=== PATIENT | female | born 1965 | race Caucasian/White ===

== ENCOUNTER 2016-07-27 12:49 | Outpatient (RCR) | payer BC ==
[~2016-07-27 12:49] MED LIST: ALPR0.5T7 PO; ASCO500T5 PO; ASPI-983 PO; ATOR40TA PO; ATOR40TA70 PO; CLOP75TA28 PO; FAMO-119 PO; FLUO20CA25 PO; FLUT9.9S NSEACH; FURO20TA4 PO; LISI-556 PO; METO-270 PO; MULT-35 PO; NITR0.4T SL; POTA10CA43 PO; RANI150T15 PO; TICA90TA PO
[2016-07-27 13:07] LABS: BASOPHILS % (AUTO) 0 % (0-10); EOSINOPHILS # (AUTO) 0.4 10^3/uL (0.0-0.3); EOSINOPHILS % (AUTO) 5 % (0-10); LYMPHOCYTES % (AUTO) 26 % (12-44); MEAN CORPUSCULAR HEMOGLOBIN 33 PG (25-34); MEAN CORPUSCULAR HGB CONC 34 G/DL (32-36); MEAN CORPUSCULAR VOLUME 98 FL (80-99); MEAN PLATELET VOLUME 8.3 FL (7.4-10.4); MONOCYTES # (AUTO) 0.8 X 10^3 (0.0-1.0); MONOCYTES % (AUTO) 11 % (0-12); NEUTROPHILS # (AUTO) 4.4 X 10^3 (1.8-7.8); NEUTROPHILS % (AUTO) 58 % (42-75); PLATELET COUNT 270 10^3/uL (130-400); RED BLOOD COUNT 3.34 10^6/uL (4.35-5.85); RED CELL DISTRIBUTION WIDTH 13.5 % (10.0-14.5); RETICULOCYTE % 3.37 % (0.50-2.40); WHITE BLOOD COUNT 7.7 10^3/uL (4.3-11.0)
[2016-07-27 13:39] LABS: ALANINE AMINOTRANSFERASE 22 U/L (0-55); ALBUMIN 4.5 G/DL (3.2-4.5); ANION GAP 10 MMOL/L (5-14); ASPARTATE AMINO TRANSFERASE 33 U/L (5-34); BILIRUBIN,TOTAL 0.2 MG/DL (0.1-1.0); BLOOD UREA NITROGEN 5 MG/DL (7-18); BUN/CREATININE RATIO 7; CALCIUM 9.9 MG/DL (8.5-10.1); CARBON DIOXIDE 27 MMOL/L (21-32); CHLORIDE 98 MMOL/L (98-107); CREATININE SERUM 0.69 MG/DL (0.60-1.30); GFR ESTIMATED > 60; GLUCOSE 82 MG/DL (70-105); POTASSIUM 4.5 MMOL/L (3.6-5.0); SODIUM 135 MMOL/L (135-145); TOTAL PROTEIN 7.4 G/DL (6.4-8.2)
== END 2016-10-25 | disposition home or self-care (01) ==
LOC: ONC 12:49
PROVIDERS: ATTEND Internal Medicine Hematology & Oncology
DX: D50.0 Iron deficiency anemia secondary to blood loss (chronic) (principal); K27.9 Peptic ulcer, site unspecified, unspecified as acute or chronic, without hemorrhage or perforation; I25.10 Atherosclerotic heart disease of native coronary artery without angina pectoris; Z95.5 Presence of coronary angioplasty implant and graft; Z79.02 Long term (current) use of antithrombotics/antiplatelets; Z79.82 Long term (current) use of aspirin
CPT/HCPCS: 36415; 80053; 82728; 85025; 85045; 99213

== ENCOUNTER 2016-11-25 12:23 | Outpatient (RCR) | payer BC ==
--- OUTSIDE RECORDS SUMMARY | 2016-11-25 12:25 | XMS REPORT | Continuity of Care Document ---
Author Author [facility] Organization [facility] Address Unknown Phone Unavailable Allergies Active Description Code Type Severity Reaction Onset Reported/Identified Relationship to Patient Clinical Status Yes codeine [id number] Drug Allergy Mild N/A 09/02/2015 Medications Problems Date Dx Coded Attending Type Code Diagnosis Diagnosed By 09/04/2015 TOBY POWER, TERRI R Ot F10.239 09/04/2015 TOBY POWER, TERRI R Ot F17.210 09/04/2015 TOBY POWER, TERRI R Ot I25.110 09/04/2015 TOBY POWER, TERRI R Ot J44.9 09/04/2015 TOBY POWER, TERRI R Ot Z82.49 09/09/2015 TOBY POWER, TERRI R Ot D64.9 09/09/2015 TOBY POWER, TERRI R Ot F10.99 09/09/2015 TOBY POWER, TERRI R Ot F17.200 09/09/2015 TOBY POWER, TERRI R Ot I25.110 09/09/2015 TOBY POWER, TERRI R Ot Z79.899 09/09/2015 TOBY POWER, TERRI R Ot Z98.61 11/19/2015 TOBY POWER, TERRI R Ot D50.9 11/19/2015 TOBY POWER, TERRI R Ot F17.210 11/19/2015 TOBY POWER, TERRI R Ot F32.9 11/19/2015 TOBY POWER, TERRI R Ot I25.10 11/19/2015 TOBY POWER, TERRI R Ot K92.2 11/19/2015 TOBY POWER, TERRI R Ot Z82.49 11/19/2015 TOBY POWER, TERRI R Ot Z95.5 01/21/2016 DARREL MORAN Ot D50.0 01/21/2016 DARREL MORAN Ot I25.10 01/21/2016 DARREL MORAN Ot K27.9 01/21/2016 LUISADARREL TIWARI N Ot Z79.02 01/21/2016 LUISADARREL TIWARI N Ot Z79.82 01/21/2016 LUISADARREL TIWARI N Ot Z95.5 04/05/2016 DARREL MORAN N Ot D50.0 IRON DEFICIENCY ANEMIA SECONDARY TO BLOO 04/05/2016 LUISA BOBAN N Ot I25.10 ATHSCL HEART DISEASE OF [place] CORONARY 04/05/2016 LUISADARREL TIWARI N Ot K27.9 [facility], [facility], [facility] [[email or web address]] AC OR [facility] 04/05/2016 LUISADARREL TIWARI N Ot Z79.02 [place] (CURRENT) USE OF ANTITHROMBOTI 04/05/2016 LUISA DARREL N Ot Z79.82 [place] (CURRENT) USE OF ASPIRIN 04/05/2016 LUISAPERFECTOZOE N Ot Z95.5 PRESENCE OF CORONARY ANGIOPLASTY IMPLANT 07/08/2016 LUISA, PERFECTOZOE N Ot D50.0 IRON DEFICIENCY ANEMIA SECONDARY TO BLOO 07/08/2016 LUISADARREL N Ot I25.10 ATHSCL HEART DISEASE OF [place] CORONARY 07/08/2016 LUISADARREL TIWARI N Ot K27.9 [facility], [facility] [[email or web address]] AC OR [facility] 07/08/2016 LUISADARREL TIWARI N Ot Z79.02 [place] (CURRENT) USE OF ANTITHROMBOTI 07/08/2016 LUISADARREL TIWARI N Ot Z79.82 USP (CURRENT) USE OF ASPIRIN 07/08/2016 LUISA DARREL N Ot Z95.5 PRESENCE OF CORONARY ANGIOPLASTY IMPLANT 07/28/2016 LUISADARREL TIWARI N Ot D50.0 IRON DEFICIENCY ANEMIA SECONDARY TO BLOO 07/28/2016 LUISAPERFECTOAN N Ot I25.10 ATHSCL HEART DISEASE OF [place] CORONARY 07/28/2016 LUISADARREL N Ot K27.9 [facility], [facility] [[email or web address]] AC OR [facility] 07/28/2016 LUISA PERFECTOAN N Ot Z79.02 [place] (CURRENT) USE OF ANTITHROMBOTI 07/28/2016 LUISA BOBAN N Ot Z79.82 [place] (CURRENT) USE OF ASPIRIN 07/28/2016 LUISAPERFECTOAN N Ot Z95.5 PRESENCE OF CORONARY ANGIOPLASTY IMPLANT 08/19/2016 DARREL MORAN Ot D50.0 IRON DEFICIENCY ANEMIA SECONDARY TO BLOO 08/19/2016 DARREL MORAN Ot I25.10 ATHSCL HEART DISEASE OF [place] CORONARY 08/19/2016 DARREL MORAN Ot K27.9 [facility], [facility], UNS AC OR [facility] 08/19/2016 DARREL MORAN Ot Z79.02 [place] (CURRENT) USE OF ANTITHROMBOTI 08/19/2016 DARREL MORAN N Ot Z79.82 USP (CURRENT) USE OF ASPIRIN 08/19/2016 DARREL MORAN N Ot Z95.5 PRESENCE OF CORONARY ANGIOPLASTY IMPLANT 10/25/2016 DARREL MORAN Ot D50.0 IRON DEFICIENCY ANEMIA SECONDARY TO BLOO 10/25/2016 DARREL MORAN Ot I25.10 ATHSCL HEART DISEASE OF [place] CORONARY 10/25/2016 DARREL MORAN Ot K27.9 [facility], [facility] UNS, [facility] OR [facility] 10/25/2016 DARREL MORAN Ot Z79.02 USP (CURRENT) USE OF ANTITHROMBOTI 10/25/2016 DARREL MORAN N Ot Z79.82 [place] (CURRENT) USE OF ASPIRIN 10/25/2016 DARREL MORAN N Ot Z95.5 PRESENCE OF CORONARY ANGIOPLASTY IMPLANT Procedures Results Encounters ACCT No. Visit Date/Time Discharge Status Pt. Type Provider Facility Loc./Unit Complaint [id number] 07/27/2016 12:49:00 2016 00:01:00 DIS Outpatient DARREL MORAN Jos [facility] ONC [id number] 02/12/2016 14:21:00 2015 00:01:00 DIS Outpatient LUISA DARREL Arguello [facility] ONC [id number] 11/17/2015 12:22:00 2015 13:00:00 DIS Inpatient TERRI LUIS MD [facility] 4TH [id number] 09/07/2015 22:20:00 2014 10:19:00 DIS Outpatient TERRI LUIS MD [facility] [id number] 09/02/2015 07:52:00 2014 10:50:00 DIS Inpatient TOBY POWER, TERRI Bobby [facility] [id number] 10/26/2016 00:11:00 PEN Preadmit DARREL MORAN [facility] ONC
[2016-11-25 13:11] LABS: BASOPHILS % (AUTO) 0 % (0-10); EOSINOPHILS # (AUTO) 0.3 10^3/uL (0.0-0.3); EOSINOPHILS % (AUTO) 3 % (0-10); LYMPHOCYTES # (AUTO) 2.1 X 10^3 (1.0-4.0); LYMPHOCYTES % (AUTO) 22 % (12-44); MEAN CORPUSCULAR HEMOGLOBIN 33 PG (25-34); MEAN CORPUSCULAR HGB CONC 35 G/DL (32-36); MEAN CORPUSCULAR VOLUME 95 FL (80-99); MEAN PLATELET VOLUME 8.8 FL (7.4-10.4); MONOCYTES # (AUTO) 0.8 X 10^3 (0.0-1.0); MONOCYTES % (AUTO) 8 % (0-12); NEUTROPHILS # (AUTO) 6.3 X 10^3 (1.8-7.8); NEUTROPHILS % (AUTO) 66 % (42-75); PLATELET COUNT 254 10^3/uL (130-400); RED BLOOD COUNT 3.81 10^6/uL (4.35-5.85); RED CELL DISTRIBUTION WIDTH 13.1 % (10.0-14.5); RETICULOCYTE % 1.83 % (0.50-2.40); WHITE BLOOD COUNT 9.5 10^3/uL (4.3-11.0)
[2016-11-25 13:47] LABS: ALANINE AMINOTRANSFERASE 24 U/L (0-55); ALBUMIN 4.6 G/DL (3.2-4.5); ANION GAP 11 MMOL/L (5-14); ASPARTATE AMINO TRANSFERASE 42 U/L (5-34); BILIRUBIN,TOTAL 0.4 MG/DL (0.1-1.0); BLOOD UREA NITROGEN 5 MG/DL (7-18); BUN/CREATININE RATIO 7; CALCIUM 9.3 MG/DL (8.5-10.1); CARBON DIOXIDE 24 MMOL/L (21-32); CHLORIDE 95 MMOL/L (98-107); CREATININE SERUM 0.72 MG/DL (0.60-1.30); GFR ESTIMATED > 60; GLUCOSE 129 MG/DL (70-105); POTASSIUM 3.6 MMOL/L (3.6-5.0); SODIUM 130 MMOL/L (135-145); TOTAL PROTEIN 7.6 G/DL (6.4-8.2)
== END 2017-02-23 | disposition home or self-care (01) ==
LOC: ONC 12:23
PROVIDERS: ATTEND Internal Medicine Hematology & Oncology
DX: D50.0 Iron deficiency anemia secondary to blood loss (chronic) (principal); K27.9 Peptic ulcer, site unspecified, unspecified as acute or chronic, without hemorrhage or perforation; I25.10 Atherosclerotic heart disease of native coronary artery without angina pectoris; Z95.5 Presence of coronary angioplasty implant and graft; Z79.02 Long term (current) use of antithrombotics/antiplatelets; Z79.82 Long term (current) use of aspirin
CPT/HCPCS: 36415; 80053; 82728; 85025; 85045; 99213

== ENCOUNTER 2017-07-06 10:20 | Outpatient (RCR) | payer BC ==
[2017-07-06 10:28] LABS: BASOPHILS # (AUTO) 0.1 10^3/uL (0.0-0.1); BASOPHILS % (AUTO) 1 % (0-10); EOSINOPHILS # (AUTO) 0.5 10^3/uL (0.0-0.3); EOSINOPHILS % (AUTO) 5 % (0-10); LYMPHOCYTES # (AUTO) 1.4 X 10^3 (1.0-4.0); LYMPHOCYTES % (AUTO) 14 % (12-44); MEAN CORPUSCULAR HEMOGLOBIN 35 PG (25-34); MEAN CORPUSCULAR HGB CONC 35 G/DL (32-36); MEAN CORPUSCULAR VOLUME 99 FL (80-99); MONOCYTES # (AUTO) 1.1 X 10^3 (0.0-1.0); MONOCYTES % (AUTO) 12 % (0-12); NEUTROPHILS # (AUTO) 6.7 X 10^3 (1.8-7.8); NEUTROPHILS % (AUTO) 69 % (42-75); PLATELET COUNT 186 10^3/uL (130-400); RED BLOOD COUNT 3.93 10^6/uL (4.35-5.85); RED CELL DISTRIBUTION WIDTH 12.4 % (10.0-14.5); WHITE BLOOD COUNT 9.7 10^3/uL (4.3-11.0)
[2017-07-06 10:47] LABS: ALANINE AMINOTRANSFERASE 88 U/L (0-55); ALBUMIN 4.6 GM/DL (3.2-4.5); ANION GAP 13 MMOL/L (5-14); ASPARTATE AMINO TRANSFERASE 160 U/L (5-34); BILIRUBIN,TOTAL 0.5 MG/DL (0.1-1.0); BLOOD UREA NITROGEN 5 MG/DL (7-18); BUN/CREATININE RATIO 8; CALCIUM 9.4 MG/DL (8.5-10.1); CARBON DIOXIDE 24 MMOL/L (21-32); CHLORIDE 97 MMOL/L (98-107); CREATININE SERUM 0.66 MG/DL (0.60-1.30); GFR ESTIMATED > 60; GLUCOSE 82 MG/DL (70-105); POTASSIUM 3.8 MMOL/L (3.6-5.0); SODIUM 134 MMOL/L (135-145); TOTAL PROTEIN 8.3 GM/DL (6.4-8.2)
== END 2017-07-09 | disposition home or self-care (01) ==
LOC: ONC 10:20
PROVIDERS: ATTEND Internal Medicine Hematology & Oncology
DX: D50.0 Iron deficiency anemia secondary to blood loss (chronic) (principal); K27.9 Peptic ulcer, site unspecified, unspecified as acute or chronic, without hemorrhage or perforation; I25.10 Atherosclerotic heart disease of native coronary artery without angina pectoris; Z95.5 Presence of coronary angioplasty implant and graft; Z79.02 Long term (current) use of antithrombotics/antiplatelets; Z79.82 Long term (current) use of aspirin
CPT/HCPCS: 36415; 80053; 82728; 85025; 99213

== ENCOUNTER 2018-01-20 08:59 | Outpatient (RCR) | payer BC ==
[~2018-01-20 08:59] MED LIST changes: -METO-270 PO; +METO-387 PO; -RANI150T15 PO; +RANI150T46 PO
[2018-01-20 09:12] LABS: BASOPHILS % (AUTO) 0 % (0-10); EOSINOPHILS # (AUTO) 0.4 10^3/uL (0.0-0.3); EOSINOPHILS % (AUTO) 4 % (0-10); HEMATOCRIT 38 % (35-52); HEMOGLOBIN 13.6 G/DL (11.5-16.0); LYMPHOCYTES % (AUTO) 11 % (12-44); MEAN CORPUSCULAR HEMOGLOBIN 34 PG (25-34); MEAN CORPUSCULAR HGB CONC 36 G/DL (32-36); MEAN CORPUSCULAR VOLUME 96 FL (80-99); MEAN PLATELET VOLUME 9.2 FL (7.4-10.4); MONOCYTES % (AUTO) 11 % (0-12); NEUTROPHILS # (AUTO) 6.7 X 10^3 (1.8-7.8); NEUTROPHILS % (AUTO) 73 % (42-75); PLATELET COUNT 155 10^3/uL (130-400); RED BLOOD COUNT 3.96 10^6/uL (4.35-5.85); RED CELL DISTRIBUTION WIDTH 12.5 % (10.0-14.5); WHITE BLOOD COUNT 9.1 10^3/uL (4.3-11.0)
[2018-01-20 09:37] LABS: ALANINE AMINOTRANSFERASE 87 U/L (0-55); ALBUMIN 4.8 GM/DL (3.2-4.5); ALKALINE PHOSPHATASE 89 U/L (40-136); BILIRUBIN,TOTAL 0.7 MG/DL (0.1-1.0); BUN/CREATININE RATIO 6; CALCIUM 9.6 MG/DL (8.5-10.1); CARBON DIOXIDE 23 MMOL/L (21-32); CHLORIDE 96 MMOL/L (98-107); CREATININE SERUM 0.65 MG/DL (0.60-1.30); GFR ESTIMATED > 60; GLUCOSE 85 MG/DL (70-105); POTASSIUM 3.9 MMOL/L (3.6-5.0); SODIUM 133 MMOL/L (135-145); TOTAL PROTEIN 8.4 GM/DL (6.4-8.2)
== END 2018-04-20 | disposition home or self-care (01) ==
LOC: ONC 08:59
PROVIDERS: ATTEND Internal Medicine Hematology & Oncology
DX: D50.0 Iron deficiency anemia secondary to blood loss (chronic) (principal); K27.9 Peptic ulcer, site unspecified, unspecified as acute or chronic, without hemorrhage or perforation; R74.8 Abnormal levels of other serum enzymes; I25.10 Atherosclerotic heart disease of native coronary artery without angina pectoris; E78.00 Pure hypercholesterolemia, unspecified; Z95.5 Presence of coronary angioplasty implant and graft; Z79.02 Long term (current) use of antithrombotics/antiplatelets; Z79.82 Long term (current) use of aspirin
CPT/HCPCS: 36415; 80053; 82728; 85025; 99213

== ENCOUNTER → 2019-11-09 | Outpatient (CLI) | payer BC ==
[~2019-11-09] MED LIST changes: +ASCO-413 PO; -ASCO500T5 PO; -FLUO20CA25 PO; +FLUO20CA45 PO; -METO-387 PO; +MTP25TSR PO; +RANI-613 PO; -RANI150T46 PO
== END ==
LOC: EDSTATUS 04-21 14:42 → ONC 09:14
PROVIDERS: ATTEND Internal Medicine Hematology & Oncology
DX: D50.0 Iron deficiency anemia secondary to blood loss (chronic) (principal); I25.10 Atherosclerotic heart disease of native coronary artery without angina pectoris; R07.9 Chest pain, unspecified; R74.8 Abnormal levels of other serum enzymes; E78.00 Pure hypercholesterolemia, unspecified; K90.9 Intestinal malabsorption, unspecified; M79.89 Other specified soft tissue disorders; Z72.0 Tobacco use
CPT/HCPCS: 99213

== ENCOUNTER 2021-03-18 23:15 | Inpatient (IN) | payer BC ==
[~2021-03-18] VITALS: Ht 165.1 cm; Wt 60.0 kg
[~2021-03-18 23:15] MED LIST changes: -ASCO-413 PO; +ASCO500T71 PO; +ASPI-1238 PO; -ASPI-983 PO; -FLUO20CA45 PO; +FLUO20CA46 PO; -LISI-556 PO; +LISI-729 PO
[2021-03-19 00:39] LABS: BASOPHILS % (AUTO) 0 % (0-10); EOSINOPHILS % (AUTO) 0 % (0-10); HEMATOCRIT 28 % (35-52); HEMOGLOBIN 10.6 g/dL (11.5-16.0); LYMPHOCYTES # (AUTO) 0.8 10^3/uL (1.0-4.0); LYMPHOCYTES % (AUTO) 5 % (12-44); MEAN CORPUSCULAR HEMOGLOBIN 35 pg (25-34); MEAN CORPUSCULAR HGB CONC 37 g/dL (32-36); MEAN CORPUSCULAR VOLUME 94 fL (80-99); MEAN PLATELET VOLUME 9.6 fL (9.0-12.2); MONOCYTES # (AUTO) 1.8 10^3/uL (0.0-1.0); MONOCYTES % (AUTO) 12 % (0-12); NEUTROPHILS # (AUTO) 12.9 10^3/uL (1.8-7.8); NEUTROPHILS % (AUTO) 82 % (42-75); PLATELET COUNT 148 10^3/uL (130-400); WHITE BLOOD COUNT 15.7 10^3/uL (4.3-11.0)
[2021-03-19 00:50] LABS: ALBUMIN 4.3 GM/DL (3.2-4.5)
[2021-03-19 00:51] LABS: CHLORIDE 78 MMOL/L (98-107); POTASSIUM 3.1 MMOL/L (3.6-5.0)
[2021-03-19 00:52] LABS: CALCIUM 9.4 MG/DL (8.5-10.1)
[2021-03-19 00:53] LABS: GLUCOSE 122 MG/DL (70-105); TOTAL PROTEIN 8.2 GM/DL (6.4-8.2)
[2021-03-19 00:54] LABS: CARBON DIOXIDE 23 MMOL/L (21-32)
[2021-03-19 00:55] LABS: BILIRUBIN,TOTAL 0.9 MG/DL (0.1-1.0)
[2021-03-19 00:56] LABS: ALKALINE PHOSPHATASE 78 U/L (40-136)
[2021-03-19 00:57] LABS: CREATININE SERUM 0.63 MG/DL (0.60-1.30); GFR ESTIMATED > 60
[2021-03-19 00:58] LABS: BAND NEUTROPHILS 2 %; BASOPHILS % (MANUAL) 0 %; BUN/CREATININE RATIO 13; EOSINOPHILS % (MANUAL) 0 %; LYMPHOCYTES % (MANUAL) 5 %; MONOCYTES % (MANUAL) 10 %; NEUTROPHILS % (MANUAL) 82 %; RBC MORPH NORMAL; REACTIVE LYMPHOCYTES 1 %
[2021-03-19 01:00] LABS: ALANINE AMINOTRANSFERASE 26 U/L (0-55)
[2021-03-19 01:05] LABS: PROTHROMBIN TIME PATIENT 13.2 SEC (12.2-14.7)
[2021-03-19 01:14] LABS: SODIUM 117 MMOL/L (135-145)
[2021-03-19] MEDS ORDERED: PIPERACILLIN SODIUM/TAZOBACTAM 4.5 GM in NS (IVPB) 100 ML IV ONE (01:30)
[2021-03-19] MEDS ORDERED: NS IV 1000 ML 1,000 ML IV ONE (02:00)
[2021-03-19] MEDS ORDERED: ONDANSETRON 4 MG/2 ML (SDV) Z0FRAN IVP ONE (02:15)
[2021-03-19] MEDS ORDERED: NS IV 1000 ML 1,000 ML IV SCH ×2 (02:30→05:30)
[2021-03-19] MEDS ORDERED: HOLD METFORMIN - RECEIVED CONTRAST 20 ML VIAL IV SCH (02:45)
[2021-03-19] MEDS ORDERED: IOHEXOL 350 MG/ML 100 ML (OMNIPAQUE 350) VIAL IV ONE (02:45)
[2021-03-19] MEDS ORDERED: CATHETER FLUSH 10 ML SYR IV PRN (02:45)
[2021-03-19] MEDS ORDERED: NS 100 ML (IVPB) BAG IV ONE (02:45)
[2021-03-19] MEDS ORDERED: LORazepam INJ 2 MG/ML (ATIVAN) VIAL IVP ONE (03:30)
--- NOTE | 2021-03-19 03:54 | ED General ---
General Chief Complaint: Respiratory Problems Stated Complaint: SOB Source of Information: Patient, Old Records Exam Limitations: No Limitations History of Present Illness Date Seen by Provider: Mar 18, 2021 Time Seen by Provider: 23:36 Initial Comments This 55-year-old woman presents to the emergency room with complaints of shortness of breath and chest pain, particularly with exertion, for the past few months. She does have history of coronary artery disease with stenting. She also reports well but did some brownish stomach contents daily for quite some time. She is accustomed to drinking several beers daily. She denies fever and is afebrile at present. She does seem to be a bit confused during her initial interview and is tachypneic. Allergies and Home Medications Allergies Coded Allergies: codeine (Verified Allergy, Mild, 09/02/15) Home Medications Ascorbic Acid 500 Mg Tab.chew, 500 MG PO EVERY EVENING, (Reported) Aspirin 81 Mg Tablet.dr, 81 MG PO DAILY, (Reported) Atorvastatin Calcium 40 Mg Tablet, 40 MG PO DAILY, (Reported) Famotidine 20 Mg Tablet, 20 MG PO BID, (Reported) Fluoxetine HCl 20 Mg Capsule, 20 MG PO DAILY, (Reported) Fluticasone Propionate 9.9 Ml [place].susp, 1 SPRAY NSEACH BID, (Reported) Furosemide 20 Mg Tablet, 20 MG PO DAILY, (Reported) Lisinopril 5 Mg Tablet, 5 MG PO DAILY, (Reported) Multivitamin 1 Each Tablet, 1 TAB PO EVERY EVENING, (Reported) Nitroglycerin 0.4 Mg Tab.subl, 0.4 MG SL UD PRN for CHEST PAIN, (Reported) Patient Home Medication List Home Medication List Reviewed: Yes Review of Systems Review of Systems Constitutional: no symptoms reported EENTM: no symptoms reported Respiratory: see HPI Cardiovascular: see HPI Gastrointestinal: see HPI Genitourinary: no symptoms reported : No Musculoskeletal: no symptoms reported Skin: no symptoms reported Psychiatric/Neurological: See HPI Hematologic/Lymphatic: No Symptoms Reported Immunological/Allergic: no symptoms reported Past Ugixpqf-Prscbn-Uodkbo Hx Past Med/Social Hx: Reviewed Nursing Past Med/Soc Hx Patient Social History Alcohol Use: Regular Use Alcohol Beverage of Choice: Beer Immunizations Up To Date Tetanus Booster (TDap): Unknown PED Vaccines UTD: No Past Medical History Surgeries: Yes Section, Coronary Stent, 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 Respiratory: Yes Asthma Currently Using CPAP: No Currently Using BIPAP: No Cardiac: Yes Coronary Artery Disease Neurological: No : No Reproductive Disorders: Yes Female Reproductive Disorders: Denies Sexually Transmitted Disease: No HIV/AIDS: No Genitourinary: No Gastrointestinal: No Musculoskeletal: Yes Arthritis Endocrine: No HEENT: No Hearing Impairment: Denies Cancer: No Did You Recieve Any Treatments: No Psychosocial: Yes Depression Adverse Reaction/Blood Tranf: No Family Medical History Myocardial infarction 19 MOTHER CAD Under 55 Years Old Physical Exam-Suspected Sepsis Physical Exam Vital Signs Capillary Refill : Height, Weight, BMI Height: 5'3.00" Weight: 109lbs. 5.0oz. 49.972023st; 19.31 BMI Method:Stated General Appearance: No Apparent Distress, Mild Distress HEENT: PERRL/EOMI, Normal ENT Inspection, Other (Mucous membranes somewhat dry) Neck: Normal Inspection Respiratory: Lungs Clear, Normal Breath Sounds, No Accessory Muscle Use, No Respiratory Distress, Other (Tachypnea) Cardiovascular: No Edema, No Murmur, Normal Peripheral Pulses Gastrointestinal: Normal Bowel Sounds, Non Tender, Soft Back: Normal Inspection Extremity: Normal Capillary Refill, Normal Inspection, Normal Range of Motion, Non Tender Neurologic/Psychiatric: Alert, No Motor/Sensory Deficits, Normal Mood/Affect, 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 Norm as Tested, Other (Mild disorientation) Skin: normal color, warm/dry Focused Exam Lactate Level 03/19/21 00:16: Lactic Acid Level 6.35*H 03/19/21 04:20: Lactic Acid Level 0.95 Lactic Acid Level Laboratory Tests Test 03/19/21 04:20 Lactic Acid Level 0.95 MMOL/L (0.50-2.00) Progress/Results/Core Measures Suspected Sepsis SIRS Temperature: Pulse: Respiratory Rate: Laboratory Tests 03/19/21 00:20: White Blood Count 15.7H Blood Pressure / Mean: 03/19/21 00:16: Lactic Acid Level 6.35*H 03/19/21 04:20: Lactic Acid Level 0.95 Laboratory Tests 03/19/21 00:20: Creatinine 0.63, Platelet Count 148, Total Bilirubin 0.9 03/19/21 00:41: INR Comment 1.0 Results/Orders Lab Results Laboratory Tests Test 03/19/21 00:15 03/19/21 00:16 03/19/21 00:03/19/21 00:41 Range/Units Influenza Type A (RT-PCR) Not Detected Not Detecte Influenza Type B (RT-PCR) Not Detected Not Detecte SARS-CoV-2 RNA (RT-PCR) Not Detected Not Detecte Lactic Acid Level 6.35 *H 0.50-2.00 MMOL/L White Blood Count 15.7 H 4.3-11.0 10^3/uL Red Blood Count 3.01 L 3.80-5.11 10^6/uL Hemoglobin 10.6 L 11.5-16.0 g/dL Hematocrit 28 L 35-52 % Mean Corpuscular Volume 94 80-99 fL Mean Corpuscular Hemoglobin 35 H 25-34 pg Mean Corpuscular Hemoglobin Concent 37 H 32-36 g/dL Red Cell Distribution Width 12.0 10.0-14.5 % Platelet Count 148 130-400 10^3/uL Mean Platelet Volume 9.6 9.0-12.2 fL Immature Granulocyte % (Auto) 1 % Neutrophils (%) (Auto) 82 H 42-75 % Lymphocytes (%) (Auto) 5 L 12-44 % Monocytes (%) (Auto) 12 0-12 % Eosinophils (%) (Auto) 0 0-10 % Basophils (%) (Auto) 0 0-10 % Neutrophils # (Auto) 12.9 H 1.8-7.8 10^3/uL Lymphocytes # (Auto) 0.8 L 1.0-4.0 10^3/uL Monocytes # (Auto) 1.8 H 0.0-1.0 10^3/uL Eosinophils # (Auto) 0.0 0.0-0.3 10^3/uL Basophils # (Auto) 0.0 0.0-0.1 10^3/uL Immature Granulocyte # (Auto) 0.1 0.0-0.1 10^3/uL Neutrophils % (Manual) 82 % Lymphocytes % (Manual) 5 % Monocytes % (Manual) 10 % Eosinophils % (Manual) 0 % Basophils % (Manual) 0 % Band Neutrophils 2 % Reactive Lymphocytes 1 % Blood Morphology Comment NORMAL D-Dimer 0.56 H 0.00-0.49 UG/ML Sodium Level 117 *L 135-145 MMOL/L Potassium Level 3.1 L 3.6-5.0 MMOL/L Chloride Level 78 L 98-107 MMOL/L Carbon Dioxide Level 23 21-32 MMOL/L Anion Gap 16 H 5-14 MMOL/L Blood Urea Nitrogen 8 7-18 MG/DL Creatinine 0.63 0.60-1.30 MG/DL Estimat Glomerular Filtration Rate > 60 BUN/Creatinine Ratio 13 Glucose Level 122 H 70-105 MG/DL Calcium Level 9.4 8.5-10.1 MG/DL Corrected Calcium 9.2 8.5-10.1 MG/DL Magnesium Level 2.0 1.6-2.4 MG/DL Total Bilirubin 0.9 0.1-1.0 MG/DL Aspartate Amino Transf (AST/SGOT) 50 H 5-34 U/L Alanine Aminotransferase (ALT/SGPT) 26 0-55 U/L Alkaline Phosphatase 78 40-136 U/L Ammonia 31 11-32 UMOL/L Myoglobin 56.7 10.0-92.0 NG/ML Troponin I < 0.028 <0.028 NG/ML C-Reactive Protein High Sensitivity 2.89 H 0.00-0.50 MG/DL B-Type Natriuretic Peptide 23.8 <100.0 PG/ML Total Protein 8.2 6.4-8.2 GM/DL Albumin 4.3 3.2-4.5 GM/DL Lipase 26 8-78 U/L Serum Alcohol < 10 <10 MG/DL Prothrombin Time 13.2 12.2-14.7 SEC INR Comment 1.0 0.8-1.4 Activated Partial Thromboplast Time 30 24-35 SEC Test 03/19/21 04:20 Range/Units Lactic Acid Level 0.95 0.50-2.00 MMOL/L My Orders Orders - MIRZA LOWE MD Covid 19 Inhouse Test (03/18/21 23:36) Influenza A And B By Pcr (03/18/21 23:36) Cbc With Automated Diff (03/19/21 00:35) Magnesium (03/19/21 00:35) Chest 1 View, Ap/Pa Only (03/19/21 00:35) Ekg Tracing (03/19/21 00:35) Comprehensive Metabolic Panel (03/19/21 00:35) Myoglobin Serum (03/19/21 00:35) Protime With Inr (03/19/21 00:35) Partial Thromboplastin Time (03/19/21 00:35) O2 (03/19/21 00:35) Monitor-Rhythm Ecg Trace Only (03/19/21 00:35) Lipid Panel (03/20/21 06:00) Ed Iv/Invasive Line Start (03/19/21 00:35) Troponin I (03/19/21 00:35) BNP (03/19/21 00:37) Manual Differential (03/19/21 00:20) Ammonia (03/19/21 00:50) Hs C Reactive Protein (03/19/21 00:50) Fibrin Degradation Products (03/19/21 00:50) Lipase (03/19/21 00:50) Blood Culture (03/19/21 00:51) Sputum Culture (03/19/21 00:51) Urinalysis (03/19/21 00:51) Urine Culture (03/19/21 00:51) Vital Signs Adult Sepsis Patie Q15M (03/19/21 00:51) Remove Rings In Anticipation O (03/19/21 00:51) Lactic Acid Analyzer (03/19/21 00:51) Alcohol (03/19/21 01:16) Ct Ronda Chest/Noang Abd-Pelv W (03/19/21 01:17) Piperacillin Sodium/Tazobactam (Zosyn Vi (03/19/21 01:30) Ns Iv 1000 Ml (Sodium Chloride 0.9%) (03/19/21 02:00) Ondansetron Injection (Zofran Injectio (03/19/21 02:15) Ns Iv 1000 Ml (Sodium Chloride 0.9%) (03/19/21 02:30) Iohexol Injection (Omnipaque 350 Mg/Ml 1 (03/19/21 02:45) Received Contrast (Hold Metformin- Contr (03/19/21 02:45) Sodium Chloride Flush (Catheter Flush Sy (03/19/21 02:45) Ns (Ivpb) (Sodium Chloride 0.9% Ivpb Bag (03/19/21 02:45) Lorazepam Injection (Ativan Injection) (03/19/21 03:30) Ekg Tracing (03/19/21 03:31) Medications Given in ED Current Medications Medications Dose Ordered Sig/Mak Route Start Time Stop Time Status Last Admin Dose Admin Ondansetron HCl 8 mg ONCE ONCE IVP 03/19/21 02:15 03/19/21 02:16 DC 03/19/21 02:28 8 MG Piperacillin Sod/ Tazobactam Sod 4.5 gm/Sodium Chloride 100 ml @ 200 mls/hr ONCE ONCE IV 03/19/21 01:30 03/19/21 01:59 DC 03/19/21 02:56 200 MLS/HR Sodium Chloride 1,000 ml @ 0 mls/hr Q0M ONCE IV 03/19/21 02:00 03/19/21 02:01 DC 03/19/21 02:55 1,000 MLS/HR Vital Signs/I&O Capillary Refill : Progress Note : Progress Note Work-up was pursued with both septic order set and chest pain order set. Troponin and EKG were unremarkable for ACS. Patient was found to be septic, likely from multilobar pneumonia. Influenza and Covid screens were negative. Patient did not provide a urine specimen while in the ER. Lactic acid was markedly elevated which placed the patient in septic shock criteria. 2 L of IV normal saline were infused to satisfy the 30 mL/kg large volume fluid bolus. Ralph rodriguez appeared to have confusion which was likely related to both hyponatremia and alcohol withdrawal. She did have some tremors and anxiousness accompanied by hypertension. Ativan 1 mg IV was administered which helped with the symptoms. She did have a repeat bout of chest pain. Repeat EKG was unremarkable for ST changes. Patient did state the chest pain was worse with inspiration and seemed pleuritic in nature. D-dimer was mildly elevated prompting CT angiogram of the chest which showed no PE. CT of the abdomen pelvis was added because of her complaints of daily vomiting and possible hematemesis. CT abdomen and pelvis was unremarkable. I discussed CODE STATUS with the patient and she would like to remain full code at this time. Antibiotic therapy was initiated with Zosyn in the ER. ECG EKG #1: EKG Time: 00:22 Rate: 99 Rhythm: S.Tach Comment Sinus tachycardia with no ST elevation or depression. No abnormal intervals or axis deviation. EKG #2: EKG Time: 03:33 Rate: 108 Rhythm: S.Tach Comment Sinus tachycardia with no ST elevation or depression. No abnormal intervals or axis deviation. Diagnostic Imaging Diagonstic Imaging: Xray Plain Films/CT/US/NM/MRI: chest Comments Chest x-ray viewed by me. Report not yet available. Perhaps subtle infiltrate in the left lower lung. Diagonstic Imaging: CT Plain Films/CT/US/NM/MRI: chest, abdomen, pelvis Comments CT angiogram chest with CT abdomen and pelvis viewed by me and stat rad report reviewed. Patchy groundglass infiltrates noted. No PE. Departure Communication (Admissions) Time/Spoke to Admitting Phy: 01:30 Dr. Figueredo Time/Spoke to Consulting Phy: 03:52 Dr. Hernandez Impression Primary Impression: Septic shock Additional Impressions: Chest pain Qualified Codes: R07.9 - Chest pain, unspecified Pneumonia Qualified Codes: J18.9 - Pneumonia, unspecified organism Hyponatremia Alcohol withdrawal Qualified Codes: F10.239 - Alcohol dependence with withdrawal, unspecified Nausea and vomiting Qualified Codes: R11.2 - Nausea with vomiting, unspecified Disposition: 09 ADMITTED INPATIENT Condition: Improved Admissions Decision to Admit Reason: Admit from ER (General) Decision to Admit/Date: Mar 19, 2021 Time/Decision to Admit Time: 01:15 Departure-Patient Inst. Referrals: LENO ELLIS DO (PCP/Family) Primary Care Physician MIRZA LOWE MD Mar 19, 2021 03:54
[2021-03-19 04:55] VITALS: BP 134/74
[2021-03-19] MEDS ORDERED: PANTOPRAZOLE 20 MG TABLET (PROTONIX) PO SCH (05:10)
[2021-03-19] MEDS ORDERED: ONDANSETRON 4 MG (ZOFRAN) ORAL DISSOLVE TAB SL PRN (05:15)
[2021-03-19] MEDS ORDERED: D5 1/2 NS 1000 ML IV SOLUTION 1,000 ML IV PRN (05:15)
[2021-03-19] MEDS ORDERED: LORazepam INJ 2 MG/ML (ATIVAN) VIAL IM/IV PRN (05:15)
[2021-03-19] MEDS ORDERED: SENNA W/DOCUSATE (SENOKOT S) TABLET PO PRN (05:15)
[2021-03-19] MEDS ORDERED: ACETAMINOPHEN 650 MG SUPP (TYLENOL) PR PRN (05:15)
[2021-03-19] MEDS ORDERED: ANTACID SUSP 30 ML UDC (MYLANTA) PO PRN (05:15)
[2021-03-19] MEDS ORDERED: ONDANSETRON 4 MG/2 ML (SDV) Z0FRAN IV PRN ×2 (05:15)
[2021-03-19] MEDS ORDERED: ACETAMINOPHEN 325 MG TABLET PO PRN (05:15)
[2021-03-19] MEDS ORDERED: fentaNYL INJ 100 MCG/2 ML AMP IV PRN (05:15)
[2021-03-19] MEDS ORDERED: LORazepam 1 MG (ATIVAN) TAB PO PRN (05:15)
[2021-03-19] MEDS ORDERED: NOREPINEPHRINE 8 MG/250 ML 250 ML IV SCH (06:00)
[2021-03-19] MEDS ORDERED: EPINEPHrine 1 MG INJECTION 4 MG in NS (IVPB) 248 ML IV SCH (06:00)
[2021-03-19] MEDS ORDERED: NS IV 1000 ML 1,000 ML ONE (06:12)
[2021-03-19] MEDS: MULTIVIT W/MINERALS TAB (THERAGRAN M) PO SCH (06:15)
[2021-03-19] MEDS: THIAMINE 100 MG (VITAMIN B-1) TAB PO SCH (06:15)
--- NOTE | 2021-03-19 06:27 | Diagnostic Imaging Report ---
INDICATION: Chest pain and fever COMPARISON: 09/07/15 FINDINGS: Single view of the chest demonstrates subtle infiltrate in the left base. The right lung is clear. The heart is normal. There is no pneumothorax. The osseous structures stable. IMPRESSION: Subtle infiltrate left lung base. Follow-up recommended. Dictated by: Dictated on workstation # [id number]
[2021-03-19 06:33] LABS: ABG BASE EXCESS 1.7 MMOL/L (-2.5-2.5); ABG OXYGEN SATURATION 98 % (94-100); ABG PCO2 30 MMHG (35-45); ABG PH 7.52 (7.37-7.43); ABG PO2 92 MMHG (79-93); ABG TCO2 25.5 MMOL/L (21.0-31.0)
[2021-03-19 06:38] LABS: ALLENS TEST YES-POS; INSPIRED O2 1L; VENTILATOR NO
[2021-03-19 06:39] LABS: PATIENT TEMP 36.4
[2021-03-19 06:59] LABS: BILIRUBIN,URINE NEGATIVE (NEGATIVE); CLARITY,URINE CLEAR; COLOR,URINE YELLOW; GLUCOSE, URINE (UA) NEGATIVE (NEGATIVE); KETONES,URINE TRACE (NEGATIVE); LEUKOCYTE ESTERASE ,URINE NEGATIVE (NEGATIVE); NITRITE,URINE NEGATIVE (NEGATIVE); PROTEIN,URINE NEGATIVE (NEGATIVE)
[2021-03-19] MEDS ORDERED: VANCOMYCIN 1 GM/NS 250 ML IVPB IV SCH ×2 (07:00)
[2021-03-19 07:09] LABS: RBC,URINE RARE /HPF
[2021-03-19 07:10] LABS: BACTERIA,URINE TRACE /HPF; SQUAMOUS EPITHELIAL CELL,UR 0-2 /HPF
[2021-03-19] MEDS: VASOPRESSIN INJECTION 20 UNIT in NS (IVPB) 100 ML IV SCH ×3 (07:14→22:37)
[2021-03-19] MEDS: MAGNESIUM 1 GM/100 ML IVPB 100 ML IV SCH (07:17)
[2021-03-19] MEDS: KCL 20 MEQ TAB (K-DUR) PO SCH (07:18)
[2021-03-19] MEDS: POTASSIUM CL 10MEQ/50ML IVPB 50 ML IV SCH ×6 (07:19→19:29)
[2021-03-19] MEDS: FAMOTIDINE 20MG/2ML IV (PEPCID) IVP SCH ×2 (08:23→23:04)
[2021-03-19] MEDS: FOLIC ACID 1 MG TAB PO SCH (08:23)
--- NOTE | 2021-03-19 08:32 | Diagnostic Imaging Report ---
INDICATION: SOA, CP, Vomiting CTA chest, abdomen and pelvis Thin axial sections through the chest, abdomen and pelvis are obtained following intravenous contrast bolus. Multiplanar MIP images were reconstructed and reviewed. All CT scans use one or more of the following dose optimizing techniques: automated exposure control, MA and/or KvP adjustment based on patient size and exam type or iterative reconstruction. There are no prior CT examinations available for comparison. The plain film of the chest performed prior to this study astutely noted a subtle infiltrate in the left lung base. Images through the thorax do show that there are vague alveolar/interstitial infiltrates involving the left lower lobe. This does suggest pneumonia/atelectasis. There are also small patchy areas of increased density in the left perihilar region, the periphery of the left upper lobe, and throughout the right lung.. These findings are all most likely due to mild pneumonia/atelectasis. There is no pleural effusion identified. The heart size is within normal limits. There are coronary artery calcifications evident. The aorta is not abnormally dilated and there is no sign of dissection. There is no defect within the pulmonary arteries to indicate a pulmonary embolus. There is no mediastinal or hilar adenopathy. Thyroid gland is generally unremarkable. There is no definite breast mass. The images through the abdomen and pelvis show that the liver is of lower density than usually seen and this appearance does suggest fatty metamorphosis. The liver does not appear to be enlarged. There is no focal mass involving the liver either. The spleen, pancreas, adrenals, gallbladder, kidneys, aorta and inferior vena cava and portal vein show no sign of an acute abnormality. There is a small gallstone within the gallbladder, however. The stomach is filled with fluid and difficult to assess. There does seem to be a small hiatal hernia. There is no pelvic mass or free fluid collection noted. There is generalized thickening of the wall of the sigmoid colon but this finding is more likely due to incomplete distention than to colitis as there does not appear to be any significant distortion of the pericolonic fat in this area. Even so, clinical follow-up is recommended. The appendix was not well-visualized but there are no indirect signs of acute appendicitis. The urinary bladder is grossly unremarkable. The uterus appears to be surgically absent. The bone windows are unremarkable for a fracture or for destructive lesion. IMPRESSION: 1. There are patchy alveolar/interstitial infiltrates involving both lungs, particularly the left lung base. There is no acute cardiopulmonary abnormality noted otherwise. 2. There is cholelithiasis but there is no sign of acute cholecystitis. 3. There is no acute abnormality of the abdomen or pelvis identified. 4. 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 5. I agree with [facility] interpretation of this exam although the report did not mention the cholelithiasis. Dictated by: Dictated on workstation # [id number]
--- NOTE | 2021-03-19 08:36 | Consultation-Cardiology ---
HPI-Cardiology Cardiology Consultation: Date of Consultation 03/19/21 Time Seen by a Provider: 08:50 Date of Admission 03-18-21 Attending Physician Lynn Mcdonald MD Admitting Physician Marco Escobedo DO Consulting Physician Elizabeth Larsen MD HPI: Chief Complaint: Chest pain Ms. Capps is a 55 yr old female admitted to ICU 12 from the ED with sepsis. She reports for the last several days she has had increasing weakness. She reports night sweats. She reports nausea with emesis of brown liquid. She denies any diarrhea. No c/o constipation. She reports lower chest discomfort which comes on with coughing and vomiting. She reports it does not radiate. She reports SOB and frequent productive cough of thick sputum. No c/o syncope or near syncope. No c/o LE swelling. She states she has not been eating much at home d/t her having new onset Alzheimer's which has caused increased stress. She denies any LE swelling. She reports she smokes 1 PPD of cigs. She reports she drinks 4-10 beers per night. Review of Systems-Cardiology Review of Systems Constitutional: chills; No fever; malaise, tiredness Eyes: No vision change Ears/Nose/Throat: No epistaxis, No recent hearing loss Respiratory: As described under HPI Cardiovascular: As described under HPI Gastrointestinal: As described under HPI Genitourinary: No dysuria, No hematuria : No Skin: No rash on exposed areas, No ulcerations on exposed areas Psychiatric/Neurological: depression; No focal weakness, No syncope Hematologic: No bleeding abnormalities VYI-Kvsjch-Pxthxr Hx Patient Social History Smoking Status: Current Everyday Smoker Have you traveled recently?: No Alcohol Use?: Yes Tobacco type used: Cigarettes Immunizations Up To Date Tetanus Booster (TDap): Unknown Past Medical History PMH As described under Assessment. Family Medical History Family Medical History: She reports her mother had CAD. Family History: Myocardial infarction 19 MOTHER Allergies and Home Medications Allergies Coded Allergies: codeine (Verified Allergy, Mild, 09/02/15) Home Medications Aspirin 81 Mg Tab.chew, 81 MG PO DAILY, (Reported) Last Action: Held Fluoxetine HCl 10 Mg Capsule, 10 MG PO DAILY, (Reported) Last Action: Continued Lisinopril 10 Mg Tablet, 10 MG PO DAILY, (Reported) Last Action: Continued Physical Exam-Cardiology Physical Exam Vital Signs/I&O 03/22/21 03/22/21 03/22/21 03/22/21 21:00 22:00 23:00 23:37 Temp 35.7 Pulse 79 70 70 Resp 19 11 B/P (MAP) 161/87 (140) 161/76 (106) 154/72 (99) Pulse Ox 95 98 O2 Delivery Room Air Room Air Room Air Room Air 03/22/21 03/23/21 03/23/21 03/23/21 23:59 00:00 01:00 01:00 Pulse 75 85 85 Resp 17 10 B/P (MAP) 170/77 (108) 153/86 (108) Pulse Ox 97 O2 Delivery Room Air Room Air Room Air 03/23/21 03/23/21 03/23/21 03/23/21 02:00 03:00 04:00 04:00 Temp 36.0 Pulse 85 70 Resp 31 21 B/P (MAP) 154/68 (96) 154/72 (108) O2 Delivery Room Air Room Air Room Air 03/23/21 03/23/21 03/23/21 03/23/21 04:00 05:00 06:00 07:42 Temp 36.3 Pulse 82 77 92 Resp 18 26 36 B/P (MAP) 135/85 (94) 177/82 (111) 160/76 (104) O2 Delivery Room Air Room Air Room Air 03/23/21 00:00 Intake Total 200 ml Output Total 2000 ml Balance -1800 ml Capillary Refill : Less Than 3 Seconds Constitutional: AAO x 3, well-developed, well-nourished HEENT: PERRL, hearing is well preserved, oral hygience is good Neck: No carotid bruit; carotid pulses are 2 + bilaterally Respiratory: No accessory muscle use, No respiratory distress; rhonchi (scattered), other (frequent lose cough) Cardiovascular: regular rate-rhythm; No JVD; S1 and S2 Gastrointestinal: No tender; soft, audible bowel sounds Extremities: no lower extremity edema bilateral Neurologic/Psychiatric: grossly intact (moves all extremities) Skin: No rash on exposed areas, No ulcerations on exposed areas Data Review Labs Laboratory Tests 03/23/21 03:37: White Blood Count 7.1, Red Blood Count 2.82L, Hemoglobin 9.7L, Hematocrit 28L, Mean Corpuscular Volume 99, Mean Corpuscular Hemoglobin 34, Mean Corpuscular Hemoglobin Concent 35, Red Cell Distribution Width 12.0, Platelet Count 247, Mean Platelet Volume 8.7L, Immature Granulocyte % (Auto) 2, Neutrophils (%) (Auto) 60, Lymphocytes (%) (Auto) 9L, Monocytes (%) (Auto) 26H, Eosinophils (%) (Auto) 3, Basophils (%) (Auto) 0, Neutrophils # (Auto) 4.2, Lymphocytes # (Auto) 0.6L, Monocytes # (Auto) 1.9H, Eosinophils # (Auto) 0.2, Basophils # (Auto) 0.0, Immature Granulocyte # (Auto) 0.1, Sodium Level 132L, Potassium Level 2.8L, Chloride Level 94L, Carbon Dioxide Level 23, Anion Gap 15H, Blood Urea Nitrogen < 2L, Creatinine 0.48L, Estimat Glomerular Filtration Rate > 60, BUN/Creatinine Ratio 4, Glucose Level 85, Calcium Level 8.6, Phosphorus Level 2.7, Magnesium Level 1.7 Microbiology 03/19/21 Urine Culture - Final, Complete NO GROWTH 03/19/21 MRSA Screen - Final, Complete MRSA not isolated 03/19/21 Blood Culture - Preliminary, Resulted No growth Radiology NAME: HAYLEY CAPPS [facility] REC#: [id number] PT STATUS: ADM IN : 1965 PHYSICIAN: MIRZA LOWE MD ADMIT DATE: 03/19/21/ICU Draft Date of Exam:03/19/21 CHEST 1 VIEW, AP/PA ONLY INDICATION: Chest pain and fever COMPARISON: 09/07/15 FINDINGS: Single view of the chest demonstrates subtle infiltrate in the left base. The right lung is clear. The heart is normal. There is no pneumothorax. The osseous structures stable. IMPRESSION: Subtle infiltrate left lung base. Follow-up recommended. Dictated on workstation # [id number] Dict: 03/19/21615 Trans: 03/19/21 0626 JANY [id number] Interpreted by: ERIK HUNT Electronically signed by: A/P-Cardiology Assessment/Admission Diagnosis Chest pain with no evidence of ACS thus far Sepsis - mamagement per medical services/ICU services Hyponatremia likely secondary to vomiting/poor oral intake/heavy ETOH abuse CAD. - H/o Promus Keegan 3x20 stenting of RCA on 09/03/15. - Subsequently, on 09/03/15 she underwent balloon angioplasty of the same stent for nonocclusive stent thrombosis and FFR of 50% mid LAD stenosis (0.84). All these procedures were carried out by Dr Young at [facility]. LVEF was reported to be normal and and LVEDP was 7 mmHg Tobaccoism Reports alcohol use averaging 4-10 beers per day Family history of early CAD S/p abdominal hysterectomy in the , per patient report PUD with anemia requiring transfusions - being managed by her PCP and Dr. Almonte Carotid u/s from January 2016 showed a minor amt of atherosclerotic disease at both carotid bifurcation. TAHIR [facility] Mar 19, 2021 08:36
[2021-03-19] MEDS: PIPERACILLIN/TAZOBACTAM (BULK) 4.5 GM in NS (IVPB) 100 ML IV SCH ×2 (08:59→16:42)
[2021-03-19] MEDS ORDERED: PANTOPRAZOLE 40 MG (PROTONIX) VIAL IV NR (09:30)
[2021-03-19] MEDS ORDERED: meTOproloL SUCCINATE 50 MG (TOPROL XL) TAB PO NR (09:30)
[2021-03-19] MEDS ORDERED: ASPIRIN E.C. 81 MG (ECOTRIN) TAB PO NR (09:30)
--- NOTE | 2021-03-19 09:53 | Pulmonary Consultation ---
History of Present Illness History of Present Illness Date Seen by Provider: Mar 19, 2021 Time Seen by Provider: 09:52 Date of Admission Allergies and Home Medications Allergies Coded Allergies: codeine (Verified Allergy, Mild, 09/02/15) Home Medications Ascorbic Acid 500 Mg Tab.chew, 500 MG PO EVERY EVENING, (Reported) Aspirin 81 Mg Tablet.dr, 81 MG PO DAILY, (Reported) Atorvastatin Calcium 40 Mg Tablet, 40 MG PO DAILY, (Reported) Famotidine 20 Mg Tablet, 20 MG PO BID, (Reported) Fluoxetine HCl 20 Mg Capsule, 20 MG PO DAILY, (Reported) Fluticasone Propionate 9.9 Ml Sylva.susp, 1 SPRAY NSEACH BID, (Reported) Furosemide 20 Mg Tablet, 20 MG PO DAILY, (Reported) Lisinopril 5 Mg Tablet, 5 MG PO DAILY, (Reported) Multivitamin 1 Each Tablet, 1 TAB PO EVERY EVENING, (Reported) Nitroglycerin 0.4 Mg Tab.subl, 0.4 MG SL UD PRN for CHEST PAIN, (Reported) Past Medical/Social/Family Hx Patient Social History Tobacco Use?: Yes Tobacco type used: Cigarettes Smoking Status: Current Everyday Smoker Substance use?: No Alcohol Use?: Yes Alcohol type: Beer Immunizations Up To Date Influenza Vaccine Up-to-Date: No; Not Current Hepatitis A: No Hepatitis B: No TB Skin Test: None Current Status Advance Directives: No Communicates: Verbally Primary Language: Thai Preferred Spoken Language: Thai Review of Systems Constitutional: see HPI Sepsis Event Evaluation Height, Weight, BMI Height: 5'3.00" Weight: 109lbs. 5.0oz. [id number]; 20.28 BMI Method:Stated Exam Exam Vital Signs Date Time Temp Pulse Resp B/P (MAP) Pulse Ox O2 Delivery O2 Flow Rate FiO2 03/19/21 08:33 Nasal Cannula 1.00 03/19/21 08:15 90 146/79 (101) 94 Room Air 03/19/21 08:00 37.4 03/19/21 07:00 104 03/19/21 06:55 97 Nasal Cannula 1.00 03/19/21 06:00 96 16 146/61 (89) 99 Room Air 03/19/21 05:30 92 17 134/75 (94) 98 Room Air 03/19/21 05:20 Nasal Cannula 2.00 03/19/21 05:15 Nasal Cannula 2.00 03/19/21 05:07 103 03/19/21 05:00 37.0 113 17 152/93 (112) 99 Room Air 03/19/21 04:55 96 13 134/74 (113) 100 Room Air 03/19/21 01:48 03/19/21 00:20 36.9 104 20 167/87 (113) 100 Room Air 03/19/21 00:20 36.9 104 20 167/87 100 Room Air 03/19/21 00:05 36.9 104 20 167/87 (113) 100 I & O 03/19/21 07:00 Intake Total 2500 ml Output Total 540 ml Balance 1960 ml Height & Weight Height: 5'3.00" Weight: 109lbs. 5.0oz. 49.370468vb; 20.28 BMI Method:Stated General Appearance: No Apparent Distress, Mild Distress HEENT: PERRL/EOMI, Normal ENT Inspection, Other (Mucous membranes somewhat dry) Neck: Normal Inspection Respiratory: Lungs Clear, Normal Breath Sounds, No Accessory Muscle Use, No Respiratory Distress, Other (Tachypnea) Cardiovascular: No Edema, No Murmur, Normal Peripheral Pulses Capillary Refill: Less Than 3 Seconds Extremity: Normal Capillary Refill, Normal Inspection, Normal Range of Motion, Non Tender Neurologic/Psychiatric: Alert, No Motor/Sensory Deficits, Normal Mood/Affect, director immunology II-XII Norm as Tested, Other (Mild disorientation) Results Lab Laboratory Tests 03/19/21 00:20 03/19/21 05:20 Assessment/Plan Assessment/Plan Available chart/ vitals / labs / Images reviewed Patient's information available about PMH, Shx, Fhx allergy reviewed in EMR. ROS as per chart and RN Patient admitted 03/19 with PNA , hyponatremia , CP Now in ICU, hemodynamically stable Video assessment done using teleICU camera, rest of exam as per RN Discussed with RN. Consultants: cardiology A/P Sepsis Initial [place] was 6.3 which improived to 0.95 with 2 liters of fluid. - resolved Suspected PNA (= faint infiltrates on CT ) - flu /covid neg - 03/19 - CXR and CT bilateral infiltrates L>R . no PE. -smoker - no h/o COPD Hyponatremia, ( presumed potomania, use averaging 3-6 beers per day - presented with 117 an midnight - up to 121 in 5 h with 2 l NS - cont to monitor , goal rising 125 by tomorrow am - fluis restriction 1.5 l - will cut IVF , follow at 15.00 CAD, s/p PTCI RCA 2014 - as pre cards on ASA h/o PUD with anemia requiring transfusions in past ( ETON related ? - Hb stable at 10 -PPI IV ETON abuse - folate , thiamins , observe Lines : Proctor: none OG: Nutrition: po VTE Prophylaxis: SCD Stress Ulcer Prophylaxis:PPI Hb 2 Glycemic Control: ok Plans in collaboration with bedside consultants and IM MDs. Discussed with RN to reach out if any questions or concerns A total of 30 minutes of critical care time was devoted to this patient today, required to treat and/or prevent further deterioration of critical care condition ( as above ) . ZEINAB EMMANUEL MD Mar 19, 2021 09:53
[2021-03-19] MEDS: NS IV 1000 ML 1,000 ML IV SCH ×2 (10:32→16:46)
[2021-03-19] MEDS ORDERED: POTASSIUM CL 10MEQ/50ML IVPB 0 ML IV SCH (11:00)
[2021-03-19] MEDS ORDERED: POTASSIUM CL 10MEQ/50ML IVPB 200 ML IV ONE (11:30)
[2021-03-19] MEDS ORDERED: FLUO10CA31 PO (11:49)
[2021-03-19] MEDS ORDERED: LISI10TA25 PO (11:49)
[2021-03-19] MEDS ORDERED: ASPI-999 PO (11:49)
--- NOTE | 2021-03-19 12:07 | History & Physical-Hospitalist ---
History of Present Illness HPI/Chief Complaint Rebecca Capps is a 55-year-old female with past medical history of hypertension, depression, CAD, tobacco abuse, alcohol dependence, who presented with shortness of breath and chest pain. She reports that her symptoms have been going on for about 2 weeks but have been worse over the past few days. She reports trouble b reathing. She reports chest pain worse with inspiration. She reports having nausea and vomiting. She denies fevers but has had chills. She has had a cough. She denies any abdominal pain or diarrhea. She denies any dysuria. She is an every day 1 pack/day smoker. She also drinks 4-10 beers daily. She denies ever having any alcohol withdrawal. She has never gone a day without drinking. Source: patient Exam Limitations: no limitations Date Seen 03/19/21 Time Seen by a Provider: 08:30 Attending Physician Lynn Roland MD PCP Marco Escobedo DO Referring Physician Date of Admission Mar 19, 2021 at 02:21 Home Medications & Allergies Home Medications Reviewed patient Home Medication Reconciliation performed by pharmacy medication reconciliations design engineering technician and/or nursing. Patients Allergies have been reviewed. Allergies Allergies Coded Allergies codeine (Verified Allergy, Mild, 09/02/15) Past Svprokz-Tdfcfk-Xpslop Hx Patient Social History Tobacco Use?: Yes Tobacco type used: Cigarettes Smoking Status: Current Everyday Smoker Substance use?: No Alcohol Use?: Yes Alcohol type: Beer Immunizations Up To Date Hepatitis A: No Hepatitis B: No PED Vaccines UTD: No Current Status Advance Directives: No Communicates: Verbally Primary Language: Beninese Preferred Spoken Language: Beninese Past Medical History Surgeries: Section, Coronary Stent, 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 Asthma Currently Using CPAP: No Currently Using BIPAP: No Coronary Artery Disease 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 Sexually Transmitted Disease: No HIV/AIDS: No Arthritis Hearing Impairment: Denies Did You Recieve Any Treatments: No Depression Blood Disorders: No Adverse Reaction/Blood Tranf: No Family Medical History Myocardial infarction 19 MOTHER CAD Under 55 Years Old Review of Systems Constitutional: chills, malaise EENTM: no symptoms reported Respiratory: cough, short of breath Cardiovascular: chest pain Gastrointestinal: nausea, vomiting Genitourinary: no symptoms reported Musculoskeletal: no symptoms reported Skin: no symptoms reported Psychiatric/Neurological: No Symptoms Reported Physical Exam Physical Exam Vital Signs Vital Signs - First Documented 03/19/21 03/19/21 00:05 05:15 Temp 36.9 Pulse 104 Resp 20 B/P (MAP) 167/87 (113) Pulse Ox 100 O2 Flow Rate 2.00 Capillary Refill : Less Than 3 Seconds Height, Weight, BMI Height: 5'3.00" Weight: 109lbs. 5.0oz. 49.160948qd; 20.28 BMI Method:Stated General Appearance: No Apparent Distress, WD/WN HEENT: PERRL/EOMI, Pharynx Normal Neck: Normal Inspection, Supple Respiratory: No Accessory Muscle Use, No Respiratory Distress, Crackles Cardiovascular: Regular Rate, Rhythm, No Edema, No Murmur Gastrointestinal: Normal Bowel Sounds, Non Tender, Soft Extremity: Normal Inspection, Non Tender, No Pedal Edema Neurologic/Psychiatric: Alert, Oriented x3, No Motor/Sensory Deficits, Normal Mood/Affect Skin: Normal Color, Warm/Dry Results Results/Procedures Labs Laboratory Tests 03/19/21 00:20 03/19/21 05:20 Patient resulted labs reviewed. Imaging: Reviewed Imaging Report Assessment/Plan Admission Diagnosis Septic shock due to pneumonia Admission Status: Inpatient Order (span 2 midnights) Reason for Inpatient Admission: Pneumonia requiring IV antibiotics Sepsis requiring IV fluids Alcohol withdrawal monitoring Assessment and Plan Septic shock Pneumonia Lactic acidosis SIRS+ with leukocytosis and tachycardia Chest xray showed left lower lobe pneumonia Lactic acid >6 on arrival, normalized Flu and COVID negative IV fluids Vanc and Zosyn Pleuritic chest pain CAD with history of coronary stenting Likely due to pneumonia CT showed no PE Troponin mildly increased Cardiology consulted, appreciate assistance Continue aspirin Alcohol dependence Hyponatremia Likely beer potomania Improving with IV fluids Continue to monitor closely [place] protocol Vitamin replacements HTN Depression Continue home meds Tobacco abuse Nicotine patch as needed DVT prophylaxis: Lovenox Diagnosis/Problems Diagnosis/Problems (1) Septic shock Status: Acute (2) Pneumonia Status: Acute Qualifiers: Pneumonia type: due to unspecified organism Laterality: bilateral Lung location: unspecified part of lung Qualified Codes: J18.9 - Pneumonia, unspecified organism (3) Lactic acidosis Status: Acute (4) Elevated troponin Status: Acute (5) Alcohol withdrawal Status: Acute Qualifiers: Complication of substance-induced condition: with unspecified complication Qualified Codes: F10.239 - Alcohol dependence with withdrawal, unspecified (6) Hyponatremia Status: Acute (7) Coronary artery disease Status: Chronic (8) Tobacco abuse Status: Chronic LYNN ROLAND MD Mar 19, 2021 12:07
[2021-03-19] MEDS ORDERED: NICOTINE 14 MG (NICODERM) PATCH TD PRN (12:30)
[2021-03-19] MEDS: ENOXAPARIN 40 MG/0.4 ML (LOVENOX) SYR SC SCH (13:12)
[2021-03-19] MEDS: VANCOMYCIN 1 GM/NS 250 ML IVPB IV SCH ×2 (14:37)
[2021-03-19 15:22] LABS: BUN/CREATININE RATIO 7; CALCIUM 7.7 MG/DL (8.5-10.1); CARBON DIOXIDE 23 MMOL/L (21-32); CHLORIDE 90 MMOL/L (98-107); CREATININE SERUM 0.56 MG/DL (0.60-1.30); GFR ESTIMATED > 60; GLUCOSE 84 MG/DL (70-105)
[2021-03-19 15:25] LABS: POTASSIUM 2.5 MMOL/L (3.6-5.0); SODIUM 122 MMOL/L (135-145)
[2021-03-19] MEDS ORDERED: SODIUM CHLORIDE 1 GM TABLET PO NR (15:45)
[2021-03-19] MEDS: KCL 10 MEQ TAB (MICRO K) PO SCH ×2 (16:41→18:13)
--- NOTE | 2021-03-19 16:58 | Consultation-Cardiology ---
HPI-Cardiology Cardiology Consultation: Date of Consultation 03/19/21 Time Seen by a Provider: 09:10 Date of Admission Attending Physician Lynn Mcdonald MD Admitting Physician Marco Escobedo DO Consulting Physician GAL KNOX MD, MA, FACP, FACC, FSCAI, CCDS HPI: Chief Complaint: Chest pain Ms. Capps is a 55 yr old female admitted to ICU 12 from the ED with sepsis. She reports for the last several days she has had increasing weakness. She reports night sweats. She reports nausea with emesis of brown liquid. She denies any diarrhea. No c/o constipation. She reports lower chest discomfort which comes on with coughing and vomiting. She reports it does not radiate. She reports SOB and frequent productive cough of thick sputum. No c/o syncope or near syncope. No c/o LE swelling. She states she has not been eating much at home d/t her having new onset Alzheimer's which has caused increased stress. She denies any LE swelling. She reports she smokes 1 PPD of cigs. She reports she drinks 4-10 beers per night. Review of Systems-Cardiology Review of Systems Constitutional: chills, malaise, tiredness Eyes: No vision change Ears/Nose/Throat: No epistaxis, No recent hearing loss Respiratory: As described under HPI Cardiovascular: As described under HPI Gastrointestinal: As described under HPI Genitourinary: No dysuria, No hematuria : No Skin: No rash on exposed areas, No ulcerations on exposed areas Psychiatric/Neurological: depression Hematologic: No bleeding abnormalities GFX-Mqzvgq-Osbbhq Hx Patient Social History Smoking Status: Current Everyday Smoker Have you traveled recently?: No Alcohol Use?: Yes Tobacco type used: Cigarettes Immunizations Up To Date Tetanus Booster (TDap): Unknown Past Medical History PMH As described under Assessment. Family Medical History Family Medical History: She reports her mother had CAD. Family History: Myocardial infarction 19 MOTHER Allergies and Home Medications Allergies Coded Allergies: codeine (Verified Allergy, Mild, 09/02/15) Home Medications Aspirin 81 Mg Tab.chew, 81 MG PO DAILY, (Reported) Last Action: Held Fluoxetine HCl 10 Mg Capsule, 10 MG PO DAILY, (Reported) Last Action: Continued Lisinopril 10 Mg Tablet, 10 MG PO DAILY, (Reported) Last Action: Continued Patient Home Medication List Home Medication List Reviewed: Yes Physical Exam-Cardiology Physical Exam Vital Signs/I&O 03/19/21 03/19/21 03/19/21 03/19/21 05:00 05:07 05:15 05:20 Temp 37.0 Pulse 113 103 Resp 17 B/P (MAP) 152/93 (112) Pulse Ox 99 O2 Delivery Room Air Nasal Cannula Nasal Cannula O2 Flow Rate 2.00 2.00 03/19/21 03/19/21 03/19/21 03/19/21 05:30 06:00 06:55 07:00 Pulse 92 96 104 Resp 17 16 B/P (MAP) 134/75 (94) 146/61 (89) Pulse Ox 98 99 97 O2 Delivery Room Air Room Air Nasal Cannula O2 Flow Rate 1.00 03/19/21 03/19/21 03/19/21 03/19/21 08:00 08:15 08:33 10:23 Temp 37.4 Pulse 90 B/P (MAP) 146/79 (101) Pulse Ox 94 O2 Delivery Room Air Nasal Cannula Nasal Cannula O2 Flow Rate 1.00 1.00 03/19/21 03/19/21 03/19/21 03/19/21 11:28 11:33 12:00 13:00 Temp 37.0 Pulse 101 86 B/P (MAP) 137/61 (86) Pulse Ox 92 O2 Delivery Nasal Cannula Nasal Cannula O2 Flow Rate 1.00 1.00 03/19/21 03/19/21 15:05 15:50 Temp 37.4 O2 Delivery Nasal Cannula O2 Flow Rate 1.00 Capillary Refill : Less Than 3 Seconds Constitutional: AAO x 3, well-developed, well-nourished HEENT: PERRL, hearing is well preserved, oral hygience is good Neck: carotid pulses are 2 + bilaterally Respiratory: rhonchi, other Cardiovascular: regular rate-rhythm, S1 and S2 Gastrointestinal: soft, audible bowel sounds Extremities: no lower extremity edema bilateral Neurologic/Psychiatric: grossly intact Data Review Labs Laboratory Tests 03/19/21 00:15: Influenza Type A (RT-PCR) Not Detected, Influenza Type B (RT-PCR) Not Detected, SARS-CoV-2 RNA (RT-PCR) Not Detected 03/19/21 00:16: Lactic Acid Level 6.35*H 03/19/21 00:20: White Blood Count 15.7H, Red Blood Count 3.01L, Hemoglobin 10.6L, Hematocrit 28L , Mean Corpuscular Volume 94, Mean Corpuscular Hemoglobin 35H, Mean Corpuscular Hemoglobin Concent 37H, Red Cell Distribution Width 12.0, Platelet Count 148, Mean Platelet Volume 9.6, Immature Granulocyte % (Auto) 1, Neutrophils (%) (A uto) 82H, Lymphocytes (%) (Auto) 5L, Monocytes (%) (Auto) 12, Eosinophils (%) (Auto) 0, Basophils (%) (Auto) 0, Neutrophils # (Auto) 12.9H, Lymphocytes # (Auto) 0.8L, Monocytes # (Auto) 1.8H, Eosinophils # (Auto) 0.0, Basophils # (Auto) 0.0, Immature Granulocyte # (Auto) 0.1, Neutrophils % (Manual) 82, Lymphocytes % (Manual) 5, Monocytes % (Manual) 10, Eosinophils % (Manual) 0, Basophils % (Manual) 0, Band Neutrophils 2, Reactive Lymphocytes 1, Blood Morphology Comment NORMAL, D-Dimer 0.56H, Sodium Level 117*L, Potassium Level 3.1L, Chloride Level 78L, Carbon Dioxide Level 23, Anion Gap 16H, Blood Urea Nitrogen 8, Creatinine 0.63, Estimat Glomerular Filtration Rate > 60, BUN/Creatinine Ratio 13, Glucose Level 122H, Calcium Level 9.4, Corrected Calcium 9.2, Magnesium Level 2.0, Total Bilirubin 0.9, Aspartate Amino Transf (AST/SGOT) 50H, Alanine Aminotransferase (ALT/SGPT) 26, Alkaline Phosphatase 78, Ammonia 31, Myoglobin 56.7, Troponin I < 0.028, C-Reactive Protein High Sensitivity 2.89H, B-Type Natriuretic Peptide 23.8, Total Protein 8.2, Albumin 4.3, Lipase 26, Serum Alcohol < 10 03/19/21 00:41: Prothrombin Time 13.2, INR Comment 1.0, Activated Partial Thromboplast Time 30 03/19/21 04:20: Lactic Acid Level 0.95 03/19/21 05:20: Sodium Level 121*L, Troponin I 0.048H 03/19/21 06:30: Blood Gas Puncture Site R RAD, Blood Gas Patient Temperature 36.4, Arterial Blood pH 7.52H, Arterial Blood Partial Pressure CO2 30L, Arterial Blood Partial Pressure O2 92, Arterial Blood HCO3 25, Arterial Blood Total CO2 25.5, Arterial Blood Oxygen Saturation 98, Arterial Blood Base Excess 1.7, Blake Test YES-POS, Blood Gas Ventilator Setting NO, Blood Gas Inspired Oxygen 1L 03/19/21 06:53: Urine Color YELLOW, Urine Clarity CLEAR, Urine pH 6.0, Urine Specific [place] <=1.005, Urine Protein NEGATIVE, Urine Glucose (UA) NEGATIVE, Urine Ketones TRACEH, Urine Nitrite NEGATIVE, Urine Bilirubin NEGATIVE, Urine Urobilinogen 0.2, Urine Leukocyte Esterase NEGATIVE, Urine RBC (Auto) 1+H, Urine RBC RARE, Urine WBC NONE, Urine Squamous Epithelial Cells 0-2, Urine Crystals NONE, Urine Bacteria TRACE, Urine Casts NONE, Urine Mucus NEGATIVE, Urine Culture Indicated CULTURE PENDING 03/19/21 15:00: Sodium Level 122*L, Potassium Level 2.5*L, Chloride Level 90L, Carbon Dioxide Level 23, Anion Gap 9, Blood Urea Nitrogen 4L, Creatinine 0.56L, Estimat Glomerular Filtration Rate > 60, BUN/Creatinine Ratio 7, Glucose Level 84, Calcium Level 7.7L A/P-Cardiology Assessment/Admission Diagnosis Chest pain with no evidence of ACS thus far Sepsis - mamagement per medical services/ICU services Hyponatremia likely secondary to vomiting/poor oral intake/heavy ETOH abuse CAD. - H/o Promus Keegan 3x20 stenting of RCA on 09/03/15. - Subsequently, on 09/03/15 she underwent balloon angioplasty of the same stent for nonocclusive stent thrombosis and FFR of 50% mid LAD stenosis (0.84). All these procedures were carried out by Dr Young at [facility]. LVEF was reported to be normal and and LVEDP was 7 mmHg Tobaccoism Reports alcohol use averaging 4-10 beers per day Family history of early CAD S/p abdominal hysterectomy in the , per patient report PUD with anemia requiring transfusions - being managed by her PCP and Dr. Almonte Carotid u/s from January 2016 showed a minor amt of atherosclerotic disease at both carotid bifurcation. Discussion and Recomendations * Replenish electrolytes * Treat with bb and ASA, given CAD history * Advised to refrain from tobacco and alcohol use * Echo * Monitor labs GAL KNOX MD FACP [facility] CCDS Mar 19, 2021 16:58
[2021-03-19] MEDS: LORazepam INJ 2 MG/ML (ATIVAN) VIAL IV PRN (23:03)
[2021-03-20] MEDS: PIPERACILLIN/TAZOBACTAM (BULK) 4.5 GM in NS (IVPB) 100 ML IV SCH ×3 (01:42→16:40)
[2021-03-20] MEDS: VANCOMYCIN 1 GM/NS 250 ML IVPB IV SCH ×2 (01:42)
[2021-03-20 03:28] LABS: BASOPHILS % (AUTO) 0 % (0-10); EOSINOPHILS # (AUTO) 0.1 10^3/uL (0.0-0.3); EOSINOPHILS % (AUTO) 1 % (0-10); HEMATOCRIT 24 % (35-52); HEMOGLOBIN 8.6 g/dL (11.5-16.0); LYMPHOCYTES # (AUTO) 0.8 10^3/uL (1.0-4.0); LYMPHOCYTES % (AUTO) 6 % (12-44); MEAN CORPUSCULAR HEMOGLOBIN 36 pg (25-34); MEAN CORPUSCULAR HGB CONC 37 g/dL (32-36); MEAN CORPUSCULAR VOLUME 97 fL (80-99); MEAN PLATELET VOLUME 9.5 fL (9.0-12.2); MONOCYTES # (AUTO) 1.3 10^3/uL (0.0-1.0); MONOCYTES % (AUTO) 11 % (0-12); NEUTROPHILS # (AUTO) 9.8 10^3/uL (1.8-7.8); NEUTROPHILS % (AUTO) 82 % (42-75); PLATELET COUNT 117 10^3/uL (130-400)
[2021-03-20 03:34] LABS: CHLORIDE 92 MMOL/L (98-107); POTASSIUM 3.3 MMOL/L (3.6-5.0)
[2021-03-20 03:36] LABS: GLUCOSE 79 MG/DL (70-105); TRIGLYCERIDES 55 MG/DL (<150); VLDL CHOLESTEROL 11 MG/DL (5-40)
[2021-03-20 03:38] LABS: CARBON DIOXIDE 19 MMOL/L (21-32)
[2021-03-20 03:40] LABS: GFR ESTIMATED > 60; PHOSPHORUS 1.7 MG/DL (2.3-4.7); SODIUM 124 MMOL/L (135-145)
[2021-03-20 03:41] LABS: BUN/CREATININE RATIO 6; CHOLESTEROL 135 MG/DL (< 200)
[2021-03-20 03:42] LABS: HDL CHOLESTEROL 71 MG/DL (40-60)
[2021-03-20 03:43] LABS: MAGNESIUM 1.7 MG/DL (1.6-2.4)
[2021-03-20] MEDS: POTASSIUM CL 10MEQ/50ML IVPB 50 ML IV SCH ×3 (04:15→06:09)
[2021-03-20] MEDS: KCL 20 MEQ TAB (K-DUR) PO SCH (05:09)
[2021-03-20] MEDS: MAGNESIUM 1 GM/100 ML IVPB 100 ML IV SCH ×3 (05:09→08:42)
[2021-03-20] MEDS: VASOPRESSIN INJECTION 20 UNIT in NS (IVPB) 100 ML IV SCH ×3 (06:09→23:13)
[2021-03-20] MEDS: THIAMINE 100 MG (VITAMIN B-1) TAB PO SCH (06:20)
[2021-03-20] MEDS: MULTIVIT W/MINERALS TAB (THERAGRAN M) PO SCH (06:20)
[2021-03-20] MEDS: LORazepam INJ 2 MG/ML (ATIVAN) VIAL IV PRN ×4 (07:46→23:35)
[2021-03-20] MEDS: meTOproloL SUCCINATE 50 MG (TOPROL XL) TAB PO SCH (08:12)
[2021-03-20] MEDS: ASPIRIN E.C. 81 MG (ECOTRIN) TAB PO SCH (08:12)
[2021-03-20] MEDS: FOLIC ACID 1 MG TAB PO SCH (08:12)
[2021-03-20] MEDS: lisINopril 10 MG (PRINIVIL) TABLET PO SCH (08:13)
[2021-03-20] MEDS: PANTOPRAZOLE 40 MG (PROTONIX) VIAL IV SCH (08:13)
[2021-03-20] MEDS: FAMOTIDINE 20MG/2ML IV (PEPCID) IVP SCH ×2 (08:13→21:05)
[2021-03-20] MEDS: FLUoxetine HCL 10 MG (PROzac) CAPSULE/TABLET PO SCH (08:13)
[2021-03-20] MEDS: NS IV 1000 ML 1,000 ML IV SCH (08:21)
[2021-03-20] MEDS ORDERED: FUROSEMIDE 40 MG/4 ML INJ (LASIX) IVP NR (08:30)
--- NOTE | 2021-03-20 08:44 | Progress Note - Cardiology ---
Cardiology SOAP Progress Note Subjective: Sitting up in bed Pulling at lines - sitter at the bedside Oriented to place and person Continues to report chest discomfort, better than yesterday No c/o SOB No c/o nausea Objective: I&O/Vital Signs 03/22/21 03/22/21 03/22/21 03/22/21 21:00 22:00 23:00 23:37 Temp 35.7 Pulse 79 70 70 Resp 19 11 B/P (MAP) 161/87 (140) 161/76 (106) 154/72 (99) Pulse Ox 95 98 O2 Delivery Room Air Room Air Room Air Room Air 03/22/21 03/23/21 03/23/21 03/23/21 23:59 00:00 01:00 01:00 Pulse 75 85 85 Resp 17 10 B/P (MAP) 170/77 (108) 153/86 (108) Pulse Ox 97 O2 Delivery Room Air Room Air Room Air 03/23/21 03/23/21 03/23/21 03/23/21 02:00 03:00 04:00 04:00 Temp 36.0 Pulse 85 70 Resp 31 21 B/P (MAP) 154/68 (96) 154/72 (108) O2 Delivery Room Air Room Air Room Air 03/23/21 03/23/21 03/23/21 03/23/21 04:00 05:00 06:00 07:42 Temp 36.3 Pulse 82 77 92 Resp 18 26 36 B/P (MAP) 135/85 (94) 177/82 (111) 160/76 (104) O2 Delivery Room Air Room Air Room Air 03/23/21 00:00 Intake Total 200 ml Output Total 2000 ml Balance -1800 ml Weight (Pounds): 109 Weight (Ounces): 5.0 Weight (Calculated Kilograms): 49.729975 Constitutional: AAO x 3, well-developed, well-nourished Respiratory: rhonchi, other Cardiovascular: regular rate-rhythm, S1 and S2 Gastrointestional: soft, audible bowel sounds Extremities: no lower extremity edema bilateral Neurologic/Psychiatric: grossly intact Results/Procedures: Labs Laboratory Tests 03/23/21 03:37: White Blood Count 7.1, Red Blood Count 2.82L, Hemoglobin 9.7L, Hematocrit 28L, Mean Corpuscular Volume 99, Mean Corpuscular Hemoglobin 34, Mean Corpuscular Hemoglobin Concent 35, Red Cell Distribution Width 12.0, Platelet Count 247, Mean Platelet Volume 8.7L, Immature Granulocyte % (Auto) 2, Neutrophils (%) (Auto) 60, Lymphocytes (%) (Auto) 9L, Monocytes (%) (Auto) 26H, Eosinophils (%) (Auto) 3, Basophils (%) (Auto) 0, Neutrophils # (Auto) 4.2, Lymphocytes # (Auto) 0.6L, Monocytes # (Auto) 1.9H, Eosinophils # (Auto) 0.2, Basophils # (Auto) 0.0, Immature Granulocyte # (Auto) 0.1, Sodium Level 132L, Potassium Level 2.8L, Chloride Level 94L, Carbon Dioxide Level 23, Anion Gap 15H, Blood Urea Nitrogen < 2L, Creatinine 0.48L, Estimat Glomerular Filtration Rate > 60, BUN/Creatinine Ratio 4, Glucose Level 85, Calcium Level 8.6, Phosphorus Level 2.7, Magnesium Level 1.7 Microbiology 03/19/21 Urine Culture - Final, Complete NO GROWTH 03/19/21 MRSA Screen - Final, Complete MRSA not isolated 03/19/21 Blood Culture - Preliminary, Resulted No growth A/P: Assessment: Chest pain with no evidence of ACS thus far Sepsis - mamagement per medical services/ICU services Hyponatremia likely secondary to vomiting/poor oral intake/heavy ETOH abuse CAD. - H/o Promus Keegan 3x20 stenting of RCA on 09/03/15. - Subsequently, on 09/03/15 she underwent balloon angioplasty of the same stent for nonocclusive stent thrombosis and FFR of 50% mid LAD stenosis (0.84). All these procedures were carried out by Dr Young at [facility]. LVEF was reported to be normal and and LVEDP was 7 mmHg Tobaccoism Reports alcohol use averaging 4-10 beers per day Family history of early CAD S/p abdominal hysterectomy in the , per patient report PUD with anemia requiring transfusions - being managed by her PCP and Dr. Gage Sales u/s from January 2016 showed a minor amt of atherosclerotic disease at both carotid bifurcation. Plan: * Replenish electrolytes * Treat with bb and ASA, given CAD history * Advised to refrain from tobacco and alcohol use * Echo * Worsening anemia - suspect GI bleed - advise consult with GI services for consideration of endoscopy - management of anemia per medical services * Per nursing report she became very confused and wanted to leave AMA, reports pt spouse who has Alzheimer's, drove himself to the hospital last night, became very belligerent and aggressive with staff and patient. He then left. accounting advisory services manager has been consulted already. TAHIR PARHAM Mar 20, 2021 08:44
[2021-03-20] MEDS ORDERED: LORazepam INJ 2 MG/ML (ATIVAN) VIAL IVP ONE (09:15)
--- NOTE | 2021-03-20 09:28 | Pulmonary Progress Note ---
Subjective Date Seen by a Provider: Mar 20, 2021 Time Seen by a Provider: 09:27 Sepsis Event Evaluation Height, Weight, BMI Height: 5'3.00" Weight: 109lbs. 5.0oz. 49.759763pd; 20.28 BMI Method:Stated Focused Exam Lactate Level 03/19/21 00:16: Lactic Acid Level 6.35*H 03/19/21 04:20: Lactic Acid Level 0.95 Exam Exam Vital Signs Date Time Temp Pulse Resp B/P (MAP) Pulse Ox O2 Delivery O2 Flow Rate FiO2 03/20/21 09:00 86 136/70 (92) 93 Nasal Cannula 2.00 03/20/21 08:17 36.0 03/20/21 08:00 81 137/77 (97) 93 Nasal Cannula 2.00 03/20/21 07:00 90 16 133/70 (91) 91 Nasal Cannula 2.00 03/20/21 07:00 90 03/20/21 06:52 Nasal Cannula 2.00 03/20/21 06:00 98 16 134/66 (88) 89 Room Air 03/20/21 05:18 Room Air 03/20/21 05:00 86 30 134/41 (66) 88 Nasal Cannula 2.00 03/20/21 04:00 Room Air 03/20/21 04:00 101 38 150/41 (96) 88 Nasal Cannula 2.00 03/20/21 03:00 78 16 135/76 (105) 94 Nasal Cannula 2.00 03/20/21 02:51 Nasal Cannula 2.00 03/20/21 02:00 80 35 134/75 (108) 91 Room Air 03/20/21 01:00 80 149/69 (98) 90 Room Air 03/20/21 01:00 80 03/20/21 00:12 Room Air 03/20/21 00:10 Nasal Cannula 1.00 03/20/21 00:00 80 15 151/64 (93) 97 Nasal Cannula 1.00 03/19/21 23:00 87 18 138/64 (88) 96 Nasal Cannula 1.00 03/19/21 22:00 79 18 130/75 (93) 98 Nasal Cannula 1.00 03/19/21 21:00 83 20 153/73 (99) 94 Nasal Cannula 1.00 03/19/21 20:00 80 16 150/82 (104) 97 Nasal Cannula 1.00 03/19/21 20:00 Nasal Cannula 1.00 03/19/21 19:31 36.6 03/19/21 19:00 87 03/19/21 19:00 92 16 94 Nasal Cannula 1.00 03/19/21 18:02 77 130/65 (86) 97 Nasal Cannula 1.00 03/19/21 17:00 88 47 153/91 (111) 96 Nasal Cannula 1.00 03/19/21 15:50 37.4 03/19/21 15:05 Nasal Cannula 1.00 03/19/21 15:00 80 31 131/69 (89) 99 Nasal Cannula 1.00 03/19/21 14:00 86 19 136/80 (98) 97 Nasal Cannula 1.00 03/19/21 13:00 86 03/19/21 13:00 90 136/63 (87) 96 Nasal Cannula 1.00 03/19/21 12:00 101 137/61 (86) 92 Nasal Cannula 1.00 03/19/21 11:33 Nasal Cannula 1.00 03/19/21 11:28 37.0 03/19/21 11:00 85 24 121/71 (88) 96 Nasal Cannula 1.00 03/19/21 10:23 Nasal Cannula 1.00 03/19/21 10:00 94 32 140/74 (96) 95 Nasal Cannula 1.00 I & O 03/20/21 07:00 Intake Total 3580 ml Output Total 4100 ml Balance -520 ml Height & Weight Height: 5'3.00" Weight: 109lbs. 5.0oz. 49.929237vz; 20.28 BMI Method:Stated General Appearance: No Apparent Distress, WD/WN HEENT: PERRL/EOMI, Pharynx Normal Neck: Normal Inspection, Supple Respiratory: No Accessory Muscle Use, No Respiratory Distress, Crackles Cardiovascular: Regular Rate, Rhythm, No Edema, No Murmur Capillary Refill: Less Than 3 Seconds Extremity: Normal Inspection, Non Tender, No Pedal Edema Neurologic/Psychiatric: Alert, Oriented x3, No Motor/Sensory Deficits, Normal Mood/Affect Skin: Normal Color, Warm/Dry Results Lab Laboratory Tests 03/19/21 00:20 03/19/21 05:20 03/19/21 15:00 03/20/21 03:15 Assessment/Plan Assessment/Plan Available chart/ vitals / labs / Images reviewed Video assessment done using teleICU camera, rest of exam as per RN Discussed with RN Events overnight : getting more confused and restless Afebrile hemodynamically stable, no pressors, I/O = pos 2200 Drips: ns 100 Consultants: cardiology Hospital course: 03/19 with PNA , hyponatremia , CP A/P Sepsis Initial Lacatte was 6.3 which improived to 0.95 with 2 liters of fluid. - resolved Suspected PNA (= faint infiltrates on CT ) - flu /covid neg - 03/19 - CXR and CT bilateral infiltrates L>R . no PE.- consider to stop abx after 3 days -smoker - no h/o COPD Hyponatremia, ( presumed potomania, use averaging 3-6 beers per day - presented with 117 , goal rising 125 today - will stop IVF , give lasix x1 today - fluis restriction 1.5 l CAD, s/p PTCI RCA 2014 - as pre cards on ASA h/o PUD with anemia requiring transfusions in past ( ETON related ? - Hb stable -PPI IV ETON abuse. developing wiothdrowal - folate , thiamins , observe -CIWA , give phenobarn IV x1 , POx1 tonight - follow Lines : peripheral Proctor: 03/19- OG: Nutrition: po VTE Prophylaxis: SCD Stress Ulcer Prophylaxis:PP + Hb 2 Glycemic Control: ok Plans in collaboration with bedside consultants and IM MDs. Discussed with RN to reach out if any questions or concerns A total of 30 minutes of critical care time was devoted to this patient today, required to treat and/or prevent further deterioration of critical care condition ( as above ) . ZEINAB EMMANUEL MD Mar 20, 2021 09:28
[2021-03-20] MEDS ORDERED: LORazepam INJ 2 MG/ML (ATIVAN) VIAL IVP NR (09:30)
--- NOTE | 2021-03-20 10:26 | Progress Note - Cardiology ---
Cardiology SOAP Progress Note Subjective: Confused and agitated. Unable to answer questions meaningfully Objective: I&O/Vital Signs 03/19/21 03/20/21 03/20/21 03/20/21 23:00 00:00 00:10 00:12 Pulse 87 80 Resp 18 15 B/P (MAP) 138/64 (88) 151/64 (93) Pulse Ox 96 97 O2 Delivery Nasal Cannula Nasal Cannula Nasal Cannula Room Air O2 Flow Rate 1.00 1.00 1.00 03/20/21 03/20/21 03/20/21 03/20/21 01:00 01:00 02:00 02:51 Pulse 80 80 80 Resp 35 B/P (MAP) 149/69 (98) 134/75 (108) Pulse Ox 90 91 O2 Delivery Room Air Room Air Nasal Cannula O2 Flow Rate 2.00 03/20/21 03/20/21 03/20/21 03/20/21 03:00 04:00 04:00 05:00 Pulse 78 101 86 Resp 16 38 30 B/P (MAP) 135/76 (105) 150/41 (96) 134/41 (66) Pulse Ox 94 88 88 O2 Delivery Nasal Cannula Nasal Cannula Room Air Nasal Cannula O2 Flow Rate 2.00 2.00 2.00 03/20/21 03/20/21 03/20/21 03/20/21 05:18 06:00 06:52 07:00 Pulse 98 90 Resp 16 B/P (MAP) 134/66 (88) Pulse Ox 89 O2 Delivery Room Air Room Air Nasal Cannula O2 Flow Rate 2.00 03/20/21 03/20/21 03/20/21 03/20/21 07:00 08:00 08:00 08:17 Temp 36.0 Pulse 90 81 Resp 16 B/P (MAP) 133/70 (91) 137/77 (97) Pulse Ox 91 93 O2 Delivery Nasal Cannula Nasal Cannula Room Air O2 Flow Rate 2.00 2.00 03/20/21 03/20/21 09:00 10:00 Pulse 86 92 Resp 21 B/P (MAP) 136/70 (92) 139/76 (97) Pulse Ox 93 93 O2 Delivery Nasal Cannula Nasal Cannula O2 Flow Rate 2.00 2.00 03/20/21 00:00 Intake Total 2400 ml Output Total 2500 ml Balance -100 ml Weight (Pounds): 109 Weight (Ounces): 5.0 Weight (Calculated Kilograms): 49.916765 Constitutional: well-developed, well-nourished Respiratory: rhonchi, other Cardiovascular: regular rate-rhythm, S1 and S2 Gastrointestional: soft, audible bowel sounds Extremities: no lower extremity edema bilateral Neurologic/Psychiatric: other (moves all limbs equally) Results/Procedures: Labs Laboratory Tests 03/19/21 15:00: Sodium Level 122*L, Potassium Level 2.5*L, Chloride Level 90L, Carbon Dioxide Level 23, Anion Gap 9, Blood Urea Nitrogen 4L, Creatinine 0.56L, Estimat Glomerular Filtration Rate > 60, BUN/Creatinine Ratio 7, Glucose Level 84, Calcium Level 7.7L 03/20/21 03:15: Sodium Level 124*L, Potassium Level 3.3L, Chloride Level 92L, Carbon Dioxide Level 19L, Anion Gap 13, Blood Urea Nitrogen 3L, Creatinine 0.50L, Estimat Glomerular Filtration Rate > 60, BUN/Creatinine Ratio 6, Glucose Level 79, Calcium Level 8.0L, White Blood Count 12.0H, Red Blood Count 2.42L, Hemoglobin 8.6L, Hematocrit 24L, Mean Corpuscular Volume 97, Mean Corpuscular Hemoglobin 36H, Mean Corpuscular Hemoglobin Concent 37H, Red Cell Distribution Width 12.1, Platelet Count 117L, Mean Platelet Volume 9.5, Immature Granulocyte % (Auto) 1, Neutrophils (%) (Auto) 82H, Lymphocytes (%) (Auto) 6L, Monocytes (%) (Auto) 11, Eosinophils (%) (Auto) 1, Basophils (%) (Auto) 0, Neutrophils # (Auto) 9.8H, Lymphocytes # (Auto) 0.8L, Monocytes # (Auto) 1.3H, Eosinophils # (Auto) 0.1, Basophils # (Auto) 0.0, Immature Granulocyte # (Auto) 0.1, Phosphorus Level 1.7L , Magnesium Level 1.7, Triglycerides Level 55, Cholesterol Level 135, LDL Ch olesterol Direct 43, VLDL Cholesterol 11, HDL Cholesterol 71H Laboratory Tests 03/19/21 00:20 03/19/21 05:20 03/19/21 15:00 03/20/21 03:15 A/P: Assessment: Chest pain with no evidence of ACS thus far. Minimal troponin elevation at presentation likely type 2 DE due to sepsis Sepsis - management per medical services/ICU services Heavy alcohol use (reports alcohol use averaging 4-10 beers per day): - At presentation on 03/18/21: Electrolyte abnormalities, including hyponatremia, likely secondary to vomiting/poor oral intake/heavy ETOH abuse - On 03/20/21: Alcohol-withdrawal syndrome CAD. - H/o Promus Keegan 3x20 stenting of RCA on 09/03/15. - Subsequently, on 09/03/15 she underwent balloon angioplasty of the same stent for nonocclusive stent thrombosis and FFR of 50% mid LAD stenosis (0.84). All these procedures were carried out by Dr Young at [facility]. LVEF was reported to be normal and and LVEDP was 7 mmHg Tobaccoism S/p abdominal hysterectomy in the , per patient report H/o PUD with anemia requiring transfusions - being managed by her PCP Carotid u/s from January 2016 showed a minor amt of atherosclerotic disease at both carotid bifurcation. Plan: * Replenish electrolytes * Treat with bb and ASA, given CAD history * Advised to refrain from tobacco and alcohol use * Echo * Worsening anemia - suspect GI bleed - advise consult with GI services for consideration of endoscopy - management of anemia per medical services * Per nursing report she became very confused and wanted to leave AMA, reports pt spouse who has Alzheimer's, drove himself to the hospital last night, became very belligerent and aggressive with staff and patient. He then left. manager technical services has been consulted already GAL KNOX MD FACP FAC CCDS Mar 20, 2021 10:26
--- NOTE | 2021-03-20 12:10 | Progress Note - Hospitalist ---
Subjective HPI/CC On Admission Date Seen by Provider: Mar 20, 2021 Time Seen by Provider: 08:55 Rebecca Capps is a 55-year-old female with past medical history of hypertension, depression, CAD, tobacco abuse, alcohol dependence, who presented with shortness of breath and chest pain. She reports that her symptoms have been going on for about 2 weeks but have been worse over the past few days. She reports trouble breathing. She reports chest pain worse with inspiration. She reports having nausea and vomiting. She denies fevers but has had chills. She has had a cough. She denies any abdominal pain or diarrhea. She denies any dysuria. She is an every day 1 pack/day smoker. She also drinks 4-10 beers daily. She denies ever having any alcohol withdrawal. She has never gone a day without drinking. Subjective/Events-last exam She is confused this morning. She is trying to climb out of bed. She is oriented to person and year. She is having some visual and tactile hallucinations. Focused Exam Lactate Level 03/19/21 00:16: Lactic Acid Level 6.35*H 03/19/21 04:20: Lactic Acid Level 0.95 Objective Exam Vital Signs Vital Signs Date Time Temp Pulse Resp B/P (MAP) Pulse Ox O2 Delivery O2 Flow Rate FiO2 03/20/21 12:02 Nasal Cannula 2.00 03/20/21 11:00 80 21 140/66 (90) 93 03/20/21 08:17 36.0 Capillary Refill : Less Than 3 Seconds General Appearance: Anxious, Mild Distress HEENT: PERRL/EOMI, Pharynx Normal Neck: Normal Inspection, Supple Respiratory: Lungs Clear, Normal Breath Sounds, No Respiratory Distress Cardiovascular: Regular Rate, Rhythm, No Edema, No Murmur Gastrointestinal: Normal Bowel Sounds, Non Tender, Soft Extremity: Normal Inspection, Non Tender, No Pedal Edema Neurologic/Psychiatric: Alert, No Motor/Sensory Deficits, Disoriented Skin: Normal Color, Warm/Dry Results/Procedures Lab Laboratory Tests 03/19/21 15:00 03/20/21 03:15 Patient resulted labs reviewed. Imaging: Reviewed Imaging Report Assessment/Plan Assessment and Plan Assess & Plan/Chief Complaint Alcohol dependence with acute alcohol withdrawal Hyponatremia CIWA protocol Requiring increased levels of Ativan Vitamin replacements Hyponatremia likely due to beer potomania Improving with IV fluids Continue to monitor closely Pneumonia Stop Vanc Continue Zosyn Pleuritic chest pain CAD with history of coronary stenting Likely due to pneumonia CT showed no PE Troponin mildly increased Cardiology consulted, appreciate assistance Continue aspirin HTN Depression Continue home meds Tobacco abuse Nicotine patch as needed DVT prophylaxis: Lovenox Septic shock, resolved Lactic acidosis,resolved Diagnosis/Problems Diagnosis/Problems (1) Septic shock Status: Resolved Resolution Date/Time: 03/20/21 @ 12:10 (2) Pneumonia Status: Acute Qualifiers: Pneumonia type: due to unspecified organism Laterality: bilateral Lung location: unspecified part of lung Qualified Codes: J18.9 - Pneumonia, unspecified organism (3) Lactic acidosis Status: Resolved Resolution Date/Time: 03/20/21 @ 12:10 (4) Elevated troponin Status: Acute (5) Alcohol withdrawal Status: Acute Qualifiers: Complication of substance-induced condition: with perceptual disturbance Qualified Codes: F10.232 - Alcohol dependence with withdrawal with perceptual disturbance (6) Hyponatremia Status: Acute (7) Coronary artery disease Status: Chronic (8) Tobacco abuse Status: Chronic NOEMI ROLAND MD Mar 20, 2021 12:10
[2021-03-20] MEDS ORDERED: TROUGH ORDER-PHARMACY XX NR (13:00)
[2021-03-20] MEDS: ENOXAPARIN 40 MG/0.4 ML (LOVENOX) SYR SC SCH (13:27)
[2021-03-20] MEDS ORDERED: PHENobarbital 64.8 MG (1 GRAIN) TAb PO NR (18:00)
[2021-03-21] MEDS ORDERED: FAMOTIDINE 20MG/2ML IV (PEPCID) ONE (02:15)
[2021-03-21] MEDS: PIPERACILLIN/TAZOBACTAM (BULK) 4.5 GM in NS (IVPB) 100 ML IV SCH ×3 (02:16→17:14)
[2021-03-21 03:26] LABS: BASOPHILS % (AUTO) 0 % (0-10); EOSINOPHILS # (AUTO) 0.2 10^3/uL (0.0-0.3); EOSINOPHILS % (AUTO) 2 % (0-10); HEMATOCRIT 27 % (35-52); HEMOGLOBIN 9.4 g/dL (11.5-16.0); LYMPHOCYTES # (AUTO) 1.2 10^3/uL (1.0-4.0); LYMPHOCYTES % (AUTO) 10 % (12-44); MEAN CORPUSCULAR HEMOGLOBIN 34 pg (25-34); MEAN CORPUSCULAR HGB CONC 35 g/dL (32-36); MEAN CORPUSCULAR VOLUME 97 fL (80-99); MEAN PLATELET VOLUME 9.5 fL (9.0-12.2); MONOCYTES # (AUTO) 1.6 10^3/uL (0.0-1.0); MONOCYTES % (AUTO) 14 % (0-12); NEUTROPHILS # (AUTO) 8.5 10^3/uL (1.8-7.8); NEUTROPHILS % (AUTO) 73 % (42-75); PLATELET COUNT 152 10^3/uL (130-400); WHITE BLOOD COUNT 11.6 10^3/uL (4.3-11.0)
[2021-03-21 03:42] LABS: CHLORIDE 87 MMOL/L (98-107); POTASSIUM 2.7 MMOL/L (3.6-5.0)
[2021-03-21 03:43] LABS: CALCIUM 8.4 MG/DL (8.5-10.1)
[2021-03-21 03:44] LABS: GLUCOSE 74 MG/DL (70-105)
[2021-03-21 03:45] LABS: CARBON DIOXIDE 22 MMOL/L (21-32)
[2021-03-21 03:46] LABS: SODIUM 124 MMOL/L (135-145)
[2021-03-21 03:47] LABS: PHOSPHORUS 3.5 MG/DL (2.3-4.7)
[2021-03-21 03:48] LABS: CREATININE SERUM 0.53 MG/DL (0.60-1.30); GFR ESTIMATED > 60
[2021-03-21 03:49] LABS: BUN/CREATININE RATIO 11
[2021-03-21 03:50] LABS: MAGNESIUM 2.1 MG/DL (1.6-2.4)
[2021-03-21] MEDS: POTASSIUM CL 10MEQ/50ML IVPB 50 ML IV SCH ×4 (05:50→13:18)
[2021-03-21] MEDS: KCL 20 MEQ TAB (K-DUR) PO SCH (06:12)
[2021-03-21] MEDS: MAGNESIUM 1 GM/100 ML IVPB 100 ML IV SCH (06:12)
[2021-03-21] MEDS: VASOPRESSIN INJECTION 20 UNIT in NS (IVPB) 100 ML IV SCH ×2 (07:48→15:54)
[2021-03-21] MEDS: FOLIC ACID 1 MG TAB PO SCH (09:21)
[2021-03-21] MEDS: lisINopril 10 MG (PRINIVIL) TABLET PO SCH (09:21)
[2021-03-21] MEDS: ASPIRIN E.C. 81 MG (ECOTRIN) TAB PO SCH (09:21)
[2021-03-21] MEDS: meTOproloL SUCCINATE 50 MG (TOPROL XL) TAB PO SCH (09:21)
[2021-03-21] MEDS: THIAMINE 100 MG (VITAMIN B-1) TAB PO SCH (09:21)
[2021-03-21] MEDS: MULTIVIT W/MINERALS TAB (THERAGRAN M) PO SCH (09:21)
[2021-03-21] MEDS: FLUoxetine HCL 10 MG (PROzac) CAPSULE/TABLET PO SCH (09:21)
[2021-03-21] MEDS: PANTOPRAZOLE 40 MG (PROTONIX) VIAL IV SCH (09:23)
[2021-03-21] MEDS: LORazepam INJ 2 MG/ML (ATIVAN) VIAL IV PRN ×6 (09:23→23:28)
[2021-03-21] MEDS: FAMOTIDINE 20MG/2ML IV (PEPCID) IVP SCH ×2 (09:23→21:15)
[2021-03-21] MEDS: NS IV 500 ML 500 ML IV SCH ×3 (09:23→10:36)
[2021-03-21] MEDS: NS IV 1000 ML 1,000 ML IV SCH ×2 (09:29→17:15)
--- NOTE | 2021-03-21 10:29 | Pulmonary Progress Note ---
Standard Progress Note Progress Notes Date Seen by Provider: Mar 21, 2021 Time Seen by Provider: 10:30 EICU progress note 55 yo female admitted with sob and chest pain. found to be in acute hyponatremia and etoh wd. admitted to ICU with pneumonia. seen over video assesement this am. dw nurse bedside. patient is resting comfortably in bed. vital signs are stable. exam per bedside physician labs see emar imaging see emar meds see emar wbc 11 (improving) na 124 (same as yesterday) continue fluid restriction repeat lab at 1800 Sepsis - resolved 2/2 Suspected PNA (= faint infiltrates on CT ) - flu /covid neg on zosyn Hyponatremia, ( presumed potomania, use averaging 3-6 beers per day) - NA 124 - fluis restriction 1.5 l lab 1800 ETON abuse. DTs on ciwa protocol ativan dosing ivf fast hug see orders ct 20m Assessment & Plan Available chart/ vitals / labs / Images reviewed Video assessment done using teleICU camera, rest of exam as per RN Discussed with RN Events overnight : getting more confused and restless Afebrile hemodynamically stable, no pressors, I/O = pos 2200 Drips: ns 100 Consultants: cardiology Hospital course: 03/19 with PNA , hyponatremia , CP A/P Sepsis Initial Lacatte was 6.3 which improived to 0.95 with 2 liters of fluid. - resolved Suspected PNA (= faint infiltrates on CT ) - flu /covid neg - 03/19 - CXR and CT bilateral infiltrates L>R . no PE.- consider to stop abx aft er 3 days -smoker - no h/o COPD Hyponatremia, ( presumed potomania, use averaging 3-6 beers per day - presented with 117 , goal rising 125 today - will stop IVF , give lasix x1 today - fluis restriction 1.5 l CAD, s/p PTCI RCA 2014 - as pre cards on ASA h/o PUD with anemia requiring transfusions in past ( ETON related ? - Hb stable -PPI IV ETON abuse. developing wiothdrowal - folate , thiamins , observe -CIWA , give phenobarn IV x1 , POx1 tonight - follow Lines : peripheral Proctor: 03/19- OG: Nutrition: po VTE Prophylaxis: SCD Stress Ulcer Prophylaxis:PP + Hb 2 Glycemic Control: ok Plans in collaboration with bedside consultants and IM MDs. Discussed with RN to reach out if any questions or concerns A total of 30 minutes of critical care time was devoted to this patient today, required to treat and/or prevent further deterioration of critical care cond ition ( as above ) . Critical Care: Critically Ill Patient Focused Exam Lactate Level 03/19/21 00:16: Lactic Acid Level 6.35*H 03/19/21 04:20: Lactic Acid Level 0.95 MISTI KAUFFMAN DO Mar 21, 2021 10:29
--- NOTE | 2021-03-21 13:01 | Progress Note - Hospitalist ---
Subjective HPI/CC On Admission Date Seen by Provider: Mar 21, 2021 Time Seen by Provider: 08:55 Rebecca Capps is a 55-year-old female with past medical history of hypertension, depression, CAD, tobacco abuse, alcohol dependence, who presented with shortness of breath and chest pain. She reports that her symptoms have been going on for about 2 weeks but have been worse over the past few days. She reports trouble breathing. She reports chest pain worse with inspiration. She reports having nausea and vomiting. She denies fevers but has had chills. She has had a cough. She denies any abdominal pain or diarrhea. She denies any dysuria. She is an every day 1 pack/day smoker. She also drinks 4-10 beers daily. She denies ever having any alcohol withdrawal. She has never gone a day without drinking. Subjective/Events-last exam She is sleeping. She has continued to hallucinate. Focused Exam Lactate Level 03/19/21 00:16: Lactic Acid Level 6.35*H 03/19/21 04:20: Lactic Acid Level 0.95 Objective Exam Vital Signs Vital Signs Date Time Temp Pulse Resp B/P (MAP) Pulse Ox O2 Delivery O2 Flow Rate FiO2 03/21/21 12:00 Nasal Cannula 2.00 03/21/21 11:00 68 24 133/72 (92) 03/21/21 07:00 36.8 98 Capillary Refill : Less Than 3 Seconds General Appearance: No Apparent Distress, WD/WN Respiratory: Lungs Clear, Normal Breath Sounds, No Respiratory Distress Cardiovascular: Regular Rate, Rhythm, No Edema, No Murmur Gastrointestinal: Normal Bowel Sounds, Non Tender, Soft Extremity: Normal Inspection, Non Tender, No Pedal Edema Neurologic/Psychiatric: Other (sleeping) Skin: Normal Color, Warm/Dry Results/Procedures Lab Laboratory Tests 03/21/21 02:45 03/21/21 11:58 Patient resulted labs reviewed. Imaging: Reviewed Imaging Report Assessment/Plan Assessment and Plan Assess & Plan/Chief Complaint Alcohol dependence with acute alcohol withdrawal Hyponatremia [facility] protocol Vitamin replacements Hyponatremia likely due to beer potomania Stop Lasix Resume normal saline Continue to monitor closely Pneumonia Continue Zosyn Pleuritic chest pain CAD with history of coronary stenting Likely due to pneumonia CT showed no PE Troponin mildly increased Cardiology consulted, appreciate assistance Continue aspirin HTN Depression Continue home meds Tobacco abuse Nicotine patch as needed DVT prophylaxis: Lovenox Septic shock, resolved Lactic acidosis,resolved Critical Care Critically Ill Patient Diagnosis/Problems Diagnosis/Problems (1) Septic shock Status: Resolved Resolution Date/Time: 03/20/21 @ 12:10 (2) Pneumonia Status: Acute Qualifiers: Pneumonia type: due to unspecified organism Laterality: bilateral Lung location: unspecified part of lung Qualified Codes: J18.9 - Pneumonia, unspecified organism (3) Lactic acidosis Status: Resolved Resolution Date/Time: 03/20/21 @ 12:10 (4) Elevated troponin Status: Acute (5) Alcohol withdrawal Status: Acute Qualifiers: Complication of substance-induced condition: with perceptual disturbance Qualified Codes: F10.232 - Alcohol dependence with withdrawal with perceptual disturbance (6) Hyponatremia Status: Acute (7) Coronary artery disease Status: Chronic (8) Tobacco abuse Status: Chronic NOEMI ROLAND MD Mar 21, 2021 13:01
[2021-03-21] MEDS: ENOXAPARIN 40 MG/0.4 ML (LOVENOX) SYR SC SCH (13:20)
[2021-03-21 17:36] LABS: BUN/CREATININE RATIO 9; CALCIUM 8.3 MG/DL (8.5-10.1); CARBON DIOXIDE 22 MMOL/L (21-32); CHLORIDE 93 MMOL/L (98-107); CREATININE SERUM 0.53 MG/DL (0.60-1.30); GFR ESTIMATED > 60; GLUCOSE 142 MG/DL (70-105); POTASSIUM 3.3 MMOL/L (3.6-5.0); SODIUM 128 MMOL/L (135-145)
[2021-03-22] MEDS: VASOPRESSIN INJECTION 20 UNIT in NS (IVPB) 100 ML IV SCH ×3 (00:56→15:13)
[2021-03-22] MEDS: PIPERACILLIN/TAZOBACTAM (BULK) 4.5 GM in NS (IVPB) 100 ML IV SCH ×3 (01:50→17:28)
[2021-03-22] MEDS: LORazepam INJ 2 MG/ML (ATIVAN) VIAL IV PRN ×5 (02:32→21:35)
[2021-03-22] MEDS: NS IV 1000 ML 1,000 ML IV SCH ×3 (03:18→17:28)
[2021-03-22 04:05] LABS: BASOPHILS % (AUTO) 0 % (0-10); EOSINOPHILS # (AUTO) 0.2 10^3/uL (0.0-0.3); EOSINOPHILS % (AUTO) 2 % (0-10); HEMATOCRIT 25 % (35-52); LYMPHOCYTES # (AUTO) 0.7 10^3/uL (1.0-4.0); LYMPHOCYTES % (AUTO) 8 % (12-44); MEAN CORPUSCULAR HEMOGLOBIN 35 pg (25-34); MEAN CORPUSCULAR HGB CONC 36 g/dL (32-36); MEAN CORPUSCULAR VOLUME 98 fL (80-99); MEAN PLATELET VOLUME 8.9 fL (9.0-12.2); MONOCYTES # (AUTO) 2.2 10^3/uL (0.0-1.0); MONOCYTES % (AUTO) 24 % (0-12); NEUTROPHILS # (AUTO) 5.7 10^3/uL (1.8-7.8); NEUTROPHILS % (AUTO) 65 % (42-75); PLATELET COUNT 184 10^3/uL (130-400); WHITE BLOOD COUNT 8.9 10^3/uL (4.3-11.0)
[2021-03-22 04:16] LABS: ALBUMIN 3.1 GM/DL (3.2-4.5); CHLORIDE 93 MMOL/L (98-107); SODIUM 128 MMOL/L (135-145)
[2021-03-22 04:17] LABS: CALCIUM 8.2 MG/DL (8.5-10.1)
[2021-03-22 04:18] LABS: GLUCOSE 101 MG/DL (70-105)
[2021-03-22 04:20] LABS: BILIRUBIN,TOTAL 0.6 MG/DL (0.1-1.0); CARBON DIOXIDE 23 MMOL/L (21-32)
[2021-03-22 04:22] LABS: ALKALINE PHOSPHATASE 57 U/L (40-136); CREATININE SERUM 0.51 MG/DL (0.60-1.30); GFR ESTIMATED > 60; PHOSPHORUS 2.9 MG/DL (2.3-4.7); POTASSIUM 2.5 MMOL/L (3.6-5.0)
[2021-03-22 04:23] LABS: BUN/CREATININE RATIO 4
[2021-03-22 04:25] LABS: ALANINE AMINOTRANSFERASE 24 U/L (0-55); MAGNESIUM 1.6 MG/DL (1.6-2.4)
[2021-03-22] MEDS: POTASSIUM CL 10MEQ/50ML IVPB 50 ML IV SCH ×6 (04:48→10:14)
[2021-03-22] MEDS: KCL 20 MEQ TAB (K-DUR) PO SCH (05:34)
[2021-03-22] MEDS: MAGNESIUM 1 GM/100 ML IVPB 100 ML IV SCH ×3 (05:34→06:50)
[2021-03-22] MEDS ORDERED: POTASSIUM CL 10MEQ/50ML IVPB 50 ML IV SCH (07:30)
[2021-03-22] MEDS: meTOproloL SUCCINATE 50 MG (TOPROL XL) TAB PO SCH (07:54)
[2021-03-22] MEDS: MULTIVIT W/MINERALS TAB (THERAGRAN M) PO SCH (07:54)
[2021-03-22] MEDS: THIAMINE 100 MG (VITAMIN B-1) TAB PO SCH (07:54)
[2021-03-22] MEDS: FLUoxetine HCL 10 MG (PROzac) CAPSULE/TABLET PO SCH (07:55)
[2021-03-22] MEDS: ASPIRIN E.C. 81 MG (ECOTRIN) TAB PO SCH (07:55)
[2021-03-22] MEDS: risperiDONE 0.5 MG (RisperDAL) TABLET PO SCH ×2 (07:55→20:23)
[2021-03-22] MEDS: FOLIC ACID 1 MG TAB PO SCH (07:55)
[2021-03-22] MEDS: lisINopril 10 MG (PRINIVIL) TABLET PO SCH (07:55)
[2021-03-22] MEDS: FAMOTIDINE 20MG/2ML IV (PEPCID) IVP SCH ×2 (07:56→20:23)
[2021-03-22] MEDS: PANTOPRAZOLE 40 MG (PROTONIX) VIAL IV SCH (07:56)
[2021-03-22] MEDS ORDERED: KCL 20 MEQ TAB (K-DUR) PO ONE (09:15)
--- NOTE | 2021-03-22 10:44 | Pulmonary Progress Note ---
Subjective Date Seen by a Provider: Mar 22, 2021 Time Seen by a Provider: 10:10 Subjective/Events-last exam Rounded virtually with Gayla RN: pt requires 1:1 nursing as no sitter available. Delirious, trying ro get out of bed. VSS. 96% on room air. Plan is to start Resperidol in addition to Ativan. labs show low K. Sepsis Event Evaluation Height, Weight, BMI Height: 5'3.00" Weight: 109lbs. 5.0oz. 49.477702zl; 20.28 BMI Method:Stated Exam Exam Patient acknowledged, consented, and participated in this virtual visit which was conducted using real time audio/video Vital Signs Date Time Temp Pulse Resp B/P (MAP) Pulse Ox O2 Delivery O2 Flow Rate FiO2 03/22/21 10:00 84 132/72 (92) Nasal Cannula 2.00 03/22/21 09:00 79 18 126/69 (88) Nasal Cannula 2.00 03/22/21 08:10 35.7 03/22/21 08:00 65 16 131/65 (87) Nasal Cannula 2.00 03/22/21 08:00 Nasal Cannula 2.00 03/22/21 07:00 63 03/22/21 07:00 64 16 129/64 (85) Nasal Cannula 2.00 03/22/21 06:00 70 26 150/69 (96) Nasal Cannula 2.00 03/22/21 05:00 66 20 145/65 (91) Nasal Cannula 2.00 03/22/21 04:00 Nasal Cannula 2.00 03/22/21 04:00 64 18 151/69 (96) Nasal Cannula 2.00 03/22/21 03:00 75 19 145/70 (95) Nasal Cannula 2.00 03/22/21 02:00 67 13 144/66 (92) Nasal Cannula 2.00 03/22/21 01:00 64 15 160/74 (102) Nasal Cannula 2.00 03/22/21 01:00 65 03/22/21 00:00 Nasal Cannula 2.00 03/22/21 00:00 62 16 145/72 (96) Nasal Cannula 2.00 03/21/21 23:00 62 15 140/70 (93) Nasal Cannula 2.00 03/21/21 23:00 95 03/21/21 22:00 100 03/21/21 22:00 92 26 162/61 (94) Nasal Cannula 2.00 03/21/21 21:00 97 03/21/21 21:00 62 35 147/73 (97) Nasal Cannula 2.00 03/21/21 20:05 Nasal Cannula 2.00 03/21/21 20:00 74 36 122/71 (88) Nasal Cannula 2.00 03/21/21 20:00 95 03/21/21 19:00 65 03/21/21 19:00 64 19 132/62 (85) Nasal Cannula 2.00 03/21/21 18:00 74 14 142/63 (89) Nasal Cannula 2.00 03/21/21 17:00 76 16 145/64 (91) Nasal Cannula 2.00 03/21/21 16:50 Nasal Cannula 2.00 03/21/21 16:00 72 9 140/71 (94) Nasal Cannula 2.00 03/21/21 15:52 Nasal Cannula 2.00 03/21/21 15:00 62 12 127/66 (86) Nasal Cannula 2.00 03/21/21 14:00 69 24 146/75 (98) Nasal Cannula 2.00 03/21/21 13:00 70 15 155/76 (109) Nasal Cannula 2.00 03/21/21 13:00 72 03/21/21 12:00 Nasal Cannula 2.00 03/21/21 12:00 62 15 151/69 (103) Nasal Cannula 2.00 03/21/21 11:00 68 24 133/72 (92) Nasal Cannula 2.00 I & O 03/22/21 07:00 Intake Total 2195 ml Output Total 1550 ml Balance 645 ml Height & Weight Height: 5'3.00" Weight: 109lbs. 5.0oz. 49.129953oj; 20.28 BMI Method:Stated General Appearance: No Apparent Distress, WD/WN HEENT: PERRL/EOMI, Pharynx Normal Neck: Normal Inspection, Supple Respiratory: Lungs Clear, Normal Breath Sounds, No Respiratory Distress Cardiovascular: Regular Rate, Rhythm, No Edema, No Murmur Capillary Refill: Less Than 3 Seconds Extremity: Normal Inspection, Non Tender, No Pedal Edema Neurologic/Psychiatric: Other (sleeping) Skin: Normal Color, Warm/Dry Results Lab Laboratory Tests 03/21/21 02:45 03/21/21 11:58 03/21/21 17:13 03/22/21 03:38 KIMI ZAZUETA MD Mar 22, 2021 10:44
--- NOTE | 2021-03-22 13:20 | Progress Note - Hospitalist ---
Subjective HPI/CC On Admission Date Seen by Provider: Mar 22, 2021 Time Seen by Provider: 09:10 Rebecca Capps is a 55-year-old female with past medical history of hypertension, depression, CAD, tobacco abuse, alcohol dependence, who presented with shortness of breath and chest pain. She reports that her symptoms have been going on for about 2 weeks but have been worse over the past few days. She reports trouble breathing. She reports chest pain worse with inspiration. She reports having nausea and vomiting. She denies fevers but has had chills. She has had a cough. She denies any abdominal pain or diarrhea. She denies any dysuria. She is an every day 1 pack/day smoker. She also drinks 4-10 beers daily. She denies ever having any alcohol withdrawal. She has never gone a day without drinking. Subjective/Events-last exam She is delirious. She calls me she wants to talk to her . She is tearful. She is uncooperative and it is difficult to obtain information. Objective Exam Vital Signs Vital Signs Date Time Temp Pulse Resp B/P (MAP) Pulse Ox O2 Delivery O2 Flow Rate FiO2 03/22/21 12:28 71 03/22/21 12:00 14 171/83 (112) Nasal Cannula 2.00 03/22/21 08:10 35.7 03/21/21 23:00 95 Capillary Refill : Less Than 3 Seconds General Appearance: Anxious, Mild Distress Respiratory: Lungs Clear, Normal Breath Sounds, No Respiratory Distress Cardiovascular: Regular Rate, Rhythm, No Edema, No Murmur Gastrointestinal: Normal Bowel Sounds, Non Tender, Soft Extremity: Normal Inspection, Non Tender, No Pedal Edema Neurologic/Psychiatric: Alert, Disoriented Skin: Normal Color, Warm/Dry Results/Procedures Lab Laboratory Tests 03/21/21 17:13 03/22/21 03:38 Patient resulted labs reviewed. Imaging: Reviewed Imaging Report Assessment/Plan Assessment and Plan Assess & Plan/Chief Complaint Alcohol dependence with acute alcohol withdrawal Agitation Hyponatremia WA protocol, required significant Ativan overnight Add Risperdal Vitamin replacements Continue IV fluids Pneumonia Continue Zosyn Pleuritic chest pain CAD with history of coronary stenting Likely due to pneumonia CT showed no PE Troponin mildly increased Cardiology consulted, appreciate assistance Continue aspirin HTN Depression Continue home meds Tobacco abuse Nicotine patch as needed DVT prophylaxis: Lovenox Septic shock, resolved Lactic acidosis,resolved Critical Care Critically Ill Patient Diagnosis/Problems Diagnosis/Problems (1) Septic shock Status: Resolved Resolution Date/Time: 03/20/21 @ 12:10 (2) Pneumonia Status: Acute Qualifiers: Pneumonia type: due to unspecified organism Laterality: bilateral Lung location: unspecified part of lung Qualified Codes: J18.9 - Pneumonia, unspecified organism (3) Lactic acidosis Status: Resolved Resolution Date/Time: 03/20/21 @ 12:10 (4) Elevated troponin Status: Acute (5) Alcohol withdrawal Status: Acute Qualifiers: Complication of substance-induced condition: with perceptual disturbance Qualified Codes: F10.232 - Alcohol dependence with withdrawal with perceptual disturbance (6) Hyponatremia Status: Acute (7) Coronary artery disease Status: Chronic (8) Tobacco abuse Status: Chronic NOEMI ROLAND MD Mar 22, 2021 13:20
[2021-03-22] MEDS: ENOXAPARIN 40 MG/0.4 ML (LOVENOX) SYR SC SCH (14:57)
[2021-03-23] MEDS: VASOPRESSIN INJECTION 20 UNIT in NS (IVPB) 100 ML IV SCH ×4 (01:39→23:04)
[2021-03-23] MEDS: PIPERACILLIN/TAZOBACTAM (BULK) 4.5 GM in NS (IVPB) 100 ML IV SCH ×3 (01:47→17:21)
[2021-03-23] MEDS: NS IV 1000 ML 1,000 ML IV SCH ×2 (03:31→20:59)
[2021-03-23] MEDS: KCL 20 MEQ TAB (K-DUR) PO SCH (03:41)
[2021-03-23] MEDS: MAGNESIUM 1 GM/100 ML IVPB 100 ML IV SCH ×3 (03:41→06:07)
[2021-03-23] MEDS: POTASSIUM CL 10MEQ/50ML IVPB 50 ML IV SCH ×6 (03:41→09:00)
[2021-03-23 04:10] LABS: BASOPHILS % (AUTO) 0 % (0-10); EOSINOPHILS # (AUTO) 0.2 10^3/uL (0.0-0.3); EOSINOPHILS % (AUTO) 3 % (0-10); HEMATOCRIT 28 % (35-52); HEMOGLOBIN 9.7 g/dL (11.5-16.0); LYMPHOCYTES # (AUTO) 0.6 10^3/uL (1.0-4.0); LYMPHOCYTES % (AUTO) 9 % (12-44); MEAN CORPUSCULAR HEMOGLOBIN 34 pg (25-34); MEAN CORPUSCULAR HGB CONC 35 g/dL (32-36); MEAN CORPUSCULAR VOLUME 99 fL (80-99); MEAN PLATELET VOLUME 8.7 fL (9.0-12.2); MONOCYTES # (AUTO) 1.9 10^3/uL (0.0-1.0); MONOCYTES % (AUTO) 26 % (0-12); NEUTROPHILS # (AUTO) 4.2 10^3/uL (1.8-7.8); NEUTROPHILS % (AUTO) 60 % (42-75); PLATELET COUNT 247 10^3/uL (130-400); WHITE BLOOD COUNT 7.1 10^3/uL (4.3-11.0)
[2021-03-23 04:26] LABS: CHLORIDE 94 MMOL/L (98-107); POTASSIUM 2.8 MMOL/L (3.6-5.0); SODIUM 132 MMOL/L (135-145)
[2021-03-23 04:27] LABS: CALCIUM 8.6 MG/DL (8.5-10.1); GLUCOSE 85 MG/DL (70-105)
[2021-03-23 04:29] LABS: CARBON DIOXIDE 23 MMOL/L (21-32)
[2021-03-23 04:31] LABS: CREATININE SERUM 0.48 MG/DL (0.60-1.30); GFR ESTIMATED > 60; PHOSPHORUS 2.7 MG/DL (2.3-4.7)
[2021-03-23 04:32] LABS: BUN/CREATININE RATIO 4
[2021-03-23 04:34] LABS: MAGNESIUM 1.7 MG/DL (1.6-2.4)
[2021-03-23] MEDS: THIAMINE 100 MG (VITAMIN B-1) TAB PO SCH (06:07)
[2021-03-23] MEDS: MULTIVIT W/MINERALS TAB (THERAGRAN M) PO SCH (06:07)
--- NOTE | 2021-03-23 08:24 | Progress Note - Hospitalist ---
Subjective HPI/CC On Admission Date Seen by Provider: Mar 23, 2021 Time Seen by Provider: 08:19 Rebecca Capps is a 55-year-old female with past medical history of hypertension, depression, CAD, tobacco abuse, alcohol dependence, who presented with shortness of breath and chest pain. She reports that her symptoms have been going on for about 2 weeks but have been worse over the past few days. She reports trouble breathing. She reports chest pain worse with inspiration. She reports having nausea and vomiting. She denies fevers but has had chills. She has had a cough. She denies any abdominal pain or diarrhea. She denies any dysuria. She is an every day 1 pack/day smoker. She also drinks 4-10 beers daily. She denies ever having any alcohol withdrawal. She has never gone a day without drinking. Subjective/Events-last exam Pt awake and communicative but did not really open eyes to talk. She asked multiple times what in her house made her and her sick. I told her I was unaware of anything in her home making her sick at this moment other than the chronic alcohol use. She states everyone working on her home has told her that her home has something in it that is making them sick. I advised her to follow up with whoever has inspected her house to find out what they have found but fartun t nothing on her labs reveals anything from her house causing her to be ill. She seemed very unsatisfied with this answer. Objective Exam Vital Signs Vital Signs Date Time Temp Pulse Resp B/P (MAP) Pulse Ox O2 Delivery O2 Flow Rate FiO2 03/24/21 07:20 36.4 03/24/21 06:00 68 153/66 (95) 95 Room Air 03/24/21 04:00 17 03/22/21 19:00 2.00 Capillary Refill : Less Than 3 Seconds General Appearance: No Apparent Distress, Chronically ill Respiratory: Lungs Clear, No Respiratory Distress Cardiovascular: Regular Rate, Rhythm, No Murmur Extremity: Normal Inspection, No Pedal Edema Neurologic/Psychiatric: Alert, Other (oriented to person and place only) Results/Procedures Lab Laboratory Tests 03/23/21 14:18 03/24/21 04:25 Patient resulted labs reviewed. Imaging: Reviewed Imaging Report Assessment/Plan Assessment and Plan Assess & Plan/Chief Complaint Alcohol dependence with acute alcohol withdrawal Agitation Hyponatremia CIWA protocol, less ativan needed overnight If does well today will transfer to 4th this afternoon Continue Risperdal Vitamin replacements Continue IV fluids Anemia Improving Continue on protonix Will need outpatient EGD Hesitant to due to now due to agitation and confusion that is slowly improving and would not want to set it back with anesthesia If clinical status changes though will discuss with surgery Pneumonia Completed Zosyn Pleuritic chest pain CAD with history of coronary stenting Likely due to pneumonia CT showed no PE Troponin mildly increased Cardiology consulted, appreciate assistance Continue aspirin HTN Depression Continue home meds Tobacco abuse Nicotine patch as needed Social situation Very difficult home situation 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
--- NOTE | 2021-03-23 08:31 | Progress Note - Cardiology ---
Cardiology SOAP Progress Note Subjective: Sitting up in recliner at the bedside Confused this morning and lethargic Oriented to self only C/O abdominal pain No c/o CP or SOB Objective: I&O/Vital Signs 03/23/21 03/23/21 03/24/21 03/24/21 23:00 23:59 00:00 01:00 Pulse 68 70 70 Resp 13 12 B/P (MAP) 139/68 (91) 140/61 (87) 132/56 (81) Pulse Ox 95 98 96 O2 Delivery Room Air Room Air Room Air Room Air 03/24/21 03/24/21 03/24/21 03/24/21 01:00 02:00 03:00 04:00 Pulse 69 67 69 71 Resp 17 B/P (MAP) 98/46 (63) 106/49 (68) 127/56 (79) Pulse Ox 95 94 96 O2 Delivery Room Air Room Air Room Air 03/24/21 03/24/21 03/24/21 03/24/21 04:00 05:00 06:00 06:46 Pulse 66 68 68 B/P (MAP) 129/57 (81) 153/66 (95) Pulse Ox 94 95 O2 Delivery Room Air Room Air Room Air 03/24/21 03/24/21 07:20 08:00 Temp 36.4 O2 Delivery Room Air 03/24/21 00:00 Intake Total 1070 ml Output Total 775 ml Balance 295 ml Weight (Pounds): 109 Weight (Ounces): 5.0 Weight (Calculated Kilograms): 49.793403 Constitutional: well-developed, well-nourished Respiratory: rhonchi, other Cardiovascular: regular rate-rhythm, S1 and S2 Gastrointestional: soft, audible bowel sounds Extremities: no lower extremity edema bilateral Neurologic/Psychiatric: No oriented x 3 (oriented to self only; slow to answer questions this morning); other (moves all limbs equally) Skin: No rash on exposed areas, No ulcerations on exposed areas Results/Procedures: Labs Laboratory Tests 03/23/21 14:18: Sodium Level 129L, Potassium Level 3.3L, Chloride Level 95L, Carbon Dioxide Level 25, Anion Gap 9, Blood Urea Nitrogen < 2L, Creatinine 0.55L, Estimat Glomerular Filtration Rate > 60, BUN/Creatinine Ratio 4, Glucose Level 119H, Calcium Level 8.9, Phosphorus Level 3.1, Magnesium Level 2.0 03/24/21 04:25: Sodium Level 131L, Potassium Level 4.1, Chloride Level 101, Carbon Dioxide Level 21, Anion Gap 9, Blood Urea Nitrogen < 2L, Creatinine 0.53L, Estimat Glomerular Filtration Rate > 60, BUN/Creatinine Ratio 4, Glucose Level 85, Calcium Level 8.7, Phosphorus Level 2.9, Magnesium Level 1.8, White Blood Count 6.8, Red Blood Count 2.74L, Hemoglobin 9.2L, Hematocrit 27L, Mean Corpuscular Volume 100H, Mean Corpuscular Hemoglobin 34, Mean Corpuscular Hemoglobin Concent 34, Red Cell Distribution Width 12.3, Platelet Count 297, Mean Platelet Volume 8.7L, Immature Granulocyte % (Auto) 2, Neutrophils (%) (Auto) 49, Lymphocytes (%) (Auto) 16, Monocytes (%) (Auto) 27H, Eosinophils (%) (Auto) 5, Basophils (%) (Auto) 1, Neutrophils # (Auto) 3.3, Lymphocytes # (Auto) 1.1, Monocytes # (Auto) 1.9H, Eosinophils # (Auto) 0.3, Basophils # (Auto) 0.1, Immature Granulocyte # (Auto) 0.1 Microbiology 03/19/21 Urine Culture - Final, Complete NO GROWTH 03/19/21 MRSA Screen - Final, Complete MRSA not isolated 03/19/21 Blood Culture - Preliminary, Resulted No growth A/P: Assessment: Chest pain with no evidence of ACS thus far. Minimal troponin elevation at presentation likely type 2 WA due to sepsis Sepsis - management per medical services/ICU services Echocardiogram of 03-19-21: - LVEF 60-65%; PASP 35 mmHg Heavy alcohol use (reports alcohol use averaging 4-10 beers per day): - At presentation on 03/18/21: Electrolyte abnormalities, including hyponatremia, likely secondary to vomiting/poor oral intake/heavy ETOH abuse - On 03/20/21: Alcohol-withdrawal syndrome CAD. - H/o Promus Keegan 3x20 stenting of RCA on 09/03/15. - Subsequently, on 09/03/15 she underwent balloon angioplasty of the same stent for nonocclusive stent thrombosis and FFR of 50% mid LAD stenosis (0.84). All these procedures were carried out by Dr Young at [facility]. LVEF was reported to be normal and and LVEDP was 7 mmHg Tobaccoism S/p abdominal hysterectomy in the , per patient report H/o PUD with anemia requiring transfusions - being managed by her PCP Carotid u/s from January 2016 showed a minor amt of atherosclerotic disease at both carotid bifurcation. Plan: * Replenish electrolytes - receiving IV potassium this morning and NS * Continue bb and ASA, given CAD history * BP not well controlled - increase Toprol XL * Advised to refrain from tobacco and alcohol use * Anemia - suspect slow GI bleed - advise consult with GI services for conside ration of endoscopy - management of anemia per medical services (gradually improving) * counseling services manager assisting with pt home life situation * ETOH withdrawal - management per medical services TAHIR PARHAM Mar 23, 2021 08:31
[2021-03-23] MEDS: FOLIC ACID 1 MG TAB PO SCH (08:47)
[2021-03-23] MEDS: lisINopril 10 MG (PRINIVIL) TABLET PO SCH (08:47)
[2021-03-23] MEDS: ASPIRIN E.C. 81 MG (ECOTRIN) TAB PO SCH (08:47)
[2021-03-23] MEDS: FLUoxetine HCL 10 MG (PROzac) CAPSULE/TABLET PO SCH (08:47)
[2021-03-23] MEDS: PANTOPRAZOLE 40 MG (PROTONIX) VIAL IV SCH (08:48)
[2021-03-23] MEDS: meTOprolol SUCCINATE 100 MG (TOPROL XL) TAB PO SCH (08:48)
[2021-03-23] MEDS: risperiDONE 0.5 MG (RisperDAL) TABLET PO SCH ×3 (08:48→22:25)
[2021-03-23] MEDS: FAMOTIDINE 20MG/2ML IV (PEPCID) IVP SCH ×2 (08:49→22:22)
--- NOTE | 2021-03-23 10:00 | Pulmonary Progress Note ---
Subjective Date Seen by a Provider: Mar 23, 2021 Time Seen by a Provider: 10:00 Sepsis Event Evaluation Height, Weight, BMI Height: 5'3.00" Weight: 109lbs. 5.0oz. 49.733167bu; 20.28 BMI Method:Stated Exam Exam Patient acknowledged, consented, and participated in this virtual visit which was conducted using real time audio/video Vital Signs Date Time Temp Pulse Resp B/P (MAP) Pulse Ox O2 Delivery O2 Flow Rate FiO2 03/23/21 09:00 83 19 167/82 (110) 91 Room Air 03/23/21 08:00 Room Air 03/23/21 08:00 76 16 159/109 (126) 96 Room Air 03/23/21 07:42 36.3 03/23/21 07:00 75 19 156/73 (100) 94 Room Air 03/23/21 06:44 80 03/23/21 06:00 92 36 160/76 (104) Room Air 03/23/21 05:00 77 26 177/82 (111) Room Air 03/23/21 04:00 82 18 135/85 (94) Room Air 03/23/21 04:00 36.0 03/23/21 04:00 Room Air 03/23/21 03:00 70 21 154/72 (108) Room Air 03/23/21 02:00 85 31 154/68 (96) Room Air 03/23/21 01:00 85 10 153/86 (108) Room Air 03/23/21 01:00 85 03/23/21 00:00 75 17 170/77 (108) 97 Room Air 03/22/21 23:59 Room Air 03/22/21 23:37 35.7 98 Room Air 03/22/21 23:00 70 11 154/72 (99) Room Air 03/22/21 22:00 70 161/76 (106) Room Air 03/22/21 21:00 79 19 161/87 (140) 95 Room Air 03/22/21 20:00 Room Air 03/22/21 20:00 71 13 147/64 (92) 92 Room Air 03/22/21 19:54 35.8 74 16 167/77 (107) 98 Room Air 03/22/21 19:21 36.0 03/22/21 19:00 70 03/22/21 19:00 70 167/77 (115) Nasal Cannula 2.00 03/22/21 18:00 59 11 Nasal Cannula 2.00 03/22/21 17:00 71 21 Nasal Cannula 2.00 03/22/21 16:37 Nasal Cannula 2.00 03/22/21 16:00 Nasal Cannula 2.00 03/22/21 16:00 90 11 152/102 (119) Nasal Cannula 2.00 03/22/21 15:57 36.2 03/22/21 15:00 67 21 147/70 (95) Nasal Cannula 2.00 03/22/21 14:00 86 160/91 (114) Nasal Cannula 2.00 03/22/21 13:00 70 15 172/80 (110) Nasal Cannula 2.00 03/22/21 12:28 71 03/22/21 12:00 63 14 171/83 (112) Nasal Cannula 2.00 03/22/21 12:00 Nasal Cannula 2.00 03/22/21 11:00 76 30 134/67 (89) Nasal Cannula 2.00 I & O 03/23/21 07:00 Intake Total 950 ml Output Total 3550 ml Balance -2600 ml Height & Weight Height: 5'3.00" Weight: 109lbs. 5.0oz. 49.987670bj; 20.28 BMI Method:Stated General Appearance: No Apparent Distress, Chronically ill HEENT: PERRL/EOMI, Pharynx Normal Neck: Normal Inspection, Supple Respiratory: Lungs Clear, No Respiratory Distress Cardiovascular: Regular Rate, Rhythm, No Murmur Capillary Refill: Less Than 3 Seconds Extremity: Normal Inspection, No Pedal Edema Neurologic/Psychiatric: Alert, Other (oriented to person and place only) Skin: Normal Color, Warm/Dry Results Lab Laboratory Tests 03/21/21 11:58 03/21/21 17:13 03/22/21 03:38 03/23/21 03:37 Assessment/Plan Assessment/Plan Available chart/ vitals / labs / Images reviewed Video assessment done using teleICU camera, rest of exam as per RN Discussed with RN Events overnight : still confused and restless Afebrile , on RA hemodynamically stable, no pressors, I/O = neg 2200 Drips: ns 100 Consultants: cardiology Hospital course: 03/19 with PNA , hyponatremia , CP A/P Sepsis Initial [place] was 6.3 which improived to 0.95 with 2 liters of fluid. - resolved Suspected PNA (= faint infiltrates on CT ) - flu /covid neg - 03/19 - CXR and CT bilateral infiltrates L>R . no PE.- to stop abx -smoker - no h/o COPD Hyponatremia, ( presumed potomania, use averaging 3-6 beers per day - presented with 117 - fluis restriction 1.5 l - still on NS with minimal po intake - follow CAD, s/p PTCI RCA 2014 - as pre cards on ASA h/o PUD with anemia requiring transfusions in past ( ETON related ? - Hb stable -PPI IV ETON abuse. developing wiothdrowal - folate , thiamins , observe -CIWA , give phenobarn IV x1 , POx1 tonight - follow Lines : peripheral Proctor: 03/19- OG: Nutrition: po VTE Prophylaxis: SCD, lovenox Stress Ulcer Prophylaxis:PP + Hb 2 Glycemic Control: ok Plans in collaboration with bedside consultants and IM MDs. Discussed with RN to reach out if any questions or concerns A total of 30 minutes of critical care time was devoted to this patient today, required to treat and/or prevent further deterioration of critical care condition ( as above ) . ZEINAB EMMANUEL MD Mar 23, 2021 10:00
[2021-03-23] MEDS: LORazepam INJ 2 MG/ML (ATIVAN) VIAL IV PRN ×3 (10:18→19:18)
[2021-03-23] MEDS: ENOXAPARIN 40 MG/0.4 ML (LOVENOX) SYR SC SCH (14:00)
--- NOTE | 2021-03-23 14:30 | Occupational Therapy Eval ---
OT Evaluation-General/PLF Medical Diagnosis Admission Date Mar 19, 2021 at 02:21 Medical Diagnosis: Sepsis Onset Date: Mar 19, 2021 Therapy Diagnosis Therapy Diagnosis: Weakness, Decreased ADL skills Height/Weight Height (Feet): 5 Height (Inches): 3.00 Weight (Pounds): 109 Weight (Ounces): 5.0 Precautions Precautions/Isolations: Fall Prevention, Standard Precautions Weight Bear Status Weight Bearing Restriction: Weight Bearing/Tolerated Referral Physician: Dr. Shea Referral Reason: Activity Tolerance, Self Care, Evaluation/Treatment, Strengthening/ROM Medical History Reviewed History: Yes Social History Pt. unable to give history. ADL-Prior Level of Function SCALE: Activities may be completed with or without assistive devices. 1-Lvfbgpbrvu-qabxsfz completes the activity by him/herself with no assistance from a helper. 5-Set-up or Clean-up Assistance-helper sets up or cleans up; patient completes activity. [place] assists only prior to or following the activity. 4-Supervision or Touching Assistance-helper provides verbal cues and/or touching/steadying and/or contact guard assistance as patient completes activity. Assistance may be provided throughout the activity or intermittently. 3-Partial/Moderate Assistance-helper does LESS THAN HALF the effort. [place] lifts, holds or supports trunk or limbs, but provides less than half the effort. 2-Substantial/Maximal Assistance-helper does MORE THAN HALF the effort. [place] lifts or holds trunk or limbs and provides more than half the effort. 5-Gcfyuakpj-xopbdf does ALL the effort. Patient does none of the effort to complete the activity. Or, the assistance of 2 or more helpers is required for the patient to complete the activity. If activity was not attempted, code reason: 7-Patient Refused. 9-Not Applicable-not attempted and the patient did not perform the activity before the current illness, exacerbation or injury. 10-Not Attempted due to Environmental Limitations-(lack of equipment, weather restraints, etc.). 88-Not Attempted due to Medical Conditions or Safety Concerns. ADL PLOF Comments Pt. unable to give PLOF. 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 Self Care: Unknown Functional Cognition: Unknown OT Current Status Subjective Pt. is disoriented and confused after multiple attempts to wake up. Does not report pain. Mental Status/Objective Patient Orientation: Unable to Assess Attachments: Proctor Catheter, IV ADL-Treatment Eating (QC): 1 On/Off Footwear (QC): 1 Toileting Hygiene (QC): 1 Other Treatments PT/OT completed co-treatment due to need of skilled assistance x 2 for poor endurance and ADL skills. Pt. asleep. Max cues and encouragement to wake up. Max assist x 2 for supine-sit. Pt. confused. Nursing aware and provided some insight. Pt. transfers sit-stand and pivot to chair with max assist. Attempted to have pt. feed self jello. Pt. able to hold jello but unable to bring spoon to mouth consistently without assistance. Would dribble on chin. Unable to hold cup or take sips on her own. Nursing came in to assist with this the rest of way. Pt unable to follow cues or provide history otherwise. At this time, pt. requires full assistance for all ADL skills and mobility. Chair alarm set. All needs met. Education OT Patient Education: Correct positioning, Modified ADL techniques, Progress toward Goal/Update tx plan, Purpose of tx/functional activities, Reviewed precautions, Rehab process, Transfer techniques Teaching Recipient: Patient Teaching Methods: Demonstration, Discussion Response to Teaching: Unable to Return Demonstration, Unable to Comprehend, Reinforcement Needed OT Short Term Goals Short Term Goals Time Frame: Apr 06, 2021 Eatin Oral hygiene: 3 Toileting hygiene: 3 Shower/bathe self: 3 Upper body dressin Lower body dressin Putting on/taking off footwear: 3 OT Loading Machine Operator Helper Goals Residential Goals Time Frame: Apr 20, 2021 Eating (QC): 4 Oral Hygiene (QC): 4 Toileting Hygiene (QC): 4 Shower/Bathe Self (QC): 3 Upper Body Dressing (QC): 4 Lower Body Dressing (QC): 3 On/Off Footwear (QC): 3 Additional Goals: 1-Demonstrate ADL Tasks, 2-Verbalize Understanding, 3- ImproveStrength/Luann 1=Demonstrate adherence to instructed precautions during ADL tasks. 2=Patient will verbalize/demonstrate understanding of assistive devices/m odifications for ADL. 3=Patient will improve strength/tolerance for activity to enable patient to perform ADL's. OT Education/Plan Problem List/Assessment Assessment: Decreased Activ Tolerance, Decreased Safety Aware, Decreased UE Strength, Dependent Transfers, Impaired Bed Mobility, Impaired Cognition, Impaired Coordination, Impaired Funct Balance, Impaired I ADL's, Impaired Self- Care Skills, Restricted Funct UE ROM Discharge Recommendations Plan/Recommendations: Continue POC Therapy Discharge Recommendati: 24 Hour Supervision Treatment Plan/Plan of Care Treatment,Training & Education: Yes Patient would benefit from OT for education, treatment and training to promote independence in ADL's, mobility, safety and/or upper extremity function for ADL's. Plan of Care: ADL Retraining, Functional Mobility, UE Funct Exercise/Act Treatment Duration: Apr 20, 2021 Frequency: 5 times per week Estimated Hrs Per Day: .25 hour per day Agreement: Yes Rehab Potential: Guarded Time/GCodes Start Time: 13:20 Stop Time: 13:35 Total Time Billed (hr/min): 15 Billed Treatment Time 1, ROCKY MORTENSEN OT Mar 23, 2021 14:30
--- NOTE | 2021-03-23 14:51 | Physical Therapy Evaluation ---
PT Evaluation-General Medical Diagnosis Admission Date Mar 19, 2021 at 02:21 Medical Diagnosis: Sepsis Onset Date: Mar 19, 2021 Therapy Diagnosis Therapy Diagnosis: generalized weakness/debility Height/Weight Height (Feet): 5 Height (Inches): 3.00 Weight (Pounds): 109 Weight (Ounces): 5.0 Precautions Precautions/Isolations: Fall Prevention, Standard Precautions Referral Physician: Dr. Shea Reason for Referral: Evaluation/Treatment Medical History Pertinent Medical History: Alcoholism, CAD Current History ER secondary to SOA and CP Reviewed History: Yes Social History patient unable to discuss living environment due to confusion Prior Prior Level of Function SCALE: Activities may be completed with or without assistive devices. 6-Rxbrshnupk-iylfbxa completes the activity by him/herself with no assistance from a helper. 5-Set-up or Clean-up Assistance-helper sets up or cleans up; patient completes activity. [place] assists only prior to or following the activity. 4-Supervision or Touching Assistance-helper provides verbal cues and/or touching/steadying and/or contact guard assistance as patient completes activity. Assistance may be provided throughout the activity or intermittently. 3-Partial/Moderate Assistance-helper does LESS THAN HALF the effort. [place] lifts, holds or supports trunk or limbs, but provides less than half the effort. 2-Substantial/Maximal Assistance-helper does MORE THAN HALF the effort. [place] lifts or holds trunk or limbs and provides more than half the effort. 3-Kleuflbpe-jvxzyb does ALL the effort. Patient does none of the effort to complete the activity. Or, the assistance of 2 or more helpers is required for the patient to complete the activity. If activity was not attempted, code reason: 7-Patient Refused. 9-Not Applicable-not attempted and the patient did not perform the activity before the current illness, exacerbation or injury. 10-Not Attempted due to Environmental Limitations-(lack of equipment, weather restraints, etc.). 88-Not Attempted due to Medical Conditions or Safety Concerns. 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 Finally agrees to up to recliner. Objective Patient Orientation: Confused, Listless Attachments: Proctor Catheter, IV ROM/Strength ROM Lower Extremities bilateral LE WFL Strength Lower Extremities 3-/5 grossly bilateral LE (unable to formally test due to lethargy and confusion) Integumentary/Posture Integumentary refer to nursing notes Bladder Incontinence: Proctor Cath Neuromuscular (Tone, Coordination, Reflexes) diminished coordination Sensory Vision: Wears Glasses Hearing: Functional Transfers Sit to Lying (QC): 2 Lying to Sitting/Side of Bed(Q: 2 Sit to Stand (QC): 2 Chair/Cem-ok-Hwrsv Xfer(QC): 2 chair alarm activated Gait Does the Patient Walk?: No and Walking Goal IS indicated Balance Sitting Static: Fair Sitting Dynamic: Fair Standing Static: Poor Standing Dynamic: Poor Assessment/Needs 55 y.o. female, will benefit from skilled PT to address functional strength and mobility to improve current LOF to safely return to home at maximum LOF. Rehab Potential: Fair PT Detention Goals Web Content Manager Goals PT Detention Goals Time Frame: Apr 04, 2021 Roll Left & Right (QC): 6 Sit to Lying (QC): 6 Lying-Sitting on Side/Bed(QC): 6 Sit to Stand (QC): 6 Chair/Eon-jc-Xkwzp Xfer(QC): 6 Toilet Transfer (QC): 6 Does the Patient Walk: Yes Walk 10 feet (QC): 6 Walk 50ft with 2 Turns (QC): 6 Walk 150 ft (QC): 6 PT Plan Problem List Problem List: Activity Tolerance, Functional Strength, Safety, Balance, Gait, Transfer, Bed Mobility Treatment/Plan Treatment Plan: Continue Plan of Care Treatment Plan: Bed Mobility, Education, Functional Activity Luann, Functional Strength, Gait, Safety, Therapeutic Exercise, Transfers Treatment Duration: Apr 04, 2021 Frequency: 6 times per week Estimated Hrs Per Day: .25 hour per day Time/GCodes Time In: 1320 Time Out: 1341 Total Billed Treatment Time: 21 Total Billed Treatment 1 visit EVModC 21 min PHOENIX ABARCA PT Mar 23, 2021 14:51
[2021-03-23 14:54] LABS: BUN/CREATININE RATIO 4; CALCIUM 8.9 MG/DL (8.5-10.1); CARBON DIOXIDE 25 MMOL/L (21-32); CHLORIDE 95 MMOL/L (98-107); CREATININE SERUM 0.55 MG/DL (0.60-1.30); GFR ESTIMATED > 60; GLUCOSE 119 MG/DL (70-105); PHOSPHORUS 3.1 MG/DL (2.3-4.7); POTASSIUM 3.3 MMOL/L (3.6-5.0); SODIUM 129 MMOL/L (135-145)
[2021-03-23] MEDS ORDERED: KCL 20 MEQ TAB (K-DUR) PO ONE ×2 (15:15→17:30)
[2021-03-24] MEDS: NS IV 1000 ML 1,000 ML IV SCH (02:24)
[2021-03-24 04:47] LABS: BASOPHILS # (AUTO) 0.1 10^3/uL (0.0-0.1); BASOPHILS % (AUTO) 1 % (0-10); EOSINOPHILS # (AUTO) 0.3 10^3/uL (0.0-0.3); EOSINOPHILS % (AUTO) 5 % (0-10); HEMATOCRIT 27 % (35-52); HEMOGLOBIN 9.2 g/dL (11.5-16.0); LYMPHOCYTES # (AUTO) 1.1 10^3/uL (1.0-4.0); LYMPHOCYTES % (AUTO) 16 % (12-44); MEAN CORPUSCULAR HEMOGLOBIN 34 pg (25-34); MEAN CORPUSCULAR HGB CONC 34 g/dL (32-36); MEAN CORPUSCULAR VOLUME 100 fL (80-99); MEAN PLATELET VOLUME 8.7 fL (9.0-12.2); MONOCYTES # (AUTO) 1.9 10^3/uL (0.0-1.0); MONOCYTES % (AUTO) 27 % (0-12); NEUTROPHILS # (AUTO) 3.3 10^3/uL (1.8-7.8); NEUTROPHILS % (AUTO) 49 % (42-75); PLATELET COUNT 297 10^3/uL (130-400); WHITE BLOOD COUNT 6.8 10^3/uL (4.3-11.0)
[2021-03-24 04:58] LABS: CHLORIDE 101 MMOL/L (98-107); POTASSIUM 4.1 MMOL/L (3.6-5.0); SODIUM 131 MMOL/L (135-145)
[2021-03-24 04:59] LABS: CALCIUM 8.7 MG/DL (8.5-10.1)
[2021-03-24 05:00] LABS: GLUCOSE 85 MG/DL (70-105)
[2021-03-24 05:02] LABS: CARBON DIOXIDE 21 MMOL/L (21-32)
[2021-03-24 05:04] LABS: CREATININE SERUM 0.53 MG/DL (0.60-1.30); GFR ESTIMATED > 60; PHOSPHORUS 2.9 MG/DL (2.3-4.7)
[2021-03-24 05:05] LABS: BUN/CREATININE RATIO 4
[2021-03-24 05:06] LABS: MAGNESIUM 1.8 MG/DL (1.6-2.4)
[2021-03-24] MEDS: KCL 20 MEQ TAB (K-DUR) PO SCH (05:39)
[2021-03-24] MEDS: MAGNESIUM 1 GM/100 ML IVPB 100 ML IV SCH (05:39)
[2021-03-24] MEDS: POTASSIUM CL 10MEQ/50ML IVPB 50 ML IV SCH (05:39)
--- NOTE | 2021-03-24 08:30 | Progress Note - Hospitalist ---
Subjective HPI/CC On Admission Date Seen by Provider: Mar 24, 2021 Time Seen by Provider: 08:27 Rebecca Capps is a 55-year-old female with past medical history of hypertension, depression, CAD, tobacco abuse, alcohol dependence, who presented with shortness of breath and chest pain. She reports that her symptoms have been going on for about 2 weeks but have been worse over the past few days. She reports trouble breathing. She reports chest pain worse with inspiration. She reports having nausea and vomiting. She denies fevers but has had chills. She has had a cough. She denies any abdominal pain or diarrhea. She denies any dysuria. She is an every day 1 pack/day smoker. She also drinks 4-10 beers daily. She denies ever having any alcohol withdrawal. She has never gone a day without drinking. Subjective/Events-last exam Pt sleeping. Nurse reports she was more agitated yesterday. Pulled out catheter. Sleeping soundly. Objective Exam Vital Signs Vital Signs Date Time Temp Pulse Resp B/P (MAP) Pulse Ox O2 Delivery O2 Flow Rate FiO2 03/24/21 07:20 36.4 03/24/21 06:00 68 153/66 (95) 95 Room Air 03/24/21 04:00 17 03/22/21 19:00 2.00 Capillary Refill : Less Than 3 Seconds General Appearance: No Apparent Distress, Other (sleeping soundly) Respiratory: Lungs Clear, No Respiratory Distress Cardiovascular: Regular Rate, Rhythm, No Murmur Neurologic/Psychiatric: Alert, Oriented x3 Results/Procedures Lab Laboratory Tests 03/23/21 14:18 03/24/21 04:25 Patient resulted labs reviewed. Imaging: Reviewed Imaging Report Assessment/Plan Assessment and Plan Assess & Plan/Chief Complaint Alcohol dependence with acute alcohol withdrawal Agitation Hyponatremia [facility] protocol, still requiring occasional ativan DC as many lines as able due to agitation Transfer to [facility] Continue Risperdal Vitamin replacements DC IV fluids Anemia Stable Continue on protonix Will need outpatient EGD Hesitant to due to now due to agitation and confusion that is slowly improving and would not want to set it back with anesthesia If clinical status changes though will discuss with surgery Pneumonia Completed Zosyn Pleuritic chest pain CAD with history of coronary stenting Likely due to pneumonia CT showed no PE Troponin mildly increased Cardiology consulted, appreciate assistance Continue aspirin HTN Depression Continue home meds Tobacco abuse Nicotine patch as needed Social situation Very difficult home situation 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
[2021-03-24] MEDS: FAMOTIDINE 20MG/2ML IV (PEPCID) IVP SCH ×2 (09:11→20:30)
[2021-03-24] MEDS: risperiDONE 0.5 MG (RisperDAL) TABLET PO SCH ×2 (09:12→20:30)
[2021-03-24] MEDS: FLUoxetine HCL 10 MG (PROzac) CAPSULE/TABLET PO SCH (09:12)
[2021-03-24] MEDS: lisINopril 10 MG (PRINIVIL) TABLET PO SCH (09:12)
[2021-03-24] MEDS: meTOprolol SUCCINATE 100 MG (TOPROL XL) TAB PO SCH (09:12)
[2021-03-24] MEDS: FOLIC ACID 1 MG TAB PO SCH (09:12)
[2021-03-24] MEDS: ASPIRIN E.C. 81 MG (ECOTRIN) TAB PO SCH (09:12)
[2021-03-24] MEDS: PANTOPRAZOLE 40 MG (PROTONIX) VIAL IV SCH (09:12)
[2021-03-24] MEDS: MULTIVIT W/MINERALS TAB (THERAGRAN M) PO SCH (09:16)
[2021-03-24] MEDS: THIAMINE 100 MG (VITAMIN B-1) TAB PO SCH (09:16)
--- NOTE | 2021-03-24 10:07 | Pulmonary Progress Note ---
Subjective Date Seen by a Provider: Mar 24, 2021 Time Seen by a Provider: 10:07 Sepsis Event Evaluation Height, Weight, BMI Height: 5'3.00" Weight: 109lbs. 5.0oz. 49.478401wj; 20.28 BMI Method:Stated Exam Exam Patient acknowledged, consented, and participated in this virtual visit which was conducted using real time audio/video Vital Signs Date Time Temp Pulse Resp B/P (MAP) Pulse Ox O2 Delivery O2 Flow Rate FiO2 03/24/21 08:00 Room Air 03/24/21 07:20 36.4 03/24/21 06:46 68 03/24/21 06:00 68 153/66 (95) 95 Room Air 03/24/21 05:00 66 129/57 (81) 94 Room Air 03/24/21 04:00 Room Air 03/24/21 04:00 71 17 127/56 (79) 96 Room Air 03/24/21 03:00 69 106/49 (68) 94 Room Air 03/24/21 02:00 67 98/46 (63) 95 Room Air 03/24/21 01:00 69 03/24/21 01:00 70 132/56 (81) 96 Room Air 03/24/21 00:00 70 12 140/61 (87) 98 Room Air 03/23/21 23:59 Room Air 03/23/21 23:00 68 13 139/68 (91) 95 Room Air 03/23/21 22:00 72 14 181/87 (118) Room Air 03/23/21 21:00 68 14 181/89 (113) Room Air 03/23/21 20:00 Room Air 03/23/21 20:00 63 14 156/81 (104) Room Air 03/23/21 19:00 74 18 152/73 (110) 93 Room Air 03/23/21 19:00 74 03/23/21 18:00 80 22 Room Air 03/23/21 17:00 80 24 153/97 (115) Room Air 03/23/21 16:00 Room Air 03/23/21 16:00 80 38 139/74 (95) Room Air 03/23/21 15:38 36.3 03/23/21 15:00 80 19 136/82 (100) Room Air 03/23/21 14:00 74 20 154/73 (100) 97 Room Air 03/23/21 13:10 62 03/23/21 13:00 62 12 115/63 (80) 97 Room Air 03/23/21 12:00 Room Air 03/23/21 12:00 64 13 134/57 (82) 98 Room Air 03/23/21 11:21 36.4 03/23/21 11:00 63 11 147/71 (96) 95 Room Air I & O 03/24/21 07:00 Intake Total 1470 ml Output Total 1200 ml Balance 270 ml Height & Weight Height: 5'3.00" Weight: 109lbs. 5.0oz. 49.709888ed; 20.28 BMI Method:Stated General Appearance: No Apparent Distress, Chronically ill HEENT: PERRL/EOMI, Pharynx Normal Neck: Normal Inspection, Supple Respiratory: Lungs Clear, No Respiratory Distress Cardiovascular: Regular Rate, Rhythm, No Murmur Capillary Refill: Less Than 3 Seconds Extremity: Normal Inspection, No Pedal Edema Neurologic/Psychiatric: Alert, Other (oriented to person and place only) Skin: Normal Color, Warm/Dry Results Lab Laboratory Tests 03/23/21 03:37 03/23/21 14:18 03/24/21 04:25 Assessment/Plan Assessment/Plan Available chart/ vitals / labs / Images reviewed Video assessment done using teleICU camera, rest of exam as per RN Discussed with RN Events overnight : Afebrile , on RA hemodynamically stable, no pressors, I/O = neg 800 Drips: ns 100 Consultants: cardiology Hospital course: 03/19 with PNA , hyponatremia , CP 03/23 - confused , on ra A/P Sepsis - resolved Suspected PNA (= faint infiltrates on CT ) - flu /covid neg - 03/19 - CXR and CT bilateral infiltrates L>R . no PE.- received 5 d abx -smoker - no h/o COPD Hyponatremia, ( presumed potomania, use averaging 3-6 beers per day - presented with 117- 131 today - fluis restriction 1.5 l - still on NS with minimal po intake - follow - to stop if can take po CAD, s/p PTCI RCA 2014 - as pre cards on ASA h/o PUD with anemia requiring transfusions in past ( ETON related ? - Hb stable -PPI IV ETON abuse. developing wiothdrowal - folate , thiamins , observe -CIWA , givev phenobarn IV and po x1 on 03/23 Lines : peripheral Proctor: 03/19- OG: Nutrition: po VTE Prophylaxis: SCD, lovenox Stress Ulcer Prophylaxis:PP + Hb 2 Glycemic Control: ok Plans in collaboration with bedside consultants and IM MDs. Discussed with RN to reach out if any questions or concerns A total of 30 minutes of critical care time was devoted to this patient today, required to treat and/or prevent further deterioration of critical care condition ( as above ) . ZEINAB EMMANUEL MD Mar 24, 2021 10:07
--- NOTE | 2021-03-24 10:36 | Physical Therapy Daily Note ---
PT Daily Note-Current Subjective Patient is more alert and cooperative today. Mental Status Patient Orientation: Person, Time, Situation Transfers SCALE: Activities may be completed with or without assistive devices. 1-Mtcsyjbunk-zkhcqiv completes the activity by him/herself with no assistance from a helper. 5-Set-up or Clean-up Assistance-helper sets up or cleans up; patient completes activity. [place] assists only prior to or following the activity. 4-Supervision or Touching Assistance-helper provides verbal cues and/or touchi ng/steadying and/or contact guard assistance as patient completes activity. Assistance may be provided throughout the activity or intermittently. 3-Partial/Moderate Assistance-helper does LESS THAN HALF the effort. [place] lifts, holds or supports trunk or limbs, but provides less than half the effort. 2-Substantial/Maximal Assistance-helper does MORE THAN HALF the effort. [place] lifts or holds trunk or limbs and provides more than half the effort. 2-Hwvzvhkbq-kurvnm does ALL the effort. Patient does none of the effort to complete the activity. Or, the assistance of 2 or more helpers is required for the patient to complete the activity. If activity was not attempted, code reason: 7-Patient Refused. 9-Not Applicable-not attempted and the patient did not perform the activity before the current illness, exacerbation or injury. 10-Not Attempted due to Environmental Limitations-(lack of equipment, weather restraints, etc.). 88-Not Attempted due to Medical Conditions or Safety Concerns. Sit to Stand (QC): 3 Chair/Nin-mc-Swvfo Xfer(QC): 3 Gait Training Does the Patient Walk?: Yes Distance: 225' Walk 10 feet (QC): 3 Walk 50 ft with 2 Turns(QC): 3 Walk 150 ft (QC): 3 Gait Assistive Device: FWW PT assist to advance FWW/NBOS and shuffle gait sequence Assessment Patient tolerated increase in activity and required several standing recovery periods due to fatigue. PT to increase activity as tolerated by patient. PT Snf Goals Chemical Test Engineer Goals PT Snf Goals Time Frame: Apr 04, 2021 Roll Left & Right (QC): 6 Sit to Lying (QC): 6 Lying-Sitting on Side/Bed(QC): 6 Sit to Stand (QC): 6 Chair/Bet-jr-Ifgny Xfer(QC): 6 Toilet Transfer (QC): 6 Does the Patient Walk: Yes Walk 10 feet (QC): 6 Walk 50ft with 2 Turns (QC): 6 Walk 150 ft (QC): 6 PT Plan Treatment/Plan Treatment Plan: Continue Plan of Care Treatment Plan: Bed Mobility, Education, Functional Activity Luann, Functional Strength, Gait, Safety, Therapeutic Exercise, Transfers Treatment Duration: Apr 04, 2021 Frequency: 6 times per week Estimated Hrs Per Day: .25 hour per day Time/GCodes Time In: 920 Time Out: 934 Total Billed Treatment Time: 14 Total Billed Treatment 1 visit GT 14 min PHOENIX ABARCA PT Mar 24, 2021 10:36
--- NOTE | 2021-03-24 10:40 | Progress Note - Cardiology ---
Cardiology SOAP Progress Note Subjective: Sitting up in recliner Denies any c/o CP or SOB Oriented to self only Generalized weakness Objective: I&O/Vital Signs 03/24/21 03/25/21 03/25/21 23:10 04:00 07:05 Temp 36.0 36.6 36.6 Pulse 84 76 71 Resp 18 20 16 B/P (MAP) 162/82 (108) 153/81 (105) 159/80 (106) Pulse Ox 96 95 99 O2 Delivery Room Air Room Air Room Air 03/25/21 00:00 Intake Total 670 ml Balance 670 ml Weight (Pounds): 109 Weight (Ounces): 5.0 Weight (Calculated Kilograms): 49.703725 Constitutional: well-developed, well-nourished Respiratory: rhonchi, other Cardiovascular: regular rate-rhythm, S1 and S2 Gastrointestional: soft, audible bowel sounds Extremities: no lower extremity edema bilateral Neurologic/Psychiatric: No oriented x 3 (oriented to self only; slow to answer questions this morning); other (moves all limbs equally) Skin: No rash on exposed areas, No ulcerations on exposed areas Results/Procedures: Labs Laboratory Tests 03/25/21 05:45: White Blood Count 8.1, Red Blood Count 2.82L, Hemoglobin 9.6L, Hematocrit 28L, Mean Corpuscular Volume 101H, Mean Corpuscular Hemoglobin 34, Mean Corpuscular Hemoglobin Concent 34, Red Cell Distribution Width 12.5, Platelet Count 365, Mean Platelet Volume 8.5L, Immature Granulocyte % (Auto) 3, Neutrophils (%) (Auto) 62, Lymphocytes (%) (Auto) 9L, Monocytes (%) (Auto) 23H, Eosinophils (%) (Auto) 3, Basophils (%) (Auto) 1, Neutrophils # (Auto) 5.0, Lymphocytes # (Auto) 0.8L, Monocytes # (Auto) 1.9H, Eosinophils # (Auto) 0.2, Basophils # (Auto) 0.1, Immature Granulocyte # (Auto) 0.2H, Sodium Level 133L, Potassium Level 3.6, Chl oride Level 98, Carbon Dioxide Level 21, Anion Gap 14, Blood Urea Nitrogen 4L, Creatinine 0.58L, Estimat Glomerular Filtration Rate > 60, BUN/Creatinine Ratio 7, Glucose Level 85, Calcium Level 9.3, Phosphorus Level 4.6, Magnesium Level 1.7 Microbiology 03/19/21 Urine Culture - Final, Complete NO GROWTH 03/19/21 MRSA Screen - Final, Complete MRSA not isolated 03/19/21 Blood Culture - Final, Complete No growth A/P: Assessment: Chest pain with no evidence of ACS thus far. Minimal troponin elevation at presentation likely type 2 [place] due to sepsis Sepsis - management per medical services/ICU services Echocardiogram of 03-19-21: - LVEF 60-65%; PASP 35 mmHg Heavy alcohol use (reports alcohol use averaging 4-10 beers per day): - At presentation on 03/18/21: Electrolyte abnormalities, including hyponatremia, likely secondary to vomiting/poor oral intake/heavy ETOH abuse - On 03/20/21: Alcohol-withdrawal syndrome CAD. - H/o Promus Keegan 3x20 stenting of RCA on 09/03/15. - Subsequently, on 09/03/15 she underwent balloon angioplasty of the same stent for nonocclusive stent thrombosis and FFR of 50% mid LAD stenosis (0.84). All these procedures were carried out by Dr Young at [facility]. LVEF was reported to be normal and and LVEDP was 7 mmHg Tobaccoism S/p abdominal hysterectomy in the , per patient report H/o PUD with anemia requiring transfusions - being managed by her PCP Carotid u/s from January 2016 showed a minor amt of atherosclerotic disease at both carotid bifurcation. Plan: * Replenish electrolytes - management per medical services * Continue bb and ASA, given CAD history * Advised to refrain from tobacco and alcohol use * Anemia - suspect slow GI bleed - advise consult with GI services for consideration of endoscopy - management of anemia per medical services (gradually improving) * pupil personnel services director assisting with pt home life situation * ETOH withdrawal - management per medical services * Gen weakness - PT/OT per medical services TAHIR PARHAM Mar 24, 2021 10:40
[2021-03-24] MEDS: VASOPRESSIN INJECTION 20 UNIT in NS (IVPB) 100 ML IV SCH (11:00)
--- NOTE | 2021-03-24 12:16 | Occupational Ther Daily Note ---
OT Current Status-Daily Note Subjective Pt. tearful and difficult to understand at times. Does not report pain. Mental Status/Objective Patient Orientation: Unable to Assess ADL-Treatment Therapy Code Descriptions/Definitions Functional [place] Measure: 0=Not Assessed/NA 4=Minimal Assistance 1=Total Assistance 5=Supervision or Setup 2=Maximal Assistance 6=Modified [place] 3=Moderate Assistance 7=Complete IndependenceSCALE: Activities may be completed with or without assistive devices. 3-Ouvmsfsisn-eyccztt completes the activity by him/herself with no assistance from a helper. 5-Set-up or Clean-up Assistance-helper sets up or cleans up; patient completes activity. [place] assists only prior to or following the activity. 4-Supervision or Touching Assistance-helper provides verbal cues and/or touching/steadying and/or contact guard assistance as patient completes activity. Assistance may be provided throughout the activity or intermittently. 3-Partial/Moderate Assistance-helper does LESS THAN HALF the effort. [place] lifts, holds or supports trunk or limbs, but provides less than half the effort. 2-Substantial/Maximal Assistance-helper does MORE THAN HALF the effort. [place] lifts or holds trunk or limbs and provides more than half the effort. 0-Bqbtvcwbh-mmtbzm does ALL the effort. Patient does none of the effort to complete the activity. Or, the assistance of 2 or more helpers is required for the patient to complete the activity. If activity was not attempted, code reason: 7-Patient Refused. 9-Not Applicable-not attempted and the patient did not perform the activity before the current illness, exacerbation or injury. 10-Not Attempted due to Environmental Limitations-(lack of equipment, weather restraints, etc.). 88-Not Attempted due to Medical Conditions or Safety Concerns. Oral Hygiene (QC): 3 (Min assist and max cues for completion, sequencing, and time managment to complete oral hygiene.) Other Treatment Pt. up in chair. Pt. more talkative and more alert this date than yesterday. Agrees to wash face. Note slow methodical movements. OT washes glasses and pt. states that she can see now. Pt. becomes intermittently upset, stating things like, "my whole life is his life." Pt. also asks OT if she "hears that cat." OT attempts to prompt pt. to finish drinking items on her clear liquid tray. Pt. is confused as to why she has these items, and not real food. Picks up items but does not drink them. Agrees to brush teeth, but is slow and brushes only one area of mouth at a time, over and over. Requires constant prompting and cues to move to next area, rinse mouth and spit. All needs are met up in chair at end of session. Education OT Patient Education: Correct positioning, Modified ADL techniques, Progress toward Goal/Update tx plan, Purpose of tx/functional activities, Reviewed precautions, Rehab process Teaching Recipient: Patient Teaching Methods: Demonstration, Discussion Response to Teaching: Reinforcement Needed OT Short Term Goals Short Term Goals Time Frame: Apr 06, 2021 Eatin Oral hygiene: 3 Toileting hygiene: 3 Shower/bathe self: 3 Upper body dressin Lower body dressin Putting on/taking off footwear: 3 OT Planer Chain Offbearer Goals Assisted Goals Time Frame: Apr 20, 2021 Eating (QC): 4 Oral Hygiene (QC): 4 Toileting Hygiene (QC): 4 Shower/Bathe Self (QC): 3 Upper Body Dressing (QC): 4 Lower Body Dressing (QC): 3 On/Off Footwear (QC): 3 Additional Goals: 1-Demonstrate ADL Tasks, 2-Verbalize Understanding, 3- ImproveStrength/Luann 1=Demonstrate adherence to instructed precautions during ADL tasks. 2=Patient will verbalize/demonstrate understanding of assistive devices/modifications for ADL. 3=Patient will improve strength/tolerance for activity to enable patient to perform ADL's. OT Education/Plan Problem List/Assessment Assessment: Decreased Activ Tolerance, Impaired Cognition, Impaired I ADL's, Impaired Self-Care Skills Discharge Recommendations Plan/Recommendations: Continue POC Therapy Discharge Recommendati: 24 Hour Supervision, Post Acute OT Treatment Plan/Plan of Care Treatment,Training & Education: Yes Patient would benefit from OT for education, treatment and training to promote independence in ADL's, mobility, safety and/or upper extremity function for ADL's. Plan of Care: ADL Retraining, Functional Mobility, UE Funct Exercise/Act Treatment Duration: Apr 20, 2021 Frequency: 5 times per week Estimated Hrs Per Day: .25 hour per day Agreement: Yes Rehab Potential: Fair Time/GCodes Start Time: 08:45 Stop Time: 09:00 Total Time Billed (hr/min): 15 Billed Treatment Time , ADL ROCKY RUFFIN OT Mar 24, 2021 12:16
[2021-03-24] MEDS: ENOXAPARIN 40 MG/0.4 ML (LOVENOX) SYR SC SCH (13:08)
[2021-03-24] MEDS: LORazepam INJ 2 MG/ML (ATIVAN) VIAL IV PRN (22:19)
[2021-03-25] MEDS: MULTIVIT W/MINERALS TAB (THERAGRAN M) PO SCH (05:48)
[2021-03-25] MEDS: THIAMINE 100 MG (VITAMIN B-1) TAB PO SCH (05:49)
[2021-03-25 05:50] LABS: BASOPHILS # (AUTO) 0.1 10^3/uL (0.0-0.1); BASOPHILS % (AUTO) 1 % (0-10); EOSINOPHILS # (AUTO) 0.2 10^3/uL (0.0-0.3); EOSINOPHILS % (AUTO) 3 % (0-10); HEMATOCRIT 28 % (35-52); HEMOGLOBIN 9.6 g/dL (11.5-16.0); LYMPHOCYTES # (AUTO) 0.8 10^3/uL (1.0-4.0); LYMPHOCYTES % (AUTO) 9 % (12-44); MEAN CORPUSCULAR HEMOGLOBIN 34 pg (25-34); MEAN CORPUSCULAR HGB CONC 34 g/dL (32-36); MEAN CORPUSCULAR VOLUME 101 fL (80-99); MEAN PLATELET VOLUME 8.5 fL (9.0-12.2); MONOCYTES # (AUTO) 1.9 10^3/uL (0.0-1.0); MONOCYTES % (AUTO) 23 % (0-12); NEUTROPHILS % (AUTO) 62 % (42-75); PLATELET COUNT 365 10^3/uL (130-400); WHITE BLOOD COUNT 8.1 10^3/uL (4.3-11.0)
[2021-03-25 06:04] LABS: CHLORIDE 98 MMOL/L (98-107); POTASSIUM 3.6 MMOL/L (3.6-5.0); SODIUM 133 MMOL/L (135-145)
[2021-03-25 06:05] LABS: CALCIUM 9.3 MG/DL (8.5-10.1)
[2021-03-25 06:06] LABS: GLUCOSE 85 MG/DL (70-105)
[2021-03-25 06:07] LABS: CARBON DIOXIDE 21 MMOL/L (21-32)
[2021-03-25 06:09] LABS: CREATININE SERUM 0.58 MG/DL (0.60-1.30); GFR ESTIMATED > 60; PHOSPHORUS 4.6 MG/DL (2.3-4.7)
[2021-03-25 06:10] LABS: BUN/CREATININE RATIO 7
[2021-03-25] MEDS: POTASSIUM CL 10MEQ/50ML IVPB 50 ML IV SCH (06:11)
[2021-03-25 06:12] LABS: MAGNESIUM 1.7 MG/DL (1.6-2.4)
[2021-03-25] MEDS: KCL 20 MEQ TAB (K-DUR) PO SCH (06:15)
[2021-03-25] MEDS: MAGNESIUM 1 GM/100 ML IVPB 100 ML IV SCH ×3 (06:16→07:25)
[2021-03-25] MEDS: PANTOPRAZOLE 40 MG (PROTONIX) VIAL IV SCH (08:34)
--- NOTE | 2021-03-25 08:38 | Progress Note - Cardiology ---
Cardiology SOAP Progress Note Objective: I&O/Vital Signs Weight (Pounds): 109 Weight (Ounces): 5.0 Weight (Calculated Kilograms): 49.375786 Constitutional: well-developed, well-nourished Respiratory: rhonchi, other Cardiovascular: regular rate-rhythm, S1 and S2 Gastrointestional: soft, audible bowel sounds Extremities: no lower extremity edema bilateral Neurologic/Psychiatric: No oriented x 3 (oriented to self only; slow to answer questions this morning); other (moves all limbs equally) Skin: No rash on exposed areas, No ulcerations on exposed areas Results/Procedures: Labs Microbiology 03/19/21 Urine Culture - Final, Complete NO GROWTH 03/19/21 MRSA Screen - Final, Complete MRSA not isolated 03/19/21 Blood Culture - Final, Complete No growth A/P: Assessment: Chest pain with no evidence of ACS thus far. Minimal troponin elevation at presentation likely type 2 UT due to sepsis Sepsis - management per medical services/ICU services - resolved Echocardiogram of 03-19-21: - LVEF 60-65%; PASP 35 mmHg Heavy alcohol use (reports alcohol use averaging 4-10 beers per day): - At presentation on 03/18/21: Electrolyte abnormalities, including hyponatremia, likely secondary to vomiting/poor oral intake/heavy ETOH abuse - On 03/20/21: Alcohol-withdrawal syndrome CAD. - H/o Promus Keegan 3x20 stenting of RCA on 09/03/15. - Subsequently, on 09/03/15 she underwent balloon angioplasty of the same stent for nonocclusive stent thrombosis and FFR of 50% mid LAD stenosis (0.84). All these procedures were carried out by Dr Young at [facility]. LVEF was reported to be normal and and LVEDP was 7 mmHg Tobaccoism S/p abdominal hysterectomy in the , per patient report H/o PUD with anemia requiring transfusions - being managed by her PCP Carotid u/s from January 2016 showed a minor amt of atherosclerotic disease at both carotid bifurcation. Plan: * Replenish electrolytes - management per medical services * Continue bb and ASA, given CAD history * Advised to refrain from tobacco and alcohol use * Anemia - suspect slow GI bleed - advise consult with GI services for consideration of endoscopy - management of anemia per medical services (gra dually improving) * ETOH withdrawal - management per medical services * Gen weakness - PT/OT per medical services * Plan is to transfer to [facility] later today TAHIR PARHAM Mar 25, 2021 08:38
[2021-03-25] MEDS: FAMOTIDINE 20MG/2ML IV (PEPCID) IVP SCH (08:48)
[2021-03-25] MEDS: FLUoxetine HCL 10 MG (PROzac) CAPSULE/TABLET PO SCH (08:48)
[2021-03-25] MEDS: risperiDONE 0.5 MG (RisperDAL) TABLET PO SCH (08:49)
[2021-03-25] MEDS: meTOprolol SUCCINATE 100 MG (TOPROL XL) TAB PO SCH (08:49)
[2021-03-25] MEDS: FOLIC ACID 1 MG TAB PO SCH (08:49)
[2021-03-25] MEDS: ASPIRIN E.C. 81 MG (ECOTRIN) TAB PO SCH (08:49)
[2021-03-25] MEDS: lisINopril 10 MG (PRINIVIL) TABLET PO SCH (08:49)
[2021-03-25] MEDS ORDERED: KCL 20 MEQ TAB (K-DUR) PO ONE (09:00)
--- NOTE | 2021-03-25 09:48 | Discharge Summary ---
Diagnosis/Chief Complaint Date of Admission Mar 19, 2021 at 02:21 Date of Discharge Discharge Date: Mar 25, 2021 Admission Diagnosis Septic shock due to pneumonia Primary Care Marco Escobedo DO Discharge Diagnosis (1) Septic shock Status: Resolved (2) Pneumonia Status: Acute (3) Lactic acidosis Status: Resolved (4) Elevated troponin Status: Acute (5) Alcohol withdrawal Status: Acute (6) Hyponatremia Status: Acute (7) Coronary artery disease Status: Chronic (8) Tobacco abuse Status: Chronic Discharge Summary Discharge Physical Exam Allergies: Coded Allergies: codeine (Verified Allergy, Mild, 09/02/15) Vitals & I&Os Vital Signs Date Time Temp Pulse Resp B/P (MAP) Pulse Ox O2 Delivery O2 Flow Rate FiO2 03/25/21 08:00 99 Room Air 03/25/21 07:05 36.6 71 16 159/80 (106) 03/22/21 19:00 2.00 Hospital Course Labs (last 24 hrs) Laboratory Tests 03/25/21 05:45: White Blood Count 8.1, Red Blood Count 2.82L, Hemoglobin 9.6L, Hematocrit 28L, Mean Corpuscular Volume 101H, Mean Corpuscular Hemoglobin 34, Mean Corpuscular Hemoglobin Concent 34, Red Cell Distribution Width 12.5, Platelet Count 365, Mean Platelet Volume 8.5L, Immature Granulocyte % (Auto) 3, Neutrophils (%) (Auto) 62, Lymphocytes (%) (Auto) 9L, Monocytes (%) (Auto) 23H, Eosinophils (%) (Auto) 3, Basophils (%) (Auto) 1, Neutrophils # (Auto) 5.0, Lymphocytes # (Auto) 0.8L, Monocytes # (Auto) 1.9H, Eosinophils # (Auto) 0.2, Basophils # (Auto) 0.1, Immature Granulocyte # (Auto) 0.2H, Sodium Level 133L, Potassium Level 3.6, Chloride Level 98, Carbon Dioxide Level 21, Anion Gap 14, Blood Urea Nitrogen 4L , Creatinine 0.58L, Estimat Glomerular Filtration Rate > 60, BUN/Creatinine Ratio 7, Glucose Level 85, Calcium Level 9.3, Phosphorus Level 4.6, Magnesium Level 1.7 Microbiology 03/19/21 Urine Culture - Final, Complete NO GROWTH 03/19/21 MRSA Screen - Final, Complete MRSA not isolated 03/19/21 Blood Culture - Final, Complete No growth Patient resulted labs reviewed. Pending Labs Laboratory Tests 03/25/21 05:45: White Blood Count 8.1, Red Blood Count 2.82, Hemoglobin 9.6, Hematocrit 28, Mean Corpuscular Volume 101, Mean Corpuscular Hemoglobin 34, Mean Corpuscular Hemoglobin Concent 34, Red Cell Distribution Width 12.5, Platelet Count 365, Mean Platelet Volume 8.5, Immature Granulocyte % (Auto) 3, Neutrophils (%) (Auto) 62, Lymphocytes (%) (Auto) 9, Monocytes (%) (Auto) 23, Eosinophils (%) (Auto) 3, Basophils (%) (Auto) 1, Neutrophils # (Auto) 5.0, Lymphocytes # (Auto) 0.8, Monocytes # (Auto) 1.9, Eosinophils # (Auto) 0.2, Basophils # (Auto) 0.1, Immature Granulocyte # (Auto) 0.2, Sodium Level 133, Potassium Level 3.6, Chloride Level 98, Carbon Dioxide Level 21, Anion Gap 14, Blood Urea Nitrogen 4, Creatinine 0.58, Estimat Glomerular Filtration Rate > 60, BUN/Creatinine Ratio 7, Glucose Level 85, Calcium Level 9.3, Phosphorus Level 4.6, Magnesium Level 1.7 Imaging: Reviewed Imaging Report Discharge Home Medications: Active Scripts Active Reported Aspirin 81 Mg Tab.chew 81 Mg PO DAILY Fluoxetine HCl 10 Mg Capsule 10 Mg PO DAILY Lisinopril 10 Mg Tablet 10 Mg PO DAILY Instructions to patient/family Please see electronic discharge instructions given to patient. Problem Qualifiers (1) Pneumonia: Pneumonia type: due to unspecified organism Laterality: bilateral Lung location: unspecified part of lung Qualified Codes: J18.9 - Pneumonia, unsp ecified organism (2) Alcohol withdrawal: Complication of substance-induced condition: with perceptual disturbance Qualified Codes: F10.232 - Alcohol dependence with withdrawal with perceptual disturbance KEELEY ZIEGLER MD Mar 25, 2021 09:48
== END 2021-03-25 10:17 | DRG 871 ==
LOC: EDUNIT# 23:15 → ER 23:18 → ICU 03-19 02:21 → 4TH 03-24 10:15
PROVIDERS: ADMIT Internal Medicine; ATTEND Internal Medicine
DX: A41.9 Sepsis, unspecified organism (principal); R65.21 Severe sepsis with septic shock; J18.9 Pneumonia, unspecified organism; I21.A1 Myocardial infarction type 2; E87.1 Hypo-osmolality and hyponatremia; E87.2 Acidosis; F10.231 Alcohol dependence with withdrawal delirium; Z20.822 Contact with and (suspected) exposure to COVID-19; I25.10 Atherosclerotic heart disease of native coronary artery without angina pectoris; J45.909 Unspecified asthma, uncomplicated; F17.210 Nicotine dependence, cigarettes, uncomplicated; I10 Essential (primary) hypertension; D64.9 Anemia, unspecified; F32.9 Major depressive disorder, single episode, unspecified; M19.91 Primary osteoarthritis, unspecified site; Z95.5 Presence of coronary angioplasty implant and graft; Z79.82 Long term (current) use of aspirin; Z88.6 Allergy status to analgesic agent; Z82.49 Family history of ischemic heart disease and other diseases of the circulatory system
CPT/HCPCS: 36415; 36600; 71045; 71275; 74177; 80048; 80053; 80061; 80320; 81000; 82140; 82274; 82607; 82728; 82746; 82805; 82947; 83540; 83550; 83605; 83690; 83735; 83874; 83880; 84100; 84295; 84484; 85007; 85025; 85027; 85379; 85610; 85730; 86141; 87040; 87081; 87088; 87636; 93005; 93041; 93306

== ENCOUNTER 2021-03-25 10:20 | Inpatient (IN) | payer BC ==
[~2021-03-25] VITALS: Ht 162.6 cm; Wt 53.3 kg
[~2021-03-25 10:20] MED LIST changes: +ACETAMINOPHEN 325 MG TABLET PO PRN; +ALPRAZolam 0.25 MG (XANAX) TAB PO PRN; +ASPI-999 PO; +BISACODYL 10 MG SUPP (DULCOLAX) PR PRN; +DOCUSATE SODIUM 100 MG (COLACE) CAP PO PRN; +FLEET ENEMA ADULT 1 EA BTL PR PRN; +FLUO10CA31 PO; +LACTULOSE SYRUP 10GM/15ML (ENULOSE) 30ML UDC PO PRN; +LISI10TA25 PO; +LOPERAMIDE 2 MG (IMODIUM) TABLET PO PRN; +MELATONIN 3 MG TABLET PO PRN; +ONDANSETRON 4 MG (ZOFRAN) ORAL DISSOLVE TAB PO PRN; +diphenhydrAMINE 25 MG TAB (BENADRYL) PO PRN; +guaiFENesin/CODEINE (ROBITUSSIN AC) 10ML UDC PO PRN
[2021-03-25 11:00] VITALS: BP 154/75
--- NOTE | 2021-03-25 11:00 | Physical Therapy Evaluation ---
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 Prior Prior Level of Function SCALE: Activities may be completed with or without assistive devices. 4-Okctbizvwc-gnunibh completes the activity by him/herself with no assistance from a helper. 5-Set-up or Clean-up Assistance-helper sets up or cleans up; patient completes activity. [place] assists only prior to or following the activity. 4-Supervision or Touching Assistance-helper provides verbal cues and/or touching/steadying and/or contact guard assistance as patient completes activity. Assistance may be provided throughout the activity or intermittently. 3-Partial/Moderate Assistance-helper does LESS THAN HALF the effort. [place] lifts, holds or supports trunk or limbs, but provides less than half the effort. 2-Substantial/Maximal Assistance-helper does MORE THAN HALF the effort. [place] lifts or holds trunk or limbs and provides more than half the effort. 5-Gnqqnpimk-mpevws does ALL the effort. Patient does none of the effort to complete the activity. Or, the assistance of 2 or more helpers is required for the patient to complete the activity. If activity was not attempted, code reason: 7-Patient Refused. 9-Not Applicable-not attempted and the patient did not perform the activity before the current illness, exacerbation or injury. 10-Not Attempted due to Environmental Limitations-(lack of equipment, weather restraints, etc.). 88-Not Attempted due to Medical Conditions or Safety Concerns. Bed Mobility: 6 Transfers (B,C,W/C): 6 Gait: 6 Stairs: 6 Indoor Mobility (Ambulation): Independent Stairs: Independent PT Evaluation-Current Subjective Patient in bed pre tx, agrees to PT, has no complaints of pain. Pt/Family Goals "to go home" Objective Patient Orientation: Person, Confused, Situation ROM/Strength ROM Lower Extremities WNL Strength Lower Extremities LLE (hip flexion 3+/5, knee flexion 4/5, knee extension 4/5, dorsiflexion 4+/5), RLE (hip flexion 3+/5, knee flexion 4/5, knee extension 4/5, dorsiflexion 4+/5) Neuromuscular (Tone, Coordination, Reflexes) Patient seemed to have intact peripheral vision but had trouble tracking Sensory Vision: Wears Glasses Hearing: Functional Sensation Right Lower Extremit: Intact Sensation Left Lower Extremity: Intact Transfers Roll Left & Right (QC): 6 Sit to Lying (QC): 4 Lying to Sitting/Side of Bed(Q: 4 Sit to Stand (QC): 3 Chair/Ppf-yx-Wadxm Xfer(QC): 3 Toilet Transfer (QC): 3 Car Transfer (QC): 3 Patient performs bed mobility with independence, supine <-> sit SBA, sit <-> stand and transfers with min assist, car transfer min assist. Patient is unsteady and needs occasional assist with balance, she needs frequent cues for hand placement and safety during transfers, will often push walker out of the way and take the last couple of steps to wherever she is going. Gait Does the Patient Walk?: Yes Mode of Locomotion: Walk Anticipated Mode of Locomotion: Walk Walk 10 feet (QC): 3 Walk 50 ft with 2 Turns(QC): 3 Walk 150 ft (QC): 3 Walking 10ft/uneven surface-QC: 3 Distance: 200', 150' Gait Assistive Device: FWW Comments/Gait Description Patient can ambulate 200' with a rolling walker with min assist (including 50' with at least 2 turns of 90 degrees and 10' over an uneven surface), patient ambulates very slowly, takes very tiny steps with little foot clearance, is unsteady and needs occasional assist with balance especially on the uneven surface. Wheelchair Training Does the Pt Use a Wheelchair?: No Wheel 50 ft with 2 turns (QC): 9 Wheel 150 ft (QC): 9 Stairs #of Steps: 1 1 Step (curb) (QC): 3 4 Steps (QC): 88 12 Steps (QC): 88 Walking Assistive Device: Walker Patient can go up and down 1 step using a rolling walker with min assist, cues for foot placement and safety. Patient tends to step onto step with her heel hanging off which causes her to fall backward, needs cues to put her whole foot on the step. Balance Sitting Static: Good Sitting Dynamic: Fair Standing Static: Poor Standing Dynamic: Poor Picking up an Object (QC): 3 Treatment NuStep level 4 for 10' Assessment/Needs Patient in bed post tx with nurse call, phone, tray, bed alarm on. Patient has impaired mobility, strength, endurance, balance. Patient is confused and needs min assist for balance during transfers and ambulation, high fall risk. Rehab Potential: Fair PT Short Term Goals Short Term Goals Time Frame: Apr 01, 2021 Roll Left & Right: 6 Sit to lyin Lying to sitting on side of be: 5 Sit to stand: 4 Chair/sig-wx-yegtq transfer: 4 Walk 10 feet: 4 Walk 50 feet with two turns: 4 Walk 150 feet: 4 PT Alf Goals Ecmo Specialist Goals PT Alf Goals Time Frame: Apr 15, 2021 Roll Left & Right (QC): 6 Sit to Lying (QC): 6 Lying-Sitting on Side/Bed(QC): 6 Sit to Stand (QC): 4 (SBA) Chair/Cho-mi-Zusna Xfer(QC): 4 (SBA) Toilet Transfer (QC): 4 (SBA) Car Transfer (QC): 4 (SBA) Does the Patient Walk: Yes Walk 10 feet (QC): 4 (SBA) Walk 50ft with 2 Turns (QC): 4 (SBA) Walk 150 ft (QC): 4 (SBA) Walking 10ft on Uneven Surface: 4 (SBA) 1 Step (curb) (QC): 4 (CGA) 4 Steps (QC): 4 (CGA) 12 Steps (QC): 88 Picking up an Object (QC): 4 (CGA) Does the Pt use WC or Scooter?: No Wheel 50 feet with 2 turns (QC: 9 Wheel 150 feet: 9 PT Plan Problem List Problem List: Activity Tolerance, Functional Strength, Safety, Balance, Gait, Transfer, Bed Mobility, ROM Treatment/Plan Treatment Plan: Continue Plan of Care Treatment Plan: Bed Mobility, Education, Functional Activity Luann, Functional Strength, Group Therapy, Gait, Safety, Therapeutic Exercise, Transfers Treatment Duration: Apr 15, 2021 Frequency: At least 5 of 7 days/Wk (IRF) Estimated Hrs Per Day: 1.5 hours per day Patient and/or Family Agrees t: Yes Safety Risks/Education Patient Education: Gait Training, Transfer Techniques, Steps, Correct Positioning, Safety Issues Teaching Recipient: Patient Teaching Methods: Demonstration, Discussion Response to Teaching: Reinforcement Needed Discharge Recommendations Plan Patient will perform bed mobility and transfer training, balance and endurance training, functional strengthening, stair training, gait training, and educatio n, to improve functional mobility and independence at home. Therapy Discharge Recommendati: 24 Hour Supervision, Scheduled Assistance, Home & Family, Post Acute PT Time/GCodes Time In: 1000 Time Out: 1100 Total Billed Treatment Time: 60 Total Billed Treatment 1 visit EVM 30' FA 20' EX 10' MAYRA QIU PT Mar 25, 2021 11:00
--- NOTE | 2021-03-25 11:07 | PM&R Post Admission Assessment ---
PM&R Date of Visit: Mar 25, 2021 Time of Visit: 10:30 History of Present Illness CC: Encephalopathy HPI: This is a 55yoWF clinic Pt of Dr. Escobedo with a PMH of alcoholism who presents following a catastrophic critical illness of septic shock due to pneumonia and then alcohol withdrawal. She continues to smoke at home and her alcohol use has been very consistent and heavy use. At this current time Pt is very slow to move around and to think, but she is clearing cognitively, she did have to have a sitter and will be monitoring Pt closely, her prior level of functioning was independent without the use of assistive devices. Past Vixtwnb-Tglxuu-Kxxheq Hx Past Med/Social Hx: Reviewed Nursing Past Med/Soc Hx, Reviewed and Corrections made Patient Social History Marrital Status: Employed/Student: employed Alcohol Use: Regular Use Alcohol Beverage of Choice: Beer Smoking Status: Current Everyday Smoker Type Used: Cigarettes Immunizations Up To Date Tetanus Booster (TDap): Unknown Pediatric: No Past Medical History Surgeries: Section, Coronary Stent, 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 Currently Using CPAP: No Currently Using BIPAP: No Cardiac: Coronary Artery Disease, 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 Reproductive: Yes Sexually Transmitted Disease: No HIV/AIDS: No Female Reproductive Disorders: Denies 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 Musculoskeletal: Arthritis Hearing Impairment: Denies Did You Recieve Any Treatments: No Psychosocial: Depression History of Blood Disorders: No Adverse Reaction to Blood Aguilar: No Family History Myocardial infarction 19 MOTHER CAD Under 55 Years Old PM&R Allergy/Meds/Data Review Allergies Coded Allergies: codeine (Verified Allergy, Mild, 09/02/15) Home Medications Scheduled Aspirin (Aspirin), 81 MG PO DAILY, (Reported) Fluoxetine HCl (Fluoxetine HCl), 10 MG PO DAILY, (Reported) Lisinopril (Lisinopril), 10 MG PO DAILY, (Reported) Discontinued Medications Ascorbic Acid (Vitamin C), 500 MG PO EVERY EVENING, (Reported) Discontinued Reason: No Longer Taking Aspirin (Aspirin EC), 81 MG PO DAILY, (Reported) Discontinued Reason: No Longer Taking Atorvastatin Calcium (Atorvastatin Calcium), 40 MG PO DAILY, (Reported) Discontinued Reason: No Longer Taking Famotidine (Pepcid), 20 MG PO BID, (Reported) Discontinued Reason: No Longer Taking Fluoxetine HCl (Fluoxetine HCl), 20 MG PO DAILY, (Reported) Discontinued Reason: No Longer Taking Fluticasone Propionate (Flonase Allergy Relief), 1 SPRAY NSEACH BID, (Reported) Discontinued Reason: No Longer Taking Furosemide (Furosemide), 20 MG PO DAILY, (Reported) Discontinued Reason: No Longer Taking Lisinopril (Lisinopril), 5 MG PO DAILY, (Reported) Discontinued Reason: No Longer Taking Multivitamin (Daily Multiple Vitamin), 1 TAB PO EVERY EVENING, (Reported) Discontinued Reason: No Longer Taking Nitroglycerin (Nitrostat), 0.4 MG SL UD PRN for CHEST PAIN, (Reported) Discontinued Reason: No Longer Taking Current Medications Current Medications Reviewed Review of Systems Constitutional: see HPI, malaise, weakness EENTM: no symptoms reported Respiratory: no symptoms reported Cardiovascular: no symptoms reported Gastrointestinal: no symptoms reported Genitourinary: no symptoms reported Musculoskeletal: no symptoms reported Skin: no symptoms reported Psychiatric/Neurological: Anxiety, Depressed, Other (confusion) Physical Exam Physical Exam Vital Signs Capillary Refill : Height, Weight, BMI Height: 5'3.00" Weight: 109lbs. 5.0oz. 49.700151od; 20.28 BMI Method:Stated General Appearance: No Apparent Distress, WD/WN, Chronically ill, Thin Eyes: Bilateral Eye Normal Inspection, Bilateral Eye PERRL HEENT: PERRL/EOMI, Normal ENT Inspection, Pharynx Normal Neck: Full Range of Motion, Normal Inspection, Non Tender, Supple, Carotid Bruit Respiratory: Chest Non Tender, Lungs Clear, Normal Breath Sounds, No Accessory Muscle Use, No Respiratory Distress Cardiovascular: Regular Rate, Rhythm, No Edema, No Gallop, No JVD, No Murmur, Normal Peripheral Pulses Gastrointestinal: Normal Bowel Sounds, No Organomegaly, No Pulsatile Mass, Non Tender, Soft Back: Normal Inspection, No CVA Tenderness, No Vertebral Tenderness Extremity: Normal Capillary Refill, Normal Inspection, Normal Range of Motion, Non Tender, No Calf Tenderness, No Pedal Edema Neurologic/Psychiatric: Alert, Oriented x3, accounts receivable administrator II-XII Norm as Tested, Abnormal Gait (slow), Depressed Affect, Disoriented, Motor Weakness (generalized all extremities), Other (slow to respond) Skin: Normal Color, Warm/Dry Lymphatic: No Adenopathy PM&R Medical Assessment & Plan REHAB/MEDICAL ASSESSMENT AND PLAN: REHAB IMPAIRMENT GROUP: Encephalopathy ETIOLOGIC DIAGNOSIS: Encephalopathy The comorbidities that impact the patients function and/or functional outcome by: alcoholism severe, smoker, depression, poor reserve REHAB PLAN: The patient is being admitted to our comprehensive inpatient rehabilitation facility and can tolerate the intensity of service consisting of at least: 180 minutes of therapy a day, 5 out of 7 days a week Rehab treatment will consist of: PT OT ST will all focus on regaining function while delirium clears and increasing stamina and strength in order to return to independent living The patient/family has a good understanding of our discharge process and will benefit from an interdisciplinary inpatient rehabilitation program. The patient has potential to make improvement and is in need of at least two of the following multidisciplinary therapies including but not limited to physical, occupational, speech, and prosthetics and orthotics. Additionally the patient will need services from respiratory, nutritional services, wound care, psychology, etc. (Customize this to each patient). Given the patients complex condition and risk of further medical complications, rehabilitation services cannot be safely or effectively provided at a lower level of care such as a halfway facility. BARRIERS TO DISCHARGE: alcoholism ESTIMATED LOS: 7 days DISPOSITION: Home RELEVANT CHANGES SINCE PREADMISSION SCREENING: I have compared the patients medical and functional status at the time of the preadmission screening and there are: no changes PROGNOSIS: Good REHABILITATION GOALS: 1. [ (specific to the patient) ] All the above goals were reviewed with the patient and he/she is in agreement. By signing this document, I acknowledge that I have personally performed a full physical examination on this patient within 24 hours of admission to this inpatient rehabilitation facility and have determined the patient to be able to tolerate the above course of treatment at an intensive level for a reasonable period of time. I will be completing a detailed individualized Plan of Care for this patient by day #4 of the patients stay based upon the Preadmission Screen, the Post-Admission Evaluation, and the therapy evaluations. Admission Dx/Comorbidities: (1) Encephalopathy acute ICD Codes: G93.40 - Encephalopathy, unspecified (2) Alcohol withdrawal Status: Acute ICD Codes: F10.239 - Alcohol dependence with withdrawal, unspecified (3) Septic shock Status: Resolved ICD Codes: A41.9 - Sepsis, unspecified organism; R65.21 - Severe sepsis with septic shock (4) Lactic acidosis Status: Resolved ICD Codes: E87.2 - Acidosis (5) Elevated troponin Status: Acute ICD Codes: R77.8 - Other specified abnormalities of plasma proteins (6) Tobacco abuse Status: Chronic ICD Codes: Z72.0 - Tobacco use (7) Coronary artery disease Status: Chronic (8) Hyponatremia Status: Acute ICD Codes: E87.1 - Hypo-osmolality and hyponatremia; R65.21 - Severe sepsis with septic shock (9) Nausea and vomiting Status: Acute ICD Codes: R11.2 - Nausea with vomiting, unspecified (10) Pneumonia Status: Acute ICD Codes: J18.9 - Pneumonia, unspecified organism (11) Anemia Status: Acute (12) Alcoholism Status: Acute Assessment/Plan Assessment and Plan Assess & Plan/Chief Complaint Assessment: Acute encephalopathy s/p septic shock from PNA s/p hyponatremia Smoker HTN Poor reserve Fall risk Plan: IRF protocol Clear delirium Monitor closely JADA HOLLINGSWORTH DO Mar 25, 2021 11:07
[2021-03-25] MEDS ORDERED: LORazepam 1 MG (ATIVAN) TAB PO PRN (11:15)
[2021-03-25] MEDS ORDERED: ONDANSETRON 4 MG/2 ML (SDV) Z0FRAN IV PRN (11:15)
[2021-03-25] MEDS ORDERED: NICOTINE PATCH REMOVAL TP PRN (11:15)
[2021-03-25] MEDS ORDERED: CATHETER FLUSH 10 ML SYR IV PRN (11:15)
[2021-03-25] MEDS ORDERED: LORazepam INJ 2 MG/ML (ATIVAN) VIAL IM/IV PRN (11:15)
[2021-03-25] MEDS ORDERED: WATER (STERILE) FOR INJ 10 ML BTL INJ SCH (11:15)
[2021-03-25] MEDS ORDERED: NICOTINE 14 MG (NICODERM) PATCH TD PRN (11:15)
[2021-03-25] MEDS ORDERED: ACETAMINOPHEN 650 MG SUPP (TYLENOL) PR PRN (11:15)
[2021-03-25] MEDS ORDERED: ACETAMINOPHEN 325 MG TABLET PO PRN (11:15)
[2021-03-25] MEDS ORDERED: SENNA W/DOCUSATE (SENOKOT S) TABLET PO PRN (11:15)
[2021-03-25] MEDS ORDERED: ZIPRASIDONE 20 MG INJ (GEODON) VIAL IM PRN (11:15)
--- NOTE | 2021-03-25 12:10 | Occupational Therapy Eval ---
OT Evaluation-General/PLF Medical Diagnosis Admission Date Mar 25, 2021 at 10:20 Medical Diagnosis: sepsis Onset Date: Mar 19, 2021 Therapy Diagnosis Therapy Diagnosis: decreased ADL status, weakness Height/Weight Height (Feet): 5 Height (Inches): 3.00 Weight (Pounds): 109 Weight (Ounces): 5.0 Referral Physician: Audrey Figueredo DO Referral Reason: Evaluation/Treatment Medical History Pertinent Medical History: Alcoholism, CAD Additional Medical History Coronary Stent, Coronary Artery Disease, Arthritis, Depression Social History Home: Multilevel (2 story house + Basement (3 levels total)) Current Living Status: Spouse Entry Into Home: Stairs With Railing Steps Into Home: 2 Pt indicates she has a basement that she uses for storage and as a long term for bad weather, she used to reside on the 2nd level of the house but for ~8 months has been on the main level. She has a bathroom, bedroom and kitchen on 1st level. ADL-Prior Level of Function SCALE: Activities may be completed with or without assistive devices. 6-Oykbillubx-huobddn completes the activity by him/herself with no assistance from a helper. 5-Set-up or Clean-up Assistance-helper sets up or cleans up; patient completes activity. [place] assists only prior to or following the activity. 4-Supervision or Touching Assistance-helper provides verbal cues and/or touching/steadying and/or contact guard assistance as patient completes activity. Assistance may be provided throughout the activity or intermittently. 3-Partial/Moderate Assistance-helper does LESS THAN HALF the effort. [place] lifts, holds or supports trunk or limbs, but provides less than half the effort. 2-Substantial/Maximal Assistance-helper does MORE THAN HALF the effort. [place] lifts or holds trunk or limbs and provides more than half the effort. 6-Qaopvagkj-rdvcqm does ALL the effort. Patient does none of the effort to complete the activity. Or, the assistance of 2 or more helpers is required for the patient to complete the activity. If activity was not attempted, code reason: 7-Patient Refused. 9-Not Applicable-not attempted and the patient did not perform the activity before the current illness, exacerbation or injury. 10-Not Attempted due to Environmental Limitations-(lack of equipment, weather restraints, etc.). 88-Not Attempted due to Medical Conditions or Safety Concerns. ADL PLOF Comments Pt indicates she was IND with ADLs and functional mobility at [facility], no AD/AE. She has a walk in shower with a shower chair, and 2 other bathrooms that have a tub/shower. Self Care: Independent Functional Cognition: Independent DME/Equipment: Bath Chair, Shower OT Current Status Subjective Pt agreeble to OT tx. Slightly confused with tx, as she points to IV in R arm stating it is her turtle tattoo, pt does have turtle tattoo higher up on shoulder/upper arm. Mental Status/Objective Patient Orientation: Person, Confused, Place, Situation Current Glasses/Contacts: Yes Hand Dominance: Right Upper Extremity ROM WFL, BUE shoulder flexion to approx 150 degrees Upper Extremity Coordination WFL Upper Extremity Sensation WFL, pt denies tingling/numbness Upper Extremity Strength grossly 3+/5 ADL-Treatment Eating (QC): 6 (Per pt report, able to use utensils to cut food, and able to open container.) Oral Hygiene (QC): 3 (based on clincial judgement, min A standing balance at sink.) Shower/Bathe Self (QC): 4 (CGA in stand, pt able to wash/dry all parts with min verbal cues for sequencing.) Upper Body Dressing (QC): 4 (supervision) Lower Body Dressing (QC): 3 (Pt doffed brief, donning brief with instruction for front vs back. Pt then donned pants, threading BLEs into same leg, required min A to correct.) On/Off Footwear (QC): 4 (supervision) Toileting Hygiene (QC): 4 (CGA, pt able to manage clothing and perform hygiene.) Pt required increased time with ADLs and functional mobility due to slow movements. Other Treatments Pt laying in bed, agreeable to OT tx. Pt used FWW to ambulate into bathroom and onto toilet. Pt doffed clothes, then transferred to DE. Pt completed shower, OT assisted pt with washing hair due to tangles. Pt dried off and got dressed. Pt required min cues throughout session for sequencing. While donning clothes, OT cued pt to sit down to thread legs and educated pt on safety. Pt used FWW to transfer to recliner. Post tx, pt seated in recliner, call light in reach and all needs met. Education OT Patient Education: Correct positioning, Modified ADL techniques, Progress toward Goal/Update tx plan, Purpose of tx/functional activities, Rehab process, Safety issues, Transfer techniques Teaching Recipient: Patient Teaching Methods: Discussion Response to Teaching: Verbalize Understanding OT Short Term Goals Short Term Goals Time Frame: Apr 01, 2021 Oral hygiene: 4 Toileting hygiene: 5 Shower/bathe self: 5 Upper body dressin Lower body dressin Putting on/taking off footwear: 5 OT Joint Setter Goals Joint Setter Goals Time Frame: Apr 17, 2021 Eating (QC): 6 Oral Hygiene (QC): 6 Toileting Hygiene (QC): 6 Shower/Bathe Self (QC): 6 Upper Body Dressing (QC): 6 Lower Body Dressing (QC): 6 On/Off Footwear (QC): 6 Additional Goals: 1-Demonstrate ADL Tasks, 2-Verbalize Understanding, 3- ImproveStrength/Luann 1=Demonstrate adherence to instructed precautions during ADL tasks. 2=Patient will verbalize/demonstrate understanding of assistive devices/modifications for ADL. 3=Patient will improve strength/tolerance for activity to enable patient to perform ADL's. OT Education/Plan Problem List/Assessment Assessment: Decreased Activ Tolerance, Decreased Safety Aware, Decreased UE Strength, Impaired Cognition, Impaired Funct Balance, Impaired I ADL's, Impaired Self-Care Skills Discharge Recommendations Plan/Recommendations: Continue POC Treatment Plan/Plan of Care Patient would benefit from OT for education, treatment and training to promote independence in ADL's, mobility, safety and/or upper extremity function for ADL's. Plan of Care: ADL Retraining, Functional Mobility, Group Exercise/Act as Ind, UE Funct Exercise/Act Treatment Duration: Apr 17, 2021 Frequency: At least 5 of 7 days/Wk (IRF) Estimated Hrs Per Day: 1.5 hours per day Rehab Potential: Fair Time/GCodes Start Time: 11:00 Stop Time: 12:00 Total Time Billed (hr/min): 60 Billed Treatment Time 1, EVM (10'), ADL 3 (50') MARIOLA GARRETT OT Mar 25, 2021 12:10
[2021-03-25] MEDS: polyethylene glycoL POWDER 17 GM (MIRALAX) PACK PO SCH ×2 (12:22→21:00)
[2021-03-25] MEDS: DOCUSATE SODIUM 100 MG (COLACE) CAP PO SCH ×2 (12:22→21:00)
[2021-03-25] MEDS: SENNA W/DOCUSATE (SENOKOT S) TABLET PO SCH ×2 (12:22→21:00)
[2021-03-25] MEDS: ENOXAPARIN 40 MG/0.4 ML (LOVENOX) SYR SC SCH (14:18)
--- NOTE | 2021-03-25 14:52 | Therapy Group Daily Note ---
Therapy Daily Group Note Patient Education Topic Other List Below (memory) Exercises LE Seated Exercise, UE Exercise Session Ratio (pt:therapist): 4:1 Goal of Session: Education on ARU Expectations, Memory Strategies, UE/LE Strengthing Goal Met for this Session: Yes Pt Benefit of Group: Contributions to Others, F/U Use of Strategies @Home, Increased Functional Safety, Increased Functional Strength, Improved Cognition, Recognition of Peers, Socialization Other/Notes Pt ambulated using FWW to [facility] area for OT/PT group. Group consisted of introductions (name, place living, happiest place), socialization, seated B UE/LE exercises, education on ARU and memory. Pt introduced self appropriately and actively listened to peers. Pt able to complete exercises correctly with verbal cues and tolerated well. Pt acknowledged understanding of educational topics by affirmative gestures and when prompted gave own personal examples/strategies. After session, pt lying in bed with call light/phone in reach. All needs met in room. Start Time: 13:00 Stop Time: 14:15 Total Billed Treatment Time: 75 Total Billed Treatment 1-GRP HAI GREENE Mar 25, 2021 14:52
--- NOTE | 2021-03-25 15:08 | ST Cognitive Linguistic Eval ---
Speech Evaluation-General Medical Diagnosis sepsis Onset Date: Mar 19, 2021 Therapy Diagnosis Therapy Diagnosis: Cognitive-communication Precautions Precautions/Isolations: Standard Precautions Referral Referring Physician: Dr. Figueredo Medical History Pertinent Medical History: Alcoholism, CAD, Smoking Reviewed History: Yes Social History Current Living Status: Spouse Speech PLF-Current Status Prior Level of Function Patient lives at home with her where she is independent with her daily needs. Subjective Patient was pleasant and cooperative with the cognitive assessment. Language Eval: Auditory Comprehends Simple Yes/No Ques: Functional Indent/Objects Multiple Zeng: Functional Ident/Pics in Multiple Zeng: Functional Follows 1-Step Commands: Functional Follows Complex Directions: Mild Follows General Conversations: Mild Language Eval: Verbal Language Completes Spontaneous Greeting: Functional Produces Auto, Serial Info: Functional Imitates Simple Words/Phrases: Functional Word Finding: Mild Requests Basic Needs: Functional States Basic Personal Info: Functional Expresses Complex Ideas: Mild Objective Cognitive Domain Attention: Mild Memory: Mild Problem Solving: Mild Executive Functions: WNL Visuospatial Skills: WNL Composite Severity Rating: WNL Clock Drawing Severity Rating: Mild Objective Formal/Standardized Tests [facility] Mental Status ([facility]) Results 24/30, Mild Neurocognitive Disorder Oral Motor/Speech Production Within Normal Limits Impression Patient is a pleasant 55 y/o female who was admitted to ARU due to sepsis. Patient was evaluated with the [facility] with a score of 24/30 obtained. This score is within the MNCD range of function. Patient is noted to have odd, random answers to questions at times, almost hallucinogenic in nature. Patient will receive skilled ST with focus on safety awareness, memory and problem solving. Speech Patient Assess Expression of Ideas/Wants: Exhibits (3) Understanding Verbal Content: Sometimes Understands(2) Brief Interview-Mental Status: Yes Repetition of Three Words: Three (3) Temporal Orientation: Year: Missed by 2-5 years (1) Temporal Orientation: Month: Accurate within 5 days(2) Temporal Orientation: Day: Correct (1) Recall : Wear to say "Sock": No, could not recall (0) Recall : Color: Yes, after cueing (1) Recall : Bed: No, could not recall (0) Memory/Recall Ability: Current season, That he or she is in a hsp/hsp unit Speech Short Term Goals Short Term Goals Short Term Goals 1) Patient will complete memory tasks related to her daily needs with 80% or greater with minimal cues. 2) Patient will complete safety awareness tasks related to her daily needs with 80% or greater with minimal cues. 3) Patient will complete problem solving tasks related to her daily needs with 80% or greater with minimal cues. Speech Skilled Nursing Goals Skilled Nursing Goals Patient will improve cognitive-communication skills in order to be able to complete daily tasks with minimal assist. Speech-Plan Patient/Family Goals Patient/Family Goals: Patient plans on returning to her home where she lives with her . Treatment Plan Speech Therapy Treatment Plan: Continue Plan of Care Treatment Duration: Apr 08, 2021 Frequency: 4 times per week (Patient will receive skilled ST 4-5x per week) Estimated Hrs Per Day: .5 hour per day Rehab Potential: Fair Barriers to Learning: Patient's medical status, cognitive deficits Pt/Family Agrees to Plan: Yes Safety Risks/Education Teaching Recipient: Patient, Family Teaching Methods: Discussion Response to Teaching: Verbalize Understanding Education Topics Provided: Safety within her room, communication of wants/needs Time Speech Therapy Time In: 14:30 Speech Therapy Time Out: 15:00 Total Billed Time: 30 Billed Treatment Time 1, RADHA STAPLES [place] ST Mar 25, 2021 15:08
[2021-03-25 20:00] VITALS: BP 148/67
[2021-03-25] MEDS: OLANZapine 2.5 MG (ZyPREXA) TAB PO SCH (20:00)
--- NOTE | 2021-03-26 05:28 | Individualized Plan of Care ---
Individualized Plan of Care Rehab Nursing IPOC Order Admission Date Mar 25, 2021 at 10:20 Current Orders Orders Admission Order(Inpt,Obs,Sdc) (03/25/21 06:13) Vital Signs: Per Unit Policy ( (03/25/21 06:13) Brayden Messijosh (03/25/21 06:13) Sequential Compression Device .admit (03/25/21 06:13) Cash Clerk-Inpt Rehab Con (03/25/21 06:13) Rehab Nursing Orders-Ipoc (03/25/21 06:13) Physical Therapy Rehab Orders (03/25/21 06:13) Occupational Therapy Rehab Ord (03/25/21 06:13) Speech Therapy Rehab Orders (03/25/21 06:13) Cbc With Automated Diff (03/26/21 06:00) Comprehensive Metabolic Panel (03/26/21 06:00) Precautions (Aru) (03/25/21 06:13) Rehab-Intensity Of Therapy (03/25/21 06:13) Initiate Admission Nursing Pro .admission (03/25/21 06:13) Acetaminophen Tablet/Caplet (Tylenol T (03/25/21 06:15) Alprazolam Tablet (Xanax Tablet) (03/25/21 06:15) Calcium Carbonate Chew Tablet (Antacid C (03/25/21 06:15) Diphenhydramine Tablet (Benadryl Tablet) (03/25/21 06:15) Docusate Sodium Capsule (Colace Capsule) (03/25/21 09:00) Docusate Sodium Capsule (Colace Capsule) (03/25/21 06:15) Bisacodyl Suppository (Dulcolax Supposit (03/25/21 06:15) Lactulose Oral Solution (Enulose Oral So (03/25/21 06:15) Na Phos/Na Biphos Enema (Fleet Enema Sinan (03/25/21 06:15) Guaifenesin/Codeine Syrup (Robitussin Ac (03/25/21 06:15) Loperamide Tablet (Imodium Tablet) (03/25/21 06:15) Melatonin Tablet (Melatonin Tablet) (03/25/21 06:15) Polyethylene Glycol Powder Pkt (Miralax (03/25/21 09:00) Ondansetron Oral Dissolve Tab (Zofran (03/25/21 06:15) Senna S Tablet (Senokot S Tablet) (03/25/21 09:00) Initiate Admission Nursing Pro .admission (03/25/21 06:13) Admission Arrival Bed Request (03/25/21 10:20) Code/Resuscitation (03/25/21 11:04) Alcohol Aqxiqklbqp-Dmwl-[place]t [place] Q1H (03/25/21 11:04) General/Regular (03/25/21 Lunch) Acetaminophen Tablet/Caplet (Tylenol T (03/25/21 11:15) Acetaminophen Suppository (Tylenol Suppo (03/25/21 11:15) Aspirin Enteric Coated Tablet (Ecotrin T (03/26/21 09:00) Lorazepam Tablet (Ativan Tablet) (03/25/21 11:15) Enoxaparin Injection (Lovenox Injection) (03/25/21 12:00) Fluoxetine Capsule/Tablet (Prozac Capsul (03/26/21 09:00) Folic Acid Tablet (Folic Acid Tablet) (03/26/21 09:00) Lorazepam Injection (Ativan Injection) (03/25/21 11:15) Nicotine Patch (Nicoderm Patch) (03/25/21 11:15) Ondansetron Injection (Zofran Injectio (03/25/21 11:15) Senna S Tablet (Senokot S Tablet) (03/25/21 11:15) Sodium Chloride Flush (Catheter Flush Sy (03/25/21 11:15) Therapeutic Multivitamin Tab (Vitamins, (03/26/21 07:00) Thiamine Tablet (Vitamin B-1 Tablet) (03/26/21 07:00) Lisinopril Tablet (Zestril Tablet) (03/26/21 09:00) Metoprolol Succinate (Xl) Tab (Toprol Xl (03/26/21 09:00) Ziprasidone Injection (Geodon Injection) (03/25/21 11:15) Water (Sterile) For Injection (Sterile W (03/25/21 11:15) Olanzapine Tablet (Zyprexa Tablet) (03/25/21 21:00) Patch Removal (Patch Removal) (03/25/21 11:15) Patient Visit (03/25/21 ) Speech Sound Lang Comp (03/25/21 ) Treat. Speech/Lang/Voice (03/25/21 ) Patient Visit (03/25/21 ) Pt Eval Moderate Complexity (03/25/21 ) Functional Activities, Ea 15 (03/25/21 ) Exercise Therap, Ea 15 Min (03/25/21 ) Patient Visit (03/25/21 ) Exercise Therap, Ea 15 Min (03/25/21 ) Manual Differential (03/26/21 06:28) Patient Visit (03/26/21 ) Treat. Speech/Lang/Voice (03/26/21 ) Patient Visit (03/26/21 ) Functional Activities, Ea 15 (03/26/21 ) Exercise Therap, Ea 15 Min (03/26/21 ) Gait Training, Ea 15 Min (03/26/21 ) Rehab Nursing Orders: Ongoing Assess. of Cognitive Status, Ongoing Assess. of Function Status, Bladder Management, Bladder Scan, Bladder Training, Bowel Management, Bowel Training, Disease Management & Educaiton, DVT Prophylaxis, Fall Prevention, Fluid/Electrolyte/Nutrition Mgmt, Infection Prevention, Medication Management & Education, Management of Risks & Complications, Management of Skin Intergrity, Nutrition Management, Pain Management, Patient/Family Support, Safety Management, Swallow Precautions Intensity of Therapy to be met Patient to be seen: Min.3h per day/5 of 7d PT IPOC Problem List: Activity Tolerance, Functional Strength, Safety, Balance, Gait, Transfer, Bed Mobility, ROM Treatment Plan: Continue Plan of Care Bed Mobility, Education, Functional Activity Luann, Functional Strength, Group Therapy, Gait, Safety, Therapeutic Exercise, Transfers Treatment Duration: Apr 15, 2021 Frequency: At least 5 of 7 days/Wk (IRF) Estimated Hrs Per Day: 1.5 hours per day OT IPOC Problems: Decreased Activ Tolerance, Decreased Safety Aware, Decreased UE Strength, Impaired Cognition, Impaired Funct Balance, Impaired I ADL's, Impaired Self-Care Skills OT Treatment, Training and Edu: Yes Plan of Care: ADL Retraining, Functional Mobility, Group Exercise/Act as Ind, UE Funct Exercise/Act Treatment Duration: Apr 17, 2021 Frequency: At least 5 of 7 days/Wk (IRF) Estimated Hrs Per Day: 1.[address] IPOC Speech Therapy Treatment Plan: Continue Plan of Care Treatment Duration: Apr 08, 2021 Frequency: 4 times per week (Patient will receive skilled ST 4-5x per week) Estimated Hrs Per Day: .5 hour per day Cash Clerk/Case Mgmt Cash Clerk/Case Managemen: Discharge Planning Dietitian/Monitoring Manager Dietitian/Monitoring Manager to monitor nutritional status and make changes and/or recommendations as needed and work with speech pathology on dietary upgrades as the occur. Physician IPOC Medical Issues being managed closely and that require the 24 hour availability of a physician: Encephalopathy related to alcohol withdrawal will need close monitoring for any clinical status decline especially recent pneumonia with septic shock Medical Issues: Bowel/Bladder Function, DVT Prophylaxis, Falls Precautions, Fluid/Electrolyte/Nutrition Balance, Infection Protection, Pain Management Brief Synthesis of Preadmission Screen, Post-Admission Evaluation, and Therapy Evaluations: PT and OT will initiate focused therapy in order to regain enough function for ambulatory skills with the use of assistive device for fall risk prevention and ST will help with cognition and encephalopathy clearance Medical Prognosis: Good Anticipated Length of Stay: 7 days JADA HOLLINGSWORTH DO Mar 26, 2021 05:28
--- NOTE | 2021-03-26 05:59 | PM&R Progress Note ---
Subjective HPI/CC On Admission Date Seen by Provider: Mar 26, 2021 Time Seen by Provider: 12:00 Subjective/Events-last exam 03/26/2021: Patient adjusting pretty well Her came to visit when his daughter brought him Improved overall but slow responses Check meds and labs Review of Systems General: Fatigue, Malaise Neurological: Weakness, Confusion Objective Exam Vital Signs Vital Signs Date Time Temp Pulse Resp B/P (MAP) Pulse Ox O2 Delivery O2 Flow Rate FiO2 03/26/21 20:39 37.2 72 14 176/108 (130) 93 Room Air Capillary Refill : General Appearance: No Apparent Distress, WD/WN, Chronically ill, Thin HEENT: PERRL/EOMI, Normal ENT Inspection, Pharynx Normal Neck: Full Range of Motion, Normal Inspection, Non Tender, Supple, Carotid Bruit Respiratory: Chest Non Tender, Lungs Clear, Normal Breath Sounds, No Accessory Muscle Use, No Respiratory Distress Cardiovascular: Regular Rate, Rhythm, No Edema, No Gallop, No JVD, No Murmur, Normal Peripheral Pulses Gastrointestinal: Normal Bowel Sounds, No Organomegaly, No Pulsatile Mass, Non Tender, Soft Back: Normal Inspection, No CVA Tenderness, No Vertebral Tenderness Extremity: Normal Capillary Refill, Normal Inspection, Normal Range of Motion, Non Tender, No Calf Tenderness, No Pedal Edema Neurologic/Psychiatric: Alert, Oriented x3, cook night II-XII Norm as Tested, Abnormal Gait (slow), Depressed Affect, Disoriented, Motor Weakness (generalized all extremities), Other (slow to respond) Skin: Normal Color, Warm/Dry Lymphatic: No Adenopathy Results/Procedures Lab Laboratory Tests 03/26/21 06:28 Patient resulted labs reviewed. FIM Transfers Therapy Code Descriptions/Definitions Functional [place] Measure: 0=Not Assessed/NA 4=Minimal Assistance 1=Total Assistance 5=Supervision or Setup 2=Maximal Assistance 6=Modified [place] 3=Moderate Assistance 7=Complete IndependenceSCALE: Activities may be completed with or without assistive devices. 8-Sszptfkzsp-jmcxbvg completes the activity by him/herself with no assistance from a helper. 5-Set-up or Clean-up Assistance-helper sets up or cleans up; patient completes a ctivity. [place] assists only prior to or following the activity. 4-Supervision or Touching Assistance-helper provides verbal cues and/or touching/steadying and/or contact guard assistance as patient completes activity. Assistance may be provided throughout the activity or intermittently. 3-Partial/Moderate Assistance-helper does LESS THAN HALF the effort. [place] lifts, holds or supports trunk or limbs, but provides less than half the effort. 2-Substantial/Maximal Assistance-helper does MORE THAN HALF the effort. [place] lifts or holds trunk or limbs and provides more than half the effort. 3-Mcrhjmond-avzhyt does ALL the effort. Patient does none of the effort to complete the activity. Or, the assistance of 2 or more helpers is required for the patient to complete the activity. If activity was not attempted, code reason: 7-Patient Refused. 9-Not Applicable-not attempted and the patient did not perform the activity before the current illness, exacerbation or injury. 10-Not Attempted due to Environmental Limitations-(lack of equipment, weather restraints, etc.). 88-Not Attempted due to Medical Conditions or Safety Concerns. Roll Left to Right (QC): 6 Sit to Lying (QC): 4 Sit to Stand (QC): 3 Chair/Zfm-mx-Sugvk Xfer(QC): 3 Car Transfer (QC): 3 Gait Training Does the Patient Walk?: Yes Walk 10 feet (QC): 3 Walk 50 ft with 2 Turns(QC): 3 Walk 150 ft (QC): 3 Walking 10ft/uneven surface-QC: 3 Gait Assistive Device: FWW Wheelchair Training Does the Pt Use a Wheelchair?: No Wheel 50 ft with 2 turns (QC): 9 Wheel 150 ft (QC): 9 Stair Training #of Steps: 1 1 Step (curb) (QC): 3 4 Steps (QC): 88 12 Steps (QC): 88 Balance Picking up an Object (QC): 3 ADL-Treatment Eating (QC): 6 (Per pt report, able to use utensils to cut food, and able to open container.) Oral Hygiene (QC): 3 (based on clincial judgement, min A standing balance at sink.) Shower/Bathe Self (QC): 4 (CGA in stand, pt able to wash/dry all parts with min verbal cues for sequencing.) Upper Body Dressing (QC): 4 (supervision) Lower Body Dressing (QC): 3 (Pt doffed brief, donning brief with instruction for front vs back. Pt then donned pants, threading BLEs into same leg, required min A to correct.) On/Off Footwear (QC): 4 (supervision) Toileting Hygiene (QC): 4 (CGA, pt able to manage clothing and perform hygiene.) Assessment/Plan Assessment and Plan Assess & Plan/Chief Complaint Assessment: Acute encephalopathy s/p septic shock from PNA s/p hyponatremia Smoker HTN Poor reserve Fall risk Anemia Plan: IRF protocol Clear delirium Monitor closely 03/26/2021: Monitor closely Improving overall Check meds and labs (1) Encephalopathy acute (2) Alcohol withdrawal Status: Acute (3) Septic shock Status: Resolved Resolution Date/Time: 03/20/21 @ 12:10 (4) Lactic acidosis Status: Resolved Resolution Date/Time: 03/20/21 @ 12:10 (5) Elevated troponin Status: Acute (6) Tobacco abuse Status: Chronic (7) Coronary artery disease Status: Chronic (8) Hyponatremia Status: Acute (9) Nausea and vomiting Status: Acute (10) Pneumonia Status: Acute (11) Anemia Status: Acute (12) Alcoholism Status: Acute JADA HOLLINGSWORTH DO Mar 26, 2021 05:59
[2021-03-26] MEDS: MULTIVIT W/MINERALS TAB (THERAGRAN M) PO SCH (06:20)
[2021-03-26] MEDS: THIAMINE 100 MG (VITAMIN B-1) TAB PO SCH (06:20)
[2021-03-26 06:43] LABS: BASOPHILS % (AUTO) 0 % (0-10); EOSINOPHILS # (AUTO) 0.2 10^3/uL (0.0-0.3); EOSINOPHILS % (AUTO) 2 % (0-10); HEMATOCRIT 28 % (35-52); HEMOGLOBIN 9.5 g/dL (11.5-16.0); LYMPHOCYTES # (AUTO) 0.9 10^3/uL (1.0-4.0); LYMPHOCYTES % (AUTO) 9 % (12-44); MEAN CORPUSCULAR HEMOGLOBIN 34 pg (25-34); MEAN CORPUSCULAR HGB CONC 34 g/dL (32-36); MEAN CORPUSCULAR VOLUME 98 fL (80-99); MEAN PLATELET VOLUME 8.5 fL (9.0-12.2); MONOCYTES # (AUTO) 1.9 10^3/uL (0.0-1.0); MONOCYTES % (AUTO) 21 % (0-12); NEUTROPHILS # (AUTO) 6.2 10^3/uL (1.8-7.8); NEUTROPHILS % (AUTO) 66 % (42-75); PLATELET COUNT 439 10^3/uL (130-400); WHITE BLOOD COUNT 9.4 10^3/uL (4.3-11.0)
[2021-03-26 06:49] LABS: ALBUMIN 3.5 GM/DL (3.2-4.5); CHLORIDE 97 MMOL/L (98-107); POTASSIUM 3.8 MMOL/L (3.6-5.0); SODIUM 134 MMOL/L (135-145)
[2021-03-26 06:50] LABS: CALCIUM 9.2 MG/DL (8.5-10.1)
[2021-03-26 06:51] LABS: GLUCOSE 88 MG/DL (70-105)
[2021-03-26 06:53] LABS: BILIRUBIN,TOTAL 0.4 MG/DL (0.1-1.0); CARBON DIOXIDE 25 MMOL/L (21-32)
[2021-03-26 06:55] LABS: ALKALINE PHOSPHATASE 70 U/L (40-136); CREATININE SERUM 0.61 MG/DL (0.60-1.30); GFR ESTIMATED > 60
[2021-03-26 06:56] LABS: BUN/CREATININE RATIO 8
[2021-03-26 06:58] LABS: ALANINE AMINOTRANSFERASE 24 U/L (0-55)
[2021-03-26 07:34] LABS: BAND NEUTROPHILS 5 %; BASOPHILS % (MANUAL) 0 %; EOSINOPHILS % (MANUAL) 2 %; LYMPHOCYTES % (MANUAL) 10 %; MONOCYTES % (MANUAL) 16 %; NEUTROPHILS % (MANUAL) 67 %; RBC MORPH NORMAL
[2021-03-26] MEDS: meTOprolol SUCCINATE 100 MG (TOPROL XL) TAB PO SCH (07:58)
[2021-03-26] MEDS: FOLIC ACID 1 MG TAB PO SCH (07:59)
[2021-03-26] MEDS: polyethylene glycoL POWDER 17 GM (MIRALAX) PACK PO SCH ×2 (07:59→19:13)
[2021-03-26] MEDS: DOCUSATE SODIUM 100 MG (COLACE) CAP PO SCH ×2 (07:59→19:13)
[2021-03-26] MEDS: lisINopril 10 MG (PRINIVIL) TABLET PO SCH (07:59)
[2021-03-26] MEDS: ASPIRIN E.C. 81 MG (ECOTRIN) TAB PO SCH (07:59)
[2021-03-26 08:00] VITALS: BP 142/65
[2021-03-26] MEDS: FLUoxetine HCL 10 MG (PROzac) CAPSULE/TABLET PO SCH (08:01)
[2021-03-26] MEDS: SENNA W/DOCUSATE (SENOKOT S) TABLET PO SCH ×2 (08:02→19:13)
--- NOTE | 2021-03-26 10:04 | Speech Therapy Daily Note ---
Speech Daily Progress Note Subjective Date Seen by Provider: Mar 26, 2021 Time Seen by Provider: 00:30 Patient was resting in her recliner, waiting on her to arrive. She states he was in this hospital, however that is not the case. She is confused and wants to see him since it's been over a week. Objective Patient completed a series of questions related to self and immediate environment with 50% accuracy given moderate cues/redirection. Assessment Assessment Current Status: Fair Progress Treatment Plan Continue Plan of Care Speech Short Term Goals Short Term Goals Short Term Goals 1) Patient will complete memory tasks related to her daily needs with 80% or greater with minimal cues. 2) Patient will complete safety awareness tasks related to her daily needs with 80% or greater with minimal cues. 3) Patient will complete problem solving tasks related to her daily needs with 80% or greater with minimal cues. Speech Usp Goals Usp Goals Patient will improve cognitive-communication skills in order to be able to complete daily tasks with minimal assist. Speech-Plan Patient/Family Goals Patient/Family Goals: Patient plans to return to her home where she lives with her . Treatment Plan Speech Therapy Treatment Plan: Continue Plan of Care Treatment Duration: Apr 08, 2021 Frequency: 4 times per week (Patient will receive skilled ST 4-5x per week) Estimated Hrs Per Day: .5 hour per day Rehab Potential: Fair Barriers to Learning: Patient's confusion, cognitive deficits Pt/Family Agrees to Plan: Yes Safety Risks/Education Teaching Recipient: Patient Teaching Methods: Demonstration, Discussion Response to Teaching: Verbalize Understanding, Return Demonstration Education Topics Provided: Safety within her room Time Speech Therapy Time In: 09:30 Speech Therapy Time Out: 10:00 Total Billed Time: 1000 Billed Treatment Time 1[address] ST Mar 26, 2021 10:03
--- NOTE | 2021-03-26 10:26 | Physical Therapy Daily Note ---
PT Daily Note-Current Subjective Pt sitting in recliner upon arrival. Pt confused to start tx but agrees to work with PT. Pain Location: No Pain Reported Mental Status Patient Orientation: Person, Confused, Place Transfers SCALE: Activities may be completed with or without assistive devices. 0-Urvxlooxzd-vnikvoh completes the activity by him/herself with no assistance from a helper. 5-Set-up or Clean-up Assistance-helper sets up or cleans up; patient completes activity. [place] assists only prior to or following the activity. 4-Supervision or Touching Assistance-helper provides verbal cues and/or touching/steadying and/or contact guard assistance as patient completes activity. Assistance may be provided throughout the activity or intermittently. 3-Partial/Moderate Assistance-helper does LESS THAN HALF the effort. [place] lifts, holds or supports trunk or limbs, but provides less than half the effort. 2-Substantial/Maximal Assistance-helper does MORE THAN HALF the effort. [place] lifts or holds trunk or limbs and provides more than half the effort. 2-Exudwmlrb-heyswq does ALL the effort. Patient does none of the effort to complete the activity. Or, the assistance of 2 or more helpers is required for the patient to complete the activity. If activity was not attempted, code reason: 7-Patient Refused. 9-Not Applicable-not attempted and the patient did not perform the activity before the current illness, exacerbation or injury. 10-Not Attempted due to Environmental Limitations-(lack of equipment, weather restraints, etc.). 88-Not Attempted due to Medical Conditions or Safety Concerns. Exercises Supine Ex: Ankle pumps, Quad Set, Glut sets, Heel Slides, Straight leg raise, Hip abd/add Supine Reps: 15 Seated Therapy Exercises: Ankle pumps, Long arc quads, Hip flexion, Hip abd/add Seated Reps: 15 Treatments CORPORATE DIRECTOR TALENT ASSESSMENT reviews what is ARU and expectations and what PT will work on. Pt did not retain this from Group yesterday. Pt is confused and needs reassurance. CORPORATE DIRECTOR TALENT ASSESSMENT also issues written HEP for Supine & Seated Ex per pt request to work on EX when not in Therapy. These Ex are reviewed. Pt resting with all needs met, call light in hand. Assessment Current Status: Fair Progress Pt remains confused and CORPORATE DIRECTOR TALENT ASSESSMENT instructs ARU explanation again as well as what Therapy will work on. 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 PT Short Term Goals Short Term Goals Time Frame: Apr 01, 2021 Roll Left & Right: 6 Sit to lyin Lying to sitting on side of be: 5 Sit to stand: 4 Chair/jij-kb-lfxzq transfer: 4 Walk 10 feet: 4 Walk 50 feet with two turns: 4 Walk 150 feet: 4 PT Swatch Checker Goals Half-Way Goals PT Half-Way Goals Time Frame: Apr 15, 2021 Roll Left & Right (QC): 6 Sit to Lying (QC): 6 Lying-Sitting on Side/Bed(QC): 6 Sit to Stand (QC): 4 (SBA) Chair/Uhd-jg-Oaaln Xfer(QC): 4 (SBA) Toilet Transfer (QC): 4 (SBA) Car Transfer (QC): 4 (SBA) Does the Patient Walk: Yes Walk 10 feet (QC): 4 (SBA) Walk 50ft with 2 Turns (QC): 4 (SBA) Walk 150 ft (QC): 4 (SBA) Walking 10ft on Uneven Surface: 4 (SBA) 1 Step (curb) (QC): 4 (CGA) 4 Steps (QC): 4 (CGA) 12 Steps (QC): 88 Picking up an Object (QC): 4 (CGA) Does the Pt use WC or Scooter?: No Wheel 50 feet with 2 turns (QC: 9 Wheel 150 feet: 9 PT Plan Problem List Problem List: Activity Tolerance, Functional Strength, Safety, Gait, Transfer Treatment/Plan Treatment Plan: Continue Plan of Care Treatment Plan: Bed Mobility, Education, Functional Activity Luann, Functional Strength, Group Therapy, Gait, Safety, Therapeutic Exercise, Transfers Treatment Duration: Apr 15, 2021 Frequency: At least 5 of 7 days/Wk (IRF) Estimated Hrs Per Day: 1.5 hours per day Patient and/or Family Agrees t: Yes Safety Risks/Education Patient Education: Issued Written HEP, Correct Positioning, Safety Issues Teaching Recipient: Patient Teaching Methods: Demonstration, Discussion Response to Teaching: Verbalize Understanding, Return Demonstration Time/GCodes Time In: 845 Time Out: 930 Total Billed Treatment Time: 45 Total Billed Treatment 1, FA (15m), EX x2 (30m) BRENDON PEREZ PTA Mar 26, 2021 10:26
--- NOTE | 2021-03-26 10:28 | Occupational Ther Daily Note ---
OT Current Status-Daily Note Subjective Pt seated in recliner, agreeable to OT tx. Pt unable to recall where her is, she thought he was at this hospital. Yesterday pt told this therapist she thought he was at [facility]. Pt attempted to contact son-in-law Marcelino and left message with him. Mental Status/Objective Patient Orientation: Person, Confused, Place, Situation ADL-Treatment Therapy Code Descriptions/Definitions Functional [place] Measure: 0=Not Assessed/NA 4=Minimal Assistance 1=Total Assistance 5=Supervision or Setup 2=Maximal Assistance 6=Modified [place] 3=Moderate Assistance 7=Complete IndependenceSCALE: Activities may be completed with or without assistive devices. 3-Upzlwamycb-cpokcnh completes the activity by him/herself with no assistance from a helper. 5-Set-up or Clean-up Assistance-helper sets up or cleans up; patient completes activity. [place] assists only prior to or following the activity. 4-Supervision or Touching Assistance-helper provides verbal cues and/or touching/steadying and/or contact guard assistance as patient completes acti vity. Assistance may be provided throughout the activity or intermittently. 3-Partial/Moderate Assistance-helper does LESS THAN HALF the effort. [place] lifts, holds or supports trunk or limbs, but provides less than half the effort. 2-Substantial/Maximal Assistance-helper does MORE THAN HALF the effort. [place] lifts or holds trunk or limbs and provides more than half the effort. 0-Jpsenlmsd-nybvyh does ALL the effort. Patient does none of the effort to complete the activity. Or, the assistance of 2 or more helpers is required for the patient to complete the activity. If activity was not attempted, code reason: 7-Patient Refused. 9-Not Applicable-not attempted and the patient did not perform the activity before the current illness, exacerbation or injury. 10-Not Attempted due to Environmental Limitations-(lack of equipment, weather restraints, etc.). 88-Not Attempted due to Medical Conditions or Safety Concerns. Toileting Hygiene (QC): 4 (CGA, pt able to manage clothing and hygiene. ) Toilet Transfer (QC): 4 (CGA ) Other Treatment Pt seated in recliner, used FWW to ambulate to bathroom, pt completed toileting with CGA, then stood at sink to wash hands CGA. Pt used FWW to ambulate to therapy gym. OT tx focused on increasing BUE strength and functional activity tolerance, and increasing fine motor strength/coordination to increase performance in ADLs. Pt completed arm bike, x15 mins at 20 W resistance, no rest break. OT educated pt on UE theraband exercises, pt complete 5/5 exercises using moderate resistance theraband, x10 reps each. OT encouraged pt to complete 2-3 times a day, increasing reps as tolerated, she verbalized understanding. Pt then removed x15 beads from moderate resistance theraputty, pt able to locate all beads without cues. Pt used FWW to return to room, CGA, transferring to recliner. Pt unable to locate phone/computer ball warper tender on table beside her. OT assisted pt with locating chargers, the computer ball warper tender does not fit computer pt has in her room, informed pt to ask family if her ball warper tender is still at home. Pt able to use phone ball warper tender to charge phone. Post tx, pt seated in recliner, call light in reach and all needs met, chair alarm on. Education OT Patient Education: Correct positioning, Energy conservation, Exercise program, Home exercise program, Modified ADL techniques, Progress toward Goal/Update tx plan, Purpose of tx/functional activities, Rehab process, Safety issues, Transfer techniques Teaching Recipient: Patient Teaching Methods: Discussion Response to Teaching: Verbalize Understanding, Reinforcement Needed OT Short Term Goals Short Term Goals Time Frame: Apr 01, 2021 Oral hygiene: 4 Toileting hygiene: 5 Shower/bathe self: 5 Upper body dressin Lower body dressin Putting on/taking off footwear: 5 OT Jewelry Technician Goals Jewelry Technician Goals Time Frame: Apr 17, 2021 Eating (QC): 6 Oral Hygiene (QC): 6 Toileting Hygiene (QC): 6 Shower/Bathe Self (QC): 6 Upper Body Dressing (QC): 6 Lower Body Dressing (QC): 6 On/Off Footwear (QC): 6 Additional Goals: 1-Demonstrate ADL Tasks, 2-Verbalize Understanding, 3- ImproveStrength/Luann 1=Demonstrate adherence to instructed precautions during ADL tasks. 2=Patient will verbalize/demonstrate understanding of assistive devices/modifications for ADL. 3=Patient will improve strength/tolerance for activity to enable patient to perform ADL's. OT Education/Plan Problem List/Assessment Assessment: Decreased Activ Tolerance, Decreased Safety Aware, Decreased UE Strength, Impaired Cognition, Impaired Funct Balance, Impaired I ADL's, Impaired Self-Care Skills Discharge Recommendations Plan/Recommendations: Continue POC Treatment Plan/Plan of Care Patient would benefit from OT for education, treatment and training to promote independence in ADL's, mobility, safety and/or upper extremity function for ADL's. Plan of Care: ADL Retraining, Functional Mobility, Group Exercise/Act as Ind, UE Funct Exercise/Act Treatment Duration: Apr 17, 2021 Frequency: At least 5 of 7 days/Wk (IRF) Estimated Hrs Per Day: 1.5 hours per day Rehab Potential: Fair Time/GCodes Start Time: 10:00 Stop Time: 11:15 Total Time Billed (hr/min): 75 Billed Treatment Time 1, EX 4 (55'), FA (20') MARIOLA GARRETT OT Mar 26, 2021 10:28
[2021-03-26] MEDS: ENOXAPARIN 40 MG/0.4 ML (LOVENOX) SYR SC SCH (12:32)
--- NOTE | 2021-03-26 16:24 | Physical Therapy Daily Note ---
PT Daily Note-Current Subjective Pt sitting in recliner upon arrival. Pt agrees to PT. Pain Location: No Pain Reported Mental Status Patient Orientation: Person, Confused, Place Transfers SCALE: Activities may be completed with or without assistive devices. 4-Fblfuagtfd-whwucks completes the activity by him/herself with no assistance from a helper. 5-Set-up or Clean-up Assistance-helper sets up or cleans up; patient completes activity. [place] assists only prior to or following the activity. 4-Supervision or Touching Assistance-helper provides verbal cues and/or touching/steadying and/or contact guard assistance as patient completes activity. Assistance may be provided throughout the activity or intermittently. 3-Partial/Moderate Assistance-helper does LESS THAN HALF the effort. [place] lifts, holds or supports trunk or limbs, but provides less than half the effort. 2-Substantial/Maximal Assistance-helper does MORE THAN HALF the effort. [place] lifts or holds trunk or limbs and provides more than half the effort. 4-Oqirdkoyz-qodzau does ALL the effort. Patient does none of the effort to complete the activity. Or, the assistance of 2 or more helpers is required for the patient to complete the activity. If activity was not attempted, code reason: 7-Patient Refused. 9-Not Applicable-not attempted and the patient did not perform the activity before the current illness, exacerbation or injury. 10-Not Attempted due to Environmental Limitations-(lack of equipment, weather restraints, etc.). 88-Not Attempted due to Medical Conditions or Safety Concerns. Sit to Stand (QC): 5 Toilet Transfer (QC): 5 Weight Bearing Full Weight Bearing Full Weight Bearing Gait Training Does the Patient Walk?: Yes Distance: 100' x2 Walk 10 feet (QC): 5 Walk 50 ft with 2 Turns(QC): 5 Gait Persons Needed: 1 Gait Assistive Device: FWW Exercises NuStep Minutes: 10 NuStep Workload: 4 Treatments TF to standing and uses BR. Pt amb. in hallway and uses NuStep. Pt returns to room at end of tx to rest in recliner with all needs met, call light in hand. Assessment Current Status: Fair Progress Pt's gait is slow travis and pt remains confused. PT Short Term Goals Short Term Goals Time Frame: Apr 01, 2021 Roll Left & Right: 6 Sit to lyin Lying to sitting on side of be: 5 Sit to stand: 4 Chair/url-dd-zuece transfer: 4 Walk 10 feet: 4 Walk 50 feet with two turns: 4 Walk 150 feet: 4 PT Mcc Goals [employer] Mason Goals PT Mcc Goals Time Frame: Apr 15, 2021 Roll Left & Right (QC): 6 Sit to Lying (QC): 6 Lying-Sitting on Side/Bed(QC): 6 Sit to Stand (QC): 4 (SBA) Chair/Jup-kl-Libnl Xfer(QC): 4 (SBA) Toilet Transfer (QC): 4 (SBA) Car Transfer (QC): 4 (SBA) Does the Patient Walk: Yes Walk 10 feet (QC): 4 (SBA) Walk 50ft with 2 Turns (QC): 4 (SBA) Walk 150 ft (QC): 4 (SBA) Walking 10ft on Uneven Surface: 4 (SBA) 1 Step (curb) (QC): 4 (CGA) 4 Steps (QC): 4 (CGA) 12 Steps (QC): 88 Picking up an Object (QC): 4 (CGA) Does the Pt use WC or Scooter?: No Wheel 50 feet with 2 turns (QC: 9 Wheel 150 feet: 9 PT Plan Problem List Problem List: Activity Tolerance, Functional Strength Treatment/Plan Treatment Plan: Continue Plan of Care Treatment Plan: Bed Mobility, Education, Functional Activity Luann, Functional Strength, Group Therapy, Gait, Safety, Therapeutic Exercise, Transfers Treatment Duration: Apr 15, 2021 Frequency: At least 5 of 7 days/Wk (IRF) Estimated Hrs Per Day: 1.5 hours per day Patient and/or Family Agrees t: Yes Safety Risks/Education Patient Education: Gait Training, Correct Positioning, Safety Issues Teaching Recipient: Patient Teaching Methods: Discussion Response to Teaching: Verbalize Understanding Time/GCodes Time In: 1330 Time Out: 1400 Total Billed Treatment Time: 30 Total Billed Treatment 1, GT (15m) & EX (15m) BRENDON PEREZ GRAIN TRADER Mar 26, 2021 16:24
[2021-03-26] MEDS: OLANZapine 2.5 MG (ZyPREXA) TAB PO SCH (20:27)
[2021-03-26 20:39] VITALS: BP 176/108
[2021-03-26] MEDS ORDERED: amLODIPine 5 MG (NORVASC) TAB PO ONE (20:45)
[2021-03-26] MEDS ORDERED: cloNIDine 0.1 MG (CATAPRES) TAB PO PRN (20:45)
--- NOTE | 2021-03-27 05:53 | PM&R Progress Note ---
Subjective HPI/CC On Admission Date Seen by Provider: Mar 27, 2021 Time Seen by Provider: 12:00 Subjective/Events-last exam 03/27/2021: Patient dramatically improved Blood pressure elevated so gave amlodipine Doing well overall Bowels moved yesterday Delirium is clearing She did ask me exactly what happened and I told her she had septic shock from pneumonia and then alcohol withdrawal. She understood that alcohol cessation was mandatory. 03/26/2021: Patient adjusting pretty well Her came to visit when his daughter brought him Improved overall but slow responses Check meds and labs Review of Systems General: Fatigue Neurological: Weakness, Confusion Objective Exam Vital Signs Vital Signs Date Time Temp Pulse Resp B/P (MAP) Pulse Ox O2 Delivery O2 Flow Rate FiO2 03/27/21 20:00 36.4 70 16 161/66 (97) 98 Room Air Capillary Refill : General Appearance: No Apparent Distress, WD/WN, Chronically ill, Thin HEENT: PERRL/EOMI, Normal ENT Inspection, Pharynx Normal Neck: Full Range of Motion, Normal Inspection, Non Tender, Supple, Carotid Bruit Respiratory: Chest Non Tender, Lungs Clear, Normal Breath Sounds, No Accessory Muscle Use, No Respiratory Distress Cardiovascular: Regular Rate, Rhythm, No Edema, No Gallop, No JVD, No Murmur, Normal Peripheral Pulses Gastrointestinal: Normal Bowel Sounds, No Organomegaly, No Pulsatile Mass, Non Tender, Soft Back: Normal Inspection, No CVA Tenderness, No Vertebral Tenderness Extremity: Normal Capillary Refill, Normal Inspection, Normal Range of Motion, Non Tender, No Calf Tenderness, No Pedal Edema Neurologic/Psychiatric: Alert, Oriented x3, etched circuit processor II-XII Norm as Tested, Abnormal Gait (slow), Depressed Affect, Disoriented, Motor Weakness (generalized all extremities), Other (slow to respond) Skin: Normal Color, Warm/Dry Lymphatic: No Adenopathy Results/Procedures Lab Patient resulted labs reviewed. FIM Transfers Therapy Code Descriptions/Definitions Functional [place] Measure: 0=Not Assessed/NA 4=Minimal Assistance 1=Total Assistance 5=Supervision or Setup 2=Maximal Assistance 6=Modified [place] 3=Moderate Assistance 7=Complete IndependenceSCALE: Activities may be completed with or without assistive devices. 4-Mfxvlcodbm-wmckkli completes the activity by him/herself with no assistance from a helper. 5-Set-up or Clean-up Assistance-helper sets up or cleans up; patient completes activity. [place] assists only prior to or following the activity. 4-Supervision or Touching Assistance-helper provides verbal cues and/or touching/steadying and/or contact guard assistance as patient completes activity. Assistance may be provided throughout the activity or intermittently. 3-Partial/Moderate Assistance-helper does LESS THAN HALF the effort. [place] lifts, holds or supports trunk or limbs, but provides less than half the effort. 2-Substantial/Maximal Assistance-helper does MORE THAN HALF the effort. [place] lifts or holds trunk or limbs and provides more than half the effort. 4-Arifixmvm-pqzvar does ALL the effort. Patient does none of the effort to complete the activity. Or, the assistance of 2 or more helpers is required for the patient to complete the activity. If activity was not attempted, code reason: 7-Patient Refused. 9-Not Applicable-not attempted and the patient did not perform the activity before the current illness, exacerbation or injury. 10-Not Attempted due to Environmental Limitations-(lack of equipment, weather restraints, etc.). 88-Not Attempted due to Medical Conditions or Safety Concerns. Roll Left to Right (QC): 6 Sit to Lying (QC): 4 Sit to Stand (QC): 5 Chair/Lcl-bm-Xykim Xfer(QC): 3 Car Transfer (QC): 3 Gait Training Does the Patient Walk?: Yes Distance: 100' x2 Walk 10 feet (QC): 5 Walk 50 ft with 2 Turns(QC): 5 Walk 150 ft (QC): 3 Walking 10ft/uneven surface-QC: 3 Gait Persons Needed: 1 Gait Assistive Device: FWW Wheelchair Training Does the Pt Use a Wheelchair?: No Wheel 50 ft with 2 turns (QC): 9 Wheel 150 ft (QC): 9 Stair Training #of Steps: 1 1 Step (curb) (QC): 3 4 Steps (QC): 88 12 Steps (QC): 88 Balance Picking up an Object (QC): 3 ADL-Treatment Eating (QC): 6 (Per pt report, able to use utensils to cut food, and able to open container.) Oral Hygiene (QC): 3 (based on clincial judgement, min A standing balance at sink.) Shower/Bathe Self (QC): 4 (CGA in stand, pt able to wash/dry all parts with min verbal cues for sequencing.) Upper Body Dressing (QC): 4 (supervision) Lower Body Dressing (QC): 3 (Pt doffed brief, donning brief with instruction for front vs back. Pt then donned pants, threading BLEs into same leg, required min A to correct.) On/Off Footwear (QC): 4 (supervision) Toileting Hygiene (QC): 4 (CGA, pt able to manage clothing and hygiene. ) Toilet Transfer (QC): 4 (CGA ) Assessment/Plan Assessment and Plan Assess & Plan/Chief Complaint Assessment: Acute encephalopathy s/p septic shock from PNA s/p hyponatremia Smoker HTN Poor reserve Fall risk Anemia Plan: IRF protocol Clear delirium Monitor closely 03/26/2021: Monitor closely Improving overall Check meds and labs 03/27/2021: Monitor blood pressure Delirium clearing quickly Alcohol cessation mandatory (1) Encephalopathy acute (2) Alcohol withdrawal Status: Acute (3) Septic shock Status: Resolved Resolution Date/Time: 03/20/21 @ 12:10 (4) Lactic acidosis Status: Resolved Resolution Date/Time: 03/20/21 @ 12:10 (5) Elevated troponin Status: Acute (6) Tobacco abuse Status: Chronic (7) Coronary artery disease Status: Chronic (8) Hyponatremia Status: Acute (9) Nausea and vomiting Status: Acute (10) Pneumonia Status: Acute (11) Anemia Status: Acute (12) Alcoholism Status: Acute JADA HOLLINGSWORTH DO Mar 27, 2021 05:52
[2021-03-27] MEDS: THIAMINE 100 MG (VITAMIN B-1) TAB PO SCH (05:59)
[2021-03-27] MEDS: MULTIVIT W/MINERALS TAB (THERAGRAN M) PO SCH (05:59)
[2021-03-27] MEDS: FOLIC ACID 1 MG TAB PO SCH (07:49)
[2021-03-27] MEDS: SENNA W/DOCUSATE (SENOKOT S) TABLET PO SCH ×2 (07:49→20:26)
[2021-03-27] MEDS: lisINopril 10 MG (PRINIVIL) TABLET PO SCH (07:49)
[2021-03-27] MEDS: ASPIRIN E.C. 81 MG (ECOTRIN) TAB PO SCH (07:49)
[2021-03-27] MEDS: DOCUSATE SODIUM 100 MG (COLACE) CAP PO SCH ×2 (07:49→20:26)
[2021-03-27] MEDS: polyethylene glycoL POWDER 17 GM (MIRALAX) PACK PO SCH ×2 (07:50→20:26)
[2021-03-27] MEDS: meTOprolol SUCCINATE 100 MG (TOPROL XL) TAB PO SCH (07:50)
[2021-03-27] MEDS: amLODIPine 5 MG (NORVASC) TAB PO SCH (07:50)
[2021-03-27 07:51] VITALS: BP 156/67
[2021-03-27] MEDS: FLUoxetine HCL 10 MG (PROzac) CAPSULE/TABLET PO SCH (08:02)
--- NOTE | 2021-03-27 08:55 | Occupational Ther Daily Note ---
OT Current Status-Daily Note Subjective Pt seated in recliner, agreeable to OT tx. States she has better understood the reason she went to the hospital and why she is here. Mental Status/Objective Patient Orientation: Person, Confused, Place, Situation ADL-Treatment Therapy Code Descriptions/Definitions Functional [place] Measure: 0=Not Assessed/NA 4=Minimal Assistance 1=Total Assistance 5=Supervision or Setup 2=Maximal Assistance 6=Modified [place] 3=Moderate Assistance 7=Complete IndependenceSCALE: Activities may be completed with or without assistive devices. 8-Odnnkwjhae-gsoyfmi completes the activity by him/herself with no assistance from a helper. 5-Set-up or Clean-up Assistance-helper sets up or cleans up; patient completes activity. [place] assists only prior to or following the activity. 4-Supervision or Touching Assistance-helper provides verbal cues and/or touching/steadying and/or contact guard assistance as patient completes activi ty. Assistance may be provided throughout the activity or intermittently. 3-Partial/Moderate Assistance-helper does LESS THAN HALF the effort. [place] lifts, holds or supports trunk or limbs, but provides less than half the effort. 2-Substantial/Maximal Assistance-helper does MORE THAN HALF the effort. [place] lifts or holds trunk or limbs and provides more than half the effort. 6-Gsffolyxg-xtyfwt does ALL the effort. Patient does none of the effort to complete the activity. Or, the assistance of 2 or more helpers is required for the patient to complete the activity. If activity was not attempted, code reason: 7-Patient Refused. 9-Not Applicable-not attempted and the patient did not perform the activity before the current illness, exacerbation or injury. 10-Not Attempted due to Environmental Limitations-(lack of equipment, weather restraints, etc.). 88-Not Attempted due to Medical Conditions or Safety Concerns. Eating (QC): 6 (IND) Oral Hygiene (QC): 4 (supervision standing at sink) Shower/Bathe Self (QC): 4 (supervision, pt able to wash/dry all parts.) Upper Body Dressing (QC): 5 (set up) Lower Body Dressing (QC): 4 (SBA) On/Off Footwear: 4 (SBA, pt required cue to sit with task.) Toileting Hygiene (QC): 4 (supervision) Toilet Transfer (QC): 4 (supervision) Other Treatment Pt seated in recliner, used FWW to ambulate to bathroom and transferred to toilet. Pt completed toileting, then stood to doff clothes. OT educated pt on safety of sitting down with doffing socks/pants due to balance. Pt then transferred to SC. Pt completed shower, donned gripper socks, and transferred EOB to don clothes. While donning clothes, pt asks if she has a bra, this therapist informs pt that she has not seen a bra and looked in closet and clothes basket for one. Pt impulsively stands without warning and starts ambulating around room, without AD. OT stops pt and asks pt to use walker, educating her on safety. Pt uses walker to ambulate around her room and look for bra. Pt unable to locate bra, attempts to leave walker behind, OT again cued pt to take walker with her. Pt returned to EOB and finished donning clothes. Pt transferred to recliner. Post tx, pt seated in recliner, call light in reach and all needs met, chair alarm activated. Education OT Patient Education: Correct positioning, Energy conservation, Modified ADL techniques, Progress toward Goal/Update tx plan, Purpose of tx/functional activities, Rehab process, Safety issues, Transfer techniques Teaching Recipient: Patient Teaching Methods: Discussion Response to Teaching: Verbalize Understanding OT Short Term Goals Short Term Goals Time Frame: Apr 01, 2021 Oral hygiene: 4 Toileting hygiene: 5 Shower/bathe self: 5 Upper body dressin Lower body dressin Putting on/taking off footwear: 5 OT Detention Goals Detention Goals Time Frame: Apr 17, 2021 Eating (QC): 6 Oral Hygiene (QC): 6 Toileting Hygiene (QC): 6 Shower/Bathe Self (QC): 6 Upper Body Dressing (QC): 6 Lower Body Dressing (QC): 6 On/Off Footwear (QC): 6 Additional Goals: 1-Demonstrate ADL Tasks, 2-Verbalize Understanding, 3- ImproveStrength/Luann 1=Demonstrate adherence to instructed precautions during ADL tasks. 2=Patient will verbalize/demonstrate understanding of assistive devices/modifications for ADL. 3=Patient will improve strength/tolerance for activity to enable patient to perform ADL's. OT Education/Plan Problem List/Assessment Assessment: Decreased Activ Tolerance, Decreased Safety Aware, Decreased UE Strength, Impaired Funct Balance, Impaired I ADL's, Impaired Self-Care Skills Discharge Recommendations Plan/Recommendations: Continue POC Treatment Plan/Plan of Care Patient would benefit from OT for education, treatment and training to promote independence in ADL's, mobility, safety and/or upper extremity function for ADL's. Plan of Care: ADL Retraining, Functional Mobility, Group Exercise/Act as Ind, UE Funct Exercise/Act Treatment Duration: Apr 17, 2021 Frequency: At least 5 of 7 days/Wk (IRF) Estimated Hrs Per Day: 1.5 hours per day Rehab Potential: Fair Time/GCodes Start Time: 08:00 Stop Time: 09:00 Total Time Billed (hr/min): 60 Billed Treatment Time 1, ADL 4 (60') MARIOLA GARRETT OT Mar 27, 2021 08:55
--- NOTE | 2021-03-27 10:21 | Speech Therapy Daily Note ---
Speech Daily Progress Note Subjective Date Seen by Provider: Mar 27, 2021 Time Seen by Provider: 00:30 Patient was sitting in her recliner working on her laptop computer. She states she was happy she got to see her yesterday. Objective Patient completed a series of safety awareness scenarios she may encounter with 80% given min to mod visual/verbal cuing. Assessment Assessment Current Status: Good Progress Treatment Plan Continue Plan of Care Speech Short Term Goals Short Term Goals Short Term Goals 1) Patient will complete memory tasks related to her daily needs with 80% or greater with minimal cues. 2) Patient will complete safety awareness tasks related to her daily needs with 80% or greater with minimal cues. 3) Patient will complete problem solving tasks related to her daily needs with 80% or greater with minimal cues. Speech Assisted Goals Business Law Teacher Goals Patient will improve cognitive-communication skills in order to be able to complete daily tasks with minimal assist. Speech-Plan Patient/Family Goals Patient/Family Goals: Patient plans on returning to her home where she lives with her . Treatment Plan Speech Therapy Treatment Plan: Continue Plan of Care Treatment Duration: Apr 08, 2021 Frequency: 4 times per week (Patient will receive skilled ST 4-5x per week) Estimated Hrs Per Day: .5 hour per day Rehab Potential: Fair Barriers to Learning: Patient's level of confusion, decreased memory Pt/Family Agrees to Plan: Yes Safety Risks/Education Teaching Recipient: Patient Teaching Methods: Demonstration, Discussion Response to Teaching: Verbalize Understanding, Return Demonstration Education Topics Provided: Continued safety within her room, communication of wants/needs Time Speech Therapy Time In: 09:30 Speech Therapy Time Out: 10:00 Total Billed Time: 30 Billed Treatment Time 1RADHA BETHANIA ST Mar 27, 2021 10:21
--- NOTE | 2021-03-27 10:33 | Physical Therapy Daily Note ---
PT Daily Note-Current Subjective Pt sitting in recliner upon arrival. Pt agrees to PT. Pain Location: No Pain Reported Mental Status Patient Orientation: Person, Place, Situation Transfers SCALE: Activities may be completed with or without assistive devices. 3-Mdrhsglcph-kcjthbp completes the activity by him/herself with no assistance from a helper. 5-Set-up or Clean-up Assistance-helper sets up or cleans up; patient completes activity. [place] assists only prior to or following the activity. 4-Supervision or Touching Assistance-helper provides verbal cues and/or touching/steadying and/or contact guard assistance as patient completes activity. Assistance may be provided throughout the activity or intermittently. 3-Partial/Moderate Assistance-helper does LESS THAN HALF the effort. [place] lifts, holds or supports trunk or limbs, but provides less than half the effort. 2-Substantial/Maximal Assistance-helper does MORE THAN HALF the effort. [place] lifts or holds trunk or limbs and provides more than half the effort. 6-Aerucdygk-wsmnux does ALL the effort. Patient does none of the effort to complete the activity. Or, the assistance of 2 or more helpers is required for the patient to complete the activity. If activity was not attempted, code reason: 7-Patient Refused. 9-Not Applicable-not attempted and the patient did not perform the activity before the current illness, exacerbation or injury. 10-Not Attempted due to Environmental Limitations-(lack of equipment, weather restraints, etc.). 88-Not Attempted due to Medical Conditions or Safety Concerns. Sit to Stand (QC): 5 Weight Bearing Full Weight Bearing Full Weight Bearing Gait Training Does the Patient Walk?: Yes Distance: 100' x2 Walk 10 feet (QC): 5 Walk 50 ft with 2 Turns(QC): 5 Gait Persons Needed: 1 Gait Assistive Device: FWW Exercises Seated Therapy Exercises: Ankle pumps, Long arc quads, Hip flexion, Glut set Seated Reps: 15 NuStep Minutes: 15 NuStep Workload: 4 Treatments TF to standing and amb. in hallway. Pt uses NuStep as well as completes Seated Ex. Pt returns to room to use BR then resting in recliner. All needs met, call light in hand. Assessment Current Status: Good Progress Pt improving with activity tolerance and mobility but needs occasional VC to keep FWW close and not leave to the side when close to destination. PT Short Term Goals Short Term Goals Time Frame: Apr 01, 2021 Roll Left & Right: 6 Sit to lyin Lying to sitting on side of be: 5 Sit to stand: 4 Chair/vkg-gh-gdrjn transfer: 4 Walk 10 feet: 4 Walk 50 feet with two turns: 4 Walk 150 feet: 4 PT Ceramic Capacitor Processor Goals [facility] Goals PT Ceramic Capacitor Processor Goals Time Frame: Apr 15, 2021 Roll Left & Right (QC): 6 Sit to Lying (QC): 6 Lying-Sitting on Side/Bed(QC): 6 Sit to Stand (QC): 4 (SBA) Chair/Pqt-xg-Mnxgp Xfer(QC): 4 (SBA) Toilet Transfer (QC): 4 (SBA) Car Transfer (QC): 4 (SBA) Does the Patient Walk: Yes Walk 10 feet (QC): 4 (SBA) Walk 50ft with 2 Turns (QC): 4 (SBA) Walk 150 ft (QC): 4 (SBA) Walking 10ft on Uneven Surface: 4 (SBA) 1 Step (curb) (QC): 4 (CGA) 4 Steps (QC): 4 (CGA) 12 Steps (QC): 88 Picking up an Object (QC): 4 (CGA) Does the Pt use WC or Scooter?: No Wheel 50 feet with 2 turns (QC: 9 Wheel 150 feet: 9 PT Plan Problem List Problem List: Safety Treatment/Plan Treatment Plan: Continue Plan of Care Treatment Plan: Bed Mobility, Education, Functional Activity Luann, Functional Strength, Group Therapy, Gait, Safety, Therapeutic Exercise, Transfers Treatment Duration: Apr 15, 2021 Frequency: At least 5 of 7 days/Wk (IRF) Estimated Hrs Per Day: 1.5 hours per day Patient and/or Family Agrees t: Yes Safety Risks/Education Patient Education: Correct Positioning, Safety Issues Teaching Recipient: Patient Teaching Methods: Discussion Response to Teaching: Verbalize Understanding Time/GCodes Time In: 1000 Time Out: 1100 Total Billed Treatment Time: 60 Total Billed Treatment 1, GT (15m), EX x2 (30m) & FA (15m) BRENDON PEREZ ELECTROLOG OPERATOR Mar 27, 2021 10:33
[2021-03-27] MEDS: ENOXAPARIN 40 MG/0.4 ML (LOVENOX) SYR SC SCH (12:04)
--- NOTE | 2021-03-27 15:14 | Therapy Group Daily Note ---
Therapy Daily Group Note Patient Education Topic Home Safety, Home Safety, Exercises Exercises LE Seated Exercise, Gross Motor, UE Exercise Session Ratio (pt:therapist): 4:1 Goal of Session: Home Safety Strategies, UE/LE Strengthing, Safety with Transfers Goal Met for this Session: Yes Pt Benefit of Group: Contributions to Others, F/U Use of Strategies @Home, Increased Functional Safety, Increased Functional Strength, Recognition of Peers, Socialization Other/Notes Pt ambulated using W to [facility] for OT/PT group. Group consisted of introductions (name, place living, happy memory), socialization, seated B UE/LE exercises, education on home safety and UE/ LE exercises. Pt introduced self appropriately and actively listened to peers. Pt able to complete exercises correctly and tolerated well. Pt acknowledged understanding of educational topics by affirmative gestures and giving own personal examples/strategies. After session, pt ambulates with walker, sits in recliner with all needs met. Start Time: 13:00 Stop Time: 14:00 Total Billed Treatment Time: 60 Total Billed Treatment 1, GRP (60) RAUL CODY OTR Mar 27, 2021 15:14
[2021-03-27 20:00] VITALS: BP 161/66
[2021-03-27] MEDS: OLANZapine 2.5 MG (ZyPREXA) TAB PO SCH (20:26)
[2021-03-28] MEDS: THIAMINE 100 MG (VITAMIN B-1) TAB PO SCH (06:21)
[2021-03-28] MEDS: MULTIVIT W/MINERALS TAB (THERAGRAN M) PO SCH (06:21)
[2021-03-28 07:30] VITALS: BP 111/54
[2021-03-28] MEDS: ASPIRIN E.C. 81 MG (ECOTRIN) TAB PO SCH (08:35)
[2021-03-28] MEDS: FOLIC ACID 1 MG TAB PO SCH (08:35)
[2021-03-28] MEDS: amLODIPine 5 MG (NORVASC) TAB PO SCH (08:35)
[2021-03-28] MEDS: meTOprolol SUCCINATE 100 MG (TOPROL XL) TAB PO SCH (08:36)
[2021-03-28] MEDS: polyethylene glycoL POWDER 17 GM (MIRALAX) PACK PO SCH ×2 (08:36→19:45)
[2021-03-28] MEDS: SENNA W/DOCUSATE (SENOKOT S) TABLET PO SCH ×2 (08:36→19:45)
[2021-03-28] MEDS: lisINopril 10 MG (PRINIVIL) TABLET PO SCH (08:36)
[2021-03-28] MEDS: FLUoxetine HCL 10 MG (PROzac) CAPSULE/TABLET PO SCH (08:36)
[2021-03-28] MEDS: DOCUSATE SODIUM 100 MG (COLACE) CAP PO SCH ×2 (08:36→19:45)
--- NOTE | 2021-03-28 08:44 | PM&R Progress Note ---
Subjective HPI/CC On Admission Date Seen by Provider: Mar 28, 2021 Time Seen by Provider: 12:30 Subjective/Events-last exam 03/28/2021: Cognition is improving Patient really bored Bowels are a bit loose Forgets to put the call light on 03/27/2021: Patient dramatically improved Blood pressure elevated so gave amlodipine Doing well overall Bowels moved yesterday Delirium is clearing She did ask me exactly what happened and I told her she had septic shock from pneumonia and then alcohol withdrawal. She understood that alcohol cessation was mandatory. 03/26/2021: Patient adjusting pretty well Her came to visit when his daughter brought him Improved overall but slow responses Check meds and labs Review of Systems General: Fatigue, Malaise Neurological: Confusion Objective Exam Vital Signs Vital Signs Date Time Temp Pulse Resp B/P (MAP) Pulse Ox O2 Delivery O2 Flow Rate FiO2 03/28/21 09:00 Room Air 03/28/21 07:30 36.6 72 20 111/54 (73) 100 Capillary Refill : General Appearance: No Apparent Distress, WD/WN, Chronically ill, Thin HEENT: PERRL/EOMI, Normal ENT Inspection, Pharynx Normal Neck: Full Range of Motion, Normal Inspection, Non Tender, Supple, Carotid Bruit Respiratory: Chest Non Tender, Lungs Clear, Normal Breath Sounds, No Accessory Muscle Use, No Respiratory Distress Cardiovascular: Regular Rate, Rhythm, No Edema, No Gallop, No JVD, No Murmur, Normal Peripheral Pulses Gastrointestinal: Normal Bowel Sounds, No Organomegaly, No Pulsatile Mass, Non Tender, Soft Back: Normal Inspection, No CVA Tenderness, No Vertebral Tenderness Extremity: Normal Capillary Refill, Normal Inspection, Normal Range of Motion, Non Tender, No Calf Tenderness, No Pedal Edema Neurologic/Psychiatric: Alert, Oriented x3, construction administrative assistant II-XII Norm as Tested, Abnormal Gait (slow), Depressed Affect, Disoriented, Motor Weakness (generalized all extremities), Other (slow to respond) Skin: Normal Color, Warm/Dry Lymphatic: No Adenopathy Results/Procedures Lab Patient resulted labs reviewed. FIM Transfers Therapy Code Descriptions/Definitions Functional [place] Measure: 0=Not Assessed/NA 4=Minimal Assistance 1=Total Assistance 5=Supervision or Setup 2=Maximal Assistance 6=Modified [place] 3=Moderate Assistance 7=Complete IndependenceSCALE: Activities may be completed with or without assistive devices. 9-Peeboxaakp-adzazko completes the activity by him/herself with no assistance from a helper. 5-Set-up or Clean-up Assistance-helper sets up or cleans up; patient completes activity. [place] assists only prior to or following the activity. 4-Supervision or Touching Assistance-helper provides verbal cues and/or touching/steadying and/or contact guard assistance as patient completes activity. Assistance may be provided throughout the activity or intermittently. 3-Partial/Moderate Assistance-helper does LESS THAN HALF the effort. [place] lifts, holds or supports trunk or limbs, but provides less than half the effort. 2-Substantial/Maximal Assistance-helper does MORE THAN HALF the effort. [place] lifts or holds trunk or limbs and provides more than half the effort. 0-Unwwwszhw-wfatsb does ALL the effort. Patient does none of the effort to complete the activity. Or, the assistance of 2 or more helpers is required for the patient to complete the activity. If activity was not attempted, code reason: 7-Patient Refused. 9-Not Applicable-not attempted and the patient did not perform the activity before the current illness, exacerbation or injury. 10-Not Attempted due to Environmental Limitations-(lack of equipment, weather restraints, etc.). 88-Not Attempted due to Medical Conditions or Safety Concerns. Roll Left to Right (QC): 6 Sit to Lying (QC): 4 Sit to Stand (QC): 5 Chair/Mnm-il-Obyyi Xfer(QC): 3 Car Transfer (QC): 3 Gait Training Does the Patient Walk?: Yes Distance: 100' x2 Walk 10 feet (QC): 5 Walk 50 ft with 2 Turns(QC): 5 Walk 150 ft (QC): 3 Walking 10ft/uneven surface-QC: 3 Gait Persons Needed: 1 Gait Assistive Device: FWW Wheelchair Training Does the Pt Use a Wheelchair?: No Wheel 50 ft with 2 turns (QC): 9 Wheel 150 ft (QC): 9 Stair Training #of Steps: 1 1 Step (curb) (QC): 3 4 Steps (QC): 88 12 Steps (QC): 88 Balance Picking up an Object (QC): 3 ADL-Treatment Eating (QC): 6 (IND) Oral Hygiene (QC): 4 (supervision standing at sink) Shower/Bathe Self (QC): 4 (supervision, pt able to wash/dry all parts.) Upper Body Dressing (QC): 5 (set up) Lower Body Dressing (QC): 4 (SBA) On/Off Footwear (QC): 4 (SBA, pt required cue to sit with task.) Toileting Hygiene (QC): 4 (supervision) Toilet Transfer (QC): 4 (supervision) Assessment/Plan Assessment and Plan Assess & Plan/Chief Complaint Assessment: Acute encephalopathy s/p septic shock from PNA s/p hyponatremia Smoker HTN Poor reserve Fall risk Anemia Plan: IRF protocol Clear delirium Monitor closely 03/26/2021: Monitor closely Improving overall Check meds and labs 03/27/2021: Monitor blood pressure Delirium clearing quickly Alcohol cessation mandatory 03/28/2021: Monitor loose bowels Supportive care (1) Encephalopathy acute (2) Alcohol withdrawal Status: Acute (3) Septic shock Status: Resolved Resolution Date/Time: 03/20/21 @ 12:10 (4) Lactic acidosis Status: Resolved Resolution Date/Time: 03/20/21 @ 12:10 (5) Elevated troponin Status: Acute (6) Tobacco abuse Status: Chronic (7) Coronary artery disease Status: Chronic (8) Hyponatremia Status: Acute (9) Nausea and vomiting Status: Acute (10) Pneumonia Status: Acute (11) Anemia Status: Acute (12) Alcoholism Status: Acute JADA HOLLINGSWORTH DO Mar 28, 2021 08:44
--- NOTE | 2021-03-28 11:35 | Physical Therapy Daily Note ---
PT Daily Note-Current Subjective Pt states "I am bored out of my mind!" Pt denies pain. Mental Status Patient Orientation: Person, Place, Situation Transfers SCALE: Activities may be completed with or without assistive devices. 4-Qkcdndpbwz-frlnqqz completes the activity by him/herself with no assistance from a helper. 5-Set-up or Clean-up Assistance-helper sets up or cleans up; patient completes activity. [place] assists only prior to or following the activity. 4-Supervision or Touching Assistance-helper provides verbal cues and/or touching/steadying and/or contact guard assistance as patient completes activity. Assistance may be provided throughout the activity or intermittently. 3-Partial/Moderate Assistance-helper does LESS THAN HALF the effort. [place] lifts, holds or supports trunk or limbs, but provides less than half the effort. 2-Substantial/Maximal Assistance-helper does MORE THAN HALF the effort. [place] lifts or holds trunk or limbs and provides more than half the effort. 5-Khgewnjan-afsezm does ALL the effort. Patient does none of the effort to complete the activity. Or, the assistance of 2 or more helpers is required for the patient to complete the activity. If activity was not attempted, code reason: 7-Patient Refused. 9-Not Applicable-not attempted and the patient did not perform the activity before the current illness, exacerbation or injury. 10-Not Attempted due to Environmental Limitations-(lack of equipment, weather restraints, etc.). 88-Not Attempted due to Medical Conditions or Safety Concerns. Weight Bearing Full Weight Bearing Full Weight Bearing Treatments Pt uses BR (I). Pt amb with FWW and CGA x 800ft. Assessment Current Status: Good Progress Pt mod (I) with all mobility. Pt resting in recliner with call light and ambu alarm activated. PT Short Term Goals Short Term Goals Time Frame: Apr 01, 2021 Roll Left & Right: 6 Sit to lyin Lying to sitting on side of be: 5 Sit to stand: 4 Chair/zkz-ii-gmmno transfer: 4 Walk 10 feet: 4 Walk 50 feet with two turns: 4 Walk 150 feet: 4 PT Shelter Goals Shelter Goals PT Card Processing Clerk Goals Time Frame: Apr 15, 2021 Roll Left & Right (QC): 6 Sit to Lying (QC): 6 Lying-Sitting on Side/Bed(QC): 6 Sit to Stand (QC): 4 (SBA) Chair/Awc-aj-Kbeop Xfer(QC): 4 (SBA) Toilet Transfer (QC): 4 (SBA) Car Transfer (QC): 4 (SBA) Does the Patient Walk: Yes Walk 10 feet (QC): 4 (SBA) Walk 50ft with 2 Turns (QC): 4 (SBA) Walk 150 ft (QC): 4 (SBA) Walking 10ft on Uneven Surface: 4 (SBA) 1 Step (curb) (QC): 4 (CGA) 4 Steps (QC): 4 (CGA) 12 Steps (QC): 88 Picking up an Object (QC): 4 (CGA) Does the Pt use WC or Scooter?: No Wheel 50 feet with 2 turns (QC: 9 Wheel 150 feet: 9 PT Plan Treatment/Plan Treatment Plan: Continue Plan of Care Treatment Plan: Bed Mobility, Education, Functional Activity Luann, Functional Strength, Group Therapy, Gait, Safety, Therapeutic Exercise, Transfers Treatment Duration: Apr 15, 2021 Frequency: At least 5 of 7 days/Wk (IRF) Estimated Hrs Per Day: 1.5 hours per day Patient and/or Family Agrees t: Yes Time/GCodes Time In: 1005 Time Out: 1015 Total Billed Treatment Time: 10 Total Billed Treatment 1, gait 10' GREG PIEDRA CPTA Mar 28, 2021 11:35
[2021-03-28] MEDS: ENOXAPARIN 40 MG/0.4 ML (LOVENOX) SYR SC SCH (11:43)
[2021-03-28 20:00] VITALS: BP 135/61
[2021-03-28] MEDS: OLANZapine 2.5 MG (ZyPREXA) TAB PO SCH (20:51)
[2021-03-28] MEDS: CALCIUM CARBONATE 500 MG (TUMS) TAB.CHEW PO PRN (22:19)
--- NOTE | 2021-03-29 06:00 | PM&R Progress Note ---
Subjective HPI/CC On Admission Date Seen by Provider: Mar 29, 2021 Time Seen by Provider: 12:00 Subjective/Events-last exam 03/29/2021: Patient doing very well Completely independent now No delirium Patient ready for discharge tomorrow 03/28/2021: Cognition is improving Patient really bored Bowels are a bit loose Forgets to put the call light on 03/27/2021: Patient dramatically improved Blood pressure elevated so gave amlodipine Doing well overall Bowels moved yesterday Delirium is clearing She did ask me exactly what happened and I told her she had septic shock from pneumonia and then alcohol withdrawal. She understood that alcohol cessation was mandatory. 03/26/2021: Patient adjusting pretty well Her came to visit when his daughter brought him Improved overall but slow responses Check meds and labs Review of Systems General: Fatigue, Malaise Objective Exam Vital Signs Vital Signs Date Time Temp Pulse Resp B/P (MAP) Pulse Ox O2 Delivery O2 Flow Rate FiO2 03/29/21 20:19 Room Air 03/29/21 20:00 36.5 71 20 143/63 (89) 97 Capillary Refill : General Appearance: No Apparent Distress, WD/WN, Chronically ill, Thin HEENT: PERRL/EOMI, Normal ENT Inspection, Pharynx Normal Neck: Full Range of Motion, Normal Inspection, Non Tender, Supple, Carotid Bruit Respiratory: Chest Non Tender, Lungs Clear, Normal Breath Sounds, No Accessory Muscle Use, No Respiratory Distress Cardiovascular: Regular Rate, Rhythm, No Edema, No Gallop, No JVD, No Murmur, Normal Peripheral Pulses Gastrointestinal: Normal Bowel Sounds, No Organomegaly, No Pulsatile Mass, Non Tender, Soft Back: Normal Inspection, No CVA Tenderness, No Vertebral Tenderness Extremity: Normal Capillary Refill, Normal Inspection, Normal Range of Motion, Non Tender, No Calf Tenderness, No Pedal Edema Neurologic/Psychiatric: Alert, Oriented x3, compressor engineer II-XII Norm as Tested, Abnormal Gait (slow), Depressed Affect, Disoriented, Motor Weakness (generalized all extremities), Other (slow to respond) Skin: Normal Color, Warm/Dry Lymphatic: No Adenopathy Results/Procedures Lab Laboratory Tests 03/30/21 06:28 Patient resulted labs reviewed. FIM Transfers Therapy Code Descriptions/Definitions Functional [place] Measure: 0=Not Assessed/NA 4=Minimal Assistance 1=Total Assistance 5=Supervision or Setup 2=Maximal Assistance 6=Modified [place] 3=Moderate Assistance 7=Complete IndependenceSCALE: Activities may be completed with or without assistive devices. 3-Eyzchrvtwz-ngjtgen completes the activity by him/herself with no assistance from a helper. 5-Set-up or Clean-up Assistance-helper sets up or cleans up; patient completes activity. [place] assists only prior to or following the activity. 4-Supervision or Touching Assistance-helper provides verbal cues and/or touching/steadying and/or contact guard assistance as patient completes activity. Assistance may be provided throughout the activity or intermittently. 3-Partial/Moderate Assistance-helper does LESS THAN HALF the effort. [place] lifts, holds or supports trunk or limbs, but provides less than half the effort. 2-Substantial/Maximal Assistance-helper does MORE THAN HALF the effort. [place] lifts or holds trunk or limbs and provides more than half the effort. 5-Tauqrrgbf-wwglwv does ALL the effort. Patient does none of the effort to compl ete the activity. Or, the assistance of 2 or more helpers is required for the patient to complete the activity. If activity was not attempted, code reason: 7-Patient Refused. 9-Not Applicable-not attempted and the patient did not perform the activity before the current illness, exacerbation or injury. 10-Not Attempted due to Environmental Limitations-(lack of equipment, weather restraints, etc.). 88-Not Attempted due to Medical Conditions or Safety Concerns. Roll Left to Right (QC): 6 Sit to Lying (QC): 4 Sit to Stand (QC): 5 Chair/Eeu-xc-Srftu Xfer(QC): 3 Car Transfer (QC): 3 Gait Training Does the Patient Walk?: Yes Distance: 100' x2 Walk 10 feet (QC): 5 Walk 50 ft with 2 Turns(QC): 5 Walk 150 ft (QC): 3 Walking 10ft/uneven surface-QC: 3 Gait Persons Needed: 1 Gait Assistive Device: FWW Wheelchair Training Does the Pt Use a Wheelchair?: No Wheel 50 ft with 2 turns (QC): 9 Wheel 150 ft (QC): 9 Stair Training #of Steps: 1 1 Step (curb) (QC): 3 4 Steps (QC): 88 12 Steps (QC): 88 Balance Picking up an Object (QC): 3 ADL-Treatment Eating (QC): 6 (IND) Oral Hygiene (QC): 4 (supervision standing at sink) Shower/Bathe Self (QC): 4 (supervision, pt able to wash/dry all parts.) Upper Body Dressing (QC): 5 (set up) Lower Body Dressing (QC): 4 (SBA) On/Off Footwear (QC): 4 (SBA, pt required cue to sit with task.) Toileting Hygiene (QC): 4 (supervision) Toilet Transfer (QC): 4 (supervision) Assessment/Plan Assessment and Plan Assess & Plan/Chief Complaint Assessment: Acute encephalopathy s/p septic shock from PNA s/p hyponatremia Smoker HTN Poor reserve Fall risk Anemia Plan: IRF protocol Clear delirium Monitor closely 03/26/2021: Monitor closely Improving overall Check meds and labs 03/27/2021: Monitor blood pressure Delirium clearing quickly Alcohol cessation mandatory 03/28/2021: Monitor loose bowels Supportive care 03/29/2021: Discharge planned tomorrow Blood pressure management (1) Encephalopathy acute (2) Alcohol withdrawal Status: Acute (3) Septic shock Status: Resolved Resolution Date/Time: 03/20/21 @ 12:10 (4) Lactic acidosis Status: Resolved Resolution Date/Time: 03/20/21 @ 12:10 (5) Elevated troponin Status: Acute (6) Tobacco abuse Status: Chronic (7) Coronary artery disease Status: Chronic (8) Hyponatremia Status: Acute (9) Nausea and vomiting Status: Acute (10) Pneumonia Status: Acute (11) Anemia Status: Acute (12) Alcoholism Status: Acute JADA HOLLINGSWORTH DO Mar 29, 2021 06:00
[2021-03-29] MEDS: THIAMINE 100 MG (VITAMIN B-1) TAB PO SCH (06:31)
[2021-03-29] MEDS: MULTIVIT W/MINERALS TAB (THERAGRAN M) PO SCH (06:31)
[2021-03-29 07:30] VITALS: BP 121/56
[2021-03-29] MEDS: meTOprolol SUCCINATE 100 MG (TOPROL XL) TAB PO SCH (07:53)
[2021-03-29] MEDS: ASPIRIN E.C. 81 MG (ECOTRIN) TAB PO SCH (07:53)
[2021-03-29] MEDS: amLODIPine 5 MG (NORVASC) TAB PO SCH (07:53)
[2021-03-29] MEDS: lisINopril 10 MG (PRINIVIL) TABLET PO SCH (07:53)
[2021-03-29] MEDS: FLUoxetine HCL 10 MG (PROzac) CAPSULE/TABLET PO SCH (07:53)
[2021-03-29] MEDS: FOLIC ACID 1 MG TAB PO SCH (07:53)
[2021-03-29] MEDS: polyethylene glycoL POWDER 17 GM (MIRALAX) PACK PO SCH ×2 (09:16→20:06)
[2021-03-29] MEDS: SENNA W/DOCUSATE (SENOKOT S) TABLET PO SCH ×2 (09:16→20:06)
[2021-03-29] MEDS: DOCUSATE SODIUM 100 MG (COLACE) CAP PO SCH ×2 (09:16→20:05)
[2021-03-29] MEDS: ENOXAPARIN 40 MG/0.4 ML (LOVENOX) SYR SC SCH (12:14)
[2021-03-29 20:00] VITALS: BP 143/63
[2021-03-29] MEDS: OLANZapine 2.5 MG (ZyPREXA) TAB PO SCH (20:05)
[2021-03-30] MEDS ORDERED: MULT1TAB63 PO (05:59)
[2021-03-30] MEDS ORDERED: THIA100T80 PO (05:59)
[2021-03-30] MEDS ORDERED: AMLO-250 PO (05:59)
[2021-03-30] MEDS ORDERED: OLAN2.5T27 PO (05:59)
[2021-03-30] MEDS ORDERED: FOLI1TAB33 PO (05:59)
[2021-03-30] MEDS ORDERED: MTP100TCR PO (05:59)
[2021-03-30] MEDS: MULTIVIT W/MINERALS TAB (THERAGRAN M) PO SCH (06:05)
[2021-03-30] MEDS: THIAMINE 100 MG (VITAMIN B-1) TAB PO SCH (06:05)
[2021-03-30 06:41] LABS: BASOPHILS # (AUTO) 0.1 10^3/uL (0.0-0.1); BASOPHILS % (AUTO) 1 % (0-10); EOSINOPHILS # (AUTO) 0.3 10^3/uL (0.0-0.3); EOSINOPHILS % (AUTO) 2 % (0-10); HEMATOCRIT 30 % (35-52); HEMOGLOBIN 9.8 g/dL (11.5-16.0); LYMPHOCYTES # (AUTO) 1.6 10^3/uL (1.0-4.0); LYMPHOCYTES % (AUTO) 13 % (12-44); MEAN CORPUSCULAR HEMOGLOBIN 33 pg (25-34); MEAN CORPUSCULAR HGB CONC 33 g/dL (32-36); MEAN CORPUSCULAR VOLUME 101 fL (80-99); MONOCYTES # (AUTO) 1.7 10^3/uL (0.0-1.0); MONOCYTES % (AUTO) 14 % (0-12); NEUTROPHILS # (AUTO) 8.4 10^3/uL (1.8-7.8); NEUTROPHILS % (AUTO) 69 % (42-75); PLATELET COUNT 455 10^3/uL (130-400); WHITE BLOOD COUNT 12.3 10^3/uL (4.3-11.0)
[2021-03-30 06:49] LABS: ALBUMIN 3.7 GM/DL (3.2-4.5); CHLORIDE 99 MMOL/L (98-107); POTASSIUM 4.2 MMOL/L (3.6-5.0); SODIUM 134 MMOL/L (135-145)
[2021-03-30 06:50] LABS: CALCIUM 9.2 MG/DL (8.5-10.1)
[2021-03-30 06:51] LABS: GLUCOSE 86 MG/DL (70-105); TOTAL PROTEIN 7.5 GM/DL (6.4-8.2)
[2021-03-30 06:52] LABS: CARBON DIOXIDE 23 MMOL/L (21-32)
[2021-03-30 06:53] LABS: BILIRUBIN,TOTAL 0.2 MG/DL (0.1-1.0)
[2021-03-30 06:55] LABS: ALKALINE PHOSPHATASE 72 U/L (40-136); CREATININE SERUM 0.64 MG/DL (0.60-1.30); GFR ESTIMATED > 60
[2021-03-30 06:56] LABS: BUN/CREATININE RATIO 11
[2021-03-30 06:58] LABS: ALANINE AMINOTRANSFERASE 21 U/L (0-55)
[2021-03-30 07:46] VITALS: BP 147/65
--- NOTE | 2021-03-30 08:39 | Occupational Ther Daily Note ---
OT Current Status-Daily Note Subjective Pt seated in recliner, agreeable to OT tx. States she feels ready to go home and is hopeful she is able to discharge today. Mental Status/Objective Patient Orientation: Normal For Age ADL-Treatment Therapy Code Descriptions/Definitions Functional [place] Measure: 0=Not Assessed/NA 4=Minimal Assistance 1=Total Assistance 5=Supervision or Setup 2=Maximal Assistance 6=Modified [place] 3=Moderate Assistance 7=Complete IndependenceSCALE: Activities may be completed with or without assistive devices. 8-Mzmiyefvds-tzscxnd completes the activity by him/herself with no assistance from a helper. 5-Set-up or Clean-up Assistance-helper sets up or cleans up; patient completes activity. [place] assists only prior to or following the activity. 4-Supervision or Touching Assistance-helper provides verbal cues and/or touching/steadying and/or contact guard assistance as patient completes activity. Assistance may be provided throughout the activity or intermittently. 3-Partial/Moderate Assistance-helper does LESS THAN HALF the effort. [place] lifts, holds or supports trunk or limbs, but provides less than half the effort. 2-Substantial/Maximal Assistance-helper does MORE THAN HALF the effort. [place] lifts or holds trunk or limbs and provides more than half the effort. 8-Dhhwrygwk-wkrbal does ALL the effort. Patient does none of the effort to complete the activity. Or, the assistance of 2 or more helpers is required for the patient to complete the activity. If activity was not attempted, code reason: 7-Patient Refused. 9-Not Applicable-not attempted and the patient did not perform the activity before the current illness, exacerbation or injury. 10-Not Attempted due to Environmental Limitations-(lack of equipment, weather restraints, etc.). 88-Not Attempted due to Medical Conditions or Safety Concerns. Eating (QC): 6 (IND) Oral Hygiene (QC): 6 (IND) Shower/Bathe Self (QC): 6 (IND) Upper Body Dressing (QC): 6 (IND) Lower Body Dressing (QC): 6 (IND) On/Off Footwear: 6 (IND) Toileting Hygiene (QC): 6 (IND) Toilet Transfer (QC): 6 (IND) Other Treatment Pt seated in recliner, used FWW to ambulate to bathroom. Pt completed toileting, doffed clothes, then transferred to SC. Pt completed shower, then transferred back to toilet to don clothes. She stood at sink to brush her teeth, then transferred to recliner to brush her hair. Pt used FWW to ambulate to therapy gym. In order to increase BUE strength and activity tolerance, pt completed x15 mins on arm bike, in resistance, 1 rest break. Pt returned to room to recliner. Post tx, pt seated in recliner, call light in reach and all needs met. Education OT Patient Education: Correct positioning, Exercise program, Modified ADL techniques, Progress toward Goal/Update tx plan, Purpose of tx/functional activities, Rehab process Teaching Recipient: Patient Teaching Methods: Discussion Response to Teaching: Verbalize Understanding OT Short Term Goals Short Term Goals Time Frame: Apr 01, 2021 Oral hygiene: 4 Toileting hygiene: 5 Shower/bathe self: 5 Upper body dressin Lower body dressin Putting on/taking off footwear: 5 OT School Psychologist Assistant Goals Skilled Nursing Goals Time Frame: Apr 17, 2021 Eating (QC): 6 (met) Oral Hygiene (QC): 6 (met) Toileting Hygiene (QC): 6 (met) Shower/Bathe Self (QC): 6 (met) Upper Body Dressing (QC): 6 (met) Lower Body Dressing (QC): 6 (met) On/Off Footwear (QC): 6 (met) Additional Goals: 1-Demonstrate ADL Tasks, 2-Verbalize Understanding, 3- ImproveStrength/Luann 1=Demonstrate adherence to instructed precautions during ADL tasks. 2=Patient will verbalize/demonstrate understanding of assistive devices/modifications for ADL. 3=Patient will improve strength/tolerance for activity to enable patient to perform ADL's. OT Education/Plan Problem List/Assessment Assessment: Decreased Activ Tolerance Discharge Recommendations Plan/Recommendations: Continue POC Treatment Plan/Plan of Care Patient would benefit from OT for education, treatment and training to promote independence in ADL's, mobility, safety and/or upper extremity function for ADL's. Plan of Care: ADL Retraining, Functional Mobility, Group Exercise/Act as Ind, UE Funct Exercise/Act Treatment Duration: Apr 17, 2021 Frequency: At least 5 of 7 days/Wk (IRF) Estimated Hrs Per Day: 1.5 hours per day Rehab Potential: Fair Time/GCodes Start Time: 08:00 Stop Time: 09:00 Total Time Billed (hr/min): 60 Billed Treatment Time 1, ADL 3 (45'), EX (15') MARIOLA GARRETT OT Mar 30, 2021 08:39
[2021-03-30] MEDS: lisINopril 10 MG (PRINIVIL) TABLET PO SCH (08:42)
[2021-03-30] MEDS: meTOprolol SUCCINATE 100 MG (TOPROL XL) TAB PO SCH (08:42)
[2021-03-30] MEDS: amLODIPine 5 MG (NORVASC) TAB PO SCH (08:42)
[2021-03-30] MEDS: polyethylene glycoL POWDER 17 GM (MIRALAX) PACK PO SCH (08:43)
[2021-03-30] MEDS: DOCUSATE SODIUM 100 MG (COLACE) CAP PO SCH (08:43)
[2021-03-30] MEDS: FLUoxetine HCL 10 MG (PROzac) CAPSULE/TABLET PO SCH (08:43)
[2021-03-30] MEDS: FOLIC ACID 1 MG TAB PO SCH (08:43)
[2021-03-30] MEDS: ASPIRIN E.C. 81 MG (ECOTRIN) TAB PO SCH (08:43)
[2021-03-30] MEDS: SENNA W/DOCUSATE (SENOKOT S) TABLET PO SCH (08:44)
[2021-03-30] MEDS: CALCIUM CARBONATE 500 MG (TUMS) TAB.CHEW PO PRN (09:06)
--- NOTE | 2021-03-30 10:23 | Discharge Summary ---
Diagnosis/Chief Complaint Date of Admission Mar 25, 2021 at 10:20 Date of Discharge Discharge Date: Mar 30, 2021 Discharge Diagnosis Assessment: Acute encephalopathy s/p septic shock from PNA s/p hyponatremia Smoker HTN Poor reserve Fall risk Anemia Plan: IRF protocol Clear delirium Monitor closely 03/26/2021: Monitor closely Improving overall Check meds and labs 03/27/2021: Monitor blood pressure Delirium clearing quickly Alcohol cessation mandatory 03/28/2021: Monitor loose bowels Supportive care 03/29/2021: Discharge planned tomorrow Blood pressure management (1) Encephalopathy acute (2) Alcohol withdrawal Status: Acute (3) Septic shock Status: Resolved Resolution Date/Time: 03/20/21 @ 12:10 (4) Lactic acidosis Status: Resolved Resolution Date/Time: 03/20/21 @ 12:10 (5) Elevated troponin Status: Acute (6) Tobacco abuse Status: Chronic (7) Coronary artery disease Status: Chronic (8) Hyponatremia Status: Acute (9) Nausea and vomiting Status: Acute (10) Pneumonia Status: Acute (11) Anemia Status: Acute (12) Alcoholism Status: Acute Discharge Summary Discharge Physical Examination Allergies: Coded Allergies: codeine (Verified Allergy, Mild, 09/02/15) Vitals & I&Os Vital Signs Date Time Temp Pulse Resp B/P (MAP) Pulse Ox O2 Delivery O2 Flow Rate FiO2 03/30/21 11:15 36.2 68 16 147/65 99 Room Air General Appearance: Alert, Oriented X3, Cooperative Respiratory: Clear to Auscultation Cardiovascular: Regular Rate Neuro: Normal Gait, Normal Speech, Strength at 5/5 X4 Ext Psych/Mental Status: Mental Status NL Hospital Course Was the Problem List Reviewed?: Yes Brief hospital course well in inpatient rehab. Delirium from alcohol withdrawal and septic shock cleared ultimately and completely resolved. Alcohol cessation and smoking cessation counseled. Patient was able to regain all function with ambulatory skills and ADLs and patient was deemed stable for discharge home. Labs (last 24 hrs) Laboratory Tests 03/26/21 06:28: White Blood Count 9.4, Red Blood Count 2.81L, Hemoglobin 9.5L, Hematocrit 28L, Mean Corpuscular Volume 98, Mean Corpuscular Hemoglobin 34, Mean Corpuscular H emoglobin Concent 34, Red Cell Distribution Width 12.6, Platelet Count 439H, Mean Platelet Volume 8.5L, Immature Granulocyte % (Auto) 2, Neutrophils (%) (Auto) 66, Lymphocytes (%) (Auto) 9L, Monocytes (%) (Auto) 21H, Eosinophils (%) (Auto) 2, Basophils (%) (Auto) 0, Neutrophils # (Auto) 6.2, Lymphocytes # (Auto) 0.9L, Monocytes # (Auto) 1.9H, Eosinophils # (Auto) 0.2, Basophils # (Auto) 0.0, Immature Granulocyte # (Auto) 0.2H, Neutrophils % (Manual) 67, Lymphocytes % (Manual) 10, Monocytes % (Manual) 16, Eosinophils % (Manual) 2, Basophils % (Manual) 0, Band Neutrophils 5, Blood Morphology Comment NORMAL, Sodium Level 134L, Potassium Level 3.8, Chloride Level 97L, Carbon Dioxide Level 25, Anion Gap 12, Blood Urea Nitrogen 5L, Creatinine 0.61, Estimat Glomerular Filtration Rate > 60, BUN/Creatinine Ratio 8, Glucose Level 88, Calcium Level 9.2, Corrected Calcium 9.6, Total Bilirubin 0.4, Aspartate Amino Transf (AST/SGOT) 35H, Alanine Aminotransferase (ALT/SGPT) 24, Alkaline Phosphatase 70, Total Protein 7.0, Albumin 3.5 03/30/21 06:28: White Blood Count 12.3H, Red Blood Count 2.99L, Hemoglobin 9.8L, Hematocrit 30L, Mean Corpuscular Volume 101H, Mean Corpuscular Hemoglobin 33, Mean Corpuscular Hemoglobin Concent 33, Red Cell Distribution Width 13.0, Platelet Count 455H, Mean Platelet Volume 9.0, Immature Granulocyte % (Auto) 1, Neutrophils (%) (Auto) 69, Lymphocytes (%) (Auto) 13, Monocytes (%) (Auto) 14H, Eosinophils (%) (Auto) 2, Basophils (%) (Auto) 1, Neutrophils # (Auto) 8.4H, Lymphocytes # (Au to) 1.6, Monocytes # (Auto) 1.7H, Eosinophils # (Auto) 0.3, Basophils # (Auto) 0.1, Immature Granulocyte # (Auto) 0.2H, Sodium Level 134L, Potassium Level 4.2, Chloride Level 99, Carbon Dioxide Level 23, Anion Gap 12, Blood Urea Nitrogen 7, Creatinine 0.64, Estimat Glomerular Filtration Rate > 60, BUN/Creatinine Ratio 1 1, Glucose Level 86, Calcium Level 9.2, Corrected Calcium 9.4, Total Bilirubin 0.2, Aspartate Amino Transf (AST/SGOT) 29, Alanine Aminotransferase (ALT/SGPT) 21, Alkaline Phosphatase 72, Total Protein 7.5, Albumin 3.7 Pending Labs Laboratory Tests 03/26/21 06:28: White Blood Count 9.4, Red Blood Count 2.81, Hemoglobin 9.5, Hematocrit 28, Mean Corpuscular Volume 98, Mean Corpuscular Hemoglobin 34, Mean Corpuscular Hemoglobin Concent 34, Red Cell Distribution Width 12.6, Platelet Count 439, Mean Platelet Volume 8.5, Immature Granulocyte % (Auto) 2, Neutrophils (%) (Auto) 66, Lymphocytes (%) (Auto) 9, Monocytes (%) (Auto) 21, Eosinophils (%) (Auto) 2, Basophils (%) (Auto) 0, Neutrophils # (Auto) 6.2, Lymphocytes # (Auto) 0.9, Monocytes # (Auto) 1.9, Eosinophils # (Auto) 0.2, Basophils # (Auto) 0.0, Immature Granulocyte # (Auto) 0.2, Neutrophils % (Manual) 67, Lymphocytes % (Manual) 10, Monocytes % (Manual) 16, Eosinophils % (Manual) 2, Basophils % (Manual) 0, Band Neutrophils 5, Blood Morphology Comment NORMAL, Sodium Level 134, Potassium Level 3.8, Chloride Level 97, Carbon Dioxide Level 25, Anion Gap 12, Blood Urea Nitrogen 5, Creatinine 0.61, Estimat Glomerular Filtration Rate > 60, BUN/Creatinine Ratio 8, Glucose Level 88, Calcium Level 9.2, Corrected Calcium 9.6, Total Bilirubin 0.4, Aspartate Amino Transf (AST/SGOT) 35, Alanine Aminotransferase (ALT/SGPT) 24, Alkaline Phosphatase 70, Total Protein 7.0, Albumin 3.5 03/30/21 06:28: White Blood Count 12.3, Red Blood Count 2.99, Hemoglobin 9.8, Hematocrit 30, Mean Corpuscular Volume 101, Mean Corpuscular Hemoglobin 33, Mean Corpuscular Hemoglobin Concent 33, Red Cell Distribution Width 13.0, Platelet Count 455, Mean Platelet Volume 9.0, Immature Granulocyte % (Auto) 1, Neutrophils (%) (Auto) 69, Lymphocytes (%) (Auto) 13, Monocytes (%) (Auto) 14, Eosinophils (%) (Auto) 2, Basophils (%) (Auto) 1, Neutrophils # (Auto) 8.4, Lymphocytes # (Auto) 1.6, Monocytes # (Auto) 1.7, Eosinophils # (Auto) 0.3, Basophils # (Auto) 0.1, Immature Granulocyte # (Auto) 0.2, Sodium Level 134, Potassium Level 4.2, Chloride Level 99, Carbon Dioxide Level 23, Anion Gap 12, Blood Urea Nitrogen 7, Creatinine 0.64, Estimat Glomerular Filtration Rate > 60, BUN/Creatinine Ratio 11, Glucose Level 86, Calcium Level 9.2, Corrected Calcium 9.4, Total Bilirubin 0.2, Aspartate Amino Transf (AST/SGOT) 29, Alanine Aminotransferase (ALT/SGPT) 21, Alkaline Phosphatase 72, Total Protein 7.5, Albumin 3.7 Discharge Home Medications: Active Scripts Active Certavite-Antioxidant Tablet (Multivitamin/Iron/Folic Acid) 1 Each Tablet 1 Ea PO DAILY@0700 Vitamin B-1 (Thiamine HCl) 100 Mg Tablet 100 Mg PO DAILY@0700 Folic Acid 1 Mg Tablet 1 Mg PO DAILY Olanzapine 2.5 Mg Tablet 2.5 Mg PO HS Amlodipine Besylate 5 Mg Tablet 5 Mg PO DAILY Metoprolol Succinate 100 Mg Tab.er.24h 100 Mg PO DAILY Reported Aspirin 81 Mg Tab.chew 81 Mg PO DAILY Fluoxetine HCl 10 Mg Capsule 10 Mg PO DAILY Lisinopril 10 Mg Tablet 10 Mg PO DAILY Instructions to patient/family Please see electronic discharge instructions given to patient. Diagnosis/Problems Diagnosis/Problems (1) Encephalopathy acute (2) Alcohol withdrawal Status: Acute (3) Septic shock Status: Resolved Resolution Date/Time: 03/20/21 @ 12:10 (4) Lactic acidosis Status: Resolved Resolution Date/Time: 03/20/21 @ 12:10 (5) Elevated troponin Status: Acute (6) Tobacco abuse Status: Chronic (7) Coronary artery disease Status: Chronic (8) Hyponatremia Status: Acute (9) Nausea and vomiting Status: Acute (10) Pneumonia Status: Acute (11) Anemia Status: Acute (12) Alcoholism Status: Acute JADA HOLLINGSWORTH DO Mar 30, 2021 10:23
--- NOTE | 2021-03-30 10:45 | Physical Therapy Daily Note ---
PT Daily Note-Current Subjective Pt reports she is going home today. She is excited and feels ready. 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 Mental Status Patient Orientation: Person, Place, Time, Situation Transfers SCALE: Activities may be completed with or without assistive devices. 4-Sihnoghggt-kpakjsb completes the activity by him/herself with no assistance from a helper. 5-Set-up or Clean-up Assistance-helper sets up or cleans up; patient completes activity. [place] assists only prior to or following the activity. 4-Supervision or Touching Assistance-helper provides verbal cues and/or touching/steadying and/or contact guard assistance as patient completes activity. Assistance may be provided throughout the activity or intermittently. 3-Partial/Moderate Assistance-helper does LESS THAN HALF the effort. [place] lifts, holds or supports trunk or limbs, but provides less than half the effort. 2-Substantial/Maximal Assistance-helper does MORE THAN HALF the effort. [place] lifts or holds trunk or limbs and provides more than half the effort. 9-Psgkfjmbt-zktodp does ALL the effort. Patient does none of the effort to complete the activity. Or, the assistance of 2 or more helpers is required for the patient to complete the activity. If activity was not attempted, code reason: 7-Patient Refused. 9-Not Applicable-not attempted and the patient did not perform the activity before the current illness, exacerbation or injury. 10-Not Attempted due to Environmental Limitations-(lack of equipment, weather restraints, etc.). 88-Not Attempted due to Medical Conditions or Safety Concerns. Roll Left & Right (QC): 6 Sit to Lying (QC): 6 Lying to Sitting/Side of Bed(Q: 6 Sit to Stand (QC): 6 Chair/Alj-in-Bohbr Xfer(QC): 6 Toilet Transfer (QC): 6 Car Transfer (QC): 6 Weight Bearing Full Weight Bearing Full Weight Bearing Gait Training Walk 10 feet (QC): 6 Walk 50 ft with 2 Turns(QC): 6 Walk 150 ft (QC): 6 Walking 10ft/uneven surface-QC: 6 Safe gait on all surfaces without AD. No LOB or safety concerns. Stair Training 1 Step (curb) (QC): 6 4 Steps (QC): 6 12 Steps (QC): 6 Stairs: Pattern: Reciprocal No AD needed. Balance Picking up an Object (QC): 6 Assessment Current Status: Excellent Progress Pt is indep with all mobility with no noted safety concerns. Discussed with nursing and both agree pt is safe to be up ad jose in her room. Chair alarm not activated as pt safe with all transfers and gait; in addition, she is discharging home today to care for herself and her . PT Short Term Goals Short Term Goals Time Frame: Apr 01, 2021 Roll Left & Right: 6 Sit to lyin Lying to sitting on side of be: 5 Sit to stand: 4 Chair/rsm-tk-gynyk transfer: 4 Walk 10 feet: 4 Walk 50 feet with two turns: 4 Walk 150 feet: 4 PT Social Worker Psychiatric Goals Halfway Goals PT Halfway Goals Time Frame: Apr 15, 2021 Roll Left & Right (QC): 6 (met) Sit to Lying (QC): 6 (christian) Lying-Sitting on Side/Bed(QC): 6 (met) Sit to Stand (QC): 4 (SBA) Chair/Cpj-ku-Azeiw Xfer(QC): 4 (SBA) Toilet Transfer (QC): 4 (SBA) Car Transfer (QC): 4 (SBA) Does the Patient Walk: Yes Walk 10 feet (QC): 4 (SBA) Walk 50ft with 2 Turns (QC): 4 (SBA) Walk 150 ft (QC): 4 (SBA) Walking 10ft on Uneven Surface: 4 (SBA) 1 Step (curb) (QC): 4 (CGA) 4 Steps (QC): 4 (CGA) 12 Steps (QC): 88 Picking up an Object (QC): 4 (CGA) Does the Pt use WC or Scooter?: No Wheel 50 feet with 2 turns (QC: 9 Wheel 150 feet: 9 All goals met PT Plan Treatment/Plan Treatment Plan: Discontinue PT, goals met Treatment Plan: Bed Mobility, Education, Functional Activity Luann, Functional Strength, Group Therapy, Gait, Safety, Therapeutic Exercise, Transfers Treatment Duration: Apr 15, 2021 Frequency: At least 5 of 7 days/Wk (IRF) Estimated Hrs Per Day: 1.5 hours per day Patient and/or Family Agrees t: Yes Safety Risks/Education Patient Education: Safety Issues Teaching Recipient: Patient Teaching Methods: Discussion Response to Teaching: Verbalize Understanding, Return Demonstration Time/GCodes Time In: 1000 Time Out: 1030 Total Billed Treatment Time: 30 Total Billed Treatment visit FA 30 HAI SNOW PT Mar 30, 2021 10:45
--- NOTE | 2021-03-30 10:49 | Therapy Team Discharge Summary ---
Therapy Discharge Summary Discharge Recommendations Date of Discharge 03/30/2021 Physical Therapy This patient was admitted to ARU post acute hospital stay due to sepsis with increased need for assist and safety concerns. Prior to her hospital stay, she was indep with all mobiltiy and able to care for herself and her who has alzheimer's disease. Upon admit to ARU, pt required min assist with bed mobilty, tranfsers and gait with cues for safety and sequencing. Treatment has consisted of functional strength, balance and activity tolerance training to improve bed mobility, transfers and gait. She is indep with all mobility, needing no AD for ambulation. She has met all goals set at evaluation. Pt is safe and appears ready for discharge from a PT standpoint. DC PT this date. Occupational Therapy Decreased Activ Tolerance PT Penitentiary Goals Penitentiary Goals PT Penitentiary Goals Time Frame: Apr 15, 2021 Roll Left to Right (QC): 6 (met) Sit to Lying (QC): 6 (christian) Lying-Sitting on Side/Bed(QC): 6 (met) Sit to Stand (QC): 4 (SBA) Chair/Dbw-pn-Enrej Xfer(QC): 4 (SBA) Car Transfer (QC): 4 (SBA) Does the Patient Walk: Yes Walk 10 feet (QC): 4 (SBA) Walk 10ft-Uneven Surface(QC): 4 (SBA) Walk 50ft with 2 Turns (QC): 4 (SBA) Walk 150 ft (QC): 4 (SBA) Does the Pt use WC or Scooter?: No Wheel 50 feet with 2 turns (QC: 9 1 Step (curb) (QC): 4 (CGA) 4 Steps (QC): 4 (CGA) 12 Steps (QC): 88 Picking up an Object (QC): 4 (CGA) Pt is indep with all functional mobility; all goals met or exceeded. OT V Belt Finisher Goals Penitentiary Goals Time Frame: Apr 17, 2021 Eating (QC): 6 (met) Oral Hygiene (QC): 6 (met) Shower/Bathe Self (QC): 6 (met) Upper Body Dressing (QC): 6 (met) Lower Body Dressing (QC): 6 (met) On/Off Footwear (QC): 6 (met) Toileting Hygiene (QC): 6 (met) Toilet/Commode Transfer (QC): 4 (SBA) Additional Goals: 1-Demonstrate ADL Tasks, 2-Verbalize Understanding, 3- ImproveStrength/Luann 1=Demonstrate adherence to instructed precautions during ADL tasks. 2=Patient will verbalize/demonstrate understanding of assistive devices/modifications for ADL. 3=Patient will improve strength/tolerance for activity to enable patient to perform ADL's. Speech Penitentiary Goals Penitentiary Goals Patient will improve cognitive-communication skills in order to be able to complete daily tasks with minimal assist. HAI SNOW PT Mar 30, 2021 10:48
[2021-03-30 11:15] VITALS: BP 147/65
--- NOTE | 2021-03-30 14:35 | Therapy Team Discharge Summary ---
Therapy Discharge Summary Discharge Recommendations Date of Discharge Mar 30, 2021 at 11:15 Occupational Therapy Pt admitted to ARU with sepsis and due to need for skilled therapies and cont inued medication management. At OF, pt was IND with all ADLs and functional mobility. Upon initial evaluation, pt was independent with eating, required min A oral care, CGA showering, supervision upper body dressing, min A lower body dressing, supervision footwear, and CGA toileting. OT tx focused on increasing BUE strength and activity tolerance, as well as increasing safety and independence with ADLs and functional mobility. At discharge, pt was IND with all ADLS, and met all LTGs. Pt discharged from facility, d/c from OT at this time. Decreased Activ Tolerance PT Solar Installation Foreman Goals Usp Goals PT Solar Installation Foreman Goals Time Frame: Apr 15, 2021 Roll Left to Right (QC): 6 (met) Sit to Lying (QC): 6 (christian) Lying-Sitting on Side/Bed(QC): 6 (met) Sit to Stand (QC): 4 (SBA) Chair/Sie-gu-Wokce Xfer(QC): 4 (SBA) Car Transfer (QC): 4 (SBA) Does the Patient Walk: Yes Walk 10 feet (QC): 4 (SBA) Walk 10ft-Uneven Surface(QC): 4 (SBA) Walk 50ft with 2 Turns (QC): 4 (SBA) Walk 150 ft (QC): 4 (SBA) Does the Pt use WC or Scooter?: No Wheel 50 feet with 2 turns (QC: 9 1 Step (curb) (QC): 4 (CGA) 4 Steps (QC): 4 (CGA) 12 Steps (QC): 88 Picking up an Object (QC): 4 (CGA) OT Solar Installation Foreman Goals Solar Installation Foreman Goals Time Frame: Apr 17, 2021 Eating (QC): 6 (met) Oral Hygiene (QC): 6 (met) Shower/Bathe Self (QC): 6 (met) Upper Body Dressing (QC): 6 (met) Lower Body Dressing (QC): 6 (met) On/Off Footwear (QC): 6 (met) Toileting Hygiene (QC): 6 (met) Toilet/Commode Transfer (QC): 4 (SBA) Additional Goals: 1-Demonstrate ADL Tasks, 2-Verbalize Understanding, 3- ImproveStrength/Luann 1=Demonstrate adherence to instructed precautions during ADL tasks. 2=Patient will verbalize/demonstrate understanding of assistive devices/modifications for ADL. 3=Patient will improve strength/tolerance for activity to enable patient to perform ADL's. Speech Usp Goals Usp Goals Patient will improve cognitive-communication skills in order to be able to complete daily tasks with minimal assist. MARIOLA GARRETT OT Mar 30, 2021 14:35
== END 2021-03-30 11:15 | disposition home or self-care (01) | DRG 71 ==
PROVIDERS: ADMIT Internal Medicine; ATTEND Internal Medicine
DX: G93.49 Other encephalopathy (principal); E87.1 Hypo-osmolality and hyponatremia; Z91.81 History of falling; D64.9 Anemia, unspecified; F10.20 Alcohol dependence, uncomplicated; F17.210 Nicotine dependence, cigarettes, uncomplicated; I25.10 Atherosclerotic heart disease of native coronary artery without angina pectoris; I10 Essential (primary) hypertension; F32.9 Major depressive disorder, single episode, unspecified; M19.91 Primary osteoarthritis, unspecified site; Z87.01 Personal history of pneumonia (recurrent); Z88.6 Allergy status to analgesic agent; Z79.82 Long term (current) use of aspirin; Z95.5 Presence of coronary angioplasty implant and graft
CPT/HCPCS: 36415; 80053; 85007; 85025; 85027

== ENCOUNTER 2021-06-22 11:06 | Observation (INO) | payer BC ==
[~2021-06-22] VITALS: Ht 160 cm; Wt 49.6 kg
[~2021-06-22 11:06] MED LIST changes: -ACETAMINOPHEN 325 MG TABLET PO PRN; -ALPRAZolam 0.25 MG (XANAX) TAB PO PRN; +AMLO-250 PO; -BISACODYL 10 MG SUPP (DULCOLAX) PR PRN; -DOCUSATE SODIUM 100 MG (COLACE) CAP PO PRN; -FLEET ENEMA ADULT 1 EA BTL PR PRN; +FOLI1TAB33 PO; -LACTULOSE SYRUP 10GM/15ML (ENULOSE) 30ML UDC PO PRN; -LOPERAMIDE 2 MG (IMODIUM) TABLET PO PRN; -MELATONIN 3 MG TABLET PO PRN; +MTP100TCR PO; +MULT1TAB63 PO; +OLAN2.5T27 PO; -ONDANSETRON 4 MG (ZOFRAN) ORAL DISSOLVE TAB PO PRN; +THIA100T80 PO; -diphenhydrAMINE 25 MG TAB (BENADRYL) PO PRN; -guaiFENesin/CODEINE (ROBITUSSIN AC) 10ML UDC PO PRN
--- NOTE | 2021-06-22 11:45 | ED General ---
General Stated Complaint: FEVER,WEAKNESS,SOB Source of Information: Patient Exam Limitations: No Limitations History of Present Illness Date Seen by Provider: Jun 22, 2021 Time Seen by Provider: 11:39 Initial Comments This is a well-appearing 56-year-old female who presented to the ER with complaints of sore throat, fever 102.0 at home, cough, and shortness of breath that started 3 days ago. States that she does currently drink a 12 pack of beer daily and she has had 4 alcoholic beverages this morning. Did not receive Covid vaccines. No known ill contacts or Covid exposure. Currently states she is fatigued and has body aches. Has taken Advil at home yesterday with some relief. Allergies and Home Medications Allergies Coded Allergies: codeine (Verified Allergy, Mild, 09/02/15) Patient Home Medication List Home Medication List Reviewed: Yes Amlodipine Besylate (Amlodipine Besylate) 5 Mg Tablet, 5 MG PO DAILY, (Reported) Entered as Reported by: EJ GILLETTE on 06/22/211555 Last Action: Reviewed Aspirin (Aspirin) 81 Mg Tab.chew, 81 MG PO DAILY, (Reported) Entered as Reported by: EJ GILLETTE on 03/19/211148 Last Action: Reviewed Fluoxetine HCl (Fluoxetine HCl) 20 Mg Capsule, 20 MG PO DAILY, (Reported) Entered as Reported by: EJ GILLETTE on 06/22/211555 Last Action: Reviewed Metoprolol Succinate (Metoprolol Succinate) 100 Mg Tab.er.24h, 100 MG PO DAILY, (Reported) Entered as Reported by: EJ GILLETTE on 06/22/211555 Last Action: Reviewed Multivitamin (Multivitamin) 1 Each Tablet, 1 EACH PO DAILY, (Reported) Entered as Reported by: EJ GILLETTE on 06/22/211555 Last Action: Reviewed Discontinued Medications Amlodipine Besylate (Amlodipine Besylate) 5 Mg Tablet, 5 MG PO DAILY Discontinued Reason: Duplicate Order Prescribed by: JADA HOLLINGSWORTH on 03/30/21 0559 Last Action: Discontinued Fluoxetine HCl (Fluoxetine HCl) 10 Mg Capsule, 10 MG PO DAILY, (Reported) Discontinued Reason: Duplicate Order Entered as Reported by: EJ GILLETTE on 03/19/21 9561 Last Action: Discontinued Folic Acid (Folic Acid) 1 Mg Tablet, 1 MG PO DAILY Discontinued Reason: Duplicate Order Prescribed by: JADA HOLLINGSWORTH on 03/30/21558 Last Action: Discontinued Lisinopril (Lisinopril) 10 Mg Tablet, 10 MG PO DAILY, (Reported) Discontinued Reason: Duplicate Order Entered as Reported by: EJ GILLETTE on 03/19/21 114 Last Action: Discontinued Metoprolol Succinate (Metoprolol Succinate) 100 Mg Tab.er.24h, 100 MG PO DAILY Discontinued Reason: Duplicate Order Prescribed by: JADA HOLLINGSWORTH on 03/30/21558 Last Action: Discontinued Multivitamin/Iron/Folic Acid (Certavite-Antioxidant Tablet) 1 Each Tablet, 1 EA PO DAILY@0700 Discontinued Reason: Duplicate Order Prescribed by: JADA HOLLINGSWORTH on 03/30/21558 Last Action: Discontinued Olanzapine (Olanzapine) 2.5 Mg Tablet, 2.5 MG PO HS Discontinued Reason: Duplicate Order Prescribed by: JADA HOLLINGSWORTH on 03/30/21558 Last Action: Discontinued Thiamine HCl (Vitamin B-1) 100 Mg Tablet, 100 MG PO DAILY@0700 Discontinued Reason: Duplicate Order Prescribed by: JADA HOLLINGSWORTH on 03/30/21558 Last Action: Discontinued Review of Systems Review of Systems Constitutional: see HPI EENTM: see HPI Respiratory: see HPI Cardiovascular: no symptoms reported Gastrointestinal: see HPI Genitourinary: no symptoms reported Musculoskeletal: see HPI Skin: no symptoms reported Psychiatric/Neurological: Anxiety Hematologic/Lymphatic: No Symptoms Reported Immunological/Allergic: no symptoms reported Past Zpfnjdl-Dhjrbq-Vcduov Hx Immunizations Up To Date Tetanus Booster (TDap): Unknown PED Vaccines UTD: No Past Medical History Surgeries: Yes Section, Coronary Stent, 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 Respiratory: Yes Asthma Currently Using CPAP: No Currently Using BIPAP: No Cardiac: Yes Coronary Artery Disease, 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 Neurological: No Reproductive Disorders: Yes Female Reproductive Disorders: Denies APPLIQUER ZIGZAG History: 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 Sexually Transmitted Disease: No HIV/AIDS: No Genitourinary: No Gastrointestinal: No Musculoskeletal: Yes Arthritis Endocrine: No HEENT: No Hearing Impairment: Denies Cancer: No Did You Recieve Any Treatments: No Psychosocial: Yes Depression Integumentary: No Blood Disorders: No Adverse Reaction/Blood Tranf: No Family Medical History Myocardial infarction 19 MOTHER CAD Under 55 Years Old Physical Exam Vital Signs Vital Signs - First Documented 06/22/21 11:15 Temp 36.7 Pulse 75 Resp 18 B/P (MAP) 146/85 (105) Pulse Ox 100 O2 Delivery Room Air Capillary Refill : Height, Weight, BMI Height: 5'3.00" Weight: 109lbs. 5.0oz. 49.726379kl; 22.69 BMI Method:Stated General Appearance: No Apparent Distress, WD/WN Eyes: Bilateral Eye Normal Inspection, Bilateral Eye PERRL, Bilateral Eye EOMI HEENT: PERRL/EOMI, Pharynx Normal, Moist Mucous Membranes Neck: Full Range of Motion, Normal Inspection, Non Tender, Supple Respiratory: Lungs Clear, Normal Breath Sounds, No Accessory Muscle Use, No Respiratory Distress Cardiovascular: Regular Rate, Rhythm, No Edema, No Murmur Gastrointestinal: Normal Bowel Sounds, Non Tender, Soft Back: Normal Inspection, No Vertebral Tenderness Extremity: Normal Capillary Refill, Normal Range of Motion Neurologic/Psychiatric: Alert, Oriented x3, No Motor/Sensory Deficits, Normal Mood/Affect Skin: Normal Color, Warm/Dry Progress/Results/Core Measures Suspected Sepsis SIRS Temperature: Pulse: Respiratory Rate: Laboratory Tests 06/22/21 11:30: White Blood Count 10.2 Blood Pressure / Mean: Laboratory Tests 06/22/21 11:30: Creatinine 0.62, Platelet Count 201, Total Bilirubin 0.5 Results/Orders Lab Results Laboratory Tests Test 06/22/21 11:25 06/22/21 11:30 06/22/21 12:26 06/22/21 12:30 Range/Units Influenza Type A (RT-PCR) Not Detected Not Detecte Influenza Type B (RT-PCR) Not Detected Not Detecte SARS-CoV-2 RNA (RT-PCR) Not Detected Not Detecte Group A Streptococcus Screen NEGATIVE NEGATIVE White Blood Count 10.2 4.3-11.0 10^3/uL Red Blood Count 4.14 3.80-5.11 10^6/uL Hemoglobin 12.9 11.5-16.0 g/dL Hematocrit 37 35-52 % Mean Corpuscular Volume 88 80-99 fL Mean Corpuscular Hemoglobin 31 25-34 pg Mean Corpuscular Hemoglobin Concent 35 32-36 g/dL Red Cell Distribution Width 15.4 H 10.0-14.5 % Platelet Count 201 130-400 10^3/uL Mean Platelet Volume 8.5 L 9.0-12.2 fL Immature Granulocyte % (Auto) 1 % Neutrophils (%) (Auto) 74 42-75 % Lymphocytes (%) (Auto) 12 12-44 % Monocytes (%) (Auto) 12 0-12 % Eosinophils (%) (Auto) 2 0-10 % Basophils (%) (Auto) 1 0-10 % Neutrophils # (Auto) 7.5 1.8-7.8 10^3/uL Lymphocytes # (Auto) 1.2 1.0-4.0 10^3/uL Monocytes # (Auto) 1.2 H 0.0-1.0 10^3/uL Eosinophils # (Auto) 0.2 0.0-0.3 10^3/uL Basophils # (Auto) 0.1 0.0-0.1 10^3/uL Immature Granulocyte # (Auto) 0.1 0.0-0.1 10^3/uL Sodium Level 120 *L 135-145 MMOL/L Potassium Level 4.1 3.6-5.0 MMOL/L Chloride Level 85 L 98-107 MMOL/L Carbon Dioxide Level 24 21-32 MMOL/L Anion Gap 11 5-14 MMOL/L Blood Urea Nitrogen 4 L 7-18 MG/DL Creatinine 0.62 0.60-1.30 MG/DL Estimat Glomerular Filtration Rate 100 BUN/Creatinine Ratio 6 Glucose Level 107 H 70-105 MG/DL Calcium Level 9.7 8.5-10.1 MG/DL Corrected Calcium 9.5 8.5-10.1 MG/DL Total Bilirubin 0.5 0.1-1.0 MG/DL Aspartate Amino Transf (AST/SGOT) 108 H 5-34 U/L Alanine Aminotransferase (ALT/SGPT) 77 H 0-55 U/L Alkaline Phosphatase 114 40-136 U/L Total Protein 8.4 H 6.4-8.2 GM/DL Albumin 4.2 3.2-4.5 GM/DL Urine Color YELLOW Urine Clarity CLEAR Urine pH 6.0 5-9 Urine Specific Clarence 1.010 L 1.016-1.022 Urine Protein TRACE H NEGATIVE Urine Glucose (UA) NEGATIVE NEGATIVE Urine Ketones NEGATIVE NEGATIVE Urine Nitrite POSITIVE H NEGATIVE Urine Bilirubin NEGATIVE NEGATIVE Urine Urobilinogen 0.2 < = 1.0 MG/DL Urine Leukocyte Esterase 3+ H NEGATIVE Urine RBC (Auto) 2+ H NEGATIVE Urine RBC 5-10 H /HPF Urine WBC TNTC H /HPF Urine Squamous Epithelial Cells 2-5 /HPF Urine Crystals NONE /LPF Urine Bacteria LARGE H /HPF Urine Casts NONE /LPF Urine Mucus NEGATIVE /LPF Urine Culture Indicated YES Urine Opiates Screen NEGATIVE NEGATIVE Urine Oxycodone Screen NEGATIVE NEGATIVE Urine Methadone Screen NEGATIVE NEGATIVE Urine Propoxyphene Screen NEGATIVE NEGATIVE Urine Barbiturates Screen NEGATIVE NEGATIVE Ur Tricyclic Antidepressants Screen NEGATIVE NEGATIVE Urine Phencyclidine Screen NEGATIVE NEGATIVE Urine Amphetamines Screen NEGATIVE NEGATIVE Urine Methamphetamines Screen NEGATIVE NEGATIVE Urine Benzodiazepines Screen NEGATIVE NEGATIVE Urine Cocaine Screen NEGATIVE NEGATIVE Urine Cannabinoids Screen NEGATIVE NEGATIVE Serum Alcohol 104 H <10 MG/DL My Orders Orders - JB WINN TRANSPORTATION DIRECTOR Cbc With Automated Diff (06/22/21 11:47) Comprehensive Metabolic Panel (06/22/21 11:47) Chest 1 View, Ap/Pa Only (06/22/21 11:47) Ekg Tracing (06/22/21 11:47) Covid 19 Inhouse Test (06/22/21 11:47) Influenza A And B By Pcr (06/22/21 11:47) Isolation Central Supply Req (06/22/21 11:47) Rapid Strep A Screen (06/22/21 11:47) Urinalysis (06/22/21 12:36) Alcohol (06/22/21 12:36) Drug Screen Stat (Urine) (06/22/21 12:36) Ns Iv 1000 Ml (Sodium Chloride 0.9%) (06/22/21 13:00) Vital Signs/I&O 06/22/21 06/22/21 11:15 11:15 Temp 36.7 Pulse 75 Resp 18 B/P (MAP) 146/85 (105) Pulse Ox 100 O2 Delivery Room Air Room Air Capillary Refill : Progress Note : Progress Note Patient examined and in no acute distress. Orders placed for basic labs, Covid, influenza, strep. Labs reviewed and are relatively unremarkable other than noted UTI, slight elevation in LFTs, and low sodium of 120. Case is discussed with Dr. Mcdonald and recommendations for observation stay. Will give 1 L of normal saline in ED, given 1 g of Rocephin for UTI, repeat sodium at 1600, CIWA protocol (no fluids from protocol). Discussed plan of care with patient and she was hesitant to be admitted stating she had nobody to take care of her animals at home. Stated she would like some time to think about hospitalization. After about an hour patient agreed to stay overnight in the hospital for fluid replacement and monitoring of her sodium. She was given Ativan 0.5 mg IV push for anxiety in ER. No needs identified. She is stable to admit to medical unit. Will place on seizure precautions. ECG Initial ECG Impression Date: Jun 22, 2021 Initial ECG Impression Time: 12:18 Initial ECG Rate: 75 Initial ECG Rhythm: Normal Sinus Initial ECG Intervals: Normal Initial ECG Impression: Normal Diagnostic Imaging Diagonstic Imaging: Xray Plain Films/CT/US/NM/MRI: chest Comments [facility] [place] [place] NAME: HAYLEY NATARAJAN [facility] REC#: [id number] PT STATUS: REG ER : 1965 PHYSICIAN: JB WINN APRN ADMIT DATE: 06/22/21/ER Signed Date of Exam:06/22/21 CHEST 1 VIEW, AP/PA ONLY CHEST 1 VIEW, AP/PA ONLY Indication: Cough Comparison: 03/19/2021 Findings: No focal airspace disease in the visualized lungs. Please note that the posterior lower lobes are poorly evaluated by portable radiography. No pleural effusion or pneumothorax. Normal cardiomediastinal silhouette. Impression: 1. No acute cardiopulmonary process by portable radiography. Dictated by: Dictated on workstation # [id number] Dict: 06/22/21 1303 Trans: 06/22/21 1304 [facility] [id number] Interpreted by: BREANA RIVERA MD Electronically signed by: BREANA RIVERA MD 06/22/21 1304 Reviewed: Reviewed by Me Departure Communication (Admissions) Time/Spoke to Admitting Phy: 12:[address] Mcdonald. Recommended observation overnight for hyponatremia. Will give NS 1 liter bolus and recheck NA level at 1600. Impression Primary Impression: Hyponatremia Additional Impressions: Chronic alcohol abuse Elevated liver enzymes Urinary tract infection Disposition: ADMITTED INPATIENT Condition: Stable Admissions Decision to Admit Reason: Admit from ER (General) Decision to Admit/Date: Jun 22, 2021 Time/Decision to Admit Time: 12:32 Departure-Patient Inst. Referrals: NO,LOCAL PHYSICIAN (PCP/Family) Primary Care Physician JB WINN APRN Jun 22, 2021 11:45
[2021-06-22 12:00] LABS: BASOPHILS # (AUTO) 0.1 10^3/uL (0.0-0.1); BASOPHILS % (AUTO) 1 % (0-10); EOSINOPHILS # (AUTO) 0.2 10^3/uL (0.0-0.3); EOSINOPHILS % (AUTO) 2 % (0-10); HEMATOCRIT 37 % (35-52); HEMOGLOBIN 12.9 g/dL (11.5-16.0); LYMPHOCYTES # (AUTO) 1.2 10^3/uL (1.0-4.0); LYMPHOCYTES % (AUTO) 12 % (12-44); MEAN CORPUSCULAR HEMOGLOBIN 31 pg (25-34); MEAN CORPUSCULAR HGB CONC 35 g/dL (32-36); MEAN CORPUSCULAR VOLUME 88 fL (80-99); MEAN PLATELET VOLUME 8.5 fL (9.0-12.2); MONOCYTES # (AUTO) 1.2 10^3/uL (0.0-1.0); MONOCYTES % (AUTO) 12 % (0-12); NEUTROPHILS # (AUTO) 7.5 10^3/uL (1.8-7.8); NEUTROPHILS % (AUTO) 74 % (42-75); PLATELET COUNT 201 10^3/uL (130-400); WHITE BLOOD COUNT 10.2 10^3/uL (4.3-11.0)
[2021-06-22 12:01] LABS: ALBUMIN 4.2 GM/DL (3.2-4.5); POTASSIUM 4.1 MMOL/L (3.6-5.0)
[2021-06-22 12:02] LABS: CALCIUM 9.7 MG/DL (8.5-10.1)
[2021-06-22 12:04] LABS: TOTAL PROTEIN 8.4 GM/DL (6.4-8.2)
[2021-06-22 12:05] LABS: BILIRUBIN,TOTAL 0.5 MG/DL (0.1-1.0)
[2021-06-22 12:07] LABS: CREATININE SERUM 0.62 MG/DL (0.60-1.30)
[2021-06-22 12:50] LABS: BILIRUBIN,URINE NEGATIVE (NEGATIVE); CLARITY,URINE CLEAR; COLOR,URINE YELLOW; GLUCOSE, URINE (UA) NEGATIVE (NEGATIVE); KETONES,URINE NEGATIVE (NEGATIVE); LEUKOCYTE ESTERASE ,URINE 3+ (NEGATIVE); NITRITE,URINE POSITIVE (NEGATIVE); PROTEIN,URINE TRACE (NEGATIVE)
[2021-06-22] MEDS ORDERED: NS IV 1000 ML 1,000 ML IV ONE (13:00)
[2021-06-22 13:03] LABS: AMPHETAMINE SCREEN, URINE NEGATIVE (NEGATIVE); BACTERIA,URINE LARGE /HPF; BARBITURATE SCREEN URINE NEGATIVE (NEGATIVE); BENZODIAZEPINES SCREEN URINE NEGATIVE (NEGATIVE); CANNABINOID SCREEN, URINE NEGATIVE (NEGATIVE); COCAINE SCREEN URINE NEGATIVE (NEGATIVE); METHAMPHETAMINE SCREEN URINE S NEGATIVE (NEGATIVE); OPIATE SCREEN URINE NEGATIVE (NEGATIVE); TRICYCLIC ANTIDEPRESSANTS SCRE NEGATIVE (NEGATIVE); WBC,URINE TNTC /HPF
[2021-06-22 13:04] LABS: METHADONE STAT NEGATIVE (NEGATIVE); OXYCODONE STAT NEGATIVE (NEGATIVE); PROPOXYPHENE STAT NEGATIVE (NEGATIVE)
--- NOTE | 2021-06-22 13:05 | Diagnostic Imaging Report ---
CHEST 1 VIEW, AP/PA ONLY Indication: Cough Comparison: 03/19/2021 Findings: No focal airspace disease in the visualized lungs. Please note that the posterior lower lobes are poorly evaluated by portable radiography. No pleural effusion or pneumothorax. Normal cardiomediastinal silhouette. Impression: 1. No acute cardiopulmonary process by portable radiography. Dictated by: Dictated on workstation # [id number]
[2021-06-22] MEDS ORDERED: cefTRIAXone 1,000 MG in WATER (STERILE) FOR INJECTION 10 ML IV NR (13:15)
[2021-06-22] MEDS ORDERED: LORazepam INJ 2 MG/ML (ATIVAN) VIAL IVP PRN (13:45)
[2021-06-22] MEDS ORDERED: SENNA W/DOCUSATE (SENOKOT S) TABLET PO PRN (15:30)
[2021-06-22] MEDS ORDERED: ONDANSETRON 4 MG/2 ML (SDV) Z0FRAN IV PRN ×2 (15:30)
[2021-06-22] MEDS ORDERED: CATHETER FLUSH 10 ML SYR IV PRN (15:30)
[2021-06-22] MEDS ORDERED: IBUPROFEN TABLET 200 MG TAB PO PRN (15:30)
[2021-06-22] MEDS ORDERED: D5 1/2 NS 1000 ML IV SOLUTION 1,000 ML IV PRN (15:30)
[2021-06-22] MEDS ORDERED: LORazepam INJ 2 MG/ML (ATIVAN) VIAL IM/IV PRN (15:30)
[2021-06-22] MEDS ORDERED: 1/2 NS IV SOLUTION 1,000 ML IV PRN (15:30)
[2021-06-22] MEDS ORDERED: LORazepam 1 MG (ATIVAN) TAB PO PRN (15:30)
[2021-06-22] MEDS ORDERED: ONDANSETRON 4 MG (ZOFRAN) ORAL DISSOLVE TAB SL PRN (15:30)
[2021-06-22] MEDS ORDERED: LORazepam INJ 2 MG/ML (ATIVAN) VIAL IV PRN (15:30)
[2021-06-22] MEDS ORDERED: ANTACID SUSP 30 ML UDC (MYLANTA) PO PRN (15:30)
[2021-06-22] MEDS: NS IV 1000 ML 1,000 ML IV SCH (15:32)
[2021-06-22] MEDS ORDERED: FLUO20CA46 PO (15:56)
[2021-06-22] MEDS ORDERED: AMLO-250 PO (15:56)
[2021-06-22] MEDS ORDERED: MTP100TCR PO (15:56)
[2021-06-22] MEDS ORDERED: MULT-1136 PO (15:56)
[2021-06-22 16:00] VITALS: BP 134/68
[2021-06-22 16:22] VITALS: BP 137/89
[2021-06-22] MEDS ORDERED: RT-ALBUTEROL SULF 2.5 MG/3 ML PRE-MIX VIAL INH PRN (16:30)
[2021-06-22] MEDS: MAGNESIUM OXIDE (MAG-OX)400 MG TAB PO SCH (19:54)
[2021-06-22 20:00] VITALS: BP 114/64
[2021-06-23 00:30] VITALS: BP 142/72
[2021-06-23 04:10] VITALS: BP 159/81
[2021-06-23] MEDS: NS IV 1000 ML 1,000 ML IV SCH ×2 (04:48→09:26)
[2021-06-23 06:23] LABS: BASOPHILS # (AUTO) 0.1 10^3/uL (0.0-0.1); BASOPHILS % (AUTO) 1 % (0-10); EOSINOPHILS # (AUTO) 0.2 10^3/uL (0.0-0.3); EOSINOPHILS % (AUTO) 2 % (0-10); HEMATOCRIT 34 % (35-52); HEMOGLOBIN 11.7 g/dL (11.5-16.0); LYMPHOCYTES % (AUTO) 15 % (12-44); MEAN CORPUSCULAR HEMOGLOBIN 31 pg (25-34); MEAN CORPUSCULAR HGB CONC 35 g/dL (32-36); MEAN CORPUSCULAR VOLUME 89 fL (80-99); MEAN PLATELET VOLUME 9.1 fL (9.0-12.2); MONOCYTES # (AUTO) 1.3 10^3/uL (0.0-1.0); MONOCYTES % (AUTO) 19 % (0-12); NEUTROPHILS # (AUTO) 4.3 10^3/uL (1.8-7.8); NEUTROPHILS % (AUTO) 62 % (42-75); PLATELET COUNT 182 10^3/uL (130-400); WHITE BLOOD COUNT 6.9 10^3/uL (4.3-11.0)
[2021-06-23 06:27] LABS: POTASSIUM 3.3 MMOL/L (3.6-5.0)
[2021-06-23 06:28] LABS: CALCIUM 9.3 MG/DL (8.5-10.1)
[2021-06-23 06:32] LABS: CREATININE SERUM 0.59 MG/DL (0.60-1.30)
[2021-06-23 06:49] LABS: BAND NEUTROPHILS 1 %; LYMPHOCYTES % (MANUAL) 26 %; MONOCYTES % (MANUAL) 12 %; NEUTROPHILS % (MANUAL) 57 %
[2021-06-23 06:50] LABS: EOSINOPHILS % (MANUAL) 4 %
[2021-06-23] MEDS ORDERED: MULTIVIT W/MINERALS TAB (THERAGRAN M) PO SCH (07:00)
[2021-06-23] MEDS ORDERED: THIAMINE 100 MG (VITAMIN B-1) TAB PO SCH (07:00)
[2021-06-23 08:00] VITALS: BP 157/74
[2021-06-23] MEDS ORDERED: FOLIC ACID 1 MG TAB PO SCH (09:00)
[2021-06-23] MEDS: MAGNESIUM OXIDE (MAG-OX)400 MG TAB PO SCH (09:41)
[2021-06-23] MEDS ORDERED: COVID-19 VACC, MRNA(PFIZER)/PF 30 MCG/0.3 ML VIAL IM ONE (10:15)
[2021-06-23 12:00] VITALS: BP 137/72
[2021-06-23] MEDS ORDERED: NITR-65 PO (12:43)
--- NOTE | 2021-06-23 12:59 | Discharge Summary ---
Discharge Summary Instructions for Patient [facility], Assessment/Instructions Take medications as prescribed. Establish care with a new primary care physician. Return with worsening weakness or if you feel like you are getting worse. Physician to follow Patient: Tonia Discharge Diet for Home: No Restrictions Hospital Course Date of Admission: Jun 22, 2021 at 12:50 Admission Diagnosis : Hyponatremia Family Physician/Provider: Charlie Lance Physician Date of Discharge: 06/23/21 Discharge Diagnosis: Hyponatremia Hospital Course: Rebecca Capps is a 56-year-old female with past medical history of chronic alcohol abuse who was admitted with hyponatremia. This was thought to be due to beer potomania. She was treated with IV fluids and her hyponatremia improved. Her course was complicated by urinary tract infection and she was given a prescription for Macrobid. She was set up with home health care on discharge. She was given her first dose of the Pfizer Covid vaccine prior to discharge. She needs to establish care with a new primary care physician and has submitted paperwork to Dr. Randall's office. Labs and Pending Lab Test: Laboratory Tests 06/22/21 16:20: Sodium Level 125*L 06/23/21 05:55: Sodium Level 129L, White Blood Count 6.9, Red Blood Count 3.78L, Hemoglobin 11.7, Hematocrit 34L, Mean Corpuscular Volume 89, Mean Corpuscular Hemoglobin 31, Mean Corpuscular Hemoglobin Concent 35, Red Cell Distribution Width 15.4H, Platelet Count 182, Mean Platelet Volume 9.1, Immature Granulocyte % (Auto) 1, Neutrophils (%) (Auto) 62, Lymphocytes (%) (Auto) 15, Monocytes (%) (Auto) 19H, Eosinophils (%) (Auto) 2, Basophils (%) (Auto) 1, Neutrophils # (Auto) 4.3, Lymphocytes # (Auto) 1.0, Monocytes # (Auto) 1.3H, Eosinophils # (Auto) 0.2, Basophils # (Auto) 0.1, Immature Granulocyte # (Auto) 0.0, Neutrophils % (Manual) 57, Lymphocytes % (Manual) 26, Monocytes % (Manual) 12, Eosinophils % (Manual) 4, Band Neutrophils 1, Potassium Level 3.3L, Chloride Level 92L, Carbon Dioxide Level 24, Anion Gap 13, Blood Urea Nitrogen 4L, Creatinine 0.59L, Estimat Glomerular Filtration Rate 106, BUN/Creatinine Ratio 7, Glucose Level 83, Calcium Level 9.3 Microbiology 06/22/21 Urine Culture - Preliminary, Resulted Escherichia coli 06/22/21 Throat Culture - Preliminary, Resulted No Beta Strep isolated Home Meds Active Macrobid 100 mg Capsule (Nitrofurantoin Monohyd/M-Cryst) 100 Mg Capsule 1 Tab PO BID 5 Days Reported Multivitamin 1 Each Tablet 1 Each PO DAILY Amlodipine Besylate 5 Mg Tablet 5 Mg PO DAILY Metoprolol Succinate 100 Mg Tab.er.24h 100 Mg PO DAILY Fluoxetine HCl 20 Mg Capsule 20 Mg PO DAILY Aspirin 81 Mg Tab.chew 81 Mg PO DAILY Patient Allergies: Coded Allergies: codeine (Verified Allergy, Mild, 09/02/15) Height (Feet): 5 Height (Inches): 3.00 Weight (Pounds): 109 Weight (Ounces): 5.0 Home Health Need/Face to Face Date of Face to Face: Jun 23, 2021 Clinical Findings: Generalized weakness and fatigue, Muscle weakness, Unsteady gait I have seen Pt [id number]: Yes Discharged To: Home Diagnosis/Conditions: Chronic alcohol abuse Debility Hyponatremia Tobacco abuse 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 Coronary artery disease Problems/Diagnosis/Condition: (1) Chronic alcohol abuse (2) Hyponatremia (3) Tobacco abuse (4) Coronary artery disease Patient is Homebound due to: John fall risk due to instabilty, Muscle weakness Homebound Status Due to the above stated illness, injury or surgical procedure (medical condition or diagnosis) and associated clinical findings, the patient is homebound because of his/her inability to leave home except with aid of a supportive device and/or person AND leaving the home requires a considerable and taxing effort or is medically contraindicated. Pt req the following assistanc: Aid of another person Home Health Nursing Orders Home Health Services Order: Nursing Services, Tool And Production Planner-Evaluate & Treat, Physical Therapy-Evaluate & Treat Therapy Orders Therapy Orders: OT (must have SN or PT order), Physical Therapy Therapy Specific Orders: Eval assistive deivces, Teach enviro modifications/safety, Gait training, Increase strength/endurance Certify Stmt I certify that this patient is under my care and that I, a nurse practitioner or a physician; a credentialing assistant working with me, had a face to face encounter that - meets the physician face to face encounter requirements with this patient as dated. Discharge Physical Exam General: Alert, Oriented X3, Cooperative, No Acute Distress HEENT: Atraumatic, PERRLA, EOMI, Mucous Memb Moist/[place] Lungs: Clear to Auscultation, Normal Air Movement Heart: Regular Rate, Normal S1, Normal S2, No Murmurs Abdomen: Normal Bowel Sounds, Soft, No Tenderness Extremities: No Edema, No Tenderness/Swelling Skin: No Rashes, No Significant Lesion Neuro: Normal Speech Psych/Mental Status: Mental Status NL, Mood NL NOEMI ROLAND MD Jun 23, 2021 12:56
[2021-06-23] MEDS ORDERED: cefTRIAXone 1,000 MG/SWFI 10 ML IV PUSH IV SCH ×2 (13:00)
--- NOTE | 2021-06-23 14:03 | Occ Therapy Progress Note ---
Therapy Progress Note OT orders received and chart reviewed. Per physical therapy pt is Indep with all mobility and ADLs. She was able to transfer and toilet indep. Per chart, pt discharging home. No skilled OT services needed at this time. D/C OT. Whitney Mao OT Jun 23, 2021 14:03
--- NOTE | 2021-06-23 14:37 | Physical Therapy Evaluation ---
PT Evaluation-General Medical Diagnosis Admission Date Jun 22, 2021 at 12:50 Medical Diagnosis: hyponatremia Onset Date: Jun 22, 2021 Therapy Diagnosis Therapy Diagnosis: debility Height/Weight Height (Feet): 5 Height (Inches): 3.00 Weight (Pounds): 109 Weight (Ounces): 5.0 Precautions Precautions/Isolations: Seizure, Fall Prevention, Standard Precautions Referral Physician: Tamara Reason for Referral: Evaluation/Treatment Medical History Pertinent Medical History: Alcoholism, CAD, HTN, Smoking Current History ER secondary to fever and weakness Reviewed History: Yes Social History Home: Single Level Current Living Status: Alone Prior Prior Level of Function SCALE: Activities may be completed with or without assistive devices. 8-Ndbuwjdsmy-uhbmqqv completes the activity by him/herself with no assistance from a helper. 5-Set-up or Clean-up Assistance-helper sets up or cleans up; patient completes activity. [place] assists only prior to or following the activity. 4-Supervision or Touching Assistance-helper provides verbal cues and/or touching/steadying and/or contact guard assistance as patient completes activity. Assistance may be provided throughout the activity or intermittently. 3-Partial/Moderate Assistance-helper does LESS THAN HALF the effort. [place] lifts, holds or supports trunk or limbs, but provides less than half the effort. 2-Substantial/Maximal Assistance-helper does MORE THAN HALF the effort. [place] lifts or holds trunk or limbs and provides more than half the effort. 9-Kxdemwyia-hgsvim does ALL the effort. Patient does none of the effort to complete the activity. Or, the assistance of 2 or more helpers is required for the patient to complete the activity. If activity was not attempted, code reason: 7-Patient Refused. 9-Not Applicable-not attempted and the patient did not perform the activity before the current illness, exacerbation or injury. 10-Not Attempted due to Environmental Limitations-(lack of equipment, weather restraints, etc.). 88-Not Attempted due to Medical Conditions or Safety Concerns. Bed Mobility: 6 Transfers (B,C,W/C): 6 Gait: 6 Indoor Mobility (Ambulation): Independent Prior Devices Use: None PT Evaluation-Current Subjective Patient agrees to PT. Objective Patient Orientation: Normal For Age Attachments: IV ROM/Strength ROM Lower Extremities bilateral LE WFL Strength Lower Extremities 3+/5 grossly bilateral LE Integumentary/Posture Bowel Incontinence: No Bladder Incontinence: No Posture WFL Neuromuscular (Tone, Coordination, Reflexes) noted tremors/shaking total body Sensory Vision: Wears Glasses Hearing: Functional Transfers Sit to Lying (QC): 6 Lying to Sitting/Side of Bed(Q: 6 Sit to Stand (QC): 6 Toilet Transfer (QC): 6 Patient toilets independently and cleanses after BM Gait Does the Patient Walk?: Yes Mode of Locomotion: Walk Anticipated Mode of Locomotion: Walk Walk 10 feet (QC): 6 Walk 50 ft with 2 Turns(QC): 6 Walk 150 ft (QC): 6 Distance: 250' Gait Assistive Device: None Comments/Gait Description steady/functional gait sequence Balance Sitting Static: Normal Sitting Dynamic: Normal Standing Static: Good Standing Dynamic: Good Assessment/Needs 56 y.o. female, is currently at [facility] with all gross motor skills and does not require skilled therapy intervention. Rehab Potential: Fair PT Plan Treatment/Plan Treatment Plan: Discontinue PT Treatment Duration: Jun 23, 2021 Frequency: 1 time per week Estimated Hrs Per Day: .25 hour per day Patient and/or Family Agrees t: Yes Time/GCodes Time In: 1300 Time Out: 1315 Total Billed Treatment Time: 15 Total Billed Treatment 1 visit [facility] 15 min [facility]OEN[place] ABARCA PT Jun 23, 2021 14:37
== END 2021-06-23 12:38 | disposition home health service (06) ==
LOC: EDUNIT# 11:06 → ER 11:08 → UNDOADMOB 12:50 → 4TH 12:50 → UNDODISOB 06-23 15:10
PROVIDERS: ADMIT Internal Medicine; ATTEND Internal Medicine
DX: E87.1 Hypo-osmolality and hyponatremia (principal); R50.9 Fever, unspecified; I10 Essential (primary) hypertension; I25.10 Atherosclerotic heart disease of native coronary artery without angina pectoris; J45.909 Unspecified asthma, uncomplicated; M19.90 Unspecified osteoarthritis, unspecified site; R94.5 Abnormal results of liver function studies; N39.0 Urinary tract infection, site not specified; F32.9 Major depressive disorder, single episode, unspecified; F10.10 Alcohol abuse, uncomplicated; Z79.899 Other long term (current) drug therapy; Z79.82 Long term (current) use of aspirin; Z90.710 Acquired absence of both cervix and uterus
CPT/HCPCS: 71045; 80048; 80053; 80306; 81000; 84295; 85007; 85025; 85027; 87077; 87088; 87186; 87430; 87636; 93005; 96361; 96374; 96375; 97162; 99283; G0378; G0480; 36415; 80320; 91300

== ENCOUNTER 2021-12-19 22:16 | Inpatient (IN) | payer BC, OTHER ==
[~2021-12-19] VITALS: Ht 160.2 cm; Wt 44.2 kg
[~2021-12-19 22:16] MED LIST changes: -FLUO10CA31 PO; +FLUO10CA33 PO; -FLUO20CA46 PO; +FLUO20CA48 PO; +FOLI1TAB30 PO; -LISI-729 PO; +LISI5TAB20 PO; +MULT-1136 PO; -MULT1TAB63 PO; +NITR-65 PO
[2021-12-19] MEDS ORDERED: LACTATED RINGERS 1,000 ML IV ONE (22:30)
[2021-12-19 22:33] LABS: BASOPHILS % (AUTO) 1 % (0-10); EOSINOPHILS % (AUTO) 1 % (0-10); HEMATOCRIT 34 % (35-52); LYMPHOCYTES # (AUTO) 1.6 10^3/uL (1.0-4.0); LYMPHOCYTES % (AUTO) 25 % (12-44); MEAN CORPUSCULAR HEMOGLOBIN 33 pg (25-34); MEAN CORPUSCULAR HGB CONC 36 g/dL (32-36); MEAN CORPUSCULAR VOLUME 94 fL (80-99); MONOCYTES # (AUTO) 0.8 10^3/uL (0.0-1.0); MONOCYTES % (AUTO) 13 % (0-12); NEUTROPHILS # (AUTO) 3.8 10^3/uL (1.8-7.8); NEUTROPHILS % (AUTO) 60 % (42-75); PLATELET COUNT 195 10^3/uL (130-400); WHITE BLOOD COUNT 6.3 10^3/uL (4.3-11.0)
--- NOTE | 2021-12-19 22:38 | ED General ---
General Chief Complaint: General Problems/Pain Stated Complaint: BODY ACHES Nursing Triage Note: Pt arrives via EMS from home for c/o generalized body aches, shaking, et self reported alcoholism. Pt states she has been drinking beer since she woke up this AM. Source of Information: Patient, EMS Exam Limitations: No Limitations (MONICA LEE MED STUDENT) History of Present Illness Date Seen by Provider: Dec 19, 2021 Time Seen by Provider: 22:25 Initial Comments Mrs. Capps is a 56 yo female with PMH of alcoholism and ~5-6 beers daily for about 2 years presents today Via EMS due to weakness and depression. States that she has been feeling depressed and weak for about a week not. She has difficulty walking and standing up. States today she started having body aches and decided she needed to call EMS because she could no longer take care of herself or her dogs. She also states her legs have been aching since this started as well. She has tried taking aleeve but has not got any relief. Doesnt notice anything that makes it worse, just comes and goes on its own. She also complains of nausea and vomiting, SOB, diarrhea and decreased appetite. She is also a 1 PPD smoker but does not use any drugs. She does not see anyone for depression but states she takes prozac for years. (MONICA LEE MED STUDENT) Timing/Duration: 1 Week, Changing Over Time Severity: Moderate Associated Systoms: No Chest Pain, No Cough, No Fever/Chills; Nausea/Vomiting; No Shortness of Air; Weakness (PRATIK PALACIOS MD) Allergies and Home Medications Allergies Coded Allergies: codeine (Verified Allergy, Mild, 09/02/15) Patient Home Medication List Home Medication List Reviewed: Yes (PRATIK PALACIOS MD) Amlodipine Besylate (Amlodipine Besylate) 5 Mg Tablet, 5 MG PO DAILY, (Reported) Entered as Reported by: EJ GILLETTE on 06/22/21 1556 Aspirin (Aspirin) 81 Mg Tab.chew, 81 MG PO DAILY, (Reported) Entered as Reported by: EJ GILLETTE on 03/19/21 1149 Fluoxetine HCl (Fluoxetine HCl) 20 Mg Capsule, 20 MG PO DAILY, (Reported) Entered as Reported by: EJ GILLETTE on 06/22/21 1556 Metoprolol Succinate (Metoprolol Succinate) 100 Mg Tab.er.24h, 100 MG PO DAILY, (Reported) Entered as Reported by: EJ GILLETTE on 06/22/21 155 Multivitamin (Multivitamin) 1 Each Tablet, 1 EACH PO DAILY, (Reported) Entered as Reported by: EJ GILLETTE on 06/22/21 1556 Nitrofurantoin Monohyd/M-Cryst (Macrobid 100 mg Capsule) 100 Mg Capsule, 1 TAB PO BID Prescribed by: NOEMI ROLAND on 06/23/21 1243 Review of Systems Review of Systems Constitutional: No chills, No fever EENTM: No hearing loss, No vision loss Respiratory: No cough, No hemoptysis, No phlegm; short of breath Gastrointestinal: No abdominal pain, No constipation; diarrhea; No melena; nausea, vomiting Genitourinary: No dysuria, No frequency, No hematuria Musculoskeletal: No joint pain, No joint swelling Skin: No pruritus, No rash Psychiatric/Neurological: Depressed; Denies Headache, Denies Numbness (MONICA LEE) All Other Systems Reviewed Negative Unless Noted: Yes (PRATIK PALACIOS MD) Past Whubxbr-Ozllaq-Qzymhu Hx Patient Social History Tobacco Use?: Yes Tobacco type used: Cigarettes Smoking Status: Current Everyday Smoker Use of E-Cig and/or Vaping dev: No Substance use?: No Alcohol Use?: Yes Alcohol type: Beer Alcohol Frequency: Daily Pt feels they are or have been: No (MONICA LEE) Alcohol Use?: Yes Alcohol type: Beer Alcohol Frequency: Daily (PRATIK PALACIOS MD) Immunizations Up To Date Tetanus Booster (TDap): Unknown PED Vaccines UTD: No Influenza Vaccine Up-to-Date: No; Not Current (MONICA LEE) Past Medical History Surgeries: Yes Section, Coronary Stent, 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 Respiratory: Yes Asthma Currently Using CPAP: No Currently Using BIPAP: No Cardiac: Yes Coronary Artery Disease, 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 Neurological: No Reproductive Disorders: Yes Female 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 Sexually Transmitted Disease: No HIV/AIDS: No Genitourinary: No Gastrointestinal: No Musculoskeletal: Yes Arthritis Endocrine: No HEENT: No Hearing Impairment: Denies Cancer: No Did You Recieve Any Treatments: No Psychosocial: Yes Depression Integumentary: No Blood Disorders: No Adverse Reaction/Blood Tranf: No (MONICA LEE Swoopo STUDENT) Family Medical History Reviewed Nursing Family Hx (PRATIK PALACIOS MD) Myocardial infarction 19 MOTHER CAD Under 55 Years Old (MONICA LEE Swoopo STUDENT) Physical Exam Vital Signs Vital Signs - First Documented 12/19/21 22:17 Temp 36.5 Pulse 95 Resp 18 B/P (MAP) 135/74 (94) Pulse Ox 100 O2 Delivery Room Air (PRATIK PALACIOS MD) Vital Signs Capillary Refill : Less Than 3 Seconds (MONICA LEE Swoopo STUDENT) Height, Weight, BMI Height: 5'3.00" Weight: 109lbs. 5.0oz. [id number]; 19.00 BMI Method:Stated General Appearance: No Apparent Distress, Anxious, Chronically ill, Thin Eyes: Bilateral Eye PERRL, Bilateral Eye EOMI HEENT: PERRL/EOMI, Pharynx Normal, Moist Mucous Membranes Respiratory: Chest Non Tender, Lungs Clear, Normal Breath Sounds, No Accessory Muscle Use, No Respiratory Distress Cardiovascular: Regular Rate, Rhythm, No Edema, No Murmur, Normal Peripheral Pulses Gastrointestinal: Normal Bowel Sounds, Non Tender, Soft Extremity: Non Tender, No Calf Tenderness, No Pedal Edema Neurologic/Psychiatric: Alert, Oriented x3, Other (depressed) Skin: Normal Color, Warm/Dry (MONICA LEE Swoopo STUDENT) General Appearance: Anxious, Thin HEENT: PERRL/EOMI, Pharynx Normal, Moist Mucous Membranes Respiratory: Lungs Clear, Normal Breath Sounds Cardiovascular: No Murmur, Tachycardia Gastrointestinal: Non Tender, Soft Back: Normal Inspection, No CVA Tenderness, No Vertebral Tenderness Extremity: Non Tender, No Calf Tenderness, No Pedal Edema Neurologic/Psychiatric: Alert, Oriented x3 Skin: Normal Color, Warm/Dry (PRATIK PALACIOS MD) Progress/Results/Core Measures Suspected Sepsis SIRS Temperature: Pulse: 95 Respiratory Rate: 18 Laboratory Tests 12/19/21 22:25: White Blood Count 6.3 Blood Pressure 135 /74 Mean: 94 Laboratory Tests 12/19/21 22:25: Platelet Count 195 (MONICA LEE Swoopo STUDENT) Results/Orders Lab Results Laboratory Tests Test 12/19/21 22:25 12/19/21 22:40 Range/Units White Blood Count 6.3 4.3-11.0 10^3/uL Red Blood Count 3.59 L 3.80-5.11 10^6/uL Hemoglobin 12.0 11.5-16.0 g/dL Hematocrit 34 L 35-52 % Mean Corpuscular Volume 94 80-99 fL Mean Corpuscular Hemoglobin 33 25-34 pg Mean Corpuscular Hemoglobin Concent 36 32-36 g/dL Red Cell Distribution Width 16.2 H 10.0-14.5 % Platelet Count 195 130-400 10^3/uL Mean Platelet Volume 8.0 L 9.0-12.2 fL Immature Granulocyte % (Auto) 1 % Neutrophils (%) (Auto) 60 42-75 % Lymphocytes (%) (Auto) 25 12-44 % Monocytes (%) (Auto) 13 H 0-12 % Eosinophils (%) (Auto) 1 0-10 % Basophils (%) (Auto) 1 0-10 % Neutrophils # (Auto) 3.8 1.8-7.8 10^3/uL Lymphocytes # (Auto) 1.6 1.0-4.0 10^3/uL Monocytes # (Auto) 0.8 0.0-1.0 10^3/uL Eosinophils # (Auto) 0.0 0.0-0.3 10^3/uL Basophils # (Auto) 0.0 0.0-0.1 10^3/uL Immature Granulocyte # (Auto) 0.1 0.0-0.1 10^3/uL Prothrombin Time 12.8 12.2-14.7 SEC INR Comment 0.9 0.8-1.4 Sodium Level 120 *L 135-145 MMOL/L Potassium Level 3.5 L 3.6-5.0 MMOL/L Chloride Level 86 L 98-107 MMOL/L Carbon Dioxide Level 17 L 21-32 MMOL/L Anion Gap 17 H 5-14 MMOL/L Blood Urea Nitrogen < 2 L 7-18 MG/DL Creatinine 0.53 L 0.60-1.30 MG/DL Estimat Glomerular Filtration Rate 110 BUN/Creatinine Ratio 4 Glucose Level 100 70-105 MG/DL Calcium Level 9.0 8.5-10.1 MG/DL Corrected Calcium 9.3 8.5-10.1 MG/DL Magnesium Level 2.0 1.6-2.4 MG/DL Total Bilirubin 0.4 0.1-1.0 MG/DL Aspartate Amino Transf (AST/SGOT) 74 H 5-34 U/L Alanine Aminotransferase (ALT/SGPT) 32 0-55 U/L Alkaline Phosphatase 126 40-136 U/L Total Protein 7.4 6.4-8.2 GM/DL Albumin 3.6 3.2-4.5 GM/DL Serum Alcohol 206 H <10 MG/DL Urine Color YELLOW Urine Clarity CLEAR Urine pH 6.0 5-9 Urine Specific [place] 1.015 L 1.016-1.022 Urine Protein NEGATIVE NEGATIVE Urine Glucose (UA) NEGATIVE NEGATIVE Urine Ketones NEGATIVE NEGATIVE Urine Nitrite NEGATIVE NEGATIVE Urine Bilirubin NEGATIVE NEGATIVE Urine Urobilinogen 0.2 < = 1.0 MG/DL Urine Leukocyte Esterase NEGATIVE NEGATIVE Urine RBC (Auto) NEGATIVE NEGATIVE Urine RBC NONE /HPF Urine WBC 0-2 /HPF Urine Squamous Epithelial Cells 0-2 /HPF Urine Crystals NONE /LPF Urine Bacteria TRACE /HPF Urine Casts NONE /LPF Urine Mucus NEGATIVE /LPF Urine Culture Indicated NO Influenza Type A (RT-PCR) Not Detected Not Detecte Influenza Type B (RT-PCR) Not Detected Not Detecte SARS-CoV-2 RNA (RT-PCR) Not Detected Not Detecte (PRATIK PALACIOS MD) My Orders Orders - PRATIK PALACIOS MD Lactated Ringers (Lr 1000 Ml Iv Solution (12/19/21 22:30) Ondansetron Injection (Zofran Injectio (12/19/21 22:45) (PRATIK PALACIOS MD) Medications Given in ED Current Medications Medications Dose Ordered Sig/Mak Route Start Time Stop Time Status Last Admin Dose Admin Lactated Ringer's 1,000 ml @ 0 mls/hr Q0M ONCE IV 12/19/21 22:30 12/19/21 22:31 DC 12/19/21 22:34 1,000 MLS/HR Ondansetron HCl 4 mg ONCE ONCE IVP 12/19/21 22:45 12/19/21 22:46 DC 12/19/21 22:50 4 MG (PRATIK PALACIOS MD) Vital Signs/I&O 12/19/21 22:17 Temp 36.5 Pulse 95 Resp 18 B/P (MAP) 135/74 (94) Pulse Ox 100 O2 Delivery Room Air (PRATIK PALACIOS MD) Vital Signs/I&O Capillary Refill : Less Than 3 Seconds (MONICA LEE MED STUDENT) Blood Pressure Mean: 94 Progress Note : Progress Note I have seen and evaluated patient and agree with above except as indicated. Directed the plan of care. Patient knows here with increasing weakness over the last week and admits to alcohol use of 6-12 beers daily. She states that she is quite depressed due to her being in the alf for Alzheimer's estrangement from her family. Aside from the weakness, she is also complaining of being achy and just overall not feeling well. She is reporting being cold but she was sitting in the garage with her doors open drinking beer all day long per EMS. Denies pain, upper respiratory symptoms or other complaints. Has been admitted previously for hyponatremia. Evaluation as above. We will check labs and get swab for influenza and COVID. LR 1 L bolus ordered. Monitor patient. 2350: I did discuss the case with Dr. Shea. Patient's sodium level is 120 which is at her previous level. We will go ahead and get her admitted and replace sodium gently with normal saline at 75 mL an hour and place her on alcohol withdrawal protocol. I did discuss all this with the patient who is agreeable to the plan. Admit, inpatient status. (PRATIK PALACIOS MD) Departure Communication (Admissions) Time/Spoke to Admitting Phy: 23:50 (PRATIK PALACIOS MD) Impression Primary Impression: Hyponatremia Additional Impression: Chronic alcohol abuse Disposition: ADMITTED INPATIENT Condition: Stable Admissions Decision to Admit Reason: Admit from ER (General) Decision to Admit/Date: Dec 19, 2021 Time/Decision to Admit Time: 23:50 (PRATIK PALACIOS MD) Departure-Patient Inst. Referrals: NO,LOCAL PHYSICIAN (PCP/Family) Primary Care Physician MONICA LEE MED STUDENT Dec 19, 2021 22:38 PRATIK PALACIOS MD Dec 20, 2021 00:14
[2021-12-19 22:44] LABS: ALBUMIN 3.6 GM/DL (3.2-4.5); CHLORIDE 86 MMOL/L (98-107); INR 0.9 (0.8-1.4); POTASSIUM 3.5 MMOL/L (3.6-5.0); PROTHROMBIN TIME PATIENT 12.8 SEC (12.2-14.7)
[2021-12-19] MEDS ORDERED: ONDANSETRON 4 MG/2 ML (SDV) Z0FRAN IVP ONE (22:45)
[2021-12-19 22:47] LABS: GLUCOSE 100 MG/DL (70-105); TOTAL PROTEIN 7.4 GM/DL (6.4-8.2)
[2021-12-19 22:48] LABS: CARBON DIOXIDE 17 MMOL/L (21-32)
[2021-12-19 22:49] LABS: BILIRUBIN,TOTAL 0.4 MG/DL (0.1-1.0)
[2021-12-19 22:50] LABS: ALKALINE PHOSPHATASE 126 U/L (40-136)
[2021-12-19 22:51] LABS: CREATININE SERUM 0.53 MG/DL (0.60-1.30); GFR ESTIMATED 110
[2021-12-19 22:52] LABS: BUN/CREATININE RATIO 4
[2021-12-19 22:53] LABS: ALANINE AMINOTRANSFERASE 32 U/L (0-55)
[2021-12-19 22:57] LABS: BILIRUBIN,URINE NEGATIVE (NEGATIVE); CLARITY,URINE CLEAR; COLOR,URINE YELLOW; GLUCOSE, URINE (UA) NEGATIVE (NEGATIVE); KETONES,URINE NEGATIVE (NEGATIVE); LEUKOCYTE ESTERASE ,URINE NEGATIVE (NEGATIVE); NITRITE,URINE NEGATIVE (NEGATIVE); PROTEIN,URINE NEGATIVE (NEGATIVE)
[2021-12-19 22:58] LABS: SODIUM 120 MMOL/L (135-145)
[2021-12-19 23:20] LABS: BACTERIA,URINE TRACE /HPF; SQUAMOUS EPITHELIAL CELL,UR 0-2 /HPF; WBC,URINE 0-2 /HPF
[2021-12-20] MEDS ORDERED: ONDANSETRON 4 MG (ZOFRAN) ORAL DISSOLVE TAB SL PRN (03:15)
[2021-12-20] MEDS ORDERED: SENNA W/DOCUSATE (SENOKOT S) TABLET PO PRN (03:15)
[2021-12-20] MEDS ORDERED: D5 1/2 NS 1000 ML IV SOLUTION 1,000 ML IV PRN (03:15)
[2021-12-20] MEDS ORDERED: ONDANSETRON 4 MG/2 ML (SDV) Z0FRAN IV PRN (03:15)
[2021-12-20] MEDS ORDERED: 1/2 NS IV SOLUTION 1,000 ML IV PRN (03:15)
[2021-12-20] MEDS ORDERED: LORazepam INJ 2 MG/ML (ATIVAN) VIAL IM/IV PRN (03:15)
[2021-12-20] MEDS ORDERED: LORazepam INJ 2 MG/ML (ATIVAN) VIAL IV PRN (03:15)
[2021-12-20] MEDS ORDERED: LORazepam 1 MG (ATIVAN) TAB PO PRN (03:15)
[2021-12-20] MEDS ORDERED: ANTACID SUSP 30 ML UDC (MYLANTA) PO PRN (03:15)
[2021-12-20] MEDS ORDERED: NS IV 1000 ML 1,000 ML IV SCH (03:15)
[2021-12-20 04:00] VITALS: BP 137/64
[2021-12-20 05:32] LABS: BASOPHILS % (AUTO) 1 % (0-10); EOSINOPHILS % (AUTO) 0 % (0-10); HEMATOCRIT 28 % (35-52); LYMPHOCYTES # (AUTO) 0.9 10^3/uL (1.0-4.0); LYMPHOCYTES % (AUTO) 12 % (12-44); MEAN CORPUSCULAR HEMOGLOBIN 33 pg (25-34); MEAN CORPUSCULAR HGB CONC 36 g/dL (32-36); MEAN CORPUSCULAR VOLUME 93 fL (80-99); MEAN PLATELET VOLUME 8.4 fL (9.0-12.2); MONOCYTES # (AUTO) 0.8 10^3/uL (0.0-1.0); MONOCYTES % (AUTO) 11 % (0-12); NEUTROPHILS # (AUTO) 5.6 10^3/uL (1.8-7.8); NEUTROPHILS % (AUTO) 76 % (42-75); PLATELET COUNT 175 10^3/uL (130-400); WHITE BLOOD COUNT 7.4 10^3/uL (4.3-11.0)
[2021-12-20 05:42] LABS: CHLORIDE 95 MMOL/L (98-107); POTASSIUM 2.9 MMOL/L (3.6-5.0); SODIUM 128 MMOL/L (135-145)
[2021-12-20 05:43] LABS: CALCIUM 8.2 MG/DL (8.5-10.1); GLUCOSE 93 MG/DL (70-105)
[2021-12-20 05:45] LABS: CARBON DIOXIDE 18 MMOL/L (21-32)
[2021-12-20 05:47] LABS: CREATININE SERUM 0.43 MG/DL (0.60-1.30); GFR ESTIMATED 116
[2021-12-20 05:48] LABS: BUN/CREATININE RATIO 5
[2021-12-20 07:40] VITALS: BP 136/63
[2021-12-20] MEDS: MULTIVIT W/MINERALS TAB (THERAGRAN M) PO SCH (08:57)
[2021-12-20] MEDS: FOLIC ACID 1 MG TAB PO SCH (08:57)
[2021-12-20] MEDS: THIAMINE 100 MG (VITAMIN B-1) TAB PO SCH (08:57)
[2021-12-20] MEDS: MAGNESIUM OXIDE (MAG-OX)400 MG TAB PO SCH ×2 (08:57→20:08)
[2021-12-20 11:06] VITALS: BP 124/92
[2021-12-20] MEDS: POTASSIUM CL 10MEQ/50ML IVPB 50 ML IV SCH (11:10)
--- NOTE | 2021-12-20 12:25 | History & Physical-Hospitalist ---
History of Present Illness HPI/Chief Complaint Patient is 56-year-old female with a history of alcohol abuse, chronic hyponatremia, CAD, tobacco abuse, hypertension who presented to the emergency department due to weakness. She states this has been going on for at least a few weeks maybe even months but has continued to worsen. She believes that her legs were more swollen as well and even states they were "4+ pitting edema" though there is no edema noted on her legs. She worsened yesterday having body aches that she described as deep pains in her legs prompting her to call EMS to bring her here for evaluation. She was found to have a sodium of 120. She had a similar presentation in June of last year and when asked if she felt similar to that she states she does not recall that admission. She states she is feeling a little bit better this morning but is slightly nauseated. She does endorse a history of alcohol use daily drinking 6-10 beers per day. Date Seen 12/20/21 Time Seen by a Provider: 10:45 Attending Physician Keeley Shea MD PCP No,Local Physician Referring Physician Date of Admission Dec 19, 2021 at 23:55 Home Medications & Allergies Home Medications Reviewed patient Home Medication Reconciliation performed by pharmacy medication reconciliations aviation technician aircraft and/or nursing. Patients Allergies have been reviewed. Allergies Allergies Coded Allergies codeine (Verified Allergy, Mild, 09/02/15) Past Xxcaclx-Bucwbv-Nlgokn Hx Patient Social History Marrital Status: Tobacco Use?: Yes Tobacco type used: Cigarettes Smoking Status: Current Everyday Smoker Use of E-Cig and/or Vaping dev: No Additional E-Cig or Vapin PACK OF CIGARETTES A DAY Substance use?: Yes Alcohol Use?: Yes Alcohol type: Beer Alcohol Frequency: Daily Additional Alcohol Comments: 5-10 BEERS A DAY Pt feels they are or have been: No Immunizations Up To Date First/Initial COVID19 Vaccinat: 11/21/2020 Tetanus Booster (TDap): Unknown Hepatitis A: No Hepatitis B: No PED Vaccines UTD: No Current Status status: No status: No Advance Directives: No Communicates: Verbally Primary Language: Palestinian Preferred Spoken Language: Palestinian Is interpretation needed?: No Sensory deficits: Vision impairment Implanted or Applied Medical D: Stents Past Medical History Surgeries: Section, Coronary Stent, 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 Asthma Currently Using CPAP: No Currently Using BIPAP: No Coronary Artery Disease, 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 Sexually Transmitted Disease: No HIV/AIDS: No Arthritis Hearing Impairment: Denies Did You Recieve Any Treatments: No Depression Blood Disorders: No Adverse Reaction/Blood Tranf: No Family Medical History Reviewed Nursing Family Hx Myocardial infarction 19 MOTHER CAD Under 55 Years Old Review of Systems Constitutional: No chills, No fever; malaise, weakness EENTM: no symptoms reported Respiratory: No cough, No short of breath Cardiovascular: No chest pain; edema, Hx of Intervention Gastrointestinal: No abdominal pain; nausea; No vomiting Genitourinary: no symptoms reported Musculoskeletal: muscle pain, muscle cramps Skin: no symptoms reported Psychiatric/Neurological: Depressed Physical Exam Physical Exam Vital Signs Vital Signs - First Documented 12/19/21 22:17 Temp 36.5 Pulse 95 Resp 18 B/P (MAP) 135/74 (94) Pulse Ox 100 O2 Delivery Room Air Capillary Refill : Less Than 3 Seconds Height, Weight, BMI Height: 5'3.00" Weight: 109lbs. 5.0oz. [id number]; 17.22 BMI Method:Stated General Appearance: No Apparent Distress, Chronically ill, Thin HEENT: PERRL/EOMI, Moist Mucous Membranes; No Scleral Icterus (L), No Scleral Icterus (R) Neck: Normal Inspection, Supple Respiratory: Lungs Clear, No Accessory Muscle Use, No Respiratory Distress Cardiovascular: Regular Rate, Rhythm, No Murmur Gastrointestinal: Normal Bowel Sounds, Non Tender, Soft Extremity: Normal Capillary Refill, No Calf Tenderness, No Pedal Edema; No Swelling Neurologic/Psychiatric: Alert, Oriented x3 Skin: Normal Color, Warm/Dry Results Results/Procedures Labs Laboratory Tests 12/19/21 22:25 12/20/21 05:12 Patient resulted labs reviewed. Assessment/Plan Admission Diagnosis Hyponatremia Admission Status: Inpatient Order (span 2 midnights) Reason for Inpatient Admission: see below Assessment and Plan Hyponatremia Hypokalemia Chronic but acutely worsened na 120 on arrival, improved quickly overnight to 128 Will DC IVF Check BMP this PM tends to live around 130 Replaced K this AM Check mag Alcohol abuse Informed her that this is likely the cause of most of her issues (weakness, hyponatremia) She states she thinks it's because she was advised to avoid salt Sulfonation Equipment Operator consulted [facility] protocol Thiamine, MTV, Folic acid CAD HTN Depression BP well controlled, hold home antihypertensives Resume other home meds as able Tobacco abuse Offered nicotine patch, she declines Encouraged cessation overall DVT ppx: Lovenox Diagnosis/Problems Diagnosis/Problems (1) Hyponatremia Status: Acute (2) Chronic alcohol abuse Status: Acute (3) Tobacco abuse Status: Chronic (4) Coronary artery disease Status: Chronic KEELEY SHEA MD Dec 20, 2021 12:25
[2021-12-20] MEDS ORDERED: ENOXAPARIN 40 MG/0.4 ML (LOVENOX) SYR SQ SCH (12:30)
[2021-12-20] MEDS: ENOXAPARIN 30 MG/0.3 ML (LOVENOX) SYR SC SCH (14:03)
[2021-12-20 15:29] VITALS: BP 134/59
[2021-12-20 19:19] VITALS: BP 141/68
[2021-12-20 20:27] LABS: BUN/CREATININE RATIO 4; CALCIUM 8.1 MG/DL (8.5-10.1); CHLORIDE 90 MMOL/L (98-107); CREATININE SERUM 0.56 MG/DL (0.60-1.30); GFR ESTIMATED 108; GLUCOSE 82 MG/DL (70-105); POTASSIUM 2.7 MMOL/L (3.6-5.0)
[2021-12-20 20:31] LABS: SODIUM 125 MMOL/L (135-145)
[2021-12-20 20:38] LABS: CARBON DIOXIDE 19 MMOL/L (21-32)
[2021-12-20] MEDS: NS IV 1000 ML 1,000 ML IV SCH (21:33)
[2021-12-21] VITALS: BP 135/59
[2021-12-21 04:00] VITALS: BP 134/63
[2021-12-21 05:49] LABS: HEMATOCRIT 30 % (35-52); HEMOGLOBIN 10.8 g/dL (11.5-16.0); MEAN CORPUSCULAR HEMOGLOBIN 34 pg (25-34); MEAN CORPUSCULAR HGB CONC 36 g/dL (32-36); MEAN CORPUSCULAR VOLUME 95 fL (80-99); MEAN PLATELET VOLUME 8.5 fL (9.0-12.2); PLATELET COUNT 183 10^3/uL (130-400); WHITE BLOOD COUNT 5.2 10^3/uL (4.3-11.0)
[2021-12-21 06:04] LABS: CHLORIDE 92 MMOL/L (98-107); SODIUM 129 MMOL/L (135-145)
[2021-12-21 06:05] LABS: CALCIUM 8.4 MG/DL (8.5-10.1); GLUCOSE 89 MG/DL (70-105)
[2021-12-21 06:07] LABS: CARBON DIOXIDE 23 MMOL/L (21-32)
[2021-12-21 06:09] LABS: GFR ESTIMATED 111
[2021-12-21 06:10] LABS: BUN/CREATININE RATIO 4
[2021-12-21 06:16] LABS: POTASSIUM 2.4 MMOL/L (3.6-5.0)
[2021-12-21] MEDS: MULTIVIT W/MINERALS TAB (THERAGRAN M) PO SCH (06:21)
[2021-12-21] MEDS: THIAMINE 100 MG (VITAMIN B-1) TAB PO SCH (06:22)
[2021-12-21 07:35] VITALS: BP 115/58
[2021-12-21] MEDS: FOLIC ACID 1 MG TAB PO SCH (08:10)
[2021-12-21] MEDS: POTASSIUM CL 10MEQ/50ML IVPB 50 ML IV SCH ×4 (08:10→13:12)
[2021-12-21] MEDS: MAGNESIUM OXIDE (MAG-OX)400 MG TAB PO SCH ×2 (08:10→21:01)
--- NOTE | 2021-12-21 09:51 | Physical Therapy Evaluation ---
PT Evaluation-General Medical Diagnosis Admission Date Dec 19, 2021 at 23:55 Medical Diagnosis: hyponatremia Onset Date: Dec 19, 2021 Therapy Diagnosis Therapy Diagnosis: debility/weakness Height/Weight Height (Feet): 5 Height (Inches): 3.00 Weight (Pounds): 109 Weight (Ounces): 5.0 Precautions Precautions/Isolations: Fall Prevention, Standard Precautions Referral Physician: Tamara Reason for Referral: Evaluation/Treatment Medical History Pertinent Medical History: Alcoholism, CAD, HTN, Smoking Current History EMS secondary to weakness/body aches Reviewed History: Yes Social History Home: Single Level Current Living Status: Alone Prior Prior Level of Function SCALE: Activities may be completed with or without assistive devices. 0-Jjhjgmxamv-ubxghze completes the activity by him/herself with no assistance from a helper. 5-Set-up or Clean-up Assistance-helper sets up or cleans up; patient completes activity. [place] assists only prior to or following the activity. 4-Supervision or Touching Assistance-helper provides verbal cues and/or touching/steadying and/or contact guard assistance as patient completes activity. Assistance may be provided throughout the activity or intermittently. 3-Partial/Moderate Assistance-helper does LESS THAN HALF the effort. [place] lifts, holds or supports trunk or limbs, but provides less than half the effort. 2-Substantial/Maximal Assistance-helper does MORE THAN HALF the effort. [place] lifts or holds trunk or limbs and provides more than half the effort. 2-Ywrpsdihi-rgysck does ALL the effort. Patient does none of the effort to complete the activity. Or, the assistance of 2 or more helpers is required for the patient to complete the activity. If activity was not attempted, code reason: 7-Patient Refused. 9-Not Applicable-not attempted and the patient did not perform the activity before the current illness, exacerbation or injury. 10-Not Attempted due to Environmental Limitations-(lack of equipment, weather restraints, etc.). 88-Not Attempted due to Medical Conditions or Safety Concerns. Bed Mobility: 6 Transfers (B,C,W/C): 6 Gait: 6 Indoor Mobility (Ambulation): Independent Stairs: Independent Prior Devices Use: Walker (PRN) PT Evaluation-Current Subjective Patient states she hopes to go home today. Agrees to PT. Telesitter and bed alarm Objective Patient Orientation: Normal For Age Attachments: IV ROM/Strength ROM Lower Extremities bilateral LE WFL Strength Lower Extremities 3+/5 grossly bilateral LE Integumentary/Posture Bowel Incontinence: No Bladder Incontinence: No Posture WFL Neuromuscular (Tone, Coordination, Reflexes) tremors Sensory Vision: Wears Glasses Hearing: Functional Transfers Lying to Sitting/Side of Bed(Q: 6 Sit to Stand (QC): 6 Chair/Pyw-kz-Awxne Xfer(QC): 6 Gait Does the Patient Walk?: Yes Mode of Locomotion: Both Walk 10 feet (QC): 6 Walk 50 ft with 2 Turns(QC): 6 Walk 150 ft (QC): 6 Distance: 500' Gait Assistive Device: FWW Comments/Gait Description safe and functional with no deviation Balance Sitting Static: Normal Sitting Dynamic: Normal Standing Static: Normal Standing Dynamic: Normal Assessment/Needs Patient is currently at [facility] with all gross motor skills and does not require skilled PT intervention. Patient continues to have telesitter with chair alarm activated for patient safety. Rehab Potential: Fair PT Plan Treatment/Plan Treatment Plan: Discontinue PT, goals met Treatment Duration: Dec 21, 2021 Frequency: 1 time per week Estimated Hrs Per Day: .25 hour per day Patient and/or Family Agrees t: Yes Time/GCodes Time In: 847 Time Out: 900 Total Billed Treatment Time: 13 Total [facility] ABARCA PT Dec 21, 2021 09:51
[2021-12-21] MEDS ORDERED: MULT-228 PO (10:15)
[2021-12-21] MEDS ORDERED: POTA99TA26 PO (10:15)
[2021-12-21] MEDS ORDERED: FOLI-74 PO (10:15)
[2021-12-21] MEDS ORDERED: IRON1TAB89 PO (10:15)
[2021-12-21 11:34] VITALS: BP 147/80
--- NOTE | 2021-12-21 11:53 | Occupational Therapy Eval ---
OT Evaluation-General/PLF Medical Diagnosis Admission Date Dec 19, 2021 at 23:55 Medical Diagnosis: hyponatremia Onset Date: Dec 19, 2021 Therapy Diagnosis Therapy Diagnosis: n/a Height/Weight Height (Feet): 5 Height (Inches): 3.00 Weight (Pounds): 109 Weight (Ounces): 5.0 Precautions Precautions/Isolations: Fall Prevention, Standard Precautions Referral Physician: Tamara Referral Reason: Evaluation/Treatment Medical History Pertinent Medical History: Alcoholism, CAD, HTN, Smoking Current History Pt arrived to ER with c/o weakness and body aches. She reports that she lives in a multilevel home but she only stays on the main level. She was indep with adls and iadls prior to admission. Pt reports that she was only using a walker PRN. Reviewed History: Yes Social History Home: Multilevel Current Living Status: Alone ADL-Prior Level of Function SCALE: Activities may be completed with or without assistive devices. 1-Qdkssondpi-zwfgjow completes the activity by him/herself with no assistance from a helper. 5-Set-up or Clean-up Assistance-helper sets up or cleans up; patient completes activity. Lamar assists only prior to or following the activity. 4-Supervision or Touching Assistance-helper provides verbal cues and/or touching/steadying and/or contact guard assistance as patient completes ac tivity. Assistance may be provided throughout the activity or intermittently. 3-Partial/Moderate Assistance-helper does LESS THAN HALF the effort. Lamar lifts, holds or supports trunk or limbs, but provides less than half the effort. 2-Substantial/Maximal Assistance-helper does MORE THAN HALF the effort. Lamar lifts or holds trunk or limbs and provides more than half the effort. 3-Cwtgcrnly-rnzybv does ALL the effort. Patient does none of the effort to complete the activity. Or, the assistance of 2 or more helpers is required for the patient to complete the activity. If activity was not attempted, code reason: 7-Patient Refused. 9-Not Applicable-not attempted and the patient did not perform the activity before the current illness, exacerbation or injury. 10-Not Attempted due to Environmental Limitations-(lack of equipment, weather restraints, etc.). 88-Not Attempted due to Medical Conditions or Safety Concerns. Self Care: Independent Functional Cognition: Independent DME/Equipment: Bath Chair, Grab Bars, Shower Drive Self: Yes OT Current Status Subjective Pt reports feeling much better than when first arrived to hospital. Agreeable to eval. Appearance Pt returned to sitting in recliner, all needs within reach. Chair alarm set and telesitter present in room. Mental Status/Objective Patient Orientation: Person, Place, Situation Attachments: IV Current Glasses/Contacts: Yes Hearing Aids: No Hand Dominance: Right ADL-Treatment Eating (QC): 6 Lower Body Dressing (QC): 5 Toileting Hygiene (QC): 6 Pt sitting on toilet at OT arrival. She was able to perform all steps of toileting and transfer without assist. She stood at sink and completed hand hygiene independently. SBA for safety and management of IV pole only when ambulating back to chair. No unsteadiness or safety concerns observed. OT services not warranted at this time, Pt at [facility]. OT to discharge, Pt in agreement. Education OT Patient Education: Disease process, Purpose of tx/functional activities Teaching Recipient: Patient Teaching Methods: Discussion Response to Teaching: Verbalize Understanding, Return Demonstration OT Tree Thinner Goals Tree Thinner Goals 1=Demonstrate adherence to instructed precautions during ADL tasks. 2=Patient will verbalize/demonstrate understanding of assistive devices/modifications for ADL. 3=Patient will improve strength/tolerance for activity to enable patient to perform ADL's. OT Education/Plan Problem List/Assessment Assessment: No Skilled OT Needs ID'd Discharge Recommendations Plan/Recommendations: Discontinue OT Therapy Discharge Recommendati: Home & Family Equpiment Recommendations-D/C: None Treatment Plan/Plan of Care Treatment,Training & Education: Yes Patient would benefit from OT for education, treatment and training to promote independence in ADL's, mobility, safety and/or upper extremity function for ADL's. Plan of Care: ADL Retraining Treatment Duration: Dec 21, 2021 Frequency: 1 time per week Estimated Hrs Per Day: .25 hour per day Agreement: Yes Rehab Potential: Fair Time/GCodes Start Time: 11:37 Stop Time: 11:47 Total Time Billed (hr/min): 10 Billed Treatment Time 1 visit Whitney Odell OT Dec 21, 2021 11:53
--- NOTE | 2021-12-21 13:05 | Discharge Summary ---
Discharge Summary Instructions for Patient Via [facility], Assessment/Instructions Take medications as prescribed. Follow up with your PCP. Return with worsening symptoms. Physician to follow Patient: Sandy Discharge Diet for Home: No Restrictions Hospital Course Date of Admission: Dec 19, 2021 at 23:55 Admission Diagnosis : Hyponatremia, acute alcohol intoxication, alcohol dependence Family Physician/Provider: CasiLocal Physician Date of Discharge: 12/21/21 Discharge Diagnosis: Hyponatremia, acute alcohol intoxication, alcohol dependence Hospital Course: Rebecca Capps is a 56 year old female with alcohol dependence who was admitted with acute alcohol intoxication and hyponatremia. She had weakness whih improved with fluid resuscitation. Her hyponatremia also improved. She had issues with hypokalemia which was replaced. She was set up with [facility] for ongoing therapy. She should follow up with at [facility] with her PCP Sandy in about a week. She should stop drinking alcohol. Labs and Pending Lab Test: Laboratory Tests 12/20/21 20:00: Sodium Level 125*L, Potassium Level 2.7L, Chloride Level 90L, Carbon Dioxide Level 19L, Anion Gap 16H, Blood Urea Nitrogen < 2L, Creatinine 0.56L, Estimat Glomerular Filtration Rate 108, BUN/Creatinine Ratio 4, Glucose Level 82, Calcium Level 8.1L 12/21/21 05:11: Sodium Level 129L, Potassium Level 2.4*L, Chloride Level 92L, Carbon Dioxide Level 23, Anion Gap 14, Blood Urea Nitrogen < 2L, Creatinine 0.50L, Estimat Glomerular Filtration Rate 111, BUN/Creatinine Ratio 4, Glucose Level 89, Calcium Level 8.4L, White Blood Count 5.2, Red Blood Count 3.20L, Hemoglobin 10.8L, Hematocrit 30L, Mean Corpuscular Volume 95, Mean Corpuscular Hemoglobin 34, Mean Corpuscular Hemoglobin Concent 36, Red Cell Distribution Width 16.3H, Platelet Count 183, Mean Platelet Volume 8.5L, Magnesium Level 2.0 Home Meds Active Reported Iron 100-Vitamin C Tablet (Iron,Carbonyl/Ascorbic Acid) 1 Each Tablet 1 Each PO DAILY Potassium (Potassium Gluconate) 99 Mg Tablet 99 Mg PO DAILY One Daily For Women Tablet (Folic Acid/Mv,Fe,Other Min) 1 Each Tablet 1 Each PO BID Flintstones (Multivitamin) 1 Each Tab.chew 1 Each PO BID Metoprolol Succinate 100 Mg Tab.er.24h 100 Mg PO DAILY Fluoxetine HCl 20 Mg Capsule 20 Mg PO DAILY Aspirin 81 Mg Tab.chew 81 Mg PO DAILY Patient Allergies: Coded Allergies: codeine (Verified Allergy, Mild, 09/02/15) Height (Feet): 5 Height (Inches): 3.00 Weight (Pounds): 109 Weight (Ounces): 5.0 Home Health Need/Face to Face Date of Face to Face: Dec 21, 2021 Clinical Findings: Generalized weakness and fatigue, Muscle weakness I have seen Pt [id number]: Yes Discharged To: Home Diagnosis/Conditions: Hyponatremia Chronic alcohol abuse Problems/Diagnosis/Condition: (1) Hyponatremia (2) Chronic alcohol abuse Patient is Homebound due to: John fall risk due to instabilty, Muscle weakness Homebound Status Due to the above stated illness, injury or surgical procedure (medical condition or diagnosis) and associated clinical findings, the patient is homebound because of his/her inability to leave home except with aid of a supportive device and/or person AND leaving the home requires a considerable and taxing effort or is medically contraindicated. Pt req the following assistanc: Aid of another person, Walker Home Health Nursing Orders Home Health Services Order: Nursing Services, [facility]-Evaluate & Treat, Physical Therapy-Evaluate & Treat Home Health Infusion Therapy Line Start Date: Dec 19, 2021 Therapy Orders Therapy Orders: OT (must have SN or PT order), Physical Therapy Therapy Specific Orders: Eval assistive deivces, Teach enviro modifications/safety, Gait training, Increase strength/endurance Certify Stmt I certify that this patient is under my care and that I, a nurse practitioner or a physician; a grooming assistant working with me, had a face to face encounter that - meets the physician face to face encounter requirements with this patient as dated. Discharge Physical Exam General: Alert, Oriented X3, Cooperative, No Acute Distress HEENT: Atraumatic, EOMI, Mucous Memb Moist/[place] Lungs: Clear to Auscultation, Normal Air Movement Heart: Regular Rate, No Murmurs Abdomen: Normal Bowel Sounds, Soft, No Tenderness Extremities: No Edema, No Tenderness/Swelling Skin: No Rashes, No Significant Lesion Neuro: Other (motor weakness) Psych/Mental Status: Mental Status NL, Mood NL NOEMI ROLAND MD Dec 21, 2021 13:05
[2021-12-21] MEDS: ENOXAPARIN 30 MG/0.3 ML (LOVENOX) SYR SC SCH (13:12)
[2021-12-21] MEDS ORDERED: KCL 20 MEQ TAB (K-DUR) PO NR ×2 (13:15→14:15)
[2021-12-21] MEDS ORDERED: KCL 20 MEQ TAB (K-DUR) PO ONE (13:15)
[2021-12-21] MEDS: NS IV 1000 ML 1,000 ML IV SCH (16:03)
[2021-12-21 23:45] VITALS: BP 144/76
[2021-12-22 04:00] VITALS: BP 144/68
[2021-12-22 05:29] LABS: HEMATOCRIT 31 % (35-52); HEMOGLOBIN 10.9 g/dL (11.5-16.0); MEAN CORPUSCULAR HEMOGLOBIN 34 pg (25-34); MEAN CORPUSCULAR HGB CONC 35 g/dL (32-36); MEAN CORPUSCULAR VOLUME 96 fL (80-99); MEAN PLATELET VOLUME 8.8 fL (9.0-12.2); PLATELET COUNT 167 10^3/uL (130-400); WHITE BLOOD COUNT 6.5 10^3/uL (4.3-11.0)
[2021-12-22 05:56] LABS: BUN/CREATININE RATIO 4; CALCIUM 8.6 MG/DL (8.5-10.1); CARBON DIOXIDE 21 MMOL/L (21-32); CHLORIDE 95 MMOL/L (98-107); GFR ESTIMATED 111; GLUCOSE 99 MG/DL (70-105); POTASSIUM 3.4 MMOL/L (3.6-5.0); SODIUM 127 MMOL/L (135-145)
[2021-12-22] MEDS: MULTIVIT W/MINERALS TAB (THERAGRAN M) PO SCH (06:16)
[2021-12-22] MEDS: THIAMINE 100 MG (VITAMIN B-1) TAB PO SCH (06:16)
[2021-12-22 07:40] VITALS: BP 131/69
[2021-12-22] MEDS ORDERED: KCL 20 MEQ TAB (K-DUR) PO ONE (08:00)
[2021-12-22] MEDS: MAGNESIUM OXIDE (MAG-OX)400 MG TAB PO SCH (08:31)
[2021-12-22] MEDS: FOLIC ACID 1 MG TAB PO SCH (08:31)
[2021-12-22 10:41] VITALS: BP 131/69
== END 2021-12-22 09:30 | disposition home or self-care (01) | DRG 641 ==
LOC: EDUNIT# 22:16 → ER 22:19 → 4TH 23:55
PROVIDERS: ADMIT Family Medicine; ATTEND Internal Medicine
DX: E87.1 Hypo-osmolality and hyponatremia (principal); E87.6 Hypokalemia; F10.229 Alcohol dependence with intoxication, unspecified; I25.10 Atherosclerotic heart disease of native coronary artery without angina pectoris; I10 Essential (primary) hypertension; F32.A Depression, unspecified; F17.210 Nicotine dependence, cigarettes, uncomplicated; Z95.5 Presence of coronary angioplasty implant and graft; M19.90 Unspecified osteoarthritis, unspecified site; Z79.82 Long term (current) use of aspirin; Z79.899 Other long term (current) drug therapy; Z20.822 Contact with and (suspected) exposure to COVID-19
CPT/HCPCS: 36415; 80048; 80053; 80320; 81000; 83735; 85025; 85027; 85610; 87636

== ENCOUNTER 2022-02-12 13:16 | Emergency (ER) | payer SELFPAY ==
[~2022-02-12] VITALS: Ht 160 cm; Wt 47.6 kg
[~2022-02-12 13:16] MED LIST changes: +FOLI-74 PO; +IRON1TAB89 PO; +MULT-228 PO; +POTA99TA26 PO
[2022-02-12] MEDS ORDERED: FLEET ENEMA ADULT 1 EA BTL PR ONE (13:30)
[2022-02-12 13:40] VITALS: BP 112/58
--- NOTE | 2022-02-12 13:54 | ED GI ---
General Stated Complaint: CONSTIPATION Source of Information: Patient Exam Limitations: No Limitations History of Present Illness Date Seen by Provider: February 12, 2022 Time Seen by Provider: 13:49 Initial Comments To ER by EMS from home with c/o severe rectal and suprapubic pain. She has been constipated x3 days but normally has diarrhea. No vomiting. Smokes 1PPD and drinks 5-10 beers a day. Denies drug use. Timing/Duration: 2-3 Days Severity/Quality: Moderate Location: Suprapubic, Other (rectal) Radiation: No Radiation Activities at Onset: None Associated Symptoms: Denies Symptoms Allergies and Home Medications Allergies Coded Allergies: codeine (Verified Allergy, Mild, 09/02/15) Patient Home Medication List Home Medication List Reviewed: Yes Aspirin (Aspirin) 81 Mg Tab.chew, 81 MG PO DAILY, (Reported) Entered as Reported by: EJ GILLETTE on 03/19/21 1149 Fluoxetine HCl (Fluoxetine HCl) 20 Mg Capsule, 20 MG PO DAILY, (Reported) Entered as Reported by: EJ GILLETTE on 06/22/21 1556 Folic Acid/Mv,Fe,Other Min (One Daily For Women Tablet) 1 Each Tablet, 1 EACH PO BID, (Reported) Entered as Reported by: MARCUS VAZQUEZ on 12/21/21 1015 Iron,Carbonyl/Ascorbic Acid (Iron 100-Vitamin C Tablet) 1 Each Tablet, 1 EACH PO DAILY, (Reported) Entered as Reported by: MARCUS VAZQUEZ on 12/21/21 1015 Metoprolol Succinate (Metoprolol Succinate) 100 Mg Tab.er.24h, 100 MG PO DAILY, (Reported) Entered as Reported by: EJ GILLETTE on 06/22/21 1556 Multivitamin (Flintstones) 1 Each Tab.chew, 1 EACH PO BID, (Reported) Entered as Reported by: MARCUS VAZQUEZ on 12/21/21 1015 Potassium Gluconate (Potassium) 99 Mg Tablet, 99 MG PO DAILY, (Reported) Entered as Reported by: MARCUS VAZQUEZ on 12/21/21 1015 Review of Systems Review of Systems Constitutional: see HPI; No chills, No fever EENTM: No Symptoms Reported Respiratory: No Symptoms Reported Cardiovascular: No Symptoms Reported Gastrointestinal: See HPI, Abdominal Pain, Rectal Bleeding Genitourinary: No Symptoms Reported Musculoskeletal: no symptoms reported Skin: no symptoms reported Psychiatric/Neurological: No Symptoms Reported Endocrine: No Symptoms Reported Hematologic/Lymphatic: No Symptoms Reported Past Ibfuwgr-Qsfsqx-Sdrxax Hx Immunizations Up To Date Tetanus Booster (TDap): Unknown PED Vaccines UTD: No First/Initial COVID19 Vaccinat: 11/21/2020 Past Medical History Surgeries: Yes Section, Coronary Stent, 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 Respiratory: Yes Asthma Currently Using CPAP: No Currently Using BIPAP: No Cardiac: Yes Coronary Artery Disease, 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 Neurological: No Reproductive Disorders: Yes Female Reproductive Disorders: Denies 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 5.0oz. 49.976813se; 17.22 BMI Method:Stated General Appearance: WD/WN, no apparent distress, thin, other (unkempt, disheveled) HEENT: PERRL/EOMI, normal ENT inspection Neck: non-tender, full range of motion Respiratory: no respiratory distress, no accessory muscle use Gastrointestinal: normal bowel sounds, non tender, soft Genital/Rectal: other (LILIAM with Chelo RN at bedside, no palpable stool ball within fingers reach, screams on LILIAM. ) Extremities: normal range of motion, non-tender, other (pedal edema 3+ up to mid calves bilat) Neurologic/Psychiatric: alert, normal mood/affect, oriented x 3 Skin: normal color, warm/dry Progress/Results/Core Measures Results/Orders My Orders Orders - PAPO JAVIER APRN Cbc With Automated Diff (02/12/22 13:22) Comprehensive Metabolic Panel (02/12/22 13:22) Ua Culture If Indicated (02/12/22 13:22) Ed Iv/Invasive Line Start (02/12/22 13:22) Ct Abdomen/Pelvis Wo (02/12/22 13:22) Bnp Court (02/12/22 13:22) Thyroid Stimulating Hormone (02/12/22 13:22) Free T4 (Free Thyroxine) (02/12/22 13:22) Na Phos/Na Biphos Enema (Fleet Enema Sinan (02/12/22 13:30) Protime With Inr (02/12/22 13:27) Alcohol (02/12/22 13:27) Midazolam Injection (Versed Injection) (02/12/22 14:00) Medications Given in ED Current Medications Medications Dose Ordered Sig/Mak Route Start Time Stop Time Status Last Admin Dose Admin Sodium Biphosphate/ Sodium Phosphate 1 ea ONCE ONCE WV 02/12/22 13:30 02/12/22 13:31 DC 02/12/22 13:50 1 EA Departure Communication (Admissions) NAME: HAYLEY NATARAJAN [facility] REC#: [id number] PT STATUS: REG ER : 1965 PHYSICIAN: PAPO JAVIER APRN ADMIT DATE: 02/12/22/ER Draft Date of Exam:02/12/22 CT ABDOMEN/PELVIS WO EXAMINATION: CT abdomen and pelvis without contrast. TECHNIQUE: Multiple contiguous axial images were obtained through the abdomen and pelvis without the use of intravenous contrast. All CT scans use one or more of the following dose optimizing techniques: automated exposure control, MA and/or KvP adjustment based on patient size and exam type or iterative reconstruction. HISTORY: Rectal abdominal pain. COMPARISON: 03/19/2021 FINDINGS: Lung bases: The lung bases are clear. Solid organs: There is diffuse hypoattenuation of the liver compatible with hepatic steatosis. Multiple layering hyperdense stones within the gallbladder. There is no biliary ductal dilation. Pancreas is normal. Spleen is normal. Adrenal glands are normal. The kidneys are normal without visualized calculus or hydronephrosis. Bowel: The stomach and small bowel are normal without obstruction. The colon is unremarkable. There is rectal wall thickening. No findings of acute appendicitis. Peritoneum: There is no intraperitoneal free fluid or free air. No suspicious lymphadenopathy. Vasculature: Calcification of the aorta without aneurysm. Musculoskeletal: No suspicious osseous lesion or compression fracture. Pelvis: The uterus is surgically absent. No adnexal mass. The urinary bladder is normal. IMPRESSION: 1. Mild rectal wall thickening which can be seen with an infectious or an inflammatory proctitis. Recommend follow-up with physical exam or colonoscopy after treatment and resolution of symptoms to exclude underlying rectal neoplasm. 2. Hepatic steatosis. Dictated on workstation # [id number] Dict: 02/12/22 1426 Trans: 02/12/22 1437 [facility] [id number] Interpreted by: ELVIA SOLITARIO DO Electronically signed by: Impression Primary Impression: Proctitis Disposition: 01 HOME, SELF-CARE Condition: Stable Departure-Patient Inst. Decision time for Depature: 14:42 Referrals: NO,LOCAL PHYSICIAN (PCP/Family) Primary Care Physician Patient Instructions: Proctitis Add. Discharge Instructions: 1. Return to ER for any concerns. 2. Follow up with your doctor next week Scripts Amoxicillin/Potassium Clav (Augmentin 500-125 Tablet) 500 Mg-125 Mg Tablet 1 EACH PO BID, #10 TAB Prov: APPO JAVIER APRN 02/12/22 PAPO JAVIER APRN February 12, 2022 13:53
[2022-02-12] MEDS ORDERED: MIDAZOLAM 5 MG/5 ML (VERSED) VIAL IVP ONE (14:00)
--- NOTE | 2022-02-12 14:38 | Diagnostic Imaging Report ---
EXAMINATION: CT abdomen and pelvis without contrast. TECHNIQUE: Multiple contiguous axial images were obtained through the abdomen and pelvis without the use of intravenous contrast. All CT scans use one or more of the following dose optimizing techniques: automated exposure control, MA and/or KvP adjustment based on patient size and exam type or iterative reconstruction. HISTORY: Rectal abdominal pain. COMPARISON: 03/19/2021 FINDINGS: Lung bases: The lung bases are clear. Solid organs: There is diffuse hypoattenuation of the liver compatible with hepatic steatosis. Multiple layering hyperdense stones within the gallbladder. There is no biliary ductal dilation. Pancreas is normal. Spleen is normal. Adrenal glands are normal. The kidneys are normal without visualized calculus or hydronephrosis. Bowel: The stomach and small bowel are normal without obstruction. The colon is unremarkable. There is rectal wall thickening. No findings of acute appendicitis. Peritoneum: There is no intraperitoneal free fluid or free air. No suspicious lymphadenopathy. Vasculature: Calcification of the aorta without aneurysm. Musculoskeletal: No suspicious osseous lesion or compression fracture. Pelvis: The uterus is surgically absent. No adnexal mass. The urinary bladder is normal. IMPRESSION: 1. Mild rectal wall thickening which can be seen with an infectious or an inflammatory proctitis. Recommend follow-up with physical exam or colonoscopy after treatment and resolution of symptoms to exclude underlying rectal neoplasm. 2. Hepatic steatosis. Dictated by: Dictated on workstation # [id number]
[2022-02-12] MEDS ORDERED: ACHD5005 PO (14:43)
[2022-02-12] MEDS ORDERED: AMOX-355 PO (14:43)
[2022-02-12 14:50] LABS: BASOPHILS # (AUTO) 0.1 10^3/uL (0.0-0.1); BASOPHILS % (AUTO) 1 % (0-10); EOSINOPHILS # (AUTO) 0.1 10^3/uL (0.0-0.3); EOSINOPHILS % (AUTO) 1 % (0-10); HEMATOCRIT 35 % (35-52); HEMOGLOBIN 12.3 g/dL (11.5-16.0); LYMPHOCYTES % (AUTO) 14 % (12-44); MEAN CORPUSCULAR HEMOGLOBIN 35 pg (25-34); MEAN CORPUSCULAR HGB CONC 35 g/dL (32-36); MEAN CORPUSCULAR VOLUME 100 fL (80-99); MEAN PLATELET VOLUME 8.1 fL (9.0-12.2); MONOCYTES # (AUTO) 1.2 10^3/uL (0.0-1.0); MONOCYTES % (AUTO) 8 % (0-12); NEUTROPHILS # (AUTO) 10.9 10^3/uL (1.8-7.8); NEUTROPHILS % (AUTO) 76 % (42-75); PLATELET COUNT 516 10^3/uL (130-400); WHITE BLOOD COUNT 14.5 10^3/uL (4.3-11.0)
[2022-02-12 15:01] LABS: ALBUMIN 3.2 GM/DL (3.2-4.5); POTASSIUM 3.8 MMOL/L (3.6-5.0)
[2022-02-12 15:02] LABS: CALCIUM 8.7 MG/DL (8.5-10.1)
[2022-02-12 15:03] LABS: TOTAL PROTEIN 7.8 GM/DL (6.4-8.2)
[2022-02-12 15:04] LABS: BAND NEUTROPHILS 0 %; BASOPHILS % (MANUAL) 1 %; EOSINOPHILS % (MANUAL) 3 %; LYMPHOCYTES % (MANUAL) 14 %; MONOCYTES % (MANUAL) 4 %; NEUTROPHILS % (MANUAL) 78 %; RBC MORPH NORMAL
[2022-02-12 15:05] LABS: BILIRUBIN,TOTAL 0.2 MG/DL (0.1-1.0)
[2022-02-12 15:06] LABS: INR 0.9 (0.8-1.4); PROTHROMBIN TIME PATIENT 12.6 SEC (12.2-14.7)
[2022-02-12 15:07] LABS: CREATININE SERUM 0.51 MG/DL (0.60-1.30)
[2022-02-12] MEDS ORDERED: NS IV 500 ML 500 ML IV SCH (15:15)
[2022-02-12] MEDS ORDERED: cefTRIAXone 1 GM PRE-MIX 50 ML IV ONE (15:15)
[2022-02-12 15:30] LABS: FREE T4 (FREE THYROXINE) 0.96 NG/DL (0.70-1.48)
[2022-02-12] MEDS ORDERED: cefTRIAXone 1,000 MG VIAL IM ONE (15:30)
[2022-02-12] MEDS ORDERED: LIDOCAINE 1% INJ 20 ML VIAL INJ ONE (15:30)
== END 2022-02-12 15:30 | disposition home or self-care (01) ==
LOC: EDUNIT# 13:16 → ER 13:16
DX: K62.89 Other specified diseases of anus and rectum (principal); Z90.710 Acquired absence of both cervix and uterus
CPT/HCPCS: 74176; 80053; 83880; 84439; 84443; 85007; 85027; 85610; 99283; G0480; 36415; 80320

== ENCOUNTER 2022-02-17 15:12 | Observation (INO) | payer SELFPAY ==
[~2022-02-17] VITALS: Ht 160 cm; Wt 39.8 kg
[~2022-02-17 15:12] MED LIST changes: +ACHD5005 PO; +AMOX-355 PO
--- NOTE | 2022-02-17 16:06 | ED Psychosocial ---
General Chief Complaint: Psych/Social Disorder Stated Complaint: MEDICAL SCREENING Nursing Triage Note: PT BROUGHT HERE BY A SENIOR ENERGY CONSULTANT FOR A MEDICAL SCREEN FOR PSYCH PLACEMENT. ACCORING TO THE PERSON WHO BROUGHT HER PT IS NOT EATING, DRINKING ETOH, AND SHE IS CONCERNED ABOUT HER LIVING CONDITIONS. Source: patient, other (watch caser) Exam Limitations: no limitations (LUCY NINO) History of Present Illness Date Seen by Provider: February 17, 2022 Time Seen by Provider: 16:02 Initial Comments Patient is a 56-year-old female with a history of coronary artery disease, alcohol abuse, depression who presents ED with agile qa tester from [facility] for medical screening and evaluation. Patient was recently discharged from [facility] about a week and a half ago. Currently [facility]. Patient has not been eating since she has been staying there. She did eat a little today but not as much. She has been having intermittent diarrhea vomiting and constipation for several weeks. History of alcohol abuse. Drinks 6-8 alcohol beverages daily. Bushwalking Guide is currently working on placement for patient. Adult protective order was placed. Patient denies of any suicidal or homicidal thoughts but has had thoughts in the past of not wanting to live. She denies any current chest pain, cough shortness of breath, vomiting, diarrhea, headache. Bushwalking Guide is concerned for patient's living. No active hallucinations. Denies any drug use. (LUCY NINO) Allergies and Home Medications Allergies Coded Allergies: codeine (Verified Allergy, Mild, 09/02/15) Patient Home Medication List Home Medication List Reviewed: Yes (EDGARD CHRSITIE) Amlodipine Besylate (Amlodipine Besylate) 5 Mg Tablet, 5 MG PO DAILY, (Reported) Entered as Reported by: EJ GILLETTE on 02/19/22 1229 Last Action: Reviewed Aspirin (Aspirin) 81 Mg Tab.chew, 81 MG PO DAILY, (Reported) Entered as Reported by: EJ GILLETTE on 03/19/21 1149 Last Action: Reviewed Fluoxetine HCl (Fluoxetine HCl) 10 Mg Capsule, 10 MG PO DAILY, (Reported) Entered as Reported by: EJ GILLETTE on 02/19/22 1229 Last Action: Reviewed Metoprolol Succinate (Metoprolol Succinate) 100 Mg Tab.er.24h, 100 MG PO DAILY, (Reported) Entered as Reported by: EJ GILLETTE on 06/22/21 1556 Last Action: Reviewed Multivitamin (Flintstones) 1 Each Tab.chew, 1 EACH PO DAILY, (Reported) Entered as Reported by: MARCUS VAZQUEZ on 12/21/21 1015 Last Action: Reviewed Potassium Gluconate (Potassium) 99 Mg Tablet, 99 MG PO DAILY, (Reported) Entered as Reported by: MARCUS VAZQUEZ on 12/21/21 1015 Last Action: Reviewed Discontinued Medications Amoxicillin/Potassium Clav (Augmentin 500-125 Tablet) 500 Mg-125 Mg Tablet, 1 EACH PO BID Discontinued Reason: No Longer Taking Prescribed by: PAPO JAVIER on 02/12/22 1443 Last Action: Discontinued Fluoxetine HCl (Fluoxetine HCl) 20 Mg Capsule, 20 MG PO DAILY, (Reported) Discontinued Reason: No Longer Taking Entered as Reported by: EJ GILLETTE on 06/22/21 1556 Last Action: Discontinued Folic Acid/Mv,Fe,Other Min (One Daily For Women Tablet) 1 Each Tablet, 1 EACH PO BID, (Reported) Discontinued Reason: No Longer Taking Entered as Reported by: MARCUS VAZQUEZ on 12/21/21 1015 Last Action: Discontinued Iron,Carbonyl/Ascorbic Acid (Iron 100-Vitamin C Tablet) 1 Each Tablet, 1 EACH PO DAILY, (Reported) Discontinued Reason: No Longer Taking Entered as Reported by: MARCUS VAZQUEZ on 12/21/21 101 Last Action: Discontinued Review of Systems Constitutional: No chills, No diaphoresis, No malaise, No weakness EENTM: No hearing loss, No blurred vision, No double vision Respiratory: No cough, No dyspnea on exertion, No orthopnea, No short of breath Cardiovascular: No chest pain Gastrointestinal: No abdominal pain; diarrhea; No nausea; vomiting Genitourinary: No decreased output, No discharge Musculoskeletal: No back pain, No joint pain, No muscle pain, No muscle stiffness, No muscle cramps Skin: No change in color, No change in hair/nails (LUCY NINO) All Other Systems Reviewed Negative Unless Noted: Yes (LUCY NINO) Past Lacmgyn-Slajja-Ntfdmf Hx Patient Social History Substance use?: No Alcohol Use?: Yes Alcohol type: Beer Alcohol Frequency: Daily (LUCY NINO) Immunizations Up To Date Tetanus Booster (TDap): Unknown PED Vaccines UTD: No First/Initial COVID19 Vaccinat: UNKNOWN COVID19 Vaccine Digital Advisor: UNKNOWN (LUCY NINO) Past Medical History Surgeries: Yes Section, Coronary Stent, 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 Respiratory: Yes Asthma Currently Using CPAP: No Currently Using BIPAP: No Cardiac: Yes Coronary Artery Disease, 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 Neurological: No Reproductive Disorders: Yes Female Reproductive Disorders: Denies 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 Sexually Transmitted Disease: No HIV/AIDS: No Genitourinary: No Gastrointestinal: No Musculoskeletal: Yes Arthritis Endocrine: No HEENT: No Hearing Impairment: Denies Cancer: No Did You Recieve Any Treatments: No Psychosocial: Yes Depression Integumentary: No Blood Disorders: No Adverse Reaction/Blood Tranf: No (LUCY NINO) Family Medical History Myocardial infarction 19 MOTHER CAD Under 55 Years Old (LUCY NINO) Physical Exam Vital Signs - First Documented 02/17/22 15:25 Temp 35.7 Pulse 77 Resp 16 B/P (MAP) 107/61 (76) Pulse Ox 97 O2 Delivery Room Air (EDGARD CHRISTIE) Capillary Refill : Less Than 3 Seconds (LUCY NINO) Height, Weight, BMI Height: 5'3.00" Weight: 109lbs. 5.0oz. [id number]; 18.00 BMI Method:Stated General Appearance: WD/WN, thin, other (Not well kept) HEENT: PERRL/EOMI, normal ENT inspection, TMs normal, pharynx normal Neck: non-tender, full range of motion, supple, normal inspection Respiratory: chest non-tender, lungs clear, normal breath sounds, no respiratory distress, no accessory muscle use Cardiovascular: regular rate, rhythm, no edema, no gallop, no JVD Gastrointestinal: normal bowel sounds, non tender, soft, no organomegaly Extremities: normal range of motion, non-tender, normal inspection, no pedal edema, no calf tenderness Neurologic/Psychiatric: behavioral health case manager II-XII nml as tested, no motor/sensory deficits, alert, normal mood/affect, oriented x 3 Appearance/Memory: appropriate appearance Behavior/Eye Contact: cooperative, good eye contact Thoughts/Hallucinations: normal thought pattern Skin: normal color, warm/dry (LUCY NINO) Progress/Results/Core Measures Results/Orders Lab Results Laboratory Tests Test 02/17/22 16:05 02/17/22 16:30 02/17/22 17:35 Range/Units Urine Color YELLOW Urine Clarity CLEAR Urine pH 6.0 5-9 Urine Specific [place] 1.015 L 1.016-1.022 Urine Protein NEGATIVE NEGATIVE Urine Glucose (UA) NEGATIVE NEGATIVE Urine Ketones NEGATIVE NEGATIVE Urine Nitrite NEGATIVE NEGATIVE Urine Bilirubin NEGATIVE NEGATIVE Urine Urobilinogen 0.2 < = 1.0 MG/DL Urine Leukocyte Esterase NEGATIVE NEGATIVE Urine RBC (Auto) TRACE-I H NEGATIVE Urine RBC RARE /HPF Urine WBC RARE /HPF Urine Squamous Epithelial Cells RARE /HPF Urine Crystals NONE /LPF Urine Bacteria NEGATIVE /HPF Urine Casts NONE /LPF Urine Mucus NEGATIVE /LPF Urine Culture Indicated NO Urine Opiates Screen NEGATIVE NEGATIVE Urine Oxycodone Screen NEGATIVE NEGATIVE Urine Methadone Screen NEGATIVE NEGATIVE Urine Propoxyphene Screen NEGATIVE NEGATIVE Urine Barbiturates Screen NEGATIVE NEGATIVE Ur Tricyclic Antidepressants Screen NEGATIVE NEGATIVE Urine Phencyclidine Screen NEGATIVE NEGATIVE Urine Amphetamines Screen NEGATIVE NEGATIVE Urine Methamphetamines Screen NEGATIVE NEGATIVE Urine Benzodiazepines Screen NEGATIVE NEGATIVE Urine Cocaine Screen NEGATIVE NEGATIVE Urine Cannabinoids Screen NEGATIVE NEGATIVE White Blood Count 8.2 4.3-11.0 10^3/uL Red Blood Count 3.51 L 3.80-5.11 10^6/uL Hemoglobin 12.2 11.5-16.0 g/dL Hematocrit 35 35-52 % Mean Corpuscular Volume 99 80-99 fL Mean Corpuscular Hemoglobin 35 H 25-34 pg Mean Corpuscular Hemoglobin Concent 35 32-36 g/dL Red Cell Distribution Width 13.0 10.0-14.5 % Platelet Count 331 130-400 10^3/uL Mean Platelet Volume 8.1 L 9.0-12.2 fL Immature Granulocyte % (Auto) 1 % Neutrophils (%) (Auto) 64 42-75 % Lymphocytes (%) (Auto) 20 12-44 % Monocytes (%) (Auto) 10 0-12 % Eosinophils (%) (Auto) 6 0-10 % Basophils (%) (Auto) 1 0-10 % Neutrophils # (Auto) 5.3 1.8-7.8 10^3/uL Lymphocytes # (Auto) 1.6 1.0-4.0 10^3/uL Monocytes # (Auto) 0.8 0.0-1.0 10^3/uL Eosinophils # (Auto) 0.5 H 0.0-0.3 10^3/uL Basophils # (Auto) 0.0 0.0-0.1 10^3/uL Immature Granulocyte # (Auto) 0.1 0.0-0.1 10^3/uL Sodium Level 129 L 135-145 MMOL/L Potassium Level 3.2 L 3.6-5.0 MMOL/L Chloride Level 90 L 98-107 MMOL/L Carbon Dioxide Level 27 21-32 MMOL/L Anion Gap 12 5-14 MMOL/L Blood Urea Nitrogen 2 L 7-18 MG/DL Creatinine 0.59 L 0.60-1.30 MG/DL Estimat Glomerular Filtration Rate 107 BUN/Creatinine Ratio 3 Glucose Level 91 70-105 MG/DL Calcium Level 8.5 8.5-10.1 MG/DL Corrected Calcium 9.2 8.5-10.1 MG/DL Total Bilirubin 0.3 0.1-1.0 MG/DL Aspartate Amino Transf (AST/SGOT) 44 H 5-34 U/L Alanine Aminotransferase (ALT/SGPT) 16 0-55 U/L Alkaline Phosphatase 100 40-136 U/L Total Protein 7.2 6.4-8.2 GM/DL Albumin 3.1 L 3.2-4.5 GM/DL Salicylates Level < 5.0 L 5.0-20.0 MG/DL Acetaminophen Level < 10 L 10-30 UG/ML Serum Alcohol 178 H <10 MG/DL Influenza Type A (RT-PCR) Not Detected Not Detecte Influenza Type B (RT-PCR) Not Detected Not Detecte SARS-CoV-2 RNA (RT-PCR) Not Detected Not Detecte (EDGARD CHRISTIE) My Orders Orders - EDGARD CHRISTIE Loperamide Tablet (Imodium Tablet) (02/17/22 21:53) Ondansetron Injection (Zofran Injectio (02/17/22 22:00) Lorazepam Tablet (Ativan Tablet) (02/17/22 23:17) (EDGARD CHRISTIE) Medications Given in ED Current Medications Medications Dose Ordered Sig/Mak Route Start Time Stop Time Status Last Admin Dose Admin Ondansetron HCl 4 mg ONCE ONCE IVP 02/17/22 22:00 02/17/22 22:02 DC 02/17/22 22:06 4 MG Potassium Chloride 20 meq ONCE ONCE PO 02/17/22 17:15 02/17/22 17:16 DC 02/17/22 17:24 20 MEQ (SHAHNAZEDGARD Delgado) Vital Signs/I&O 02/17/22 15:25 Temp 35.7 Pulse 77 Resp 16 B/P (MAP) 107/61 (76) Pulse Ox 97 O2 Delivery Room Air (EDGARD CHRISTIE) Blood Pressure Mean: 76 Progress Progress Note : Time: 18:00 Progress Note assumed care of patient, she has no request or complaints at this time. Screener reports all documents have been sent to and awaiting a bed placement. 1844 per [facility], screen has been sent to and they will notify when bed is available. Katiuska Calloway can transport if within next hour or early tomorrow morning. [facility] can transport at 8:00 am tomorrow. 1899 patient has ambulated to bathroom, no requests. She ate part of her dinner. awaiting return call from for bed placement. 1999 patient resting in bed, no requests. 2099 spoke to , the patient is not on their tracker. Notified [facility], they will call to see what happened and follow up. 2129 patient reports 2 episodes of diarrhea and mild nausea, will give Zofran IV and Imodium po 2199 patient on tracker with . Notified Katiuska Calloway, [facility] will need to provide transfer unless patient can wait until after 1500 on 02/17/22. 0 patient reports nausea and diarrhea has improved. Agreeable to Ativan 1 mg PO for mild anxiety. NO tremors. Report given to Dr. Rizzo. (EDGARD CHRISTIE) Progress Note : Time: 05:35 Progress Note Patient has been resting throughout ED stay. No further complaints. advised they do not have bed availability. Contacted Mental Health and they are attempting to find placement. Will redraw etoh level this am. (LEIGHANN RIZZO MD) Progress Note : Progress Note Discussed the case with [facility] this morning, and [facility] likely will take the patient. We faxed them paperwork around 9:30 AM. [facility] call back around 11:30 AM saying since the patient is not suicidal they will not take her at this time. [facility] is calling other hospitals including [facility]. In discussing with the agile qa tester, the biggest concern, is the patient's house is not fit for living. There are adult diapers sitting everywhere along with garbage. There is no food in the house. The patient is severely depressed and they were concerned that even though she has no active thoughts of suicide, she is not taking care of herself and this will lead to her eventual if an things are not intervened upon. I confirmed with the patient that she really has no will of her own to get out of this situation. I also examined the patient and she has no signs of alcohol withdrawal. She says she feels at her baseline. I discussed her anxiety that they documented last night as well as her nausea last night. She says this is a nightly occurrence which has been regular for years. She denies ever having any history of alcohol withdrawal. Update 17:40: [facility] will take patient on 02/19 likely. She is #7 on their list. [facility] will transport when they get a bed available. (LUCY JACOBO MD) Comment Sinus rhythm, 60 bpm, QRS duration 8 3 MS, QTc 431 MS. (LUCY NINO) Departure Communication (PCP) Patient is currently 7 th line for a bed at [facility]. Patient will be transferred by [facility]. Contact number for mental health is Carine Russell. Mobile phone [phone] who is currently working on patient's case. Patient has no suicidal or homicidal thoughts. She states she is not withdrawing from alcohol. Patient was given 1 dose of Ativan yesterday. Patient has felt fine since then. She denies chest pain, tremoring, headache, abdominal pain, vomiting. Patient has been eating and drinking over the past 24 hours. Patient has been sleeping most of her visit. Unclear when patient will be able to be transferred. Patient was discussed with Dr. Rosales for admission until patient can be placed so patient can take a shower and have a private room. She agrees for admission. Patient is currently voluntary without any suicidal or homicidal thoughts. (LUCY NINO) Impression Primary Impression: ETOH abuse Additional Impression: Severe depression Disposition: ADMITTED INPATIENT Condition: Stable Admissions Decision to Admit Reason: Admit from ER (General) Decision to Admit/Date: February 18, 2022 Time/Decision to Admit Time: 22:25 (LUCY NINO) Departure-Patient Inst. Referrals: NO,LOCAL PHYSICIAN (PCP/Family) Primary Care Physician ATTENDING PHYSICIAN NOTE: I WAS PHYSICALLY PRESENT ER PHYSICIAN, BUT I WAS NOT INVOLVED IN ANY DECISION MAKING OR ANY CARE OF THIS PATIENT. (NELDA MOONEY DO) LUCY NINO February 17, 2022 16:06 EDGARD CHRISTIE February 17, 2022 22:05 LEIGHANN RIZZO MD February 18, 2022 05:36 LUCY JACOBO MD February 18, 2022 09:38 NELDA MOONEY DO February 21, 2022 01:11
[2022-02-17 16:24] LABS: BILIRUBIN,URINE NEGATIVE (NEGATIVE); CLARITY,URINE CLEAR; COLOR,URINE YELLOW; GLUCOSE, URINE (UA) NEGATIVE (NEGATIVE); KETONES,URINE NEGATIVE (NEGATIVE); LEUKOCYTE ESTERASE ,URINE NEGATIVE (NEGATIVE); NITRITE,URINE NEGATIVE (NEGATIVE); PROTEIN,URINE NEGATIVE (NEGATIVE)
[2022-02-17 16:42] LABS: BACTERIA,URINE NEGATIVE /HPF; RBC,URINE RARE /HPF; SQUAMOUS EPITHELIAL CELL,UR RARE /HPF; WBC,URINE RARE /HPF
[2022-02-17 16:45] LABS: BASOPHILS % (AUTO) 1 % (0-10); EOSINOPHILS # (AUTO) 0.5 10^3/uL (0.0-0.3); EOSINOPHILS % (AUTO) 6 % (0-10); HEMATOCRIT 35 % (35-52); HEMOGLOBIN 12.2 g/dL (11.5-16.0); LYMPHOCYTES # (AUTO) 1.6 10^3/uL (1.0-4.0); LYMPHOCYTES % (AUTO) 20 % (12-44); MEAN CORPUSCULAR HEMOGLOBIN 35 pg (25-34); MEAN CORPUSCULAR HGB CONC 35 g/dL (32-36); MEAN CORPUSCULAR VOLUME 99 fL (80-99); MEAN PLATELET VOLUME 8.1 fL (9.0-12.2); MONOCYTES # (AUTO) 0.8 10^3/uL (0.0-1.0); MONOCYTES % (AUTO) 10 % (0-12); NEUTROPHILS # (AUTO) 5.3 10^3/uL (1.8-7.8); NEUTROPHILS % (AUTO) 64 % (42-75); PLATELET COUNT 331 10^3/uL (130-400); WHITE BLOOD COUNT 8.2 10^3/uL (4.3-11.0)
[2022-02-17 16:46] LABS: AMPHETAMINE SCREEN, URINE NEGATIVE (NEGATIVE); BARBITURATE SCREEN URINE NEGATIVE (NEGATIVE); BENZODIAZEPINES SCREEN URINE NEGATIVE (NEGATIVE); CANNABINOID SCREEN, URINE NEGATIVE (NEGATIVE); COCAINE SCREEN URINE NEGATIVE (NEGATIVE); METHADONE STAT NEGATIVE (NEGATIVE); OPIATE SCREEN URINE NEGATIVE (NEGATIVE); OXYCODONE STAT NEGATIVE (NEGATIVE); PROPOXYPHENE STAT NEGATIVE (NEGATIVE); TRICYCLIC ANTIDEPRESSANTS SCRE NEGATIVE (NEGATIVE)
[2022-02-17 17:01] LABS: ALBUMIN 3.1 GM/DL (3.2-4.5); CHLORIDE 90 MMOL/L (98-107); POTASSIUM 3.2 MMOL/L (3.6-5.0); SODIUM 129 MMOL/L (135-145)
[2022-02-17] MEDS ORDERED: NS IV 1000 ML 1,000 ML IV STA (17:02)
[2022-02-17 17:03] LABS: CALCIUM 8.5 MG/DL (8.5-10.1)
[2022-02-17 17:04] LABS: GLUCOSE 91 MG/DL (70-105); TOTAL PROTEIN 7.2 GM/DL (6.4-8.2)
[2022-02-17 17:05] LABS: CARBON DIOXIDE 27 MMOL/L (21-32)
[2022-02-17 17:06] LABS: BILIRUBIN,TOTAL 0.3 MG/DL (0.1-1.0)
[2022-02-17 17:08] LABS: ALKALINE PHOSPHATASE 100 U/L (40-136); CREATININE SERUM 0.59 MG/DL (0.60-1.30); GFR ESTIMATED 107
[2022-02-17 17:09] LABS: BUN/CREATININE RATIO 3
[2022-02-17 17:10] LABS: SALICYLATE < 5.0 MG/DL (5.0-20.0)
[2022-02-17 17:11] LABS: ALANINE AMINOTRANSFERASE 16 U/L (0-55)
[2022-02-17 17:15] LABS: ACETAMINOPHEN < 10 UG/ML (10-30)
[2022-02-17] MEDS ORDERED: KCL 20 MEQ TAB (K-DUR) PO ONE (17:15)
[2022-02-17] MEDS ORDERED: LOPERAMIDE 2 MG (IMODIUM) TABLET PO STA (21:53)
[2022-02-17] MEDS ORDERED: ONDANSETRON 4 MG/2 ML (SDV) Z0FRAN IVP ONE (22:00)
[2022-02-17] MEDS ORDERED: LORazepam 0.5 MG (ATIVAN) TABLET PO STA (23:17)
[2022-02-19] MEDS ORDERED: LORazepam 1 MG (ATIVAN) TAB PO PRN (00:15)
[2022-02-19] MEDS ORDERED: LORazepam INJ 2 MG/ML (ATIVAN) VIAL IV PRN (00:15)
[2022-02-19] MEDS ORDERED: ANTACID SUSP 30 ML UDC (MYLANTA) PO PRN (00:15)
[2022-02-19] MEDS ORDERED: ONDANSETRON 4 MG/2 ML (SDV) Z0FRAN IV PRN (00:15)
[2022-02-19] MEDS ORDERED: LORazepam INJ 2 MG/ML (ATIVAN) VIAL IM/IV PRN (00:15)
[2022-02-19] MEDS ORDERED: 1/2 NS IV SOLUTION 1,000 ML IV PRN (00:15)
[2022-02-19] MEDS ORDERED: ONDANSETRON 4 MG (ZOFRAN) ORAL DISSOLVE TAB SL PRN (00:15)
[2022-02-19] MEDS ORDERED: SENNA W/DOCUSATE (SENOKOT S) TABLET PO PRN (00:15)
[2022-02-19] MEDS ORDERED: D5 1/2 NS 1000 ML IV SOLUTION 1,000 ML IV PRN (00:15)
[2022-02-19] MEDS ORDERED: CATHETER FLUSH 10 ML SYR IVP PRN (00:15)
[2022-02-19 00:30] VITALS: BP 112/74
[2022-02-19 04:05] VITALS: BP 119/70
--- NOTE | 2022-02-19 05:51 | History & Physical-Hospitalist ---
History of Present Illness HPI/Chief Complaint CC: Altered mental status with depression HPI: This is a 56 yr old female of [facility]. She is known to me from alcohol withdr awal and in-patient rehab. She presents to [facility] floor for close monitoring for suicidal ideation and awaiting bed at rehab. Pt denies any significant problems right now, but wants to go home soon after she is well. Source: patient Exam Limitations: no limitations Date Seen 02/19/22 Time Seen by a Provider: 09:00 Attending Physician Abril Rosales MD [place]CP [place] [facility] Referring Physician Date of Admission February 18, 2022 at 22:20 Home Medications & Allergies Home Medications Reviewed patient Home Medication Reconciliation performed by pharmacy medication reconciliations technician terminal and repeater and/or nursing. Patients Allergies have been reviewed. Allergies Allergies Coded Allergies codeine (Verified Allergy, Mild, 09/02/15) Past Yrkjwma-Vyeinw-Dzfjjk Hx Patient Social History Marrital Status: Employed/Student: unemployed Tobacco Use?: Yes Tobacco type used: Cigarettes Smoking Status: Current Everyday Smoker Substance use?: No Alcohol Use?: Yes Alcohol type: Beer Alcohol Frequency: Daily Additional Alcohol Comments: 5-10 daily cans Pt feels they are or have been: No Immunizations Up To Date First/Initial COVID19 Vaccinat: unknown date Tetanus Booster (TDap): Unknown Hepatitis A: No Hepatitis B: No PED Vaccines UTD: No Current Status status: No status: No Advance Directives: No Communicates: Verbally Primary Language: Mosotho Preferred Spoken Language: Mosotho Is interpretation needed?: No Sensory deficits: Hearing impairment 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 Past Medical History Surgeries: Section, Coronary Stent, 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 Asthma Currently Using CPAP: No Currently Using BIPAP: No Coronary Artery Disease, 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 5.0oz. 49.092282wk; 15.54 BMI Method:Stated General Appearance: No Apparent Distress, Chronically ill Eyes: Right Eye Normal Inspection, Right Eye PERRL HEENT: PERRL/EOMI, Normal ENT Inspection, Pharynx Normal, Moist Mucous Membranes Neck: Full Range of Motion, Normal Inspection, Non Tender Respiratory: Chest Non Tender, Lungs Clear, Normal Breath Sounds, No Accessory Muscle Use, No Respiratory Distress Cardiovascular: Regular Rate, Rhythm, No Edema, No Gallop, No JVD, No Murmur, Normal Peripheral Pulses Gastrointestinal: Normal Bowel Sounds, No Organomegaly, No Pulsatile Mass, Non Tender, Soft Back: Normal Inspection, No CVA Tenderness, No Vertebral Tenderness Extremity: Normal Capillary Refill, Normal Inspection, Normal Range of Motion, Non Tender, No Calf Tenderness, No Pedal Edema Neurologic/Psychiatric: Alert, Oriented x3, No Motor/Sensory Deficits, Normal Mood/Affect Skin: Normal Color, Warm/Dry Lymphatic: No Adenopathy Results Results/Procedures Labs Laboratory Tests 02/18/22 09:34 02/19/22 05:40 Patient resulted labs reviewed. Assessment/Plan Admission Diagnosis Assessment: Alcoholism Asthma Plan: Inpatient alcohol rehab Admission Status: Observation Diagnosis/Problems Diagnosis/Problems (1) Alcoholism Status: Acute JADA HOLLINGSWORTH DO February 19, 2022 05:51
[2022-02-19 06:14] LABS: BASOPHILS # (AUTO) 0.1 10^3/uL (0.0-0.1); BASOPHILS % (AUTO) 0 % (0-10); EOSINOPHILS # (AUTO) 0.3 10^3/uL (0.0-0.3); EOSINOPHILS % (AUTO) 3 % (0-10); HEMATOCRIT 30 % (35-52); HEMOGLOBIN 10.3 g/dL (11.5-16.0); LYMPHOCYTES # (AUTO) 1.4 10^3/uL (1.0-4.0); LYMPHOCYTES % (AUTO) 12 % (12-44); MEAN CORPUSCULAR HEMOGLOBIN 35 pg (25-34); MEAN CORPUSCULAR HGB CONC 35 g/dL (32-36); MEAN CORPUSCULAR VOLUME 101 fL (80-99); MEAN PLATELET VOLUME 8.5 fL (9.0-12.2); MONOCYTES # (AUTO) 1.1 10^3/uL (0.0-1.0); MONOCYTES % (AUTO) 10 % (0-12); NEUTROPHILS # (AUTO) 8.4 10^3/uL (1.8-7.8); NEUTROPHILS % (AUTO) 74 % (42-75); PLATELET COUNT 239 10^3/uL (130-400); WHITE BLOOD COUNT 11.3 10^3/uL (4.3-11.0)
[2022-02-19 06:30] LABS: CHLORIDE 96 MMOL/L (98-107); POTASSIUM 3.3 MMOL/L (3.6-5.0); SODIUM 131 MMOL/L (135-145)
[2022-02-19 06:31] LABS: CALCIUM 8.3 MG/DL (8.5-10.1); GLUCOSE 110 MG/DL (70-105)
[2022-02-19 06:33] LABS: CARBON DIOXIDE 22 MMOL/L (21-32)
[2022-02-19 06:35] LABS: CREATININE SERUM 0.52 MG/DL (0.60-1.30); GFR ESTIMATED 110
[2022-02-19 06:36] LABS: BUN/CREATININE RATIO 4
[2022-02-19] MEDS ORDERED: MULTIVIT W/MINERALS TAB (THERAGRAN M) PO SCH (07:00)
[2022-02-19] MEDS ORDERED: THIAMINE 100 MG (VITAMIN B-1) TAB PO SCH (07:00)
[2022-02-19 07:37] VITALS: BP 121/69
[2022-02-19] MEDS ORDERED: MAGNESIUM OXIDE (MAG-OX)400 MG TAB PO SCH (08:00)
[2022-02-19] MEDS: CATHETER FLUSH 10 ML SYR IVP SCH ×2 (08:22→13:35)
[2022-02-19] MEDS ORDERED: POTASSIUM BICARB 20 MEQ (EFFER-K) TABLET PO SCH (09:00)
[2022-02-19] MEDS ORDERED: KCL 20 MEQ TAB (K-DUR) PO SCH (09:00)
[2022-02-19] MEDS ORDERED: FOLIC ACID 1 MG TAB PO SCH (09:00)
[2022-02-19 11:09] VITALS: BP 129/86
[2022-02-19] MEDS ORDERED: AMLO-250 PO (12:29)
[2022-02-19] MEDS ORDERED: FLUO10CA33 PO (12:29)
--- NOTE | 2022-02-19 15:40 | Discharge Summary ---
Discharge Summary Hospital Course Was the Problem List Reviewed?: Yes Problems/Dx: (1) Alcoholism Status: Acute Hospital Course Date of Admission: February 18, 2022 at 22:20 Admission Diagnosis : Family Physician/Provider: Nicholas Umana - [facility] Date of Discharge: 02/19/22 Discharge Diagnosis: Left AMA, severe alcoholism Hospital Course: Short course after she was admitted placed on alcohol withdrawal protocol and arranging discharge for alcohol rehab but she left AMA. Labs and Pending Lab Test: Laboratory Tests 02/19/22 05:40: White Blood Count 11.3H, Red Blood Count 2.95L, Hemoglobin 10.3L, Hematocrit 30L , Mean Corpuscular Volume 101H, Mean Corpuscular Hemoglobin 35H, Mean Corpuscular Hemoglobin Concent 35, Red Cell Distribution Width 13.0, Platelet Count 239, Mean Platelet Volume 8.5L, Immature Granulocyte % (Auto) 1, Neutrophils (%) (Auto) 74, Lymphocytes (%) (Auto) 12, Monocytes (%) (Auto) 10, Eosinophils (%) (Auto) 3, Basophils (%) (Auto) 0, Neutrophils # (Auto) 8.4H, Lymphocytes # (Auto) 1.4, Monocytes # (Auto) 1.1H, Eosinophils # (Auto) 0.3, Basophils # (Auto) 0.1, Immature Granulocyte # (Auto) 0.1, Sodium Level 131L, Potassium Level 3.3L, Chloride Level 96L, Carbon Dioxide Level 22, Anion Gap 13, Blood Urea Nitrogen < 2L, Creatinine 0.52L, Estimat Glomerular Filtration Rate 110, BUN/Creatinine Ratio 4, Glucose Level 110H, Calcium Level 8.3L Home Meds Active Reported Fluoxetine HCl 10 Mg Capsule 10 Mg PO DAILY Amlodipine Besylate 5 Mg Tablet 5 Mg PO DAILY Potassium (Potassium Gluconate) 99 Mg Tablet 99 Mg PO DAILY Flintstones (Multivitamin) 1 Each Tab.chew 1 Each PO DAILY Metoprolol Succinate 100 Mg Tab.er.24h 100 Mg PO DAILY Aspirin 81 Mg Tab.chew 81 Mg PO DAILY Assessment/Pt Instructions Alcohol rehab Discharge Planning: <30 minutes discharge planning Discharge Instructions Discharge Diet: No Restrictions Discharge Physical Examination Vital Signs Vital Signs Date Time Temp Pulse Resp B/P (MAP) Pulse Ox O2 Delivery O2 Flow Rate FiO2 02/19/22 11:09 36.2 82 18 129/86 (100) 97 Room Air General Appearance: No Apparent Distress, WD/WN Allergies: Coded Allergies: codeine (Verified Allergy, Mild, 09/02/15) Discharge Summary Date of Admission February 18, 2022 at 22:20 Date of Discharge JADA HOLLINGSWORTH DO February 19, 2022 15:40
== END 2022-02-19 14:20 | disposition left against medical advice (07) ==
LOC: EDUNIT# 15:12 → ER 15:16 → 4TH 02-18 22:20
PROVIDERS: ADMIT Family Medicine; ATTEND Internal Medicine
DX: F10.20 Alcohol dependence, uncomplicated (principal); F32.2 Major depressive disorder, single episode, severe without psychotic features; Z20.822 Contact with and (suspected) exposure to COVID-19; Y90.6 Blood alcohol level of 120-199 mg/100 ml
CPT/HCPCS: 80048; 80053; 80306; 81000; 84132; 84703; 85025 ×2; 87636; 93005; 96361; 96374; 99284; G0378; G0480 ×4; 36415; 80320; 80329

== ENCOUNTER 2023-01-30 20:27 | Inpatient (IN) | payer SELFPAY ==
[~2023-01-30] VITALS: Ht 160 cm; Wt 46.6 kg
[~2023-01-30 20:27] MED LIST changes: -POTA10CA43 PO; +POTA10CA44 PO
[2023-01-30] MEDS ORDERED: NS IV 1000 ML 1,000 ML IV STA (20:47)
[2023-01-30 20:53] LABS: BASOPHILS # (AUTO) 0.1 10^3/uL (0.0-0.1); BASOPHILS % (AUTO) 0 % (0-10); EOSINOPHILS # (AUTO) 0.1 10^3/uL (0.0-0.3); EOSINOPHILS % (AUTO) 1 % (0-10); HEMATOCRIT 23 % (35-52); LYMPHOCYTES # (AUTO) 0.9 10^3/uL (1.0-4.0); LYMPHOCYTES % (AUTO) 7 % (12-44); MEAN CORPUSCULAR HEMOGLOBIN 20 pg (25-34); MEAN CORPUSCULAR HGB CONC 30 g/dL (32-36); MEAN CORPUSCULAR VOLUME 68 fL (80-99); MEAN PLATELET VOLUME 8.5 fL (9.0-12.2); MONOCYTES # (AUTO) 1.9 10^3/uL (0.0-1.0); MONOCYTES % (AUTO) 15 % (0-12); NEUTROPHILS # (AUTO) 9.1 10^3/uL (1.8-7.8); NEUTROPHILS % (AUTO) 75 % (42-75); PLATELET COUNT 286 10^3/uL (130-400)
[2023-01-30 20:57] LABS: ALBUMIN 3.2 GM/DL (3.2-4.5); CHLORIDE 85 MMOL/L (98-107); POTASSIUM 3.2 MMOL/L (3.6-5.0)
[2023-01-30 20:58] LABS: CALCIUM 8.1 MG/DL (8.5-10.1)
[2023-01-30 20:59] LABS: GLUCOSE 116 MG/DL (70-105)
[2023-01-30] MEDS ORDERED: ONDANSETRON 4 MG/2 ML (SDV) Z0FRAN IVP ONE (21:00)
[2023-01-30 21:01] LABS: BILIRUBIN,TOTAL 0.4 MG/DL (0.1-1.0); CARBON DIOXIDE 17 MMOL/L (21-32)
[2023-01-30 21:03] LABS: ALKALINE PHOSPHATASE 109 U/L (40-136); GFR ESTIMATED 111
[2023-01-30 21:04] LABS: BUN/CREATININE RATIO 4
[2023-01-30 21:06] LABS: ALANINE AMINOTRANSFERASE 17 U/L (0-55)
--- NOTE | 2023-01-30 21:10 | ED GI ---
General Chief Complaint: Abdominal/GI Problems Stated Complaint: NAUSEA/VOMITING Nursing Triage Note: TO ED [facility]IA [facility] TO ROOM 3. PT STATES "I HAVE FOOD POISONING. I ATE TACO DRAKE 3-4 DAYS AGO AND STARTED VOMITING 3-4 HOURS AFTER I ATE IT". PT STATES SHE DRINKS 4-8 BEERS DAILY AND TODAY DRANK 6. 20G IV STARTED TO LEFT AC BY EMS EN ROUTE AND APPROX 250ML OF 500ML NS BAG HAVE INFUSED ON ARRIVAL TO ER. PT IS RETCHING AT TIME OF ARRIVAL TO ER. PT STATES HX OF GASTROPARESIS. Source of Information: Patient Exam Limitations: No Limitations History of Present Illness Date Seen by Provider: Jan 30, 2023 Time Seen by Provider: 20:40 Initial Comments Here by EMS with report of concerns of food poisoning. She states that she ate [employer] 3 to 4 days ago and then started having vomiting afterwards. She states that she has been unable to keep anything down since. She does admit to drinking beers daily and has been able to drink about 6 beers today. She states that anytime she even drinks water that she vomits. She did get normal saline 500 mL by EMS in route but she did not have nausea so no meds given. She does currently have nausea and has vomited once after arrival. She reports that she does have hypertension as well as some mental health disorders. She does follow with [facility]. She is currently out of her blood pressure medicine because she has been unable to get appointment. She reports that she has cataracts and cannot see to drive so has not gone to [facility] recently. She was informed of the fact that they do have transportation services and she states she did not know about that but will call them for follow-up now that she knows. She also has history of heart disease and has had stents placed previously but its been several years. She is only on aspirin now and she reports taking. She states that she had an episode similar to this several years ago also after eating [place] food. Timing/Duration: 3-4 Days, Constant Severity/Quality: Moderate, Cramping, Other (Nausea and vomiting) Location: Generalized Abdomen Radiation: No Radiation Activities at Onset: None Modifying Factors: Worsens With Eating; Improves With Vomiting Associated Symptoms: No Back Pain, No Chest Pain, No Fever/Chills; Nausea/Vomiting; No Shortness of Air, No Weakness Allergies and Home Medications Allergies Coded Allergies: codeine (Verified Allergy, Mild, 09/02/15) Penicillins (Verified Allergy, Unknown, 01/30/23) Patient Home Medication List Home Medication List Reviewed: Yes Amlodipine Besylate (Amlodipine Besylate) 5 Mg Tablet, 5 MG PO DAILY, (Reported) Entered as Reported by: EJ GILLETTE on 02/19/22 1229 Aspirin (Aspirin) 81 Mg Tab.chew, 81 MG PO DAILY, (Reported) Entered as Reported by: EJ GILLETTE on 03/19/21 1149 Fluoxetine HCl (Fluoxetine HCl) 10 Mg Capsule, 10 MG PO DAILY, (Reported) Entered as Reported by: EJ GILLETTE on 02/19/22 1229 Metoprolol Succinate (Metoprolol Succinate) 100 Mg Tab.er.24h, 100 MG PO DAILY, (Reported) Entered as Reported by: EJ GILLETTE on 06/22/21 1556 Multivitamin (Flintstones) 1 Each Tab.chew, 1 EACH PO DAILY, (Reported) Entered as Reported by: MARCUS VAZQUEZ on 12/21/21 1015 Potassium Gluconate (Potassium) 99 Mg Tablet, 99 MG PO DAILY, (Reported) Entered as Reported by: MARCUS VAZQUEZ on 12/21/21 1015 Review of Systems Review of Systems Constitutional: see HPI; No chills, No fever EENTM: No Nose Congestion; Throat Pain (From vomiting) Respiratory: Denies Cough, Denies Shortness of Air Cardiovascular: Denies Chest Pain, Denies Edema Gastrointestinal: Diarrhea, Nausea, Vomiting Genitourinary: No Symptoms Reported Musculoskeletal: no symptoms reported All Other Systems Reviewed Negative Unless Noted: Yes Past Bipydtb-Sunwpp-Uxeugo Hx Patient Social History Tobacco Use?: Yes Tobacco type used: Cigarettes Smoking Status: Current Everyday Smoker Substance use?: No Alcohol Use?: Yes Alcohol type: Beer Alcohol Frequency: Daily Immunizations Up To Date Tetanus Booster (TDap): Unknown PED Vaccines UTD: No Influenza Vaccine Up-to-Date: No; Not Current First/Initial COVID19 Vaccinat: unknown date Second COVID19 Vaccination Jose: unknown date Third COVID19 Vaccination Date: unknown date COVID19 Vaccine Silk [employer]: STATES SHE HAS HAD 1 VACCINE Past Medical History Surgery/Hospitalization HX: 1986, hysteroctomy 1991, cardiac stent (year unknown done here in [place]). 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 Sexually Transmitted Disease: No HIV/AIDS: No Genitourinary: No Gastrointestinal: No Musculoskeletal: Yes Arthritis Endocrine: No HEENT: No Hearing Impairment: Denies Cancer: No Did You Recieve Any Treatments: No Psychosocial: Yes Depression Integumentary: No Blood Disorders: No Adverse Reaction/Blood Tranf: No Family Medical History Reviewed Nursing Family Hx Myocardial infarction 21 MOTHER CAD Under 55 Years Old Physical Exam Vital Signs Vital Signs - First Documented 01/30/23 20:29 Temp 36.8 Pulse 135 Resp 16 B/P (MAP) 150/65 (93) Pulse Ox 100 O2 Delivery Room Air Capillary Refill : Less Than 3 Seconds Height/Weight/BMI Height: 5'3.00" Weight: 109lbs. 5.0oz. 49.110088xl; 18.00 BMI Method:Stated General Appearance: WD/WN, mild distress HEENT: PERRL/EOMI, pharyngeal erythema; No tonsillar exudate Neck: full range of motion, supple Respiratory: lungs clear, normal breath sounds Cardiovascular: no murmur, tachycardia Gastrointestinal: normal bowel sounds, non tender, soft Extremities: non-tender, normal inspection Back: normal inspection, no CVA tenderness, no vertebral tenderness Neurologic/Psychiatric: alert, oriented x 3 Skin: normal color, warm/dry Focused Exam Lactate Level 01/30/23 22:49: Lactic Acid Level 4.03*H Lactic Acid Level Laboratory Tests Test 01/30/23 22:49 Lactic Acid Level 4.03 MMOL/L (0.50-2.00) *H Progress/Results/Core Measures Results/Orders Lab Results Laboratory Tests Test 01/30/23 20:37 01/30/23 21:19 01/30/23 22:49 Range/Units White Blood Count 12.0 H 4.3-11.0 10^3/uL Red Blood Count 3.44 L 3.80-5.11 10^6/uL Hemoglobin 7.0 L 11.5-16.0 g/dL Hematocrit 23 L 35-52 % Mean Corpuscular Volume 68 L 80-99 fL Mean Corpuscular Hemoglobin 20 L 25-34 pg Mean Corpuscular Hemoglobin Concent 30 L 32-36 g/dL Red Cell Distribution Width 19.4 H 10.0-14.5 % Platelet Count 286 130-400 10^3/uL Mean Platelet Volume 8.5 L 9.0-12.2 fL Immature Granulocyte % (Auto) 1 % Neutrophils (%) (Auto) 75 42-75 % Lymphocytes (%) (Auto) 7 L 12-44 % Monocytes (%) (Auto) 15 H 0-12 % Eosinophils (%) (Auto) 1 0-10 % Basophils (%) (Auto) 0 0-10 % Neutrophils # (Auto) 9.1 H 1.8-7.8 10^3/uL Lymphocytes # (Auto) 0.9 L 1.0-4.0 10^3/uL Monocytes # (Auto) 1.9 H 0.0-1.0 10^3/uL Eosinophils # (Auto) 0.1 0.0-0.3 10^3/uL Basophils # (Auto) 0.1 0.0-0.1 10^3/uL Immature Granulocyte # (Auto) 0.1 0.0-0.1 10^3/uL Neutrophils % (Manual) 73 % Lymphocytes % (Manual) 8 % Monocytes % (Manual) 12 % Eosinophils % (Manual) 1 % Band Neutrophils 6 % Hypochromasia MARKED Anisocytosis MODERATE Sodium Level 119 *L 135-145 MMOL/L Potassium Level 3.2 L 3.6-5.0 MMOL/L Chloride Level 85 L 98-107 MMOL/L Carbon Dioxide Level 17 L 21-32 MMOL/L Anion Gap 17 H 5-14 MMOL/L Blood Urea Nitrogen < 2 L 7-18 MG/DL Creatinine 0.50 L 0.60-1.30 MG/DL Estimat Glomerular Filtration Rate 111 BUN/Creatinine Ratio 4 Glucose Level 116 H 70-105 MG/DL Calcium Level 8.1 L 8.5-10.1 MG/DL Corrected Calcium 8.7 8.5-10.1 MG/DL Magnesium Level 1.1 *L 1.6-2.4 MG/DL Total Bilirubin 0.4 0.1-1.0 MG/DL Aspartate Amino Transf (AST/SGOT) 37 H 5-34 U/L Alanine Aminotransferase (ALT/SGPT) 17 0-55 U/L Alkaline Phosphatase 109 40-136 U/L C-Reactive Protein High Sensitivity 0.09 0.00-0.50 MG/DL Total Protein 7.0 6.4-8.2 GM/DL Albumin 3.2 3.2-4.5 GM/DL Serum Alcohol < 10 <10 MG/DL Urine Color YELLOW Urine Clarity CLEAR Urine pH 6.5 5-9 Urine Specific [place] <=1.005 1.016-1.022 Urine Protein NEGATIVE NEGATIVE Urine Glucose (UA) NEGATIVE NEGATIVE Urine Ketones NEGATIVE NEGATIVE Urine Nitrite NEGATIVE NEGATIVE Urine Bilirubin NEGATIVE NEGATIVE Urine Urobilinogen 0.2 < = 1.0 MG/DL Urine Leukocyte Esterase 3+ H NEGATIVE Urine RBC (Auto) TRACE-I H NEGATIVE Urine RBC 0-2 /HPF Urine WBC 5-10 H /HPF Urine Squamous Epithelial Cells 0-2 /HPF Urine Crystals NONE /LPF Urine Bacteria MODERATE H /HPF Urine Casts NONE /LPF Urine Mucus NEGATIVE /LPF Urine Culture Indicated YES Lactic Acid Level 4.03 *H 0.50-2.00 MMOL/L My Orders Orders - PRATIK PALACIOS MD Cbc With Automated Diff (01/30/23 20:47) Comprehensive Metabolic Panel (01/30/23 20:47) Hs C Reactive Protein (01/30/23 20:47) Magnesium (01/30/23 20:47) Ua Culture If Indicated (01/30/23 20:47) Ondansetron Injection (Zofran Injectio (01/30/23 21:00) Ns Iv 1000 Ml (Sodium Chloride 0.9%) (01/30/23 20:47) Manual Differential (01/30/23 20:37) Alcohol (01/30/23 21:25) Magnesium 1 Gm/100 Ml Ivpb (Magnesium Loja (01/30/23 21:30) Urine Culture (01/30/23 21:19) Lactic Acid Analyzer (01/30/23 22:27) Blood Culture (01/30/23 22:27) Ceftriaxone Iv/Im (Rocephin Iv/Im) (01/30/23 22:28) Magnesium 1 Gm/100 Ml Ivpb (Magnesium Loja (01/30/23 22:45) Medications Given in ED Current Medications Medications Dose Ordered Sig/Mak Route Start Time Stop Time Status Last Admin Dose Admin Magnesium Sulfate/ Dextrose 100 ml @ 100 mls/hr ONCE ONCE IV 4/23/23 21:30 01/30/23 22:29 DC 01/30/23 21:39 100 MLS/HR Magnesium Sulfate/ Dextrose 100 ml @ 100 mls/hr ONCE ONCE IV 01/30/23 22:45 01/30/23 23:44 01/30/23 22:54 100 MLS/HR Ondansetron HCl 4 mg ONCE ONCE IVP 01/30/23 21:00 01/30/23 21:01 DC 01/30/23 21:02 4 MG Vital Signs/I&O 01/30/23 20:29 Temp 36.8 Pulse 135 Resp 16 B/P (MAP) 150/65 (93) Pulse Ox 100 O2 Delivery Room Air Blood Pressure Mean: 93 Progress Progress Note : Progress Note Seen and evaluated. IV established by EMS. EMS normal saline 500 mL bolus is c omplete. Heart rate still 10 5-1 15. Normal saline 1 L bolus ordered as well as Zofran 4 mg IV for nausea and vomiting. We will check CBC, CMP, CRP, magnesium and UA. I will EtOH to see what her level is currently. CT considered of abdomen and pelvis but we will hold pending labs and see if we have improvement with fluids and nausea medicines. Monitor patient. Differential diagnosis includes gastritis, alcoholism, dehydration, electrolyte abnormality, liver dysfunction 2228: I have reviewed labs. Patient does have mildly elevated WBC count and hemoglobin is noted to be 7. Historical review including last admission in February of last year shows hemoglobin in the range of 10-12. She has had admissions previously for alcohol abuse. She was noted on chemistry to have sodium of 119 with potassium of 3.2 and magnesium of 1.1 with otherwise mildly low electrolytes and normal serum creatinine. I do believe the electrolyte abnormality is related to alcohol abuse. EtOH level is negative currently. UA resulted and is concerning for urinary tract infection. I did do historical review and patient does have history of E. coli infection that is pansensitive. While I do not believe she is septic, we will go ahead and get blood cultures and lactic acid now and give Rocephin 1 g IV afterwards for this. I have discussed the case with Dr. Figueredo, hospitalist on-call and she accepts patient for admission but is requesting ICU. We are currently short on ICU beds and will get her to the ICU as soon as 1 becomes available. In the interim, she will remain in the ER. We will initiate admission protocols for alcohol abuse. She is improved after the fluids and Zofran heart rate currently under 100. I did discuss all of this with the patient issue.. I did order 1 g of magnesium IV and we will likely repeat that and then we will recheck mag pending admission to the ICU and ICU protocols. Monitor patient. 2319: Lactic acid noted to be 4. She has received 30 mL/kg of IV fluid with normal saline 500 mL bolus from EMS and 1 L bolus from's and patient weight at 47 kg. We will continue IV fluids. Again I believe the lactic acidosis is related to the vomiting and EtOH abuse and not septic shock. She is not hypotensive and she has responded well to fluids. We have ordered a second 1 g IV dose of magnesium. Monitor patient. Departure Communication (Admissions) Time/Spoke to Admitting Phy: 22:28 Impression Primary Impression: Hyponatremia Additional Impressions: Hypomagnesemia Anemia Qualified Codes: D64.9 - Anemia, unspecified Alcohol abuse Nausea vomiting and diarrhea Disposition: ADMITTED INPATIENT Condition: Stable Admissions Decision to Admit Reason: Admit from ER (General) Decision to Admit/Date: Jan 30, 2023 Time/Decision to Admit Time: 22:28 Departure-Patient Inst. Referrals: [facility] (PCP/Family) Primary Care Physician PRATIK PALACIOS MD Jan 30, 2023 21:10
[2023-01-30 21:18] LABS: MAGNESIUM 1.1 MG/DL (1.6-2.4); SODIUM 119 MMOL/L (135-145)
[2023-01-30 21:27] LABS: BILIRUBIN,URINE NEGATIVE (NEGATIVE); CLARITY,URINE CLEAR; COLOR,URINE YELLOW; GLUCOSE, URINE (UA) NEGATIVE (NEGATIVE); KETONES,URINE NEGATIVE (NEGATIVE); LEUKOCYTE ESTERASE ,URINE 3+ (NEGATIVE); NITRITE,URINE NEGATIVE (NEGATIVE); PH,URINE 6.5 (5-9); PROTEIN,URINE NEGATIVE (NEGATIVE)
[2023-01-30 21:29] LABS: ANISOCYTOSIS MODERATE; BAND NEUTROPHILS 6 %; EOSINOPHILS % (MANUAL) 1 %; HYPOCHROMASIA MARKED; LYMPHOCYTES % (MANUAL) 8 %; MONOCYTES % (MANUAL) 12 %; NEUTROPHILS % (MANUAL) 73 %
[2023-01-30] MEDS ORDERED: MAGNESIUM 1 GM/100 ML IVPB 100 ML IV ONE ×2 (21:30→22:45)
[2023-01-30 21:34] LABS: BACTERIA,URINE MODERATE /HPF; RBC,URINE 0-2 /HPF; SQUAMOUS EPITHELIAL CELL,UR 0-2 /HPF
[2023-01-30] MEDS ORDERED: cefTRIAXone IV/IM 1,000 MG in NS (IVPB) 50 ML IV STA (22:28)
[2023-01-31] MEDS ORDERED: ONDANSETRON 4 MG/2 ML (SDV) Z0FRAN IVP PRN (02:45)
--- NOTE | 2023-01-31 02:58 | Tele-ICU Progress Note ---
Progress Note 57F with HTN, etoh dependence admitted with gastroenteritis and hyponatremia. Reports she ate [employer] 3-4 days ago and has been vomiting since. Unable to tolerate PO, vomiting even water. Only tolerating beers. Reported drinking 6 beers on day of admit (etoh level negative). - hyponatremia: Secondary to beer potomania vs excessive vomiting. Goal correction to 125 4/24@2030. She has received 30 cc/kg NS bolus followed by LR at 125 cc/hr since. Has not had f/u Na since initial at 2030 (6 hours ago). STAT repeat being drawn now. At high risk for overcorrection. Will adjust fluids based on labs. - gastroenteritis: could reasonably be from [employer]/food poisoning vs etoh vs gastroparesis vs ileus/obstruction. Will check KUB now. Follow up imaging if inidcated by KUB. Most cases of food poisoning would have resolved within 3 days. - UTI: incidental pyuria/bacteruria on UA. Culture pending. Rocephin initiated in ED. - hypomag: repleted in ED. Repeat pending. - metabolic acidosis: anion gap 17, initial lactic 4. Repeat of both are pending. Possibly secondary to dehydration and tachycardia. Repeat of both are pending. She does have the UTI, but does not otherwise appear septic. Patient assessed via real-time audiovisual communication system. CCT 19 min UPDATE: Repeat labs resulted. - Hg from 7.0 to 6.5. Likely dilutional after volume resuscitation. HD stable and without signs of bleeding. Will order 1u PRBC but OK to wait 90 min until next scheduled lab draw to get type and screen. - Na 124 from 119, almost at 24 hour goal. Stop LR now. Repeat BMP in 90 min with AM labs, then q4 hr. If still uptrending on next draw will need 1/2 NS to slow down rate of correction. - K 2.4: KCl 60 meq ordered. Will likely need more, but with serial BMPs this will be repeated. - metabolic acidosis: improving. Bicarb from 17 to 20, gap from 17 to 13, lactic from 4 to 2.5. Will continue to monitor on BMPs. Focused Exam Lactate Level 01/30/23 22:49: Lactic Acid Level 4.03*H 01/31/23 00:46: Lactic Acid Level 3.16*H Height, Weight, BMI Height: 5'3.00" Weight: 109lbs. 5.0oz. 49.800557xw; 17.03 BMI Method:Stated Lactic Acid Level Laboratory Tests Test 01/31/23 00:46 Lactic Acid Level 3.16 MMOL/L (0.50-2.00) *H BRENDON OLIVER MD Jan 31, 2023 02:58
[2023-01-31] MEDS ORDERED: NS IV 500 ML 500 ML IV PRN ×2 (03:00→13:15)
[2023-01-31 03:02] LABS: BASOPHILS % (AUTO) 0 % (0-10); EOSINOPHILS # (AUTO) 0.1 10^3/uL (0.0-0.3); EOSINOPHILS % (AUTO) 1 % (0-10); HEMATOCRIT 22 % (35-52); LYMPHOCYTES # (AUTO) 0.8 10^3/uL (1.0-4.0); LYMPHOCYTES % (AUTO) 7 % (12-44); MEAN CORPUSCULAR HEMOGLOBIN 20 pg (25-34); MEAN CORPUSCULAR HGB CONC 29 g/dL (32-36); MEAN CORPUSCULAR VOLUME 68 fL (80-99); MONOCYTES # (AUTO) 2.1 10^3/uL (0.0-1.0); MONOCYTES % (AUTO) 18 % (0-12); NEUTROPHILS # (AUTO) 8.3 10^3/uL (1.8-7.8); NEUTROPHILS % (AUTO) 73 % (42-75); PLATELET COUNT 277 10^3/uL (130-400); WHITE BLOOD COUNT 11.3 10^3/uL (4.3-11.0)
[2023-01-31 03:11] LABS: ALBUMIN 2.8 GM/DL (3.2-4.5); CHLORIDE 91 MMOL/L (98-107)
[2023-01-31 03:13] LABS: CALCIUM 7.4 MG/DL (8.5-10.1); INR 1.1 (0.8-1.4)
[2023-01-31 03:14] LABS: GLUCOSE 103 MG/DL (70-105); TOTAL PROTEIN 6.2 GM/DL (6.4-8.2)
[2023-01-31 03:15] LABS: CARBON DIOXIDE 20 MMOL/L (21-32)
[2023-01-31] MEDS ORDERED: LORazepam INJ 2 MG/ML (ATIVAN) VIAL IM/IV PRN (03:15)
[2023-01-31] MEDS ORDERED: ONDANSETRON 4 MG (ZOFRAN) ORAL DISSOLVE TAB SL PRN (03:15)
[2023-01-31] MEDS ORDERED: SENNA W/DOCUSATE (SENOKOT S) TABLET PO PRN (03:15)
[2023-01-31] MEDS ORDERED: EPINEPHrine 1 MG INJECTION 4 MG in NS (IVPB) 248 ML IV SCH (03:15)
[2023-01-31] MEDS ORDERED: VASOPRESSIN INJECTION 20 UNIT in NS (IVPB) 100 ML IV SCH (03:15)
[2023-01-31] MEDS ORDERED: LORazepam INJ 2 MG/ML (ATIVAN) VIAL IV PRN (03:15)
[2023-01-31] MEDS ORDERED: D5 1/2 NS 1000 ML IV SOLUTION 1,000 ML IV PRN (03:15)
[2023-01-31] MEDS ORDERED: ONDANSETRON 4 MG/2 ML (SDV) Z0FRAN IV PRN ×2 (03:15)
[2023-01-31] MEDS ORDERED: NOREPINEPHRINE 8 MG/250 ML 250 ML IV SCH (03:15)
[2023-01-31] MEDS ORDERED: 1/2 NS IV SOLUTION 1,000 ML IV PRN (03:15)
[2023-01-31] MEDS ORDERED: LACTATED RINGERS 1,000 ML IV SCH ×2 (03:15)
[2023-01-31] MEDS ORDERED: ANTACID SUSP 30 ML UDC (MYLANTA) PO PRN (03:15)
[2023-01-31] MEDS ORDERED: LORazepam 1 MG (ATIVAN) TAB PO PRN (03:15)
[2023-01-31 03:16] LABS: BILIRUBIN,TOTAL 0.3 MG/DL (0.1-1.0)
[2023-01-31 03:17] LABS: ALKALINE PHOSPHATASE 94 U/L (40-136); PHOSPHORUS 2.2 MG/DL (2.3-4.7)
[2023-01-31 03:18] LABS: CREATININE SERUM 0.48 MG/DL (0.60-1.30); GFR ESTIMATED 112
[2023-01-31 03:19] LABS: BUN/CREATININE RATIO 4
[2023-01-31 03:21] LABS: ALANINE AMINOTRANSFERASE 15 U/L (0-55); MAGNESIUM 1.9 MG/DL (1.6-2.4)
[2023-01-31 03:27] LABS: HEMOGLOBIN 6.5 g/dL (11.5-16.0); POTASSIUM 2.4 MMOL/L (3.6-5.0); SODIUM 124 MMOL/L (135-145)
[2023-01-31] MEDS ORDERED: POTASSIUM CL 10MEQ/50ML IVPB 300 ML IV ONE (03:41)
[2023-01-31] MEDS: POTASSIUM CL 10MEQ/50ML IVPB 50 ML IV SCH ×6 (03:45→18:40)
[2023-01-31] MEDS ORDERED: NS IV 500 ML 500 ML IV SCH ×3 (03:45→17:45)
[2023-01-31] MEDS ORDERED: KCL 20 MEQ TAB (K-DUR) PO SCH (06:00)
[2023-01-31] MEDS ORDERED: POTASSIUM CL 10MEQ/50ML IVPB 50 ML IV SCH (06:00)
[2023-01-31] MEDS ORDERED: MAGNESIUM 1 GM/100 ML IVPB 100 ML IV SCH (06:00)
[2023-01-31 06:16] LABS: ALBUMIN 2.8 GM/DL (3.2-4.5); CHLORIDE 92 MMOL/L (98-107); POTASSIUM 2.6 MMOL/L (3.6-5.0)
--- NOTE | 2023-01-31 06:16 | Diagnostic Imaging Report ---
EXAMINATION: Abdomen 1 view HISTORY: Abdominal pain. COMPARISON: None available. FINDINGS: There is a moderate amount of gas and stool throughout the colon. Nonobstructive bowel gas pattern. No radiopaque foreign body. The lung bases are clear. The osseous structures are intact. IMPRESSION: Moderate stool burden without other acute abnormality in the abdomen. Dictated by: Dictated on workstation # [id number]
[2023-01-31 06:18] LABS: CALCIUM 7.3 MG/DL (8.5-10.1)
[2023-01-31 06:19] LABS: GLUCOSE 95 MG/DL (70-105)
[2023-01-31 06:20] LABS: BILIRUBIN,TOTAL 0.3 MG/DL (0.1-1.0); CARBON DIOXIDE 21 MMOL/L (21-32)
[2023-01-31 06:22] LABS: ALKALINE PHOSPHATASE 91 U/L (40-136); CREATININE SERUM 0.45 MG/DL (0.60-1.30); GFR ESTIMATED 114
[2023-01-31 06:23] LABS: BUN/CREATININE RATIO 4
[2023-01-31 06:24] LABS: SODIUM 124 MMOL/L (135-145)
[2023-01-31 06:25] LABS: ALANINE AMINOTRANSFERASE 15 U/L (0-55)
[2023-01-31 06:36] VITALS: BP 137/69
[2023-01-31] MEDS: MULTIVIT W/MINERALS TAB (THERAGRAN M) PO SCH (06:46)
[2023-01-31] MEDS: THIAMINE 100 MG (VITAMIN B-1) TAB PO SCH (06:46)
[2023-01-31 06:51] VITALS: BP 128/72
[2023-01-31] MEDS: FOLIC ACID 1 MG TAB PO SCH (07:43)
[2023-01-31] MEDS: MAGNESIUM OXIDE (MAG-OX)400 MG TAB PO SCH ×2 (07:43→20:12)
[2023-01-31 09:43] LABS: POTASSIUM 2.6 MMOL/L (3.6-5.0)
[2023-01-31 09:44] LABS: CALCIUM 7.5 MG/DL (8.5-10.1)
[2023-01-31 09:48] LABS: CREATININE SERUM 0.5 MG/DL (0.60-1.30)
[2023-01-31] MEDS ORDERED: CHOL10007 PO (10:30)
[2023-01-31] MEDS ORDERED: FLUO40CA PO (10:30)
--- NOTE | 2023-01-31 10:47 | History & Physical ---
HPI History of Present Illness: 57 yo female came to ER due to dehydration and weakness. States it started 2-3 weeks ago, gradually, eventually having trouble getting around the house. Was lightheaded with standing, had a lot of nausea and vomiting which is what started it to begin with. Denies fever. Admits diarrhea but reports it is chronic for her, did get worse than usual. Vomiting got to the point of being able to keep almost nothing down. Source: patient Date seen by provider: Jan 31, 2023 Time Seen by Provider: 10:44 Attending Physician [place] PCP Admitting Physician: Audrey Figueredo DO Attending Physician: Lito Jha MD Consult Date of Admission Jan 31, 2023 at 01:11 Home Medications Home Medications Reviewed patient Home Medication Reconciliation performed by pharmacy medication reconciliations financial services technician and/or nursing. Patients Allergies have been reviewed. 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 Past Medical History PMHx: Depression Anxiety HTN CAD with stenting x 2 Anemia Gastic ulcer SurgHx: Coronary artery stenting x 2 C section 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 Family Medical History Significant Family History: CAD Under 55 Years Old Family History: Myocardial infarction 19 MOTHER Review of Systems ([facility]) Constitutional: No fever; weakness EENTM: No nose congestion, No throat pain Respiratory: No cough, No short of breath Cardiovascular: No chest pain Gastrointestinal: No abdominal pain, No diarrhea, No melena, No nausea, No vomiting Genitourinary: No dysuria Musculoskeletal: No joint pain; muscle pain (general chronic pains) Skin: No rash Reviewed Test Results Reviewed Test Results Lab Laboratory Tests Test 01/30/23 20:37 01/30/23 21:19 01/30/23 22:49 01/31/23 00:46 Range/Units White Blood Count 12.0 H 4.3-11.0 10^3/uL Red Blood Count 3.44 L 3.80-5.11 10^6/uL Hemoglobin 7.0 L 11.5-16.0 g/dL Hematocrit 23 L 35-52 % Mean Corpuscular Volume 68 L 80-99 fL Mean Corpuscular Hemoglobin 20 L 25-34 pg Mean Corpuscular Hemoglobin Concent 30 L 32-36 g/dL Red Cell Distribution Width 19.4 H 10.0-14.5 % Platelet Count 286 130-400 10^3/uL Mean Platelet Volume 8.5 L 9.0-12.2 fL Immature Granulocyte % (Auto) 1 % Neutrophils (%) (Auto) 75 42-75 % Lymphocytes (%) (Auto) 7 L 12-44 % Monocytes (%) (Auto) 15 H 0-12 % Eosinophils (%) (Auto) 1 0-10 % Basophils (%) (Auto) 0 0-10 % Neutrophils # (Auto) 9.1 H 1.8-7.8 10^3/uL Lymphocytes # (Auto) 0.9 L 1.0-4.0 10^3/uL Monocytes # (Auto) 1.9 H 0.0-1.0 10^3/uL Eosinophils # (Auto) 0.1 0.0-0.3 10^3/uL Basophils # (Auto) 0.1 0.0-0.1 10^3/uL Immature Granulocyte # (Auto) 0.1 0.0-0.1 10^3/uL Neutrophils % (Manual) 73 % Lymphocytes % (Manual) 8 % Monocytes % (Manual) 12 % Eosinophils % (Manual) 1 % Band Neutrophils 6 % Hypochromasia MARKED Anisocytosis MODERATE Sodium Level 119 *L 135-145 MMOL/L Potassium Level 3.2 L 3.6-5.0 MMOL/L Chloride Level 85 L 98-107 MMOL/L Carbon Dioxide Level 17 L 21-32 MMOL/L Anion Gap 17 H 5-14 MMOL/L Blood Urea Nitrogen < 2 L 7-18 MG/DL Creatinine 0.50 L 0.60-1.30 MG/DL Estimat Glomerular Filtration Rate 111 BUN/Creatinine Ratio 4 Glucose Level 116 H 70-105 MG/DL Calcium Level 8.1 L 8.5-10.1 MG/DL Corrected Calcium 8.7 8.5-10.1 MG/DL Magnesium Level 1.1 *L 1.6-2.4 MG/DL Total Bilirubin 0.4 0.1-1.0 MG/DL Aspartate Amino Transf (AST/SGOT) 37 H 5-34 U/L Alanine Aminotransferase (ALT/SGPT) 17 0-55 U/L Alkaline Phosphatase 109 40-136 U/L C-Reactive Protein High Sensitivity 0.09 0.00-0.50 MG/DL Total Protein 7.0 6.4-8.2 GM/DL Albumin 3.2 3.2-4.5 GM/DL Serum Alcohol < 10 <10 MG/DL Urine Color YELLOW Urine Clarity CLEAR Urine pH 6.5 5-9 Urine Specific [place] <=1.005 1.016-1.022 Urine Protein NEGATIVE NEGATIVE Urine Glucose (UA) NEGATIVE NEGATIVE Urine Ketones NEGATIVE NEGATIVE Urine Nitrite NEGATIVE NEGATIVE Urine Bilirubin NEGATIVE NEGATIVE Urine Urobilinogen 0.2 < = 1.0 MG/DL Urine Leukocyte Esterase 3+ H NEGATIVE Urine RBC (Auto) TRACE-I H NEGATIVE Urine RBC 0-2 /HPF Urine WBC 5-10 H /HPF Urine Squamous Epithelial Cells 0-2 /HPF Urine Crystals NONE /LPF Urine Bacteria MODERATE H /HPF Urine Casts NONE /LPF Urine Mucus NEGATIVE /LPF Urine Culture Indicated YES Urine Test NEGATIVE NEGATIVE Lactic Acid Level 4.03 *H 3.16 *H 0.50-2.00 MMOL/L Test 01/31/23 02:52 01/31/23 04:53 01/31/23 05:44 01/31/23 07:10 Range/Units White Blood Count 11.3 H 4.3-11.0 10^3/uL Red Blood Count 3.23 L 3.80-5.11 10^6/uL Hemoglobin 6.5 *L 11.5-16.0 g/dL Hematocrit 22 L 35-52 % Mean Corpuscular Volume 68 L 80-99 fL Mean Corpuscular Hemoglobin 20 L 25-34 pg Mean Corpuscular Hemoglobin Concent 29 L 32-36 g/dL Red Cell Distribution Width 19.3 H 10.0-14.5 % Platelet Count 277 130-400 10^3/uL Mean Platelet Volume 9.0 9.0-12.2 fL Immature Granulocyte % (Auto) 1 % Neutrophils (%) (Auto) 73 42-75 % Lymphocytes (%) (Auto) 7 L 12-44 % Monocytes (%) (Auto) 18 H 0-12 % Eosinophils (%) (Auto) 1 0-10 % Basophils (%) (Auto) 0 0-10 % Neutrophils # (Auto) 8.3 H 1.8-7.8 10^3/uL Lymphocytes # (Auto) 0.8 L 1.0-4.0 10^3/uL Monocytes # (Auto) 2.1 H 0.0-1.0 10^3/uL Eosinophils # (Auto) 0.1 0.0-0.3 10^3/uL Basophils # (Auto) 0.0 0.0-0.1 10^3/uL Immature Granulocyte # (Auto) 0.1 0.0-0.1 10^3/uL Prothrombin Time 15.0 H 12.2-14.7 SEC INR Comment 1.1 0.8-1.4 Activated Partial Thromboplast Time 33 24-35 SEC Sodium Level 124 *L 124 *L 135-145 MMOL/L Potassium Level 2.4 *L 2.6 L 3.6-5.0 MMOL/L Chloride Level 91 L 92 L 98-107 MMOL/L Carbon Dioxide Level 20 L 21 21-32 MMOL/L Anion Gap 13 11 5-14 MMOL/L Blood Urea Nitrogen < 2 L < 2 L 7-18 MG/DL Creatinine 0.48 L 0.45 L 0.60-1.30 MG/DL Estimat Glomerular Filtration Rate 112 114 BUN/Creatinine Ratio 4 4 Glucose Level 103 95 70-105 MG/DL Lactic Acid Level 2.59 *H 2.47 *H 2.20 *H 0.50-2.00 MMOL/L Calcium Level 7.4 L 7.3 L 8.5-10.1 MG/DL Corrected Calcium 8.4 L 8.3 L 8.5-10.1 MG/DL Phosphorus Level 2.2 L 2.3-4.7 MG/DL Magnesium Level 1.9 1.6-2.4 MG/DL Total Bilirubin 0.3 0.3 0.1-1.0 MG/DL Aspartate Amino Transf (AST/SGOT) 33 33 5-34 U/L Alanine Aminotransferase (ALT/SGPT) 15 15 0-55 U/L Alkaline Phosphatase 94 91 40-136 U/L Total Protein 6.2 L 6.0 L 6.4-8.2 GM/DL Albumin 2.8 L 2.8 L 3.2-4.5 GM/DL Serum Alcohol < 10 <10 MG/DL Test 01/31/23 09:15 Range/Units Sodium Level 126 L 135-145 MMOL/L Potassium Level 2.6 L 3.6-5.0 MMOL/L Chloride Level 91 L 98-107 MMOL/L Carbon Dioxide Level 19 L 21-32 MMOL/L Anion Gap 16 H 5-14 MMOL/L Blood Urea Nitrogen 2 L 7-18 MG/DL Creatinine 0.50 L 0.60-1.30 MG/DL Estimat Glomerular Filtration Rate 111 BUN/Creatinine Ratio 4 Glucose Level 79 70-105 MG/DL Lactic Acid Level 8.23 *H 0.50-2.00 MMOL/L Calcium Level 7.5 L 8.5-10.1 MG/DL Radiology Abdomen xray 01/30: "IMPRESSION: Moderate stool burden without other acute abnormality in the abdomen." Physical Exam-([facility]) Physical Exam Vital Signs VS - Last 72 Hours, by Label 01/30/23 01/31/23 01/31/23 01/31/23 20:29 01:15 01:30 01:45 Temp 36.8 36.8 36.2 Pulse 135 98 104 104 Resp 16 16 22 B/P (MAP) 150/65 (93) 117/71 136/61 (86) 136/68 (90) Pulse Ox 100 100 100 100 O2 Delivery Room Air Room Air Room Air Room Air 01/31/23 01/31/23 01/31/23 01/31/23 01:51 02:00 02:01 02:15 Pulse 95 92 105 Resp 22 35 B/P (MAP) 139/63 (88) 137/70 (92) Pulse Ox 99 97 96 O2 Delivery Room Air Room Air Room Air 01/31/23 01/31/23 01/31/23 01/31/23 03:00 03:15 03:15 04:00 Pulse 98 105 105 93 Resp 26 17 B/P (MAP) 139/76 (97) 137/70 137/70 127/99 (108) Pulse Ox 100 99 O2 Delivery Room Air Room Air 01/31/23 01/31/23 01/31/2301/31/23 04:00 04:00 05:00 06:00 Temp 36.4 Pulse 92 95 Resp 21 21 B/P (MAP) 126/83 (97) 124/71 (88) Pulse Ox 100 100 100 O2 Delivery Room Air Room Air Room Air 01/31/23 01/31/23 01/31/23 01/31/23 06:36 06:51 07:00 08:00 Temp 36.2 36.4 Pulse 92 100 113 102 Resp 20 17 11 18 B/P (MAP) 137/69 128/72 133/91 (105) 123/72 (89) Pulse Ox 100 100 99 96 O2 Delivery Room Air Room Air Room Air Room Air 01/31/23 01/31/23 01/31/23 01/31/23 08:12 09:00 10:00 11:26 Pulse 95 94 100 93 Resp 22 17 18 B/P (MAP) 132/76 (94) 146/78 (100) 127/68 (87) Pulse Ox 100 99 99 O2 Delivery Room Air Room Air Room Air 01/31/23 01/31/23 12:00 12:37 Pulse 103 96 Resp 14 B/P (MAP) 150/80 (103) Pulse Ox 93 O2 Delivery Room Air Capillary Refill : Less Than 3 Seconds General Appearance: thin Respiratory: lungs clear, normal breath sounds Cardiovascular: regular rate, rhythm Gastrointestinal: normal bowel sounds, non tender, soft Extremities: no pedal edema Neurologic/Psychiatric: alert, normal mood/affect Skin: normal color, warm/dry Assessment/Plan Assessment/Plan Admission Status: Inpatient Order (span 2 midnights) Reason for Inpatient Admission: Severe hyponatremia and anemia which will require more than 24 hours to correct (1) Nausea and vomiting Status: Acute Assessment & Plan: Uncertain initial etiology, from more than 2 weeks ago per patient report. Supportive care with fluid, anti-emetics and electrolyte replacement. (2) Lactic acidosis Status: Acute Assessment & Plan: Suspect secondary to volume depletion. Improving overall. Did receive 30 cc/kg bolus with initial fluid resuscitation. (3) Alcohol withdrawal Status: Acute Assessment & Plan: CIWA monitoring with lorazepam as needed per score. Vitamin replacement daily. pharmacy services representative consulted. Qualifiers: Qualified Codes: F10.930 - Alcohol use, unspecified with withdrawal, uncomplicated (4) Urinary tract infection Status: Acute Assessment & Plan: Ceftriaxone started, culture pending. Qualifiers: Qualified Codes: N30.00 - Acute cystitis without hematuria (5) Coronary artery disease Status: Chronic Assessment & Plan: Holding home aspirin due to anemia requiring transfusion. (6) Severe depression Status: Chronic Assessment & Plan: Resume home SSRI (7) Alcoholism Status: Chronic Assessment & Plan: pharmacy services representative consulted, patient declines inpatient referral at this time. (8) Hypomagnesemia Status: Acute Assessment & Plan: Replace and monitor. (9) Anemia Status: Acute Assessment & Plan: Suspect possibly secondary to GI bleeding, s/p 1 unit PRBC with improvement. PPI started, monitor closely. Qualifiers: Qualified Codes: D64.9 - Anemia, unspecified (10) Hyponatremia Status: Acute Assessment & Plan: Secondary to hypovolemia and alcohol use, improving with fluid replacement. (11) DVT prophylaxis Status: Acute Assessment & Plan: SCDs, no pharmacologic due to concern for GI bleed. LITO JHA MD Jan 31, 2023 10:47
[2023-01-31 11:26] LABS: CHLORIDE 92 MMOL/L (98-107); POTASSIUM 2.8 MMOL/L (3.6-5.0); SODIUM 126 MMOL/L (135-145)
[2023-01-31 11:27] LABS: CALCIUM 7.6 MG/DL (8.5-10.1); GLUCOSE 90 MG/DL (70-105)
[2023-01-31 11:29] LABS: CARBON DIOXIDE 19 MMOL/L (21-32)
[2023-01-31 11:31] LABS: CREATININE SERUM 0.46 MG/DL (0.60-1.30); GFR ESTIMATED 113
[2023-01-31 11:32] LABS: BUN/CREATININE RATIO 4
[2023-01-31 11:39] LABS: HEMOGLOBIN 8.9 g/dL (11.5-16.0)
[2023-01-31] MEDS ORDERED: KCL 20 MEQ TAB (K-DUR) PO NR ×2 (13:30→19:45)
[2023-01-31] MEDS: PANTOPRAZOLE 40 MG (PROTONIX) TAB PO SCH (14:28)
[2023-01-31 15:51] LABS: CHLORIDE 92 MMOL/L (98-107); POTASSIUM 2.8 MMOL/L (3.6-5.0)
[2023-01-31 15:52] LABS: CALCIUM 7.7 MG/DL (8.5-10.1); GLUCOSE 87 MG/DL (70-105)
[2023-01-31 15:54] LABS: CARBON DIOXIDE 20 MMOL/L (21-32)
[2023-01-31 15:56] LABS: CREATININE SERUM 0.47 MG/DL (0.60-1.30); GFR ESTIMATED 112
[2023-01-31 15:57] LABS: BUN/CREATININE RATIO 4
[2023-01-31 16:04] LABS: SODIUM 125 MMOL/L (135-145)
[2023-01-31 16:15] VITALS: BP 123/109
[2023-01-31] MEDS ORDERED: NS IV 500 ML 500 ML IV ONE (18:00)
[2023-01-31 18:45] VITALS: BP 107/61
[2023-01-31 19:43] VITALS: BP 116/68
[2023-01-31] MEDS: cefTRIAXone 1 GM/NS 50 ML IVPB IV SCH ×2 (20:12)
[2023-01-31] MEDS: VITAMIN D3 25 MCG (1,000 UNITS) TABLET PO SCH (20:12)
[2023-01-31 20:19] LABS: BUN/CREATININE RATIO 4; CALCIUM 7.3 MG/DL (8.5-10.1); CARBON DIOXIDE 17 MMOL/L (21-32); CHLORIDE 95 MMOL/L (98-107); CREATININE SERUM 0.57 MG/DL (0.60-1.30); GFR ESTIMATED 107; GLUCOSE 67 MG/DL (70-105); POTASSIUM 3.4 MMOL/L (3.6-5.0); SODIUM 127 MMOL/L (135-145)
[2023-01-31] MEDS ORDERED: NON-FORMULARY MEDICATION 1 EA EA (Cholecalciferol (Vitamin D3) (Vitamin D3) 25 MCG) PO SCH (21:00)
[2023-01-31] MEDS ORDERED: D5W 1000 ML IV SOLUTION 1,000 ML IV SCH (21:00)
[2023-01-31] MEDS ORDERED: D5 NS 1000 ML IV SOLUTION 0 ML IV ONE (21:00)
[2023-01-31] MEDS ORDERED: D5W 1000 ML IV SOLUTION 1,000 ML ONE (21:08)
[2023-01-31 21:56] LABS: CHLORIDE 91 MMOL/L (98-107); POTASSIUM 2.9 MMOL/L (3.6-5.0)
[2023-01-31 21:57] LABS: CALCIUM 7.6 MG/DL (8.5-10.1); GLUCOSE 133 MG/DL (70-105)
[2023-01-31 21:59] LABS: CARBON DIOXIDE 21 MMOL/L (21-32)
[2023-01-31 22:01] LABS: CREATININE SERUM 0.54 MG/DL (0.60-1.30); GFR ESTIMATED 109
[2023-01-31 22:02] LABS: BUN/CREATININE RATIO 4
[2023-01-31 22:03] LABS: SODIUM 124 MMOL/L (135-145)
[2023-01-31] MEDS ORDERED: KCL 20 MEQ TAB (K-DUR) PO ONE (22:30)
[2023-01-31 23:34] VITALS: BP 114/70
[2023-02-01 00:31] LABS: CHLORIDE 92 MMOL/L (98-107)
[2023-02-01 00:32] LABS: CALCIUM 7.8 MG/DL (8.5-10.1); GLUCOSE 126 MG/DL (70-105)
[2023-02-01 00:34] LABS: CARBON DIOXIDE 19 MMOL/L (21-32)
[2023-02-01 00:36] LABS: CREATININE SERUM 0.54 MG/DL (0.60-1.30); GFR ESTIMATED 109
[2023-02-01 00:37] LABS: BUN/CREATININE RATIO 4
[2023-02-01 00:44] LABS: SODIUM 125 MMOL/L (135-145)
[2023-02-01 02:18] LABS: CHLORIDE 95 MMOL/L (98-107); POTASSIUM 3.3 MMOL/L (3.6-5.0); SODIUM 127 MMOL/L (135-145)
[2023-02-01 02:19] LABS: CALCIUM 7.8 MG/DL (8.5-10.1); GLUCOSE 87 MG/DL (70-105)
[2023-02-01 02:21] LABS: CARBON DIOXIDE 20 MMOL/L (21-32)
[2023-02-01 02:23] LABS: CREATININE SERUM 0.44 MG/DL (0.60-1.30); GFR ESTIMATED 114
[2023-02-01 02:24] LABS: BUN/CREATININE RATIO 5
[2023-02-01 02:26] LABS: MAGNESIUM 1.6 MG/DL (1.6-2.4)
[2023-02-01 04:25] LABS: BASOPHILS # (AUTO) 0.1 10^3/uL (0.0-0.1); BASOPHILS % (AUTO) 0 % (0-10); EOSINOPHILS # (AUTO) 0.1 10^3/uL (0.0-0.3); EOSINOPHILS % (AUTO) 1 % (0-10); HEMATOCRIT 27 % (35-52); HEMOGLOBIN 8.5 g/dL (11.5-16.0); LYMPHOCYTES # (AUTO) 1.2 10^3/uL (1.0-4.0); LYMPHOCYTES % (AUTO) 7 % (12-44); MEAN CORPUSCULAR HEMOGLOBIN 23 pg (25-34); MEAN CORPUSCULAR HGB CONC 31 g/dL (32-36); MEAN CORPUSCULAR VOLUME 73 fL (80-99); MEAN PLATELET VOLUME 8.7 fL (9.0-12.2); MONOCYTES # (AUTO) 2.8 10^3/uL (0.0-1.0); MONOCYTES % (AUTO) 16 % (0-12); NEUTROPHILS # (AUTO) 12.7 10^3/uL (1.8-7.8); NEUTROPHILS % (AUTO) 75 % (42-75); PLATELET COUNT 289 10^3/uL (130-400)
[2023-02-01 04:44] LABS: ALBUMIN 2.8 GM/DL (3.2-4.5); CHLORIDE 95 MMOL/L (98-107); POTASSIUM 3.1 MMOL/L (3.6-5.0); SODIUM 126 MMOL/L (135-145)
[2023-02-01 04:45] LABS: CALCIUM 7.9 MG/DL (8.5-10.1)
[2023-02-01 04:46] LABS: GLUCOSE 89 MG/DL (70-105)
[2023-02-01 04:48] LABS: BILIRUBIN,TOTAL 0.6 MG/DL (0.1-1.0); CARBON DIOXIDE 20 MMOL/L (21-32)
[2023-02-01 04:50] LABS: ALKALINE PHOSPHATASE 93 U/L (40-136); CREATININE SERUM 0.42 MG/DL (0.60-1.30); GFR ESTIMATED 115; PHOSPHORUS 1.6 MG/DL (2.3-4.7)
[2023-02-01 04:51] LABS: BUN/CREATININE RATIO 5
[2023-02-01 04:53] LABS: ALANINE AMINOTRANSFERASE 14 U/L (0-55); MAGNESIUM 1.6 MG/DL (1.6-2.4)
[2023-02-01] MEDS: POTASSIUM CL 10MEQ/50ML IVPB 50 ML IV SCH ×3 (05:29→07:42)
[2023-02-01] MEDS: MAGNESIUM 1 GM/100 ML IVPB 100 ML IV SCH ×4 (05:29→10:02)
[2023-02-01] MEDS: POTASSIUM BICARB 20 MEQ (EFFER-K) TABLET PO SCH (05:30)
[2023-02-01] MEDS: KCL 20 MEQ TAB (K-DUR) PO SCH (05:30)
[2023-02-01] MEDS: THIAMINE 100 MG (VITAMIN B-1) TAB PO SCH (05:50)
[2023-02-01] MEDS: MULTIVIT W/MINERALS TAB (THERAGRAN M) PO SCH (05:50)
[2023-02-01] MEDS ORDERED: POTASSIUM BICARB 20 MEQ (EFFER-K) TABLET PO ONE ×3 (06:00→14:00)
[2023-02-01] MEDS: FLUoxetine HCL 20 MG (PROzac) CAP PO SCH (08:03)
[2023-02-01] MEDS: MAGNESIUM OXIDE (MAG-OX)400 MG TAB PO SCH ×2 (08:03→21:36)
[2023-02-01] MEDS: PANTOPRAZOLE 40 MG (PROTONIX) TAB PO SCH (08:03)
[2023-02-01] MEDS: FOLIC ACID 1 MG TAB PO SCH (08:03)
[2023-02-01] MEDS: VITAMIN D3 25 MCG (1,000 UNITS) TABLET PO SCH ×2 (08:03→21:36)
[2023-02-01] MEDS ORDERED: NON-FORMULARY MEDICATION 1 EA EA (Fluoxetine HCl 40 MG) PO SCH (09:00)
[2023-02-01 09:11] LABS: BUN/CREATININE RATIO 3; CALCIUM 7.6 MG/DL (8.5-10.1); CARBON DIOXIDE 19 MMOL/L (21-32); CHLORIDE 92 MMOL/L (98-107); CREATININE SERUM 0.59 MG/DL (0.60-1.30); GFR ESTIMATED 106; GLUCOSE 164 MG/DL (70-105); POTASSIUM 2.9 MMOL/L (3.6-5.0)
[2023-02-01 09:27] LABS: SODIUM 125 MMOL/L (135-145)
--- NOTE | 2023-02-01 09:43 | Progress Note ---
Subjective Subjective/Events-last exam Pt states she is feeling okay, is able to tolerate liquids, hasn't vomited and denies diarrhea. Focused Exam Lactate Level 01/31/23 21:37: Lactic Acid Level 4.88*H 01/31/23 23:44: Lactic Acid Level 7.25*H 02/01/23 01:49: Lactic Acid Level 3.31*H Objective Exam Last Set of Vital Signs Vital Signs Date Time Temp Pulse Resp B/P (MAP) Pulse Ox O2 Delivery O2 Flow Rate FiO2 02/01/23 09:00 86 14 133/66 (88) 100 Room Air 02/01/23 07:24 36.4 Capillary Refill : Less Than 3 Seconds I&O Intake and Output 02/01/23 00:00 Intake Total 2910 ml Output Total 1900 ml Balance 1010 ml Intake Oral 1630 ml IV Total 1250 ml Other 30 ml Output Urine Total 1900 ml # Voids 6 # Bowel Movements 3 Daily Weight Change No General: Alert, No Acute Distress Lungs: Clear to Auscultation, Normal Air Movement Heart: Regular Rate, No Murmurs Abdomen: Normal Bowel Sounds, Soft, No Tenderness Extremities: No Edema Psych/Mental Status: Mood NL Results/Procedures Lab Laboratory Tests 01/31/23 11:00: Hemoglobin 8.9#L, Hematocrit 28L, Sodium Level 126L, Potassium Level 2.8L, Chloride Level 92L, Carbon Dioxide Level 19L, Anion Gap 15H, Blood Urea Nitrogen < 2L, Creatinine 0.46L, Estimat Glomerular Filtration Rate 113, BUN/Creatinine Ratio 4, Glucose Level 90, Lactic Acid Level 3.92*H, Calcium Level 7.6L 01/31/23 11:17: Glucometer 268H 01/31/23 11:51: Glucometer 97 01/31/23 12:28: Lab Scanned Report Transfusion Reaction Form 01/31/23 15:32: Sodium Level 125*L, Potassium Level 2.8L, Chloride Level 92L, Carbon Dioxide Level 20L, Anion Gap 13, Blood Urea Nitrogen < 2L, Creatinine 0.47L, Estimat Glomerular Filtration Rate 112, BUN/Creatinine Ratio 4, Glucose Level 87, Lactic Acid Level 3.23*H, Calcium Level 7.7L, Magnesium Level 1.6 01/31/23 19:33: Sodium Level 127L, Potassium Level 3.4L, Chloride Level 95L, Carbon Dioxide Level 17L, Anion Gap 15H, Blood Urea Nitrogen < 2L, Creatinine 0.57L, Estimat Glomerular Filtration Rate 107, BUN/Creatinine Ratio 4, Glucose Level 67L, Lactic Acid Level 6.67*H, Calcium Level 7.3L 01/31/23 21:37: Sodium Level 124*L, Potassium Level 2.9L, Chloride Level 91L, Carbon Dioxide Level 21, Anion Gap 12, Blood Urea Nitrogen < 2L, Creatinine 0.54L, Estimat Glomerular Filtration Rate 109, BUN/Creatinine Ratio 4, Glucose Level 133H, Lactic Acid Level 4.88*H, Calcium Level 7.6L 01/31/23 23:44: Sodium Level 125*L, Potassium Level 3.0L, Chloride Level 92L, Carbon Dioxide Level 19L, Anion Gap 14, Blood Urea Nitrogen < 2L, Creatinine 0.54L, Estimat Glomerular Filtration Rate 109, BUN/Creatinine Ratio 4, Glucose Level 126H, Lactic Acid Level 7.25*H, Calcium Level 7.8L 02/01/23 01:49: Sodium Level 127L, Potassium Level 3.3L, Chloride Level 95L, Carbon Dioxide Level 20L, Anion Gap 12, Blood Urea Nitrogen < 2L, Creatinine 0.44L, Estimat Glomerular Filtration Rate 114, BUN/Creatinine Ratio 5, Glucose Level 87, Lactic Acid Level 3.31*H, Calcium Level 7.8L, Magnesium Level 1.6 02/01/23 03:52: Sodium Level 126L, Potassium Level 3.1L, Chloride Level 95L, Carbon Dioxide Level 20L, Anion Gap 11, Blood Urea Nitrogen < 2L, Creatinine 0.42L, Estimat Glomerular Filtration Rate 115, BUN/Creatinine Ratio 5, Glucose Level 89, Calcium Level 7.9L, Magnesium Level 1.6, White Blood Count 17.0H, Red Blood Count 3.74L, Hemoglobin 8.5L, Hematocrit 27L, Mean Corpuscular Volume 73L, Mean Corpuscular Hemoglobin 23L, Mean Corpuscular Hemoglobin Concent 31L, Red Cell Distribution Width 21.7H, Platelet Count 289, Mean Platelet Volume 8.7L, Immature Granulocyte % (Auto) 1, Neutrophils (%) (Auto) 75, Lymphocytes (%) (Auto) 7L, Monocytes (%) (Auto) 16H, Eosinophils (%) (Auto) 1, Basophils (%) (Auto) 0, Neutrophils # (Auto) 12.7H, Lymphocytes # (Auto) 1.2, Monocytes # (Auto) 2.8H, Eosinophils # (Auto) 0.1, Basophils # (Auto) 0.1, Immature Granulocyte # (Auto) 0.1, Corrected Calcium 8.9, Phosphorus Level 1.6L, Total Bilirubin 0.6, Aspartate Amino Transf (AST/SGOT) 30, Alanine Aminotransferase (ALT/SGPT) 14, Alkaline Phosphatase 93, Total Protein 6.0L, Albumin 2.8L 02/01/23 08:50: Sodium Level 125*L, Potassium Level 2.9L, Chloride Level 92L, Carbon Dioxide Level 19L, Anion Gap 14, Blood Urea Nitrogen < 2L, Creatinine 0.59L, Estimat Glomerular Filtration Rate 106, BUN/Creatinine Ratio 3, Glucose Level 164H, Calcium Level 7.6L Microbiology 01/31/23 MRSA Screen - Final, Complete MRSA not isolated 01/30/23 Blood Culture - Preliminary, Resulted No growth 01/30/23 Urine Culture - Preliminary, Resulted Escherichia coli Radiology Abdomen xray 01/30: "IMPRESSION: Moderate stool burden without other acute abnormality in the abdomen. Assessment/Plan Assessment/Plan (1) Nausea and vomiting Status: Acute Assessment & Plan: Uncertain initial etiology, from more than 2 weeks ago per patient report. Supportive care with fluid, anti-emetics and electrolyte replacement. (2) Lactic acidosis Status: Acute Assessment & Plan: Initially suspected to be due to volume depletion. Improving overall, spiked overnight but trended back down. Did receive 30 cc/kg bolus with initial fluid resuscitation. (3) Alcohol withdrawal Status: Acute Assessment & Plan: CIWA monitoring with lorazepam as needed per score. Vitamin replacement daily. rn medical inpatient services consulted. Qualifiers: Qualified Codes: F10.930 - Alcohol use, unspecified with withdrawal, uncomplicated (4) Urinary tract infection Status: Acute Assessment & Plan: Ceftriaxone started, culture with E coli Qualifiers: Qualified Codes: N30.00 - Acute cystitis without hematuria (5) Coronary artery disease Status: Chronic Assessment & Plan: Holding home aspirin due to anemia requiring transfusion. (6) Severe depression Status: Chronic Assessment & Plan: Resume home SSRI (7) Alcoholism Status: Chronic Assessment & Plan: rn medical inpatient services consulted, patient declines inpatient referral at this time. (8) Hypomagnesemia Status: Acute Assessment & Plan: Replace and monitor. (9) Anemia Status: Acute Assessment & Plan: Suspect possibly secondary to GI bleeding, s/p 1 unit PRBC with improvement. PPI started, monitor closely. Qualifiers: Qualified Codes: D64.9 - Anemia, unspecified (10) Hyponatremia Status: Acute Assessment & Plan: Secondary to hypovolemia and alcohol use, improved with fluid replacement, near overly rapid correction by last night, fluids stopped. Continue to monitor closely. (11) DVT prophylaxis Status: Acute Assessment & Plan: SCDs, no pharmacologic due to concern for GI bleed. LITO CASTANEDA MD Feb 01, 2023 09:43
--- NOTE | 2023-02-01 10:52 | Speech Therapy Progress Note ---
Therapy Progress Note Speech pathology discussed the patient's concerns and reports with the RN. Per RN, the patient reports pills demonstrating a globus sensation in the mid- esophageal region. The globus sensation results in intermittent periods of emesis and gagging. As the patient does not display symptoms consistent with aspiration or an oropharyngeal swallowing impairment, the clinician encouraged a GI consult to assess for esophageal motility and structure. The clinician requested a consultation if the patient requires diet modification to aid in esophageal clearance or experiences s/s of suspected aspiration. The clinician and RN agreed on the plan of care. COLE JAY Feb 01, 2023 10:52
[2023-02-01] MEDS ORDERED: POTASSIUM PHOSPHATE INJ 30 MM in NS (IVPB) 250 ML IV ONE (11:30)
[2023-02-01 12:29] LABS: BUN/CREATININE RATIO 4; CALCIUM 7.7 MG/DL (8.5-10.1); CARBON DIOXIDE 23 MMOL/L (21-32); CHLORIDE 91 MMOL/L (98-107); CREATININE SERUM 0.52 MG/DL (0.60-1.30); GFR ESTIMATED 110; GLUCOSE 121 MG/DL (70-105); POTASSIUM 3.1 MMOL/L (3.6-5.0)
[2023-02-01 12:44] LABS: SODIUM 125 MMOL/L (135-145)
[2023-02-01 16:44] LABS: CHLORIDE 90 MMOL/L (98-107); POTASSIUM 3.1 MMOL/L (3.6-5.0)
[2023-02-01 16:45] LABS: CALCIUM 7.8 MG/DL (8.5-10.1); GLUCOSE 80 MG/DL (70-105)
[2023-02-01 16:47] LABS: CARBON DIOXIDE 23 MMOL/L (21-32)
[2023-02-01 16:49] LABS: CREATININE SERUM 0.46 MG/DL (0.60-1.30); GFR ESTIMATED 113
[2023-02-01 16:50] LABS: BUN/CREATININE RATIO 4
[2023-02-01 17:00] VITALS: BP 126/73
[2023-02-01 17:00] LABS: SODIUM 124 MMOL/L (135-145)
[2023-02-01] MEDS ORDERED: KCL 20 MEQ TAB (K-DUR) PO NR (18:00)
[2023-02-01] MEDS ORDERED: NS W/KCL 40 MEQ/L 1,000 ML IV SCH (18:30)
[2023-02-01 20:02] VITALS: BP 118/69
[2023-02-01 20:08] LABS: CALCIUM 7.7 MG/DL (8.5-10.1); CREATININE SERUM 0.53 MG/DL (0.60-1.30)
[2023-02-01] MEDS: cefTRIAXone 1 GM/NS 50 ML IVPB IV SCH ×2 (21:33)
[2023-02-02 00:29] LABS: POTASSIUM 3.2 MMOL/L (3.6-5.0)
[2023-02-02 00:30] LABS: CALCIUM 7.7 MG/DL (8.5-10.1)
[2023-02-02 00:34] LABS: CREATININE SERUM 0.46 MG/DL (0.60-1.30)
[2023-02-02 02:00] VITALS: BP 128/61
[2023-02-02 04:00] VITALS: BP 130/76
[2023-02-02 06:03] LABS: BASOPHILS # (AUTO) 0.1 10^3/uL (0.0-0.1); BASOPHILS % (AUTO) 0 % (0-10); EOSINOPHILS # (AUTO) 0.2 10^3/uL (0.0-0.3); EOSINOPHILS % (AUTO) 1 % (0-10); HEMATOCRIT 28 % (35-52); HEMOGLOBIN 8.7 g/dL (11.5-16.0); LYMPHOCYTES # (AUTO) 1.2 10^3/uL (1.0-4.0); LYMPHOCYTES % (AUTO) 7 % (12-44); MEAN CORPUSCULAR HEMOGLOBIN 23 pg (25-34); MEAN CORPUSCULAR HGB CONC 32 g/dL (32-36); MEAN CORPUSCULAR VOLUME 74 fL (80-99); MEAN PLATELET VOLUME 8.5 fL (9.0-12.2); MONOCYTES # (AUTO) 2.9 10^3/uL (0.0-1.0); MONOCYTES % (AUTO) 16 % (0-12); NEUTROPHILS # (AUTO) 13.9 10^3/uL (1.8-7.8); NEUTROPHILS % (AUTO) 76 % (42-75); PLATELET COUNT 291 10^3/uL (130-400); WHITE BLOOD COUNT 18.3 10^3/uL (4.3-11.0)
[2023-02-02 06:14] LABS: ALBUMIN 2.8 GM/DL (3.2-4.5); CHLORIDE 94 MMOL/L (98-107); POTASSIUM 3.2 MMOL/L (3.6-5.0)
[2023-02-02 06:15] LABS: CALCIUM 7.9 MG/DL (8.5-10.1)
[2023-02-02 06:16] LABS: GLUCOSE 93 MG/DL (70-105)
[2023-02-02 06:17] LABS: TOTAL PROTEIN 6.4 GM/DL (6.4-8.2)
[2023-02-02 06:18] LABS: BILIRUBIN,TOTAL 0.5 MG/DL (0.1-1.0); CARBON DIOXIDE 21 MMOL/L (21-32)
[2023-02-02 06:20] LABS: ALKALINE PHOSPHATASE 94 U/L (40-136); CREATININE SERUM 0.46 MG/DL (0.60-1.30); GFR ESTIMATED 113; PHOSPHORUS 2.1 MG/DL (2.3-4.7)
[2023-02-02 06:21] LABS: BUN/CREATININE RATIO 4
[2023-02-02 06:23] LABS: ALANINE AMINOTRANSFERASE 14 U/L (0-55); MAGNESIUM 1.9 MG/DL (1.6-2.4)
[2023-02-02 06:26] LABS: BASOPHILS % (MANUAL) 1 %; EOSINOPHILS % (MANUAL) 1 %; LYMPHOCYTES % (MANUAL) 5 %; MONOCYTES % (MANUAL) 13 %; NEUTROPHILS % (MANUAL) 80 %
[2023-02-02 06:27] LABS: ANISOCYTOSIS MODERATE; HYPOCHROMASIA MODERATE; MICROCYTOSIS MODERATE
[2023-02-02 06:29] LABS: SODIUM 125 MMOL/L (135-145)
[2023-02-02] MEDS: MAGNESIUM 1 GM/100 ML IVPB 100 ML IV SCH ×3 (06:32→09:44)
[2023-02-02] MEDS: POTASSIUM BICARB 20 MEQ (EFFER-K) TABLET PO SCH ×4 (06:37→17:00)
[2023-02-02] MEDS: POTASSIUM CL 10MEQ/50ML IVPB 50 ML IV SCH (06:37)
[2023-02-02] MEDS: KCL 20 MEQ TAB (K-DUR) PO SCH (06:38)
[2023-02-02] MEDS: MULTIVIT W/MINERALS TAB (THERAGRAN M) PO SCH (06:43)
[2023-02-02] MEDS: THIAMINE 100 MG (VITAMIN B-1) TAB PO SCH (06:43)
[2023-02-02 07:38] VITALS: BP 124/59
[2023-02-02] MEDS ORDERED: SODIUM CHLORIDE 3% 500 ML IV SCH (08:15)
[2023-02-02] MEDS ORDERED: POTASSIUM PHOSPHATE INJ 30 MM in NS (IVPB) 250 ML IV ONE (08:15)
[2023-02-02 08:52] LABS: CALCIUM 7.9 MG/DL (8.5-10.1); CREATININE SERUM 0.49 MG/DL (0.60-1.30); POTASSIUM 2.8 MMOL/L (3.6-5.0)
[2023-02-02] MEDS: PANTOPRAZOLE 40 MG (PROTONIX) TAB PO SCH (09:44)
[2023-02-02] MEDS: FOLIC ACID 1 MG TAB PO SCH (09:44)
[2023-02-02] MEDS: MAGNESIUM OXIDE (MAG-OX)400 MG TAB PO SCH ×2 (09:44→20:19)
[2023-02-02] MEDS: FLUoxetine HCL 20 MG (PROzac) CAP PO SCH (09:45)
[2023-02-02] MEDS: VITAMIN D3 25 MCG (1,000 UNITS) TABLET PO SCH ×2 (09:45→20:19)
[2023-02-02 11:26] VITALS: BP 120/59
--- NOTE | 2023-02-02 11:53 | Progress Note ---
Subjective Subjective/Events-last exam Feeling better, ready to try solid food. States she took liquid potassium okay this morning. Focused Exam Lactate Level 01/31/23 21:37: Lactic Acid Level 4.88*H 01/31/23 23:44: Lactic Acid Level 7.25*H 02/01/23 01:49: Lactic Acid Level 3.31*H Objective Exam Last Set of Vital Signs Vital Signs Date Time Temp Pulse Resp B/P (MAP) Pulse Ox O2 Delivery O2 Flow Rate FiO2 02/02/23 11:26 36.7 88 20 120/59 (79) 95 Room Air Capillary Refill : Less Than 3 Seconds I&O Intake and Output 02/02/23 00:00 Intake Total 2205.9 ml Output Total 570 ml Balance 1635.9 ml Intake Oral 1752 ml IV Total 453.9 ml Output Urine Total 570 ml # Voids 10 # Bowel Movements 3 General: Alert, No Acute Distress Lungs: Clear to Auscultation, Normal Air Movement Heart: Regular Rate, No Murmurs Abdomen: Normal Bowel Sounds, Soft, No Tenderness Extremities: No Edema Neuro: Normal Speech Psych/Mental Status: Mood NL Results/Procedures Lab Laboratory Tests 02/01/23 12:05: Sodium Level 125*L, Potassium Level 3.1L, Chloride Level 91L, Carbon Dioxide Level 23, Anion Gap 11, Blood Urea Nitrogen < 2L, Creatinine 0.52L, Estimat Glomerular Filtration Rate 110, BUN/Creatinine Ratio 4, Glucose Level 121H, Calcium Level 7.7L 02/01/23 15:23: Influenza Type A (RT-PCR) Not Detected, Influenza Type B (RT-PCR) Not Detected, SARS-CoV-2 RNA (RT-PCR) Not Detected 02/01/23 16:13: Sodium Level 124*L, Potassium Level 3.1L, Chloride Level 90L, Carbon Dioxide Level 23, Anion Gap 11, Blood Urea Nitrogen < 2L, Creatinine 0.46L, Estimat Glomerular Filtration Rate 113, BUN/Creatinine Ratio 4, Glucose Level 80, Calcium Level 7.8L 02/01/23 19:42: Sodium Level 125*L, Potassium Level 3.0L, Chloride Level 92L, Carbon Dioxide Level 20L, Anion Gap 13, Blood Urea Nitrogen 2L, Creatinine 0.53L, Estimat Glomerular Filtration Rate 109, BUN/Creatinine Ratio 4, Glucose Level 99, Calcium Level 7.7L 02/02/23 00:16: Sodium Level 124*L, Potassium Level 3.2L, Chloride Level 92L, Carbon Dioxide Level 18L, Anion Gap 14, Blood Urea Nitrogen 2L, Creatinine 0.46L, Estimat Glomerular Filtration Rate 113, BUN/Creatinine Ratio 4, Glucose Level 73, Calcium Level 7.7L 02/02/23 05:52: Sodium Level 125*L, Potassium Level 3.2L, Chloride Level 94L, Carbon Dioxide Level 21, Anion Gap 10, Blood Urea Nitrogen < 2L, Creatinine 0.46L, Estimat Glomerular Filtration Rate 113, BUN/Creatinine Ratio 4, Glucose Level 93, Calcium Level 7.9L, Corrected Calcium 8.9, Phosphorus Level 2.1L, Magnesium Level 1.9, Total Bilirubin 0.5, Aspartate Amino Transf (AST/SGOT) 29, Alanine Aminotransferase (ALT/SGPT) 14, Alkaline Phosphatase 94, Total Protein 6.4, Albumin 2.8L 02/02/23 05:55: White Blood Count 18.3H, Red Blood Count 3.74L, Hemoglobin 8.7L, Hematocrit 28L, Mean Corpuscular Volume 74L, Mean Corpuscular Hemoglobin 23L, Mean Corpuscular Hemoglobin Concent 32, Red Cell Distribution Width 22.0H, Platelet Count 291, Mean Platelet Volume 8.5L, Immature Granulocyte % (Auto) 1, Neutrophils (%) (Auto) 76H, Lymphocytes (%) (Auto) 7L, Monocytes (%) (Auto) 16H, Eosinophils (%) (Auto) 1, Basophils (%) (Auto) 0, Neutrophils # (Auto) 13.9H, Lymphocytes # (Auto) 1.2, Monocytes # (Auto) 2.9H, Eosinophils # (Auto) 0.2, Basophils # (Auto) 0.1, Immature Granulocyte # (Auto) 0.1, Neutrophils % (Manual) 80, Lymphocytes % (Manual) 5, Monocytes % (Manual) 13, Eosinophils % (Manual) 1, Basophils % (Manual) 1, Hypochromasia MODERATE, Anisocytosis MODERATE, Microcytosis MODERATE 02/02/23 08:20: Sodium Level 126L, Potassium Level 2.8L, Chloride Level 95L, Carbon Dioxide Level 23, Anion Gap 8, Blood Urea Nitrogen 2L, Creatinine 0.49L, Estimat Glomerular Filtration Rate 111, BUN/Creatinine Ratio 4, Glucose Level 95, Calcium Level 7.9L, Thyroid Stimulating Hormone (TSH) 1.10 Microbiology 01/31/23 MRSA Screen - Final, Complete MRSA not isolated 01/30/23 Blood Culture - Preliminary, Resulted No growth 01/30/23 Urine Culture - Final, Complete Escherichia coli Mixed Bacterial [facility] Abdomen xray 01/30: "IMPRESSION: Moderate stool burden without other acute abnormality in the abdomen. Assessment/Plan Assessment/Plan (1) Nausea and vomiting Status: Acute Assessment & Plan: Uncertain initial etiology, from more than 2 weeks ago per patient report. Supportive care with fluid, anti-emetics and electrolyte replacement. (2) Lactic acidosis Status: Acute Assessment & Plan: Initially suspected to be due to volume depletion. Improving overall, spiked overnight but trended back down. Did receive 30 cc/kg bolus with initial fluid resuscitation. (3) Alcohol withdrawal Status: Acute Assessment & Plan: CIWA monitoring with lorazepam as needed per score. Vitamin replacement daily. access services librarian consulted. 02/02 has not been requiring lorazepam Qualifiers: Qualified Codes: F10.930 - Alcohol use, unspecified with withdrawal, uncomplicated (4) Urinary tract infection Status: Acute Assessment & Plan: Ceftriaxone started, culture with E coli Qualifiers: Qualified Codes: N30.00 - Acute cystitis without hematuria (5) Coronary artery disease Status: Chronic Assessment & Plan: Holding home aspirin due to anemia requiring transfusion. (6) Severe depression Status: Chronic Assessment & Plan: Resume home SSRI (7) Alcoholism Status: Chronic Assessment & Plan: access services librarian consulted, patient declines inpatient referral at this time. (8) Hypomagnesemia Status: Acute Assessment & Plan: Replace and monitor. (9) Anemia Status: Acute Assessment & Plan: Suspect possibly secondary to GI bleeding, s/p 1 unit PRBC with improvement. PPI started, monitor closely. 02/02 hemoglobin stable Qualifiers: Qualified Codes: D64.9 - Anemia, unspecified (10) Hyponatremia Status: Acute Assessment & Plan: 02/01 Secondary to hypovolemia and alcohol use, improved with fluid replacement, near overly rapid correction by last night, fluids stopped. Continue to monitor closely. 02/02 stable low, overcorrected easily with isotonic saline, will do small amount of hypertonic saline and follow Na closely. (11) DVT prophylaxis Status: Acute Assessment & Plan: SCDs, no pharmacologic due to concern for GI bleed. LITO CASTANEDA MD Feb 02, 2023 11:53
[2023-02-02 12:19] LABS: CALCIUM 7.5 MG/DL (8.5-10.1); CREATININE SERUM 0.47 MG/DL (0.60-1.30); POTASSIUM 3.4 MMOL/L (3.6-5.0)
[2023-02-02] MEDS ORDERED: NS (IVPB) 250 ML ONE (14:16)
[2023-02-02 15:25] VITALS: BP 121/72
[2023-02-02 16:40] LABS: POTASSIUM 3.8 MMOL/L (3.6-5.0)
[2023-02-02 16:41] LABS: CALCIUM 7.6 MG/DL (8.5-10.1)
[2023-02-02 16:45] LABS: CREATININE SERUM 0.48 MG/DL (0.60-1.30)
[2023-02-02 20:07] VITALS: BP 115/64
[2023-02-02 20:18] LABS: POTASSIUM 3.5 MMOL/L (3.6-5.0)
[2023-02-02 20:19] LABS: CALCIUM 7.4 MG/DL (8.5-10.1)
[2023-02-02] MEDS: cefTRIAXone 1 GM/NS 50 ML IVPB IV SCH ×2 (20:19)
[2023-02-02 20:23] LABS: CREATININE SERUM 0.51 MG/DL (0.60-1.30)
[2023-02-03] VITALS (7 sets, daily range): BP systolic 115–140; BP diastolic 55–81
[2023-02-03] MEDS: MULTIVIT W/MINERALS TAB (THERAGRAN M) PO SCH (05:42)
[2023-02-03 05:52] LABS: BASOPHILS % (AUTO) 0 % (0-10); EOSINOPHILS # (AUTO) 0.2 10^3/uL (0.0-0.3); EOSINOPHILS % (AUTO) 1 % (0-10); HEMATOCRIT 28 % (35-52); HEMOGLOBIN 8.6 g/dL (11.5-16.0); LYMPHOCYTES # (AUTO) 1.4 10^3/uL (1.0-4.0); LYMPHOCYTES % (AUTO) 8 % (12-44); MEAN CORPUSCULAR HEMOGLOBIN 23 pg (25-34); MEAN CORPUSCULAR HGB CONC 31 g/dL (32-36); MEAN CORPUSCULAR VOLUME 75 fL (80-99); MEAN PLATELET VOLUME 8.5 fL (9.0-12.2); MONOCYTES # (AUTO) 2.9 10^3/uL (0.0-1.0); MONOCYTES % (AUTO) 17 % (0-12); NEUTROPHILS # (AUTO) 12.3 10^3/uL (1.8-7.8); NEUTROPHILS % (AUTO) 73 % (42-75); PLATELET COUNT 310 10^3/uL (130-400); WHITE BLOOD COUNT 16.9 10^3/uL (4.3-11.0)
[2023-02-03 06:07] LABS: ALBUMIN 2.8 GM/DL (3.2-4.5); CHLORIDE 92 MMOL/L (98-107); POTASSIUM 3.1 MMOL/L (3.6-5.0); SODIUM 126 MMOL/L (135-145)
[2023-02-03 06:09] LABS: GLUCOSE 80 MG/DL (70-105); TOTAL PROTEIN 6.3 GM/DL (6.4-8.2)
[2023-02-03 06:10] LABS: CARBON DIOXIDE 21 MMOL/L (21-32)
[2023-02-03 06:11] LABS: BILIRUBIN,TOTAL 0.5 MG/DL (0.1-1.0)
[2023-02-03 06:13] LABS: ALKALINE PHOSPHATASE 93 U/L (40-136); CREATININE SERUM 0.45 MG/DL (0.60-1.30); GFR ESTIMATED 114; PHOSPHORUS 3.2 MG/DL (2.3-4.7)
[2023-02-03 06:14] LABS: BUN/CREATININE RATIO 4
[2023-02-03 06:16] LABS: ALANINE AMINOTRANSFERASE 13 U/L (0-55); MAGNESIUM 1.7 MG/DL (1.6-2.4)
[2023-02-03] MEDS: POTASSIUM CL 10MEQ/50ML IVPB 50 ML IV SCH ×9 (06:17→13:04)
[2023-02-03] MEDS: POTASSIUM BICARB 20 MEQ (EFFER-K) TABLET PO SCH (06:18)
[2023-02-03] MEDS: KCL 20 MEQ TAB (K-DUR) PO SCH (06:18)
[2023-02-03] MEDS: MAGNESIUM 1 GM/100 ML IVPB 100 ML IV SCH ×5 (06:21→09:25)
[2023-02-03] MEDS: FLUoxetine HCL 20 MG (PROzac) CAP PO SCH (09:24)
[2023-02-03] MEDS: PANTOPRAZOLE 40 MG (PROTONIX) TAB PO SCH (09:24)
[2023-02-03] MEDS: FOLIC ACID 1 MG TAB PO SCH (09:24)
[2023-02-03] MEDS: VITAMIN D3 25 MCG (1,000 UNITS) TABLET PO SCH ×2 (09:24→20:07)
--- NOTE | 2023-02-03 09:30 | Progress Note ---
Subjective Subjective/Events-last exam Pt states she is eating and drinking okay but still having diarrhea. Focused Exam Lactate Level 01/31/23 21:37: Lactic Acid Level 4.88*H 01/31/23 23:44: Lactic Acid Level 7.25*H 02/01/23 01:49: Lactic Acid Level 3.31*H Objective Exam Last Set of Vital Signs Vital Signs Date Time Temp Pulse Resp B/P (MAP) Pulse Ox O2 Delivery O2 Flow Rate FiO2 02/03/23 07:22 37.0 91 20 115/56 (75) 94 Room Air Capillary Refill : Less Than 3 Seconds I&O Intake and Output 02/03/23 00:00 Intake Total 1790 ml Balance 1790 ml Intake Oral 1790 ml # Voids 12 # Bowel Movements 2 General: Alert, No Acute Distress Lungs: Clear to Auscultation, Normal Air Movement Heart: Regular Rate, No Murmurs Extremities: No Edema Neuro: Normal Speech Psych/Mental Status: Mood NL Results/Procedures Lab Laboratory Tests 02/02/23 11:51: Sodium Level 125*L, Potassium Level 3.4L, Chloride Level 95L, Carbon Dioxide Level 24, Anion Gap 6, Blood Urea Nitrogen 2L, Creatinine 0.47L, Estimat Glomerular Filtration Rate 112, BUN/Creatinine Ratio 4, Glucose Level 76, Calcium Level 7.5L 02/02/23 16:15: Sodium Level 128L, Potassium Level 3.8, Chloride Level 97L, Carbon Dioxide Level 18L, Anion Gap 13, Blood Urea Nitrogen 3L, Creatinine 0.48L, Estimat Glomerular Filtration Rate 112, BUN/Creatinine Ratio 6, Glucose Level 103, Calcium Level 7.6L 02/02/23 20:02: Sodium Level 126L, Potassium Level 3.5L, Chloride Level 95L, Carbon Dioxide Level 19L, Anion Gap 12, Blood Urea Nitrogen 3L, Creatinine 0.51L, Estimat Glomerular Filtration Rate 110, BUN/Creatinine Ratio 6, Glucose Level 116H, Ian cium Level 7.4L 02/03/23 05:18: Sodium Level 126L, Potassium Level 3.1L, Chloride Level 92L, Carbon Dioxide Level 21, Anion Gap 13, Blood Urea Nitrogen < 2L, Creatinine 0.45L, Estimat Glomerular Filtration Rate 114, BUN/Creatinine Ratio 4, Glucose Level 80, Calcium Level 8.0L, White Blood Count 16.9H, Red Blood Count 3.75L, Hemoglobin 8.6L, Hematocrit 28L, Mean Corpuscular Volume 75L, Mean Corpuscular Hemoglobin 23L, Mean Corpuscular Hemoglobin Concent 31L, Red Cell Distribution Width 22.7H, Platelet Count 310, Mean Platelet Volume 8.5L, Immature Granulocyte % (Auto) 1, Neutrophils (%) (Auto) 73, Lymphocytes (%) (Auto) 8L, Monocytes (%) (Auto) 17H, Eosinophils (%) (Auto) 1, Basophils (%) (Auto) 0, Neutrophils # (Auto) 12.3H, Lymphocytes # (Auto) 1.4, Monocytes # (Auto) 2.9H, Eosinophils # (Auto) 0.2, Basophils # (Auto) 0.0, Immature Granulocyte # (Auto) 0.1, Corrected Calcium 9.0 , Phosphorus Level 3.2, Magnesium Level 1.7, Total Bilirubin 0.5, Aspartate Amino Transf (AST/SGOT) 28, Alanine Aminotransferase (ALT/SGPT) 13, Alkaline Phosphatase 93, Total Protein 6.3L, Albumin 2.8L Microbiology 01/31/23 MRSA Screen - Final, Complete MRSA not isolated 01/30/23 Blood Culture - Preliminary, Resulted No growth 01/30/23 Urine Culture - Final, Complete Escherichia coli Mixed Bacterial [facility] Abdomen x[facility] 01/30: "IMPRESSION: Moderate stool burden without other acute abnormality in the abdomen. Assessment/Plan Assessment/Plan (1) Nausea and vomiting Status: Acute Assessment & Plan: Uncertain initial etiology, from more than 2 weeks ago per patient report. Supportive care with fluid, anti-emetics and electrolyte replacement. (2) Lactic acidosis Status: Acute Assessment & Plan: Initially suspected to be due to volume depletion. Improving overall, spiked overnight but trended back down. Did receive 30 cc/kg bolus with initial fluid resuscitation. (3) Alcohol withdrawal Status: Acute Assessment & Plan: CIWA monitoring with lorazepam as needed per score. Vitamin replacement daily. senior web services developer consulted. 02/02 has not been requiring lorazepam Qualifiers: Qualified Codes: F10.930 - Alcohol use, unspecified with withdrawal, uncomplicated (4) Urinary tract infection Status: Acute Assessment & Plan: Ceftriaxone started, culture with E coli Qualifiers: Qualified Codes: N30.00 - Acute cystitis without hematuria (5) Coronary artery disease Status: Chronic Assessment & Plan: Holding home aspirin due to anemia requiring transfusion. (6) Severe depression Status: Chronic Assessment & Plan: Resume home SSRI (7) Alcoholism Status: Chronic Assessment & Plan: senior web services developer consulted, patient declines inpatient referral at this time. (8) Hypomagnesemia Status: Acute Assessment & Plan: Replace and monitor. (9) Anemia Status: Acute Assessment & Plan: Suspect possibly secondary to GI bleeding, s/p 1 unit PRBC with improvement. PPI started, monitor closely. 02/02 hemoglobin stable 02/03 stable Qualifiers: Qualified Codes: D64.9 - Anemia, unspecified (10) Hyponatremia Status: Acute Assessment & Plan: 02/01 Secondary to hypovolemia and alcohol use, improved with fluid replacement, near overly rapid correction by last night, fluids stopped. Continue to monitor closely. 02/02 stable low, overcorrected easily with isotonic saline, will do small amount of hypertonic saline and follow Na closely. 02/03 minimal correction of 3 with hypertonic saline yesterday and then trended down again, will repeat. (11) DVT prophylaxis Status: Acute Assessment & Plan: SCDs, no pharmacologic due to concern for GI bleed. LITO CASTANEDA MD Feb 03, 2023 09:30
[2023-02-03] MEDS ORDERED: SODIUM CHLORIDE 3% 500 ML IV SCH ×2 (09:45→21:30)
[2023-02-03] MEDS ORDERED: NS (IVPB) 250 ML ONE (11:21)
[2023-02-03 14:38] LABS: CALCIUM 7.4 MG/DL (8.5-10.1); CREATININE SERUM 0.47 MG/DL (0.60-1.30)
[2023-02-03] MEDS: cefTRIAXone 1 GM/NS 50 ML IVPB IV SCH ×2 (20:07)
[2023-02-04] VITALS (7 sets, daily range): BP systolic 118–143; BP diastolic 58–66
[2023-02-04 00:42] LABS: CHLORIDE 92 MMOL/L (98-107); POTASSIUM 2.7 MMOL/L (3.6-5.0)
[2023-02-04 00:43] LABS: CALCIUM 7.6 MG/DL (8.5-10.1); GLUCOSE 93 MG/DL (70-105)
[2023-02-04 00:45] LABS: CARBON DIOXIDE 20 MMOL/L (21-32)
[2023-02-04 00:47] LABS: GFR ESTIMATED 117
[2023-02-04 00:48] LABS: BUN/CREATININE RATIO 5
[2023-02-04 00:51] LABS: SODIUM 124 MMOL/L (135-145)
[2023-02-04] MEDS ORDERED: KCL 20 MEQ TAB (K-DUR) PO ONE (01:00)
[2023-02-04] MEDS: POTASSIUM CL 10MEQ/50ML IVPB 50 ML IV SCH ×7 (01:15→08:11)
[2023-02-04] MEDS ORDERED: NS IV 500 ML 500 ML ONE (03:40)
[2023-02-04] MEDS: NS IV 500 ML 500 ML IV SCH ×3 (03:42→21:31)
[2023-02-04] MEDS ORDERED: POTASSIUM CL 10MEQ/50ML IVPB 50 ML IV SCH (05:00)
[2023-02-04] MEDS: MULTIVIT W/MINERALS TAB (THERAGRAN M) PO SCH (06:02)
[2023-02-04] MEDS: KCL 20 MEQ TAB (K-DUR) PO SCH (08:12)
[2023-02-04] MEDS: MAGNESIUM 1 GM/100 ML IVPB 100 ML IV SCH (08:12)
[2023-02-04] MEDS: POTASSIUM BICARB 20 MEQ (EFFER-K) TABLET PO SCH (08:12)
[2023-02-04] MEDS ORDERED: UREA 15 GM POWDER (URE-NA) PO ONE (09:00)
[2023-02-04] MEDS: PANTOPRAZOLE 40 MG (PROTONIX) TAB PO SCH (09:33)
[2023-02-04] MEDS: VITAMIN D3 25 MCG (1,000 UNITS) TABLET PO SCH ×2 (09:33→19:53)
[2023-02-04] MEDS: FOLIC ACID 1 MG TAB PO SCH (09:33)
--- NOTE | 2023-02-04 10:13 | Progress Note ---
Subjective Subjective/Events-last exam Pt states she is wanting to get out of the hospital. She states she has been on Prozac for years and years, states she has tried others and nothing else worked, she either got angry or apathetic. She does state she has tried buproprion and it made her want to stay in bed all the time. Objective Exam Last Set of Vital Signs Vital Signs Date Time Temp Pulse Resp B/P (MAP) Pulse Ox O2 Delivery O2 Flow Rate FiO2 02/04/23 08:30 Room Air 02/04/23 08:03 36.4 86 20 118/58 (78) 92 1.00 1.00 Capillary Refill : Less Than 3 Seconds I&O Intake and Output 02/03/23 23:59 Intake Total 1675 ml Output Total 250 ml Balance 1425 ml Intake Oral 1625 ml IV Total 50 ml Output Urine Total 250 ml # Voids 9 # Bowel Movements 2 General: Alert, No Acute Distress Lungs: Clear to Auscultation, Normal Air Movement Heart: Regular Rate, No Murmurs Abdomen: Normal Bowel Sounds, No Tenderness Neuro: Normal Speech Psych/Mental Status: Mood NL Results/Procedures Lab Laboratory Tests 02/03/23 14:15: Sodium Level 121*L, Potassium Level 3.0L, Chloride Level 89L, Carbon Dioxide Level 23, Anion Gap 9, Blood Urea Nitrogen 2L, Creatinine 0.47L, Estimat Glomerular Filtration Rate 112, BUN/Creatinine Ratio 4, Glucose Level 155H, Calcium Level 7.4L 02/04/23 00:17: Sodium Level 124*L, Potassium Level 2.7L, Chloride Level 92L, Carbon Dioxide Level 20L, Anion Gap 12, Blood Urea Nitrogen < 2L, Creatinine 0.40L, Estimat Glomerular Filtration Rate 117, BUN/Creatinine Ratio 5, Glucose Level 93, Calcium Level 7.6L Microbiology 01/31/23 MRSA Screen - Final, Complete MRSA not isolated 01/30/23 Blood Culture - Preliminary, Resulted No growth 01/30/23 Urine Culture - Final, Complete Escherichia coli Mixed Bacterial [facility] Abdomen x[facility] 01/30: "IMPRESSION: Moderate stool burden without other acute abnormality in the abdomen. Assessment/Plan Assessment/Plan (1) Nausea and vomiting Status: Resolved Assessment & Plan: Uncertain initial etiology, from more than 2 weeks ago per patient report. Supportive care with fluid, anti-emetics and electrolyte replacement. (2) Lactic acidosis Status: Acute Assessment & Plan: Initially suspected to be due to volume depletion. Improving overall, spiked overnight but trended back down. Did receive 30 cc/kg bolus with initial fluid resuscitation. (3) Alcohol withdrawal Status: Acute Assessment & Plan: CIWA monitoring with lorazepam as needed per score. Vitamin replacement daily. insurance and financial services agent consulted. 02/02 has not been requiring lorazepam Qualifiers: Qualified Codes: F10.930 - Alcohol use, unspecified with withdrawal, uncomplicated (4) Urinary tract infection Status: Acute Assessment & Plan: Ceftriaxone started, culture with E coli without resistance, change to cephalexin. Qualifiers: Qualified Codes: N30.00 - Acute cystitis without hematuria (5) Coronary artery disease Status: Chronic Assessment & Plan: Holding home aspirin due to anemia requiring transfusion. (6) Severe depression Status: Chronic Assessment & Plan: Hold SSRI due to hyponatremia. (7) Alcoholism Status: Chronic Assessment & Plan: insurance and financial services agent consulted, patient declines inpatient referral at this time. (8) Hypomagnesemia Status: Acute Assessment & Plan: Replace and monitor. (9) Anemia Status: Acute Assessment & Plan: Suspect possibly secondary to GI bleeding, s/p 1 unit PRBC with improvement. PPI started, monitor closely. 02/02 hemoglobin stable 02/03 stable Qualifiers: Qualified Codes: D64.9 - Anemia, unspecified (10) Hyponatremia Status: Acute Assessment & Plan: 02/01 Secondary to hypovolemia and alcohol use, improved with fluid replacement, near overly rapid correction by last night, fluids stopped. Continue to monitor closely. 02/02 stable low, overcorrected easily with isotonic saline, will do small amount of hypertonic saline and follow Na closely. 02/03 minimal correction of 3 with hypertonic saline yesterday and then trended down again, will repeat. 02/04 will try urea (11) Diarrhea Status: Chronic Assessment & Plan: Reports chronic, denies abdominal pain. Given electrolyte issues, will try anti-diarrheal. (12) DVT prophylaxis Status: Acute Assessment & Plan: SCDs, no pharmacologic due to concern for GI bleed. LITO CASTANEDA MD Feb 04, 2023 10:13
[2023-02-04] MEDS ORDERED: LOPERAMIDE 2 MG (IMODIUM) TABLET PO PRN (10:15)
[2023-02-04 10:32] LABS: BASOPHILS % (AUTO) 0 % (0-10); EOSINOPHILS % (AUTO) 0 % (0-10); HEMATOCRIT 29 % (35-52); HEMOGLOBIN 8.9 g/dL (11.5-16.0); LYMPHOCYTES # (AUTO) 0.7 10^3/uL (1.0-4.0); LYMPHOCYTES % (AUTO) 4 % (12-44); MEAN CORPUSCULAR HEMOGLOBIN 23 pg (25-34); MEAN CORPUSCULAR HGB CONC 31 g/dL (32-36); MEAN CORPUSCULAR VOLUME 75 fL (80-99); MEAN PLATELET VOLUME 8.5 fL (9.0-12.2); MONOCYTES % (AUTO) 16 % (0-12); NEUTROPHILS # (AUTO) 14.5 10^3/uL (1.8-7.8); NEUTROPHILS % (AUTO) 79 % (42-75); PLATELET COUNT 336 10^3/uL (130-400); WHITE BLOOD COUNT 18.4 10^3/uL (4.3-11.0)
[2023-02-04 10:49] LABS: POTASSIUM 3.7 MMOL/L (3.6-5.0)
[2023-02-04 10:50] LABS: CALCIUM 8.3 MG/DL (8.5-10.1)
[2023-02-04 10:52] LABS: TOTAL PROTEIN 6.9 GM/DL (6.4-8.2)
[2023-02-04 10:53] LABS: BILIRUBIN,TOTAL 0.5 MG/DL (0.1-1.0)
[2023-02-04 10:55] LABS: CREATININE SERUM 0.46 MG/DL (0.60-1.30); PHOSPHORUS 2.6 MG/DL (2.3-4.7)
[2023-02-04 10:58] LABS: MAGNESIUM 1.6 MG/DL (1.6-2.4)
[2023-02-04] MEDS: CEPHALEXIN 250 MG (KEFLEX) CAP PO SCH (19:53)
[2023-02-05 03:14] VITALS: BP 148/68
[2023-02-05] MEDS: MULTIVIT W/MINERALS TAB (THERAGRAN M) PO SCH (06:15)
[2023-02-05 06:42] LABS: BASOPHILS % (AUTO) 0 % (0-10); EOSINOPHILS # (AUTO) 0.1 10^3/uL (0.0-0.3); EOSINOPHILS % (AUTO) 1 % (0-10); HEMATOCRIT 29 % (35-52); HEMOGLOBIN 9.2 g/dL (11.5-16.0); LYMPHOCYTES # (AUTO) 0.9 10^3/uL (1.0-4.0); LYMPHOCYTES % (AUTO) 6 % (12-44); MEAN CORPUSCULAR HEMOGLOBIN 23 pg (25-34); MEAN CORPUSCULAR HGB CONC 32 g/dL (32-36); MEAN CORPUSCULAR VOLUME 73 fL (80-99); MONOCYTES # (AUTO) 2.5 10^3/uL (0.0-1.0); MONOCYTES % (AUTO) 16 % (0-12); NEUTROPHILS # (AUTO) 12.6 10^3/uL (1.8-7.8); NEUTROPHILS % (AUTO) 77 % (42-75); PLATELET COUNT 347 10^3/uL (130-400); WHITE BLOOD COUNT 16.2 10^3/uL (4.3-11.0)
[2023-02-05 07:03] LABS: ALBUMIN 2.9 GM/DL (3.2-4.5); BILIRUBIN,TOTAL 0.7 MG/DL (0.1-1.0); CALCIUM 8.3 MG/DL (8.5-10.1); CREATININE SERUM 0.48 MG/DL (0.60-1.30); MAGNESIUM 1.4 MG/DL (1.6-2.4); PHOSPHORUS 4.3 MG/DL (2.3-4.7); POTASSIUM 2.7 MMOL/L (3.6-5.0)
[2023-02-05] MEDS: POTASSIUM BICARB 20 MEQ (EFFER-K) TABLET PO SCH (07:26)
[2023-02-05] MEDS: KCL 20 MEQ TAB (K-DUR) PO SCH (07:26)
[2023-02-05] MEDS: MAGNESIUM 1 GM/100 ML IVPB 100 ML IV SCH ×7 (07:27→13:13)
[2023-02-05] MEDS: POTASSIUM CL 10MEQ/50ML IVPB 50 ML IV SCH ×9 (07:27→15:12)
--- NOTE | 2023-02-05 07:27 | Progress Note - Hospitalist ---
Subjective HPI/CC On Admission Date Seen by Provider: Feb 05, 2023 Time Seen by Provider: 11:00 Subjective/Events-last exam Doing better Potassium and sodium level still low Potassium and sodium supp given Review of Systems General: Fatigue, Malaise Objective Exam Vital Signs Vital Signs Date Time Temp Pulse Resp B/P (MAP) Pulse Ox O2 Delivery O2 Flow Rate FiO2 02/05/23 16:37 36.8 87 17 114/56 (75) 96 Room Air 02/04/23 08:03 1.00 1.00 Capillary Refill : Less Than 3 Seconds General Appearance: No Apparent Distress, WD/WN, Chronically ill Respiratory: Lungs Clear, Normal Breath Sounds Cardiovascular: Regular Rate, Rhythm Neurologic/Psychiatric: Alert, Oriented x3, No Motor/Sensory Deficits, Normal M ood/Affect Results/Procedures Lab Laboratory Tests 02/05/23 06:35 Patient resulted labs reviewed. Assessment/Plan Assessment and Plan Assess & Plan/Chief Complaint Assessment: Alcohol withdrawal Hyponatremia Hypokalemia Hypomag Plan: Potassium Mag Add Aldactone JADA HOLLINGSWORTH DO Feb 05, 2023 07:27
[2023-02-05] MEDS ORDERED: MAGNESIUM 1 GM/100 ML IVPB 100 ML IV SCH (07:30)
[2023-02-05] MEDS: VITAMIN D3 25 MCG (1,000 UNITS) TABLET PO SCH ×2 (07:53→20:07)
[2023-02-05] MEDS: PANTOPRAZOLE 40 MG (PROTONIX) TAB PO SCH (07:53)
[2023-02-05] MEDS: CEPHALEXIN 250 MG (KEFLEX) CAP PO SCH ×2 (07:53→20:07)
[2023-02-05] MEDS: UREA 15 GM POWDER (URE-NA) PO SCH (07:54)
[2023-02-05] MEDS ORDERED: POTASSIUM CL 10MEQ/50ML IVPB 50 ML IV SCH (08:00)
[2023-02-05] MEDS: FOLIC ACID 1 MG TAB PO SCH (08:03)
[2023-02-05 08:10] VITALS: BP 113/59
[2023-02-05] MEDS: NS IV 500 ML 500 ML IV SCH (09:00)
[2023-02-05 11:36] VITALS: BP 139/62
[2023-02-05] MEDS ORDERED: SPIRONOLACTONE 25 MG (ALDACTONE) TAB PO ONE (11:45)
[2023-02-05] MEDS ORDERED: NS IV 500 ML 500 ML ONE (13:11)
[2023-02-05] MEDS: ENOXAPARIN INJECTION 30 MG/0.3 ML SYR SC SCH (13:14)
[2023-02-05 16:37] VITALS: BP 114/56
[2023-02-05 20:46] VITALS: BP 123/72
[2023-02-05 23:12] VITALS: BP 136/58
[2023-02-06 03:24] VITALS: BP 147/67
[2023-02-06 05:46] LABS: BASOPHILS % (AUTO) 0 % (0-10); EOSINOPHILS # (AUTO) 0.1 10^3/uL (0.0-0.3); EOSINOPHILS % (AUTO) 1 % (0-10); HEMATOCRIT 26 % (35-52); HEMOGLOBIN 8.6 g/dL (11.5-16.0); LYMPHOCYTES % (AUTO) 6 % (12-44); MEAN CORPUSCULAR HEMOGLOBIN 24 pg (25-34); MEAN CORPUSCULAR HGB CONC 33 g/dL (32-36); MEAN CORPUSCULAR VOLUME 72 fL (80-99); MEAN PLATELET VOLUME 8.2 fL (9.0-12.2); MONOCYTES # (AUTO) 2.4 10^3/uL (0.0-1.0); MONOCYTES % (AUTO) 14 % (0-12); NEUTROPHILS # (AUTO) 13.9 10^3/uL (1.8-7.8); NEUTROPHILS % (AUTO) 79 % (42-75); PLATELET COUNT 353 10^3/uL (130-400); WHITE BLOOD COUNT 17.6 10^3/uL (4.3-11.0)
[2023-02-06 06:10] LABS: ALBUMIN 2.6 GM/DL (3.2-4.5); BILIRUBIN,TOTAL 0.5 MG/DL (0.1-1.0); CREATININE SERUM 0.43 MG/DL (0.60-1.30); MAGNESIUM 1.6 MG/DL (1.6-2.4); PHOSPHORUS 3.6 MG/DL (2.3-4.7); POTASSIUM 3.5 MMOL/L (3.6-5.0); TOTAL PROTEIN 6.2 GM/DL (6.4-8.2)
[2023-02-06] MEDS: POTASSIUM CL 10MEQ/50ML IVPB 50 ML IV SCH ×13 (06:12→15:45)
[2023-02-06] MEDS: MAGNESIUM 1 GM/100 ML IVPB 100 ML IV SCH ×7 (06:13→10:08)
[2023-02-06] MEDS: KCL 20 MEQ TAB (K-DUR) PO SCH (06:13)
[2023-02-06] MEDS: POTASSIUM BICARB 20 MEQ (EFFER-K) TABLET PO SCH (06:13)
--- NOTE | 2023-02-06 06:14 | Progress Note - Hospitalist ---
Subjective HPI/CC On Admission Date Seen by Provider: Feb 06, 2023 Time Seen by Provider: 11:00 Subjective/Events-last exam Much improved Potassium supplement maintained Fluid restriction Objective Exam Vital Signs Vital Signs Date Time Temp Pulse Resp B/P (MAP) Pulse Ox O2 Delivery O2 Flow Rate FiO2 02/06/23 13:07 94 02/06/23 11:42 36.5 16 126/58 (80) 97 Room Air 02/04/23 08:03 1.00 1.00 Capillary Refill : Less Than 3 Seconds General Appearance: No Apparent Distress, WD/WN, Chronically ill Respiratory: Lungs Clear, Normal Breath Sounds Cardiovascular: Regular Rate, Rhythm Neurologic/Psychiatric: Alert, Oriented x3, No Motor/Sensory Deficits, Normal Mood/Affect Results/Procedures Lab Laboratory Tests 02/06/23 05:38 Patient resulted labs reviewed. Assessment/Plan Assessment and Plan Assess & Plan/Chief Complaint Assessment: Alcohol withdrawal Hyponatremia Hypokalemia Hypomag Plan: Potassium Mag Add Aldactone JADA HOLLINGSWORTH DO Feb 06, 2023 06:14
[2023-02-06] MEDS: MULTIVIT W/MINERALS TAB (THERAGRAN M) PO SCH (06:27)
[2023-02-06 08:14] VITALS: BP 126/60
[2023-02-06] MEDS: CEPHALEXIN 250 MG (KEFLEX) CAP PO SCH ×2 (09:39→21:24)
[2023-02-06] MEDS: PANTOPRAZOLE 40 MG (PROTONIX) TAB PO SCH (09:39)
[2023-02-06] MEDS: FOLIC ACID 1 MG TAB PO SCH (09:39)
[2023-02-06] MEDS: SPIRONOLACTONE 25 MG (ALDACTONE) TAB PO SCH (09:39)
[2023-02-06] MEDS: UREA 15 GM POWDER (URE-NA) PO SCH (09:39)
[2023-02-06] MEDS: VITAMIN D3 25 MCG (1,000 UNITS) TABLET PO SCH ×2 (09:39→21:24)
[2023-02-06 11:42] VITALS: BP 126/58
[2023-02-06] MEDS: ENOXAPARIN INJECTION 30 MG/0.3 ML SYR SC SCH (14:29)
[2023-02-06 16:00] VITALS: BP 130/60
[2023-02-06 19:07] VITALS: BP 96/53
[2023-02-06 23:07] VITALS: BP 141/65
[2023-02-07 03:34] VITALS: BP 141/60
[2023-02-07 05:41] LABS: BASOPHILS % (AUTO) 0 % (0-10); EOSINOPHILS # (AUTO) 0.1 10^3/uL (0.0-0.3); EOSINOPHILS % (AUTO) 1 % (0-10); HEMATOCRIT 26 % (35-52); HEMOGLOBIN 8.1 g/dL (11.5-16.0); LYMPHOCYTES # (AUTO) 0.8 10^3/uL (1.0-4.0); LYMPHOCYTES % (AUTO) 5 % (12-44); MEAN CORPUSCULAR HEMOGLOBIN 23 pg (25-34); MEAN CORPUSCULAR HGB CONC 32 g/dL (32-36); MEAN CORPUSCULAR VOLUME 73 fL (80-99); MEAN PLATELET VOLUME 8.2 fL (9.0-12.2); MONOCYTES % (AUTO) 14 % (0-12); NEUTROPHILS # (AUTO) 11.7 10^3/uL (1.8-7.8); NEUTROPHILS % (AUTO) 80 % (42-75); PLATELET COUNT 364 10^3/uL (130-400); WHITE BLOOD COUNT 14.7 10^3/uL (4.3-11.0)
[2023-02-07 06:02] LABS: ALBUMIN 2.6 GM/DL (3.2-4.5); BILIRUBIN,TOTAL 0.5 MG/DL (0.1-1.0); CALCIUM 8.1 MG/DL (8.5-10.1); CREATININE SERUM 0.41 MG/DL (0.60-1.30); MAGNESIUM 1.6 MG/DL (1.6-2.4); PHOSPHORUS 4.2 MG/DL (2.3-4.7); POTASSIUM 3.5 MMOL/L (3.6-5.0); TOTAL PROTEIN 6.2 GM/DL (6.4-8.2)
[2023-02-07] MEDS: POTASSIUM BICARB 20 MEQ (EFFER-K) TABLET PO SCH (06:10)
[2023-02-07] MEDS: POTASSIUM CL 10MEQ/50ML IVPB 50 ML IV SCH ×5 (06:10→09:52)
[2023-02-07] MEDS: MAGNESIUM 1 GM/100 ML IVPB 100 ML IV SCH ×5 (06:10→09:52)
[2023-02-07] MEDS: KCL 20 MEQ TAB (K-DUR) PO SCH (06:11)
[2023-02-07] MEDS: MULTIVIT W/MINERALS TAB (THERAGRAN M) PO SCH (06:33)
[2023-02-07 07:56] VITALS: BP 139/62
[2023-02-07] MEDS: UREA 15 GM POWDER (URE-NA) PO SCH (08:47)
[2023-02-07] MEDS: FOLIC ACID 1 MG TAB PO SCH (08:48)
[2023-02-07] MEDS: PANTOPRAZOLE 40 MG (PROTONIX) TAB PO SCH (08:48)
[2023-02-07] MEDS: SPIRONOLACTONE 25 MG (ALDACTONE) TAB PO SCH (08:48)
[2023-02-07] MEDS: CEPHALEXIN 250 MG (KEFLEX) CAP PO SCH (08:48)
[2023-02-07] MEDS: VITAMIN D3 25 MCG (1,000 UNITS) TABLET PO SCH (08:48)
[2023-02-07] MEDS ORDERED: UREA15PO PO (10:58)
[2023-02-07] MEDS ORDERED: FOLI1TAB33 PO (10:58)
[2023-02-07] MEDS ORDERED: POTA-51 PO (10:58)
[2023-02-07] MEDS ORDERED: MAGN400T7 PO (10:58)
[2023-02-07] MEDS ORDERED: SPIR25TA5 PO (10:58)
[2023-02-07] MEDS ORDERED: PANT40TA52 PO (10:58)
--- NOTE | 2023-02-07 10:59 | Discharge Summary ---
Discharge Summary Hospital Course Was the Problem List Reviewed?: Yes Problems/Dx: (1) Hyponatremia Status: Acute (2) Nausea vomiting and diarrhea Status: Acute (3) Alcoholism Status: Chronic (4) Hypomagnesemia Status: Acute (5) Anemia Status: Acute Qualifiers: Qualified Codes: D64.9 - Anemia, unspecified (6) RESPIRATORY FAILURE, UNSP, UNSP W HYPOXIA OR HYPERCAPNIA Hospital Course Date of Admission: Jan 31, 2023 at 01:11 Admission Diagnosis : Family Physician/Provider: [place] Date of Discharge: 02/07/23 Discharge Diagnosis: [ ] Hospital Course: Lengthy course after admitted for severe hyponatremia and hypokalemia and hypomag requiring aggressive IV supplementation along with alcohol withdrawal management. SHe had a delay in DC due to continued low electrolytes caused by continued alcohol use. Overall she was improved but she declined to accept counseling for alcohol cessation and overall prognosis is very poor but she is aware of the danger of continued use and she was DC. Labs and Pending Lab Test: Laboratory Tests 02/07/23 05:24: White Blood Count 14.7H, Red Blood Count 3.53L, Hemoglobin 8.1L, Hematocrit 26L, Mean Corpuscular Volume 73L, Mean Corpuscular Hemoglobin 23L, Mean Corpuscular Hemoglobin Concent 32, Red Cell Distribution Width 24.3H, Platelet Count 364, Mean Platelet Volume 8.2L, Immature Granulocyte % (Auto) 1, Neutrophils (%) (Auto) 80H, Lymphocytes (%) (Auto) 5L, Monocytes (%) (Auto) 14H, Eosinophils (%) (Auto) 1, Basophils (%) (Auto) 0, Neutrophils # (Auto) 11.7H, Lymphocytes # (Aut o) 0.8L, Monocytes # (Auto) 2.0H, Eosinophils # (Auto) 0.1, Basophils # (Auto) 0.0, Immature Granulocyte # (Auto) 0.1, Sodium Level 121*L, Potassium Level 3.5L , Chloride Level 92L, Carbon Dioxide Level 23, Anion Gap 6, Blood Urea Nitrogen 5L, Creatinine 0.41L, Estimat Glomerular Filtration Rate 116, BUN/Creatinine Ratio 12, Glucose Level 87, Calcium Level 8.1L, Corrected Calcium 9.2, Phosphorus Level 4.2, Magnesium Level 1.6, Total Bilirubin 0.5, Aspartate Amino Transf (AST/SGOT) 25, Alanine Aminotransferase (ALT/SGPT) 14, Alkaline Phosphatase 98, Total Protein 6.2L, Albumin 2.6L Microbiology 01/31/23 MRSA Screen - Final, Complete MRSA not isolated 01/30/23 Blood Culture - Final, Complete No growth 01/30/23 Urine Culture - Final, Complete Escherichia coli Mixed Bacterial [facility] Home Meds Active Magnesium Oxide 400 Mg Tablet 400 Mg PO BID Potassium Chloride 20 Meq Tablet.er 40 Meq PO TIDWM Folic Acid 1 Mg Tablet 1 Mg PO DAILY Pantoprazole Sodium 40 Mg Tablet.dr 40 Mg PO DAILY Ure-Na (Urea) 15 Gram Powd.pack 15 Gm PO DAILY Spironolactone 25 Mg Tablet 25 Mg PO DAILY Reported Vitamin D3 (Cholecalciferol (Vitamin D3)) 25 Mcg (1000 Unit) Capsule 25 Mcg PO BID Fluoxetine HCl 40 Mg Capsule 40 Mg PO DAILY Aspirin 81 Mg Tab.chew 81 Mg PO DAILY Assessment/Pt Instructions [facility] in 1 week Discharge Planning: <30 minutes discharge planning Discharge Physical Examination Vital Signs Vital Signs Date Time Temp Pulse Resp B/P (MAP) Pulse Ox O2 Delivery O2 Flow Rate FiO2 02/07/23 07:56 36.2 86 18 139/62 (87) 90 Nasal Cannula 2.00 General Appearance: Anxious, Chronically ill, Thin Neurologic/Psychiatric: Alert, Oriented x3 Allergies: Coded Allergies: codeine (Verified Allergy, Mild, 09/02/15) Penicillins (Verified Allergy, Unknown, 01/30/23) Discharge Summary Date of Admission Jan 31, 2023 at 01:11 Date of Discharge Discharge Date: February 07, 2023 Discharge Diagnosis Assessment: Alcohol withdrawal Hyponatremia Hypokalemia Hypomag Plan: Potassium Mag Add Aldactone JADA HOLLINGSWORTH DO February 07, 2023 10:59
[2023-02-07 12:00] VITALS: BP 116/58
== END 2023-02-07 15:11 | disposition home or self-care (01) | DRG 641 ==
LOC: EDUNIT# 20:27 → ER 20:29 → ICU 01-31 01:11 → 4TH 01-31 18:27 → ICU 02-01 01:06 → 4TH 02-02 01:53
PROVIDERS: ADMIT Internal Medicine; ATTEND Internal Medicine
DX: E87.1 Hypo-osmolality and hyponatremia (principal); N39.0 Urinary tract infection, site not specified; F10.239 Alcohol dependence with withdrawal, unspecified; E86.0 Dehydration; K52.9 Noninfective gastroenteritis and colitis, unspecified; E83.42 Hypomagnesemia; D64.9 Anemia, unspecified; Y90.0 Blood alcohol level of less than 20 mg/100 ml; E87.6 Hypokalemia; E87.21 Acute metabolic acidosis; I25.10 Atherosclerotic heart disease of native coronary artery without angina pectoris; F32.A Depression, unspecified; E86.1 Hypovolemia; F41.9 Anxiety disorder, unspecified; I10 Essential (primary) hypertension; Z95.5 Presence of coronary angioplasty implant and graft; Z79.82 Long term (current) use of aspirin; Z79.899 Other long term (current) drug therapy; F17.210 Nicotine dependence, cigarettes, uncomplicated; M19.90 Unspecified osteoarthritis, unspecified site; Z20.822 Contact with and (suspected) exposure to COVID-19
CPT/HCPCS: 36415; 74018; 80048; 80053; 80320; 81000; 82947; 83605; 83735; 84100; 84443; 84703; 85007; 85014; 85018; 85025; 85027; 85610; 85730; 86141; 86850; 86900; 86901; 86920; 87040; 87077; 87081; 87088; 87186; 87389; 87636; 94761; 96361; 96365; 96366; 96367; 96375

== ENCOUNTER 2023-03-21 08:40 | Emergency (ER) | payer SELFPAY ==
[~2023-03-21] VITALS: Ht 160 cm; Wt 47.6 kg
[~2023-03-21 08:40] MED LIST changes: +CHOL10007 PO; +FLUO40CA PO; +MAGN400T7 PO; +PANT40TA52 PO; +POTA-330 PO; +SPIR25TA5 PO; +UREA15PO PO
[2023-03-21] MEDS ORDERED: NS IV 1000 ML 1,000 ML IV STA (09:11)
[2023-03-21] MEDS ORDERED: FAMOTIDINE 20 MG (PEPCID) TABLET PO STA (09:11)
[2023-03-21] MEDS ORDERED: ONDANSETRON 4 MG/2 ML (SDV) Z0FRAN IVP ONE (09:15)
[2023-03-21] MEDS ORDERED: PANTOPRAZOLE 40 MG (PROTONIX) VIAL IV ONE (09:15)
[2023-03-21 09:40] LABS: BASOPHILS # (AUTO) 0.1 10^3/uL (0.0-0.1); BASOPHILS % (AUTO) 1 % (0-10); EOSINOPHILS # (AUTO) 0.1 10^3/uL (0.0-0.3); EOSINOPHILS % (AUTO) 1 % (0-10); HEMATOCRIT 24 % (35-52); HEMOGLOBIN 7.6 g/dL (11.5-16.0); LYMPHOCYTES # (AUTO) 0.8 10^3/uL (1.0-4.0); LYMPHOCYTES % (AUTO) 8 % (12-44); MEAN CORPUSCULAR HEMOGLOBIN 24 pg (25-34); MEAN CORPUSCULAR HGB CONC 32 g/dL (32-36); MEAN CORPUSCULAR VOLUME 75 fL (80-99); MEAN PLATELET VOLUME 8.2 fL (9.0-12.2); MONOCYTES # (AUTO) 1.4 10^3/uL (0.0-1.0); MONOCYTES % (AUTO) 13 % (0-12); NEUTROPHILS # (AUTO) 8.3 10^3/uL (1.8-7.8); NEUTROPHILS % (AUTO) 77 % (42-75); PLATELET COUNT 184 10^3/uL (130-400); WHITE BLOOD COUNT 10.7 10^3/uL (4.3-11.0)
[2023-03-21 09:48] LABS: CHLORIDE 93 MMOL/L (98-107); SODIUM 128 MMOL/L (135-145)
[2023-03-21 09:51] LABS: GLUCOSE 95 MG/DL (70-105)
[2023-03-21 09:52] LABS: CARBON DIOXIDE 23 MMOL/L (21-32)
[2023-03-21 09:53] LABS: BILIRUBIN,TOTAL 0.3 MG/DL (0.1-1.0)
[2023-03-21 09:54] LABS: ALKALINE PHOSPHATASE 130 U/L (40-136)
[2023-03-21 09:55] LABS: GFR ESTIMATED 111
[2023-03-21 09:56] LABS: BUN/CREATININE RATIO 4
[2023-03-21 09:58] LABS: ALANINE AMINOTRANSFERASE 12 U/L (0-55); LIPASE 40 U/L (8-78)
--- NOTE | 2023-03-21 10:00 | ED Abdominal Pain ---
General Chief Complaint: Abdominal/GI Problems Stated Complaint: NAUSEA | VOMITING | WEAKNESS Nursing Triage Note: PT TO ROOM 03 [facility]IA [facility] WITH C/O N/V/D X1 WEEK. PT REPORTS GENERAL WEAKNESS X1 WEEK. PT REPORTS SHE IS AN ALCOHOLIC AND DRANK X2 BEERS AT 0130 THIS MORNING. . Source of Information: Patient Exam Limitations: No Limitations History of Present Illness Date Seen by Provider: Mar 21, 2023 Time Seen by Provider: 09:04 Initial Comments Here by EMS with report of diarrhea starting last night and nausea and vomiting this morning. She has been seen several times for this. She does drink alcohol of 3-8 beers daily. States that she had diarrhea last night and that is fairly chronic. She went to bed. She woke up around 1 AM with diarrhea and then stayed up. She did try drinking a few beers and that did not help. Ultimately called EMS due to epigastric pain and vomiting and diarrhea. Denies fever or chills. Denies blood in vomit or stools. She is not currently on a PPI and is not currently on any medicines except for Prozac. Timing/Duration: 12-24 Hours Severity/Quality: Moderate, Burning Location: Epigastric Radiation: No Radiation Activities at Onset: None Modifying Factors: Improves With Vomiting Associated Symptoms: No Back Pain, No Chest Pain, No Fever/Chills; Nausea/Vomiting; No Shortness of Air, No Weakness Allergies and Home Medications Allergies Coded Allergies: codeine (Verified Allergy, Mild, 09/02/15) Penicillins (Verified Allergy, Unknown, 01/30/23) Patient Home Medication List Home Medication List Reviewed: Yes Aspirin (Aspirin) 81 Mg Tab.chew, 81 MG PO DAILY, (Reported) Entered as Reported by: EJ GILLETTE on 03/19/21 1149 Cholecalciferol (Vitamin D3) (Vitamin D3) 25 Mcg (1000 Unit) Capsule, 25 MCG PO BID, (Reported) Entered as Reported by: EJ GILLETTE on 01/31/23 1030 Fluoxetine HCl (Fluoxetine HCl) 40 Mg Capsule, 40 MG PO DAILY, (Reported) Entered as Reported by: EJ GILLETTE on 01/31/23 1030 Folic Acid (Folic Acid) 1 Mg Tablet, 1 MG PO DAILY Prescribed by: JADA HOLLINGSWORTH on 02/07/23 1058 Magnesium Oxide (Magnesium Oxide) 400 Mg Tablet, 400 MG PO BID Prescribed by: JADA HOLLINGSWORTH on 02/07/231057 Pantoprazole Sodium (Pantoprazole Sodium) 40 Mg Tablet.dr, 40 MG PO DAILY Prescribed by: JAAD HOLLINGSWORTH on 02/07/231057 Potassium Chloride (Potassium Chloride) 20 Meq Tablet.er, 40 MEQ PO TIDWM Prescribed by: JADA HOLLINGSWORTH on 02/07/231057 Spironolactone (Spironolactone) 25 Mg Tablet, 25 MG PO DAILY Prescribed by: JADA HOLLINGSWORTH on 02/07/231057 Urea (Ure-Na) 15 Gram Powd.pack, 15 GM PO DAILY Prescribed by: JADA HOLLINGSWORTH on 02/07/231057 Review of Systems Review of Systems Constitutional: see HPI; No fever EENTM: No Symptoms Reported Respiratory: Denies Cough, Denies Shortness of Air Cardiovascular: Denies Chest Pain, Denies Edema Gastrointestinal: See HPI Genitourinary: No Symptoms Reported Musculoskeletal: No back pain, No muscle pain Skin: no symptoms reported Psychiatric/Neurological: Denies Numbness, Denies Weakness Past Wxksedc-Gjsncg-Cxfarx Hx Patient Social History Tobacco Use?: Yes Tobacco type used: Cigarettes Smoking Status: Heavy Tobacco Smoker Smokeless Tobacco Frequency: Never a User Use of E-Cig and/or Vaping dev: No Use of E-Cig and/or Vaping Barak: Never a User Substance use?: No Alcohol Use?: Yes Alcohol Frequency: Daily Pt feels they are or have been: No Immunizations Up To Date Tetanus Booster (TDap): Unknown PED Vaccines UTD: No First/Initial COVID19 Vaccinat: unknown date Second COVID19 Vaccination Jose: unknown date Third COVID19 Vaccination Date: unknown date Past Medical History Surgery/Hospitalization HX: 1986, hysteroctomy 1991, cardiac stent (year unknown done here in [place]). 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 Sexually Transmitted Disease: No HIV/AIDS: No Genitourinary: No Gastrointestinal: No Musculoskeletal: Yes Arthritis Endocrine: No HEENT: No Hearing Impairment: Denies Cancer: No Did You Recieve Any Treatments: No Psychosocial: Yes Depression Integumentary: No Blood Disorders: No Adverse Reaction/Blood Tranf: No Family Medical History Reviewed Nursing Family Hx Myocardial infarction 19 MOTHER CAD Under 55 Years Old Physical Exam Vital Signs Vital Signs - First Documented 03/21/23 08:40 Temp 35.3 Pulse 104 Resp 19 B/P (MAP) 128/64 (85) O2 Delivery Room Air Capillary Refill : Less Than 3 Seconds Height/Weight/BMI Height: 5'3.00" Weight: 109lbs. 5.0oz. [id number]; 18.00 BMI Method:Stated General Appearance: WD/WN, no apparent distress HEENT: PERRL/EOMI, pharynx normal Neck: full range of motion, supple Respiratory: lungs clear, normal breath sounds Cardiovascular: no murmur, tachycardia Gastrointestinal: non tender, soft Extremities: non-tender, normal inspection Back: normal inspection, no CVA tenderness, no vertebral tenderness Neurologic/Psychiatric: alert, oriented x 3 Skin: normal color, warm/dry Progress/Results/Core Measures Results/Orders Lab Results Laboratory Tests Test 03/21/23 09:31 Range/Units White Blood Count 10.7 4.3-11.0 10^3/uL Red Blood Count 3.19 L 3.80-5.11 10^6/uL Hemoglobin 7.6 L 11.5-16.0 g/dL Hematocrit 24 L 35-52 % Mean Corpuscular Volume 75 L 80-99 fL Mean Corpuscular Hemoglobin 24 L 25-34 pg Mean Corpuscular Hemoglobin Concent 32 32-36 g/dL Red Cell Distribution Width 22.2 H 10.0-14.5 % Platelet Count 184 130-400 10^3/uL Mean Platelet Volume 8.2 L 9.0-12.2 fL Immature Granulocyte % (Auto) 1 % Neutrophils (%) (Auto) 77 H 42-75 % Lymphocytes (%) (Auto) 8 L 12-44 % Monocytes (%) (Auto) 13 H 0-12 % Eosinophils (%) (Auto) 1 0-10 % Basophils (%) (Auto) 1 0-10 % Neutrophils # (Auto) 8.3 H 1.8-7.8 10^3/uL Lymphocytes # (Auto) 0.8 L 1.0-4.0 10^3/uL Monocytes # (Auto) 1.4 H 0.0-1.0 10^3/uL Eosinophils # (Auto) 0.1 0.0-0.3 10^3/uL Basophils # (Auto) 0.1 0.0-0.1 10^3/uL Immature Granulocyte # (Auto) 0.1 0.0-0.1 10^3/uL Neutrophils % (Manual) 82 % Lymphocytes % (Manual) 8 % Monocytes % (Manual) 7 % Eosinophils % (Manual) 1 % Basophils % (Manual) 1 % Band Neutrophils 1 % Hypochromasia SLIGHT Anisocytosis SLIGHT Sodium Level 128 L 135-145 MMOL/L Potassium Level 3.0 L 3.6-5.0 MMOL/L Chloride Level 93 L 98-107 MMOL/L Carbon Dioxide Level 23 21-32 MMOL/L Anion Gap 12 5-14 MMOL/L Blood Urea Nitrogen < 2 L 7-18 MG/DL Creatinine 0.50 L 0.60-1.30 MG/DL Estimat Glomerular Filtration Rate 111 BUN/Creatinine Ratio 4 Glucose Level 95 70-105 MG/DL Calcium Level 8.0 L 8.5-10.1 MG/DL Corrected Calcium 8.8 8.5-10.1 MG/DL Total Bilirubin 0.3 0.1-1.0 MG/DL Aspartate Amino Transf (AST/SGOT) 37 H 5-34 U/L Alanine Aminotransferase (ALT/SGPT) 12 0-55 U/L Alkaline Phosphatase 130 40-136 U/L C-Reactive Protein High Sensitivity 0.04 0.00-0.50 MG/DL Total Protein 7.0 6.4-8.2 GM/DL Albumin 3.0 L 3.2-4.5 GM/DL Lipase 40 8-78 U/L Serum Alcohol 70 H <10 MG/DL My Orders Orders - PRATIK PALACIOS MD Alcohol (03/21/23 09:11) Cbc With Automated Diff (03/21/23 09:11) Comprehensive Metabolic Panel (03/21/23 09:11) Hs C Reactive Protein (03/21/23 09:11) Lipase (03/21/23 09:11) Ondansetron Injection (Zofran Injectio (03/21/23 09:15) Famotidine Tablet (Pepcid Tablet) (03/21/23 09:11) Ns Iv 1000 Ml (Sodium Chloride 0.9%) (03/21/23 09:11) Ed Iv/Invasive Line Start (03/21/23 09:11) Pantoprazole Injection (Protonix Injecti (03/21/23 09:15) Manual Differential (03/21/23 09:31) Medications Given in ED Current Medications Medications Dose Ordered Sig/Mak Route Start Time Stop Time Status Last Admin Dose Admin Ondansetron HCl 4 mg ONCE ONCE IVP 03/21/23 09:15 03/21/23 09:16 DC 03/21/23 09:26 4 MG Pantoprazole 40 mg ONCE ONCE IV 03/21/23 09:15 03/21/23 09:16 DC 03/21/23 09:26 40 MG Vital Signs/I&O 03/21/23 08:40 Temp 35.3 Pulse 104 Resp 19 B/P (MAP) 128/64 (85) O2 Delivery Room Air Blood Pressure Mean: 85 Progress Progress Note : Progress Note Seen and evaluated. IV, labs including CBC, CMP and alcohol ordered. Normal saline 1 L bolus. Protonix 40 mg IV, Pepcid 20 mg p.o. and Zofran 4 mg IV ordered. We will ask social work to evaluate due to alcoholism and need for access to care. Monitor patient. Differential diagnosis includes dehydration, electrolyte abnormality, gastritis related to alcohol 1001: CBC reviewed and does show low hemoglobin of 7.6 which is similar to previous early February of 8.1. Chemistry does show mild hyponatremia as well as hypokalemia with normal lipase. Alcohol is elevated at 70. Monitor patient. 1235: Social work has completed evaluation. We have worked to assist to get follow-up with critical access hospital where patient has establish care. I did discuss with the patient the need for cessation of alcohol and the importance of taking meds. I will represcribe patient the Protonix and also ondansetron. We will also initiate Carafate. I will also give her information for Dr. Nye again so that she may follow-up with him for further evaluation including upper endoscopy if needed. All of this was discussed at length and patient agrees. Discharged home with return precautions. Patient verbalized understanding instructions and agreement with plan. Departure Impression Primary Impression: Alcoholism Additional Impressions: Hyponatremia Anemia Qualified Codes: D64.9 - Anemia, unspecified Disposition: 01 HOME, SELF-CARE Condition: Improved Departure-Patient Inst. Decision time for Depature: 12:48 Referrals: [facility] (PCP/Family) Primary Care Physician CHARLEY NYE DO Patient Instructions: ALCOHOL AND SUBSTANCE ABUSE, Gastritis (DC), Nausea and Vomiting, Adult (DC), Severe Abdominal Pain, Adult (DC) Add. Discharge Instructions: All discharge instructions reviewed with patient and/or family. Voiced und erstanding. It is very important that you follow-up with critical access hospital. Answer your phone today as they are supposed to call you. You should also call and make appointment with Dr. Nye for further evaluation to include upper endoscopy (scope) if indicated. Take medications as directed. Return for worse pain, fever, vomiting, weakness, breathing problems or other concerns as needed Scripts Pantoprazole Sodium (Pantoprazole Sodium) 40 Mg Tablet.dr 40 MG PO DAILY for 3 Days, #30 TAB 0 Refills Prov: PRATIK PALACIOS MD 03/21/23 Sucralfate (Sucralfate) 1 Gram Tablet 1 GM PO ACHS, #56 TAB 1 Refill Chew tablet to a slurry and then swallow Prov: PRATIK PALACIOS MD 03/21/23 Ondansetron (Ondansetron Odt) 4 Mg Tab.rapdis 4 MG PO Q6H PRN for NAUSEA/VOMITING, #8 TAB 0 Refills Prov: PRATIK PALACIOS MD 03/21/23 Copy Copies To 1: MICHLELE FRANCOIS MD, TIMOTHY D MD Mar 21, 2023 10:00
[2023-03-21 10:11] LABS: ANISOCYTOSIS SLIGHT; BAND NEUTROPHILS 1 %; BASOPHILS % (MANUAL) 1 %; EOSINOPHILS % (MANUAL) 1 %; HYPOCHROMASIA SLIGHT; LYMPHOCYTES % (MANUAL) 8 %; MONOCYTES % (MANUAL) 7 %; NEUTROPHILS % (MANUAL) 82 %
[2023-03-21] MEDS ORDERED: PANT40TA52 PO (12:53)
[2023-03-21] MEDS ORDERED: SUCR1TAB PO (12:53)
[2023-03-21] MEDS ORDERED: ONDA4TAB11 PO (12:53)
[2023-03-21 13:26] VITALS: BP 134/76
== END 2023-03-21 13:26 | disposition home or self-care (01) ==
LOC: EDUNIT# 08:40 → ER 08:42
DX: F10.20 Alcohol dependence, uncomplicated (principal); E87.1 Hypo-osmolality and hyponatremia; D64.9 Anemia, unspecified; E87.6 Hypokalemia; F17.210 Nicotine dependence, cigarettes, uncomplicated; Y90.3 Blood alcohol level of 60-79 mg/100 ml
CPT/HCPCS: 80053; 83690; 85007; 85027; 86141; 99284; G0480; 36415; 80320

== ENCOUNTER 2023-05-11 15:13 | Inpatient (IN) | payer SELFPAY ==
[~2023-05-11] VITALS: Ht 160 cm; Wt 43.3 kg
[~2023-05-11 15:13] MED LIST changes: +ONDA4TAB11 PO; -POTA10CA44 PO; +POTA10CA84 PO; +SUCR1TAB PO
[2023-05-11] MEDS ORDERED: NS IV 1000 ML 1,000 ML IV STA ×2 (15:21→16:56)
[2023-05-11] MEDS ORDERED: ONDANSETRON 4 MG/2 ML (SDV) Z0FRAN IVP ONE (15:30)
[2023-05-11 15:36] LABS: BASOPHILS # (AUTO) 0.1 10^3/uL (0.0-0.1); BASOPHILS % (AUTO) 1 % (0-10); EOSINOPHILS # (AUTO) 0.1 10^3/uL (0.0-0.3); EOSINOPHILS % (AUTO) 1 % (0-10); HEMATOCRIT 25 % (35-52); HEMOGLOBIN 7.3 g/dL (11.5-16.0); LYMPHOCYTES # (AUTO) 1.6 X 10^3 (1.0-4.0); LYMPHOCYTES % (AUTO) 15 % (12-44); MEAN CORPUSCULAR HEMOGLOBIN 21 pg (25-34); MEAN CORPUSCULAR HGB CONC 30 g/dL (32-36); MEAN CORPUSCULAR VOLUME 72 fL (80-99); MEAN PLATELET VOLUME 8.5 fL (9.0-12.2); MONOCYTES # (AUTO) 1.1 X 10^3 (0.0-1.0); MONOCYTES % (AUTO) 10 % (0-12); NEUTROPHILS % (AUTO) 74 % (42-75); PLATELET COUNT 233 10^3/uL (130-400); WHITE BLOOD COUNT 10.9 10^3/uL (4.3-11.0)
--- NOTE | 2023-05-11 15:37 | ED Abdominal Pain ---
General Chief Complaint: Abdominal/GI Problems Stated Complaint: HEAT EXHAUSTION Nursing Triage Note: PT ARRIVED PER EMS, PT STATES NO AC OR REFRIGERATION FOR A WEEK OR SO, PT STATES VOMITING FOR 4 DAYS. PT VERY PALE. PT DRINKS SEVERAL BEERS DAILY Source of Information: Patient Exam Limitations: No Limitations History of Present Illness Date Seen by Provider: May 11, 2023 Time Seen by Provider: 15:35 Initial Comments Patient is a 57-year-old female with a history of alcohol abuse who presents ED by EMS for heat exhaustion. She states she has been out of her AC for the past week. She also reports her refrigerator not working. She states she has been feeling hot and sweating at home. She states she has been having intermittent vomiting for the past 2 weeks which is fairly chronic however this became worse over the past 4 days with 10+ episodes daily without any hematemesis. She did drink 4 beers today. Typically drinks 5-10 alcohol beverages daily. She denies of any specific pain or cramping at this time. Denies headache, confusion, visual changes, diarrhea, chest pain, shortness of breath. History of hyponatremia and hypokalemia. Allergies and Home Medications Allergies Coded Allergies: codeine (Verified Allergy, Mild, 09/02/15) Penicillins (Verified Allergy, Unknown, 01/30/23) Patient Home Medication List Home Medication List Reviewed: Yes Aspirin (Aspirin) 81 Mg Tab.chew, 81 MG PO DAILY, (Reported) Entered as Reported by: EJ GILLETTE on 03/19/21 1149 Cholecalciferol (Vitamin D3) (Vitamin D3) 25 Mcg (1000 Unit) Capsule, 25 MCG PO BID, (Reported) Entered as Reported by: EJ GILLETTE on 01/31/23 1030 Fluoxetine HCl (Fluoxetine HCl) 40 Mg Capsule, 40 MG PO DAILY, (Reported) Entered as Reported by: EJ GILLETTE on 01/31/23 1030 Folic Acid (Folic Acid) 1 Mg Tablet, 1 MG PO DAILY Prescribed by: JADA HOLLINGSWORTH on 02/07/23 1058 Magnesium Oxide (Magnesium Oxide) 400 Mg Tablet, 400 MG PO BID Prescribed by: JADA HOLLINGSWORTH on 02/07/23 1058 Ondansetron (Ondansetron Odt) 4 Mg Tab.rapdis, 4 MG PO Q6H PRN for NAUSEA/VOMITING Prescribed by: PRATIK PALACIOS on 03/21/23 1253 Pantoprazole Sodium (Pantoprazole Sodium) 40 Mg Tablet.dr, 40 MG PO DAILY Prescribed by: JADA HOLLINGSWORTH on 02/07/23 1058 Pantoprazole Sodium (Pantoprazole Sodium) 40 Mg Tablet.dr, 40 MG PO DAILY Prescribed by: PRATIK PALACIOS on 03/21/23 1253 Potassium Chloride (Potassium Chloride) 20 Meq Tablet.er, 40 MEQ PO TIDWM Prescribed by: JADA HOLLINGSWORTH on 02/07/23 1058 Spironolactone (Spironolactone) 25 Mg Tablet, 25 MG PO DAILY Prescribed by: JADA HOLLINGSWORTH on 02/07/23 1058 Sucralfate (Sucralfate) 1 Gram Tablet, 1 GM PO ACHS Prescribed by: PRATIK PALACIOS on 03/21/23 1253 Urea (Ure-Na) 15 Gram Powd.pack, 15 GM PO DAILY Prescribed by: JADA HOLLINGSWORTH on 02/07/23 1058 Review of Systems Review of Systems Constitutional: No chills, No diaphoresis, No malaise; weakness EENTM: No Double Vision, No Eye Pain Respiratory: Denies Cough, Denies Orthopnea Cardiovascular: Denies Chest Pain Gastrointestinal: Denies Abdominal Pain, Denies Diarrhea; Nausea, Vomiting Genitourinary: Denies Burning, Denies Discharge Musculoskeletal: No back pain, No joint pain Skin: No change in color, No change in hair/nails All Other Systems Reviewed Negative Unless Noted: Yes Past Emjsstl-Vgamcb-Cnottp Hx Patient Social History Tobacco Use?: Yes Tobacco type used: Cigarettes Smoking Status: Current Everyday Smoker Substance use?: No Alcohol Use?: Yes Alcohol type: Beer Alcohol Frequency: Daily Pt feels they are or have been: No Immunizations Up To Date Tetanus Booster (TDap): Unknown PED Vaccines UTD: No First/Initial COVID19 Vaccinat: unknown date Second COVID19 Vaccination Jose: unknown date Third COVID19 Vaccination Date: unknown date Past Medical History Surgery/Hospitalization HX: 1986, hysteroctomy 1991, cardiac stent (year unknown done here in [place]). 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 Sexually Transmitted Disease: No HIV/AIDS: No Genitourinary: No Gastrointestinal: No Musculoskeletal: Yes Arthritis Endocrine: No HEENT: No Hearing Impairment: Denies Cancer: No Did You Recieve Any Treatments: No Psychosocial: Yes Depression Integumentary: No Blood Disorders: No Adverse Reaction/Blood Tranf: No Family Medical History Myocardial infarction 19 MOTHER CAD Under 55 Years Old Physical Exam Vital Signs Vital Signs - First Documented 05/11/23 15:15 Temp 37.1 Pulse 138 Resp 16 B/P (MAP) 172/97 (122) Pulse Ox 99 Capillary Refill : Less Than 3 Seconds Height/Weight/BMI Height: 5'3.00" Weight: 109lbs. 5.0oz. [id number]; 18.00 BMI Method:Stated General Appearance: WD/WN, no apparent distress HEENT: PERRL/EOMI, normal ENT inspection, TMs normal, pharynx normal Neck: non-tender, full range of motion, supple, normal inspection Respiratory: chest non-tender, lungs clear, normal breath sounds, no respiratory distress, no accessory muscle use Cardiovascular: regular rate, rhythm, no edema, no gallop, no JVD Gastrointestinal: normal bowel sounds, non tender, soft, no organomegaly Extremities: normal range of motion, non-tender, normal inspection, no pedal edema Back: normal inspection, no CVA tenderness, no vertebral tenderness Neurologic/Psychiatric: carrot tier II-XII nml as tested, no motor/sensory deficits, alert, normal mood/affect, oriented x 3 Skin: normal color, warm/dry Progress/Results/Core Measures Results/Orders Lab Results Laboratory Tests Test 05/11/23 15:25 Range/Units White Blood Count 10.9 4.3-11.0 10^3/uL Red Blood Count 3.41 L 3.80-5.11 10^6/uL Hemoglobin 7.3 L 11.5-16.0 g/dL Hematocrit 25 L 35-52 % Mean Corpuscular Volume 72 L 80-99 fL Mean Corpuscular Hemoglobin 21 L 25-34 pg Mean Corpuscular Hemoglobin Concent 30 L 32-36 g/dL Red Cell Distribution Width 18.6 H 10.0-14.5 % Platelet Count 233 130-400 10^3/uL Mean Platelet Volume 8.5 L 9.0-12.2 fL Immature Granulocyte % (Auto) 0 % Neutrophils (%) (Auto) 74 42-75 % Lymphocytes (%) (Auto) 15 12-44 % Monocytes (%) (Auto) 10 0-12 % Eosinophils (%) (Auto) 1 0-10 % Basophils (%) (Auto) 1 0-10 % Neutrophils # (Auto) 8.0 H 1.8-7.8 X 10^3 Lymphocytes # (Auto) 1.6 1.0-4.0 X 10^3 Monocytes # (Auto) 1.1 H 0.0-1.0 X 10^3 Eosinophils # (Auto) 0.1 0.0-0.3 10^3/uL Basophils # (Auto) 0.1 0.0-0.1 10^3/uL Immature Granulocyte # (Auto) 0.0 0.0-0.1 10^3/uL Sodium Level 123 *L 135-145 MMOL/L Potassium Level 3.1 L 3.6-5.0 MMOL/L Chloride Level 87 L 98-107 MMOL/L Carbon Dioxide Level 21 21-32 MMOL/L Anion Gap 15 H 5-14 MMOL/L Blood Urea Nitrogen 3 L 7-18 MG/DL Creatinine 0.55 L 0.60-1.30 MG/DL Estimat Glomerular Filtration Rate 108 BUN/Creatinine Ratio 5 Glucose Level 90 70-105 MG/DL Calcium Level 8.5 8.5-10.1 MG/DL Corrected Calcium 9.0 8.5-10.1 MG/DL Magnesium Level 1.4 L 1.6-2.4 MG/DL Total Bilirubin 0.4 0.1-1.0 MG/DL Aspartate Amino Transf (AST/SGOT) 45 H 5-34 U/L Alanine Aminotransferase (ALT/SGPT) 16 0-55 U/L Alkaline Phosphatase 103 40-136 U/L Total Protein 8.0 6.4-8.2 GM/DL Albumin 3.4 3.2-4.5 GM/DL Lipase 36 8-78 U/L Serum Alcohol 181 H <10 MG/DL My Orders Orders - LCUY NINO Cbc With Automated Diff (05/11/23 15:21) Comprehensive Metabolic Panel (05/11/23 15:21) Lipase (05/11/23 15:21) Alcohol (05/11/23 15:21) Ekg Tracing (05/11/23 15:21) Ondansetron Injection (Zofran Injectio (05/11/23 15:30) Ns Iv 1000 Ml (Sodium Chloride 0.9%) (05/11/23 15:21) Magnesium (05/11/23 15:21) Potassium Cl 10meq/50ml Ivpb (Kcl 10 Meq (05/11/23 16:45) Magnesium 1 Gm/100 Ml Ivpb (Magnesium Loja (05/11/23 16:40) Ed Admission (Communication) (05/11/23 16:41) Ns Iv 1000 Ml (Sodium Chloride 0.9%) (05/11/23 16:56) Medications Given in ED Current Medications Medications Dose Ordered Sig/Mak Route Start Time Stop Time Status Last Admin Dose Admin Ondansetron HCl 4 mg ONCE ONCE IVP 05/11/23 15:30 05/11/23 15:31 DC 05/11/23 15:32 4 MG Vital Signs/I&O 05/11/23 05/11/23 15:15 17:16 Temp 37.1 Pulse 138 92 Resp 16 16 B/P (MAP) 172/97 (122) 135/109 Pulse Ox 99 99 Blood Pressure Mean: 122 Comment Sinus rhythm, 99 bpm, QRS duration 97 MS, QTc 403 MS. Departure Communication (PCP) Reviewed previous ER visits, H&P, lab testing, hospitalist H&P. Patient has been admitted in the past for hyponatremia, hypomagnesia, hypokalemia. Patient reports intermittent vomiting for the past 2 weeks with progressive vomiting 10+ episodes daily over the past 4 days. Daily alcohol use. No air conditioning in her apartment for the past week. She is concerned for heat exhaustion. On arrival she is tachycardic actively vomiting. Started on a liter of fluid and was given Zofran 4mg. She denies of any specific pain. She is not altered or confused. She is afebrile. Appears to be moving all extremities without any focal neural deficits. She is not altered or confused.. Soft abdomen. No chest pain or shortness of breath. General lab work was obtained. Added a EKG with a history of electrolyte abnormality. CBC showed normal white blood count. Hemoglobin 7.3 chronically low and stable. History of lower hemoglobin in the past. Sodium 123, chloride 87, potassium 3.1, magnesium 1.4. Normal kidney function and liver function. Serum alcohol level 181. She states she drank 4 beers today which is likely untrue. Supplemented IV magnesium and IV potassium. Chronically low sodium but today's visit is one of her lowest. Due to potential cardiac and neurological complications secondary to abnormal electrolytes patient will be admitted to the ICU. Patient was discussed with Dr. Rosales who accept the patient. CIWA protocol. History of gastritis. She has taken a PPI in the past. Impression Primary Impression: Hyponatremia Additional Impressions: Hypomagnesemia Chronic alcohol abuse Disposition: ADMITTED INPATIENT Condition: Stable Admissions Decision to Admit Reason: Admit from ER (General) Decision to Admit/Date: May 11, 2023 Time/Decision to Admit Time: 16:33 Departure-Patient Inst. Referrals: [facility] (PCP/Family) Primary Care Physician LUCY NINO May 11, 2023 15:37
[2023-05-11 16:24] LABS: ALBUMIN 3.4 GM/DL (3.2-4.5); POTASSIUM 3.1 MMOL/L (3.6-5.0)
[2023-05-11 16:25] LABS: CALCIUM 8.5 MG/DL (8.5-10.1)
[2023-05-11 16:28] LABS: BILIRUBIN,TOTAL 0.4 MG/DL (0.1-1.0)
[2023-05-11 16:30] LABS: CREATININE SERUM 0.55 MG/DL (0.60-1.30)
[2023-05-11 16:34] LABS: MAGNESIUM 1.4 MG/DL (1.6-2.4)
[2023-05-11] MEDS ORDERED: MAGNESIUM 1 GM/100 ML IVPB 100 ML IV STA (16:40)
[2023-05-11] MEDS ORDERED: POTASSIUM CL 10MEQ/50ML IVPB 50 ML IV ONE (16:45)
[2023-05-11] MEDS ORDERED: ENOXAPARIN 40 MG/0.4 ML SYRINGE SC SCH (17:30)
[2023-05-11] MEDS ORDERED: LORazepam 1 MG (ATIVAN) TAB PO PRN ×2 (18:15→19:15)
[2023-05-11] MEDS ORDERED: NS IV 500 ML 500 ML IV PRN ×2 (18:15→19:15)
[2023-05-11] MEDS ORDERED: LORazepam INJ 2 MG/ML (ATIVAN) VIAL IM/IV PRN ×2 (18:15→19:15)
[2023-05-11] MEDS ORDERED: ONDANSETRON 4 MG/2 ML (SDV) Z0FRAN IV PRN ×2 (18:15→19:15)
[2023-05-11] MEDS ORDERED: NS IV 1000 ML 1,000 ML IV SCH ×2 (18:15→19:15)
[2023-05-11] MEDS ORDERED: LORazepam INJ 2 MG/ML (ATIVAN) VIAL IV PRN ×2 (18:15→19:15)
[2023-05-11] MEDS ORDERED: ONDANSETRON 4 MG (ZOFRAN) ORAL DISSOLVE TAB SL PRN ×2 (18:15→19:15)
--- NOTE | 2023-05-11 18:31 | History & Physical ---
MELISSA ESPINOSA MD 05/11/23 1831: HPI History of Present Illness: Chief complaint: Vomiting Patient presents to the ED due to vomiting and poor oral intake for 5 days. She states that she has not had any air conditioning in her apartment and her fridge door fell off that she had limited access to food. She has been having 5-10 episodes of vomiting per day. So far has had 1 episode of vomiting here in the ED. In addition she has been having 3-4 episodes of diarrhea however she states this is chronic secondary to her gastroparesis. She otherwise denies any chest pain, shortness of breath, dysuria, headache, dizziness. She is a smoker, smokes 1 pack/day. She also drinks alcohol, states that she will drink 4-10 be ers per day. Her last intake was this morning, unable to express what time. She had 4 beers this morning. She denies any history of withdrawal but had had a seizure in the past which she states was due to fever and not withdrawal. She otherwise denies any drug use at this time. Source: patient Exam Limitations: no limitations Date seen by provider: May 11, 2023 Time Seen by Provider: 18:20 Attending Physician [place] PCP Admitting Physician: Dr. Michelle Rosales Attending Physician: Dr. Michelle Rosales Consult Date of Admission 05/11/2023 Home Medications Home Medications Reviewed patient Home Medication Reconciliation performed by pharmacy medication reconciliations lay out technician and/or nursing. Patients Allergies have been reviewed. Allergies Coded Allergies: codeine (Verified Allergy, Mild, 09/02/15) Penicillins (Verified Allergy, Unknown, 01/30/23) VCN-Giczga-Uajnli Hx Patient Social History Smoking Status: Current Everyday Smoker Alcohol Use?: Yes (Drinks 4-10 beers daily, drank 4 beers this morning) Tobacco type used: Cigarettes Immunizations Up To Date Tetanus Booster (TDap): Unknown First/Initial COVID19 Vaccinat: unknown date Second COVID19 Vaccination Jose: unknown date Third COVID19 Vaccination Date: unknown date Past Medical History PMHx: Depression Anxiety HTN (states she has not been on medication for quite some time) CAD with stenting x 2 Anemia Gastic ulcer SurgHx: Coronary artery stenting x 2 C section 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 (1986) Family Medical History Significant Family History: CAD Under 55 Years Old Other Significan Family Hx: Family history of alcoholism on paternal side Family History: Myocardial infarction 19 MOTHER Review of Systems ([facility]) Constitutional: No chills, No dizziness; weakness EENTM: blurred vision; No vision loss, No nose congestion Respiratory: No cough, No short of breath Cardiovascular: No chest pain, No palpitations Gastrointestinal: No abdominal pain; diarrhea, heartburn, nausea, vomiting Genitourinary: No dysuria, No frequency : No Musculoskeletal: No joint pain, No muscle pain; muscle weakness Skin: No rash Psychiatric/Neurological: Denies No Symptoms Reported, Denies Other Other Denies any audio or visual hallucinations at this time All Other Systems Reviewed Negative Unless Noted: Yes Reviewed Test Results Reviewed Test Results Lab Laboratory Tests 05/11/23 15:25: Red Blood Count 3.41L, Hemoglobin 7.3L, Hematocrit 25L, Mean Corpuscular Volume 72L, Mean Corpuscular Hemoglobin 21L, Mean Corpuscular Hemoglobin Concent 30L, Red Cell Distribution Width 18.6H, Mean Platelet Volume 8.5L, Neutrophils # (Auto) 8.0H, Monocytes # (Auto) 1.1H, Sodium Level 123*L, Potassium Level 3.1L, Chloride Level 87L, Anion Gap 15H, Blood Urea Nitrogen 3L, Creatinine 0.55L, Magnesium Level 1.4L, Aspartate Amino Transf (AST/SGOT) 45H, Serum Alcohol 181H Physical Exam-([facility]) Physical Exam Vital Signs VS - Last 72 Hours, by Label 05/11/23 05/11/23 15:15 17:16 Temp 37.1 Pulse 138 92 Resp 16 16 B/P (MAP) 172/97 (122) 135/109 Pulse Ox 99 99 Capillary Refill : Less Than 3 Seconds General Appearance: no apparent distress, thin Eyes: Bilateral Eye PERRL, Bilateral Eye EOMI HEENT: PERRL/EOMI, normal ENT inspection, other (Poor dentition) Neck: full range of motion Respiratory: chest non-tender, lungs clear, normal breath sounds, no respiratory distress, no accessory muscle use Cardiovascular: normal peripheral pulses, regular rate, rhythm, no edema Gastrointestinal: normal bowel sounds, no organomegaly, no pulsatile mass, tenderness (Left upper quadrant tenderness), other (Noted to have a birthmark on epigastric area) Rectal: deferred Back: normal inspection Extremities: normal range of motion Neurologic/Psychiatric: alert, oriented x 3 Skin: normal color, warm/dry Comments CIWA score of 5 Assessment/Plan Assessment/Plan Admission Dx Heat exhaustion Admission Status: Inpatient Order (span 2 midnights) Reason for Inpatient Admission: Heat exhaustion, monitoring for alcohol withdrawal, hyponatremia, hypokalemia, inability to tolerate oral intake (1) Heat exhaustion Status: Acute Assessment & Plan: Secondary to lack of air conditioning at home Evidence of dehydration on lab work and exam Will manage per below Social work team consulted to work on assisting patient with improving living conditions to prevent rehospitalization (2) Alcoholism Status: Chronic Assessment & Plan: EtOH level elevated today. Last drink this morning, 4 beers Will monitor for withdrawal CIWA protocol initiated Very minor signs of withdrawal at this time Supplementation with thiamine and folic acid (3) Hypokalemia Status: Acute Assessment & Plan: Likely secondary to vomiting and diarrhea as well as poor oral intake Potassium of 3.1 in the ED. already repleted with IV potassium We will monitor with daily [facility] Potassium replacement protocol in place (4) Hypomagnesemia Status: Acute Assessment & Plan: Magnesium of 1.4. Likely secondary to vomiting and diarrhea as well as poor oral intake Repleted with in the ED with IV magnesium. Monitor with daily [facility] Magnesium replacement protocol in place (5) Hyponatremia Status: Chronic Assessment & Plan: Acute on chronic likely hypovolemic hyponatremia Sodium of 123 in the ED. Baseline appears to be 129 We will start maintenance fluids of normal saline at 75 ml/h We will recheck BMP in 4 hours. If improved plan to discontinue fluids and recheck in the morning (6) Nausea and vomiting Status: Acute Assessment & Plan: Appears to be improving. Likely secondary to heat exhaustion Zofran on board, IV and p.o. We will start with clear liquid diet, advance as tolerated Continue home pantoprazole Qualifiers: Qualified Codes: R11.2 - Nausea with vomiting, unspecified (7) Diarrhea Status: Chronic Assessment & Plan: Chronic, secondary to gastroparesis per patient. 3-4 episodes per day. Will monitor for now Qualifiers: Qualified Codes: R19.7 - Diarrhea, unspecified (8) Depression Status: Chronic Assessment & Plan: Continue home Prozac 40 mg daily Qualifiers: Qualified Codes: F33.9 - Major depressive disorder, recurrent, unspecified (9) Coronary artery disease Status: Chronic Assessment & Plan: Continue home aspirin 81 mg Qualifiers: Qualified Codes: I25.810 - Atherosclerosis of coronary artery bypass graft(s) without angina pectoris (10) Anemia Status: Chronic Assessment & Plan: Chronic anemia, baseline appears to be 7.8. Hemoglobin of 7.3 in the ED. No signs of bleeding per exam and patient report. Continue to monitor with daily CBC Qualifiers: Qualified Codes: D64.9 - Anemia, unspecified MICHELLE ROSALES MD 05/12/23 1620: Home Medications Allergies Coded Allergies: codeine (Verified Allergy, Mild, 09/02/15) Penicillins (Verified Allergy, Unknown, 01/30/23) [id number]-Evaoqs Hx Family Medical History Family History: Myocardial infarction 19 MOTHER Supervisory-Addendum Brief Supervisory Addendum I personally performed the H&P on 05/12 however A/P was discussed with resident in real time, discussed case with resident and concur with resident documentation of history, physical exam, assessment and treatment plan unless otherwise noted. A/P Heat Exhaustion Alcoholism Acute on Chronic hyponatremia Hypokalemia Hypomagnesiemia Microcytic anemia CAD N/V - Sodium improved with IVFs, encouraged PO hydration. Electrolytes replaced. Patient received 1 unit of blood. Stool occult blood pending. Iron studies pending. SW consulted as patient has some issues with her apartment. MELISSA ESPINOSA MD May 11, 2023 18:31 MICHELLE ROSALES MD May 12, 2023 16:20
--- OUTSIDE RECORDS SUMMARY | 2023-05-11 19:26 | XMS REPORT | Clinical Summary ---
Demographics Preferred Language Unknown Marital Status Unknown Anabaptism Affiliation Unknown Race Unknown Ethnic Group Unknown Author Author [facility] Organization [facility] Address Unknown Phone Unavailable Care Team Providers Care Hand Cementer Name Role Phone PCP Unavailable Source Comments Some departments are not documenting in the electronic medical record. If you d o not see the information that you expected, contact Release of Information in [facility] Information Management department at [phone] for further assistan ce in locating additional records.[facility] Allergies Not on File Medications Not on file Active Problems Not on file Social History Date Tobacco Use Types Packs/Day Years Used Smoking Tobacco: Never Assessed Date Recorded Sex and Gender Information Value Sex Assigned at Not on file Gender Identity Not on file Sexual Orientation Not on file Last Filed Vital Signs Not on file Plan of Treatment Health Maintenance Due Date Last Done Comments COVID-19 VACCINE (#1) 1967 HIV SCREENING 1982 DTAP/TDAP VACCINES (1 - 1985 Tdap) HEPATITIS C SCREENING 1985 PHYSICAL (COMPREHENSIVE) 1985 EXAM CERVICAL CANCER SCREENING 1988 BREAST CANCER SCREENING 2007 COLORECTAL CANCER 2012 SCREENING SHINGLES RECOMBINANT 2017 VACCINE (1 of 2) DEPRESSION SCREENING 10/10/2022 INFLUENZA VACCINE (#1) 2023 PNEUMOCOCCAL VACCINE 0-64 Aged Out No longer el igible based on patient's age to YRS complete this topic Results Not on filefrom Last 3 Months
--- OUTSIDE RECORDS SUMMARY | 2023-05-11 19:26 | XMS REPORT ---
Author Author [facility] Address Unknown Phone Unavailable Care Team Providers Care Project Manager Finance Name Role Phone DANIEL POND Unavailable PROBLEMS Type Condition ICD9-CM Code LHM48-TV Code Onset Dates Condition S tatus W/U Status Risk SNOMED Code Notes Problem Alcohol dependence with withdrawal F10.239 c onfirmed [id number] Problem Hypomagnesemia E83.42 confirmed [id number] Problem Mild episode of recurrent major depressive disorder F33.0 confirmed [id number] Problem Essential hypertension I10 confirmed [id number] Problem Alcohol abuse F10.10 confirmed [id number] ALLERGIES Allergen (clinical drug ingredient) Drug/Non Drug Allergy do cumented on EMR Reaction Allergy Type Onset Date Status codeine Codeine Unknown Drug Allergy Active ENCOUNTERS from 1967 to 2023-04-13 Encounter Location Date Provider Diagnosis [facility] [address] [facility] [id number] [place] [address] Apr, DANIEL POND Essential hypertensi on I10 ; Mild episode of recurrent major depressive disorder F33.0 and Alcohol abuse F10.10 IMMUNIZATIONS No Information SOCIAL HISTORY Sex Assigned At : Social History Observation Description Sex Assigned At Unknown PHQ2 Question Answer Notes In the last 2 weeks, how often have you had little interest or pleasure in doing things? Not at all In the last 2 weeks, how often have you been feeling down, depressed, or hopeless? More than half the days Total PHQ2 Score 2 REASON FOR REFERRAL No Information VITAL SIGNS Height 63 in Apr, Height-cm 160.02 cm Apr, Weight 113.7 lbs Apr, Weight-kg 51.57 kg Apr, Temperature 96.7 degrees Fahrenheit Apr, Heart Rate 89 bpm Apr, Respiratory Rate 16 bpm Apr, Oximetry 98 % Apr, BMI 20.14 kg/m2 Apr, Blood pressure systolic 136 mmHg Apr, Blood pressure diastolic 70 mmHg Apr, MEDICATIONS Medication SIG (Take, Route, Frequency, Duration) Notes Start Da te End Date Status Folic Acid 1 MG 1 tablet by oral route Once a day verified via bottle Active Vitamin B-1 100 MG 1 tablet Orally Once a day verified via bottle Active Metoprolol Succinate ER 100 mg TAKE ONE TABLET BY MOUTH EVERY DAY for 30 Active Aspirin 81 81 MG 1 tablet Orally Once a day verified via bottle Active amLODIPine Besylate 5 mg TAKE ONE TABLET BY MOUTH EVERY DAY for 30 Active PROCEDURES No Information RESULTS No Results REASON FOR VISIT Establish Care. PT states that she is here to establish care. Pt states that she is also following up from being in [facility] for pneumonia. PT would like to discuss covid vaccine. Summer Wh[place], Dr Crockett?? DT MEDICAL (GENERAL) HISTORY Type Description Date Medical History 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 Medical History Depression Surgical History hysterectomy 1991 Surgical History 1986 Hospitalization History Childbirth 1986 Hospitalization History Surgery 1991 Hospitalization History Pneumonia [facility] x5 days 03/25- Goals Section No Information Health Concerns No Information MEDICAL EQUIPMENT No Information MENTAL STATUS No Information FUNCTIONAL STATUS No Information ASSESSMENTS Encounter Date Diagnosis Assessment Notes Treatment Notes Treatm ent Clinical Notes Apr, Essential hypertension (ICD-10 - I10) Apr, Mild episode of recurrent ma selvin depressive disorder (ICD-10 - F33.0) Apr, Alcohol abuse (ICD-10 - F10.10) Apr, Other Release of recor ds to be signed for previous providers as indicated. Get records from Dr Crockett as well as last months hospital records from . If she was Covid negative she will need baccinated. If she was Covid positive will vaccinate when antibody test is negative. Will review labs from . Continue to work on supportive and preventative measures for diet, exercise, and disease prevention. PLAN OF TREATMENT Medication Medication Name Sig Start Date Stop Date amLODIPine Besylate 5 mg TAKE ONE TABLET BY MOUTH EVERY DAY for 30 Metoprolol Succinate ER 100 mg TAKE ONE TABLET BY MOUTH EVERY DA Y for 30 Next Appt Details 6 Months Reason:BP Check Follow Up:6 MonthsBP Check
--- NOTE | 2023-05-11 20:45 | Tele-ICU Consult ---
History of Present Illness History of Present Illness Date Seen by Provider: May 11, 2023 Time Seen by Provider: 20:38 Date of Admission History of Present Illness 57 yo F admitted with poor oral intake, vomiting and diarrhhea, Has chronic gastroparesis. Has been diriking 4-10 beers/d\\ Has no AC at home Temp in ED 37.1 Lab showed Hb 7.3 MCV 72, Na 123, potassium 3.1, Cl 87, AG=15 Cr 0.55/BUN 3, HCO3 21 EtOH level 181, Mg 1.4 AST 45 ALT16 T Bili 1.4 PMH depression/anxiety, HTN, CAD with stents x 2, Hx of gastic ulcer Allergies and Home Medications Allergies Coded Allergies: codeine (Verified Allergy, Mild, 09/02/15) Penicillins (Verified Allergy, Unknown, 01/30/23) Home Medications Aspirin 81 Mg Tab.chew, 81 MG PO DAILY, (Reported) Cholecalciferol (Vitamin D3) 25 Mcg (1000 Unit) Capsule, 25 MCG PO BID, (Reported) Fluoxetine HCl 40 Mg Capsule, 40 MG PO DAILY, (Reported) Folic Acid 1 Mg Tablet, 1 MG PO DAILY Prescribed by: JADA HOLLINGSWORTH on 02/07/23 1058 Magnesium Oxide 400 Mg Tablet, 400 MG PO BID Prescribed by: JADA HOLLINGSWORTH on 02/07/23 1058 Ondansetron 4 Mg Tab.rapdis, 4 MG PO Q6H PRN for NAUSEA/VOMITING Prescribed by: PRATIK PALACIOS on 03/21/23 1253 Pantoprazole Sodium 40 Mg Tablet.dr, 40 MG PO DAILY Prescribed by: JADA HOLLINGSWORTH on 02/07/23 1058 Pantoprazole Sodium 40 Mg Tablet.dr, 40 MG PO DAILY Prescribed by: PRATIK PALACIOS on 03/21/23 1253 Potassium Chloride 20 Meq Tablet.er, 40 MEQ PO TIDWM Prescribed by: JADA HOLLINGSWORTH on 02/07/23 1058 Spironolactone 25 Mg Tablet, 25 MG PO DAILY Prescribed by: JADA HOLLINGSWORTH on 02/07/23 1058 Sucralfate 1 Gram Tablet, 1 GM PO ACHS Chew tablet to a slurry and then swallow Prescribed by: PRATIK PALACIOS on 03/21/23 1253 Urea 15 Gram Powd.pack, 15 GM PO DAILY Prescribed by: JADA HOLLINGSWORTH on 02/07/23 1058 Past Medical/Social/Family Hx Patient Social History Tobacco Use?: Yes Tobacco type used: Cigarettes Smoking Status: Current Everyday Smoker Smokeless Tobacco Frequency: Never a User Use of E-Cig and/or Vaping dev: No Substance use?: Yes Substance type: Nicotine Substance frequency: Daily Alcohol Use?: Yes Alcohol type: Beer Alcohol Frequency: Daily Pt stated abuse/neglect: No Immunizations Up To Date Influenza Vaccine Up-to-Date: No; Not Current First/Initial COVID19 Vaccinat: unknown date Second COVID19 Vaccination Jose: unknown date Tetanus Booster (TDap): More Than 5 Years Hepatitis A: No Hepatitis B: No TB Skin Test: None Current Status status: No status: No Advance Directives: No Communicates: Verbally Primary Language: Malian Preferred Spoken Language: Malian Is interpretation needed?: No Sensory deficits: Vision impairment Implanted or Applied Medical D: None Past Medical History PMHx: Depression Anxiety HTN (states she has not been on medication for quite some time) CAD with stenting x 2 Anemia Gastic ulcer SurgHx: Coronary artery stenting x 2 C section 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 (1986) Family Medical History Family Hx: Family history of alcoholism on paternal side Review of Systems Constitutional: see HPI EENTM: see HPI Respiratory: see HPI Cardiovascular: see HPI Gastrointestinal: see HPI Genitourinary: see HPI Musculoskeletal: see HPI Skin: see HPI Psychiatric/Neurological: See HPI Focused Exam Height, Weight, BMI Height: 5'3.00" Weight: 109lbs. 5.0oz. 49.047083ay; 16.83 BMI Method:Stated Exam Exam Patient acknowledged, consented, and participated in this virtual visit which was conducted using real time audio/video Vital Signs Date Time Temp Pulse Resp B/P (MAP) Pulse Ox O2 Delivery O2 Flow Rate FiO2 05/11/23 19:52 36.1 05/11/23 19:45 100 Room Air 05/11/23 19:27 92 12 139/64 (89) 100 Room Air 05/11/23 17:16 92 16 135/109 99 05/11/23 15:15 37.1 138 16 172/97 (122) 99 Height & Weight Height: 5'3.00" Weight: 109lbs. 5.0oz. 49.422880iw; 16.83 BMI Method:Stated General Appearance: Mild Distress, Other (no further diarrhea or vomiting) Respiratory: Lungs Clear Cardiovascular: Regular Rate, Rhythm, No Edema Capillary Refill: Less Than 3 Seconds Gastrointestinal: normal bowel sounds, non tender, no organomegaly, no pulsatile mass, tenderness (Left upper quadrant tenderness), other (Noted to have a birthmark on epigastric area) Extremity: No Pedal Edema Neurologic/Psychiatric: Alert, Oriented x3 Results Lab Laboratory Tests 05/11/23 15:25 Assessment/Plan Assessment/Plan Heat exhaustion, dehydration, Fe def anemia, will rehydrate, watch for signs of EtOH withdrawal, CIWA score 5, replace Mg and K Spoke with respiratory therapy director: Critically Ill Patient Time spent with patient (mins): 30 BILLY VARGAS MD May 11, 2023 20:45
[2023-05-12 01:19] LABS: CHLORIDE 98 MMOL/L (98-107); SODIUM 134 MMOL/L (135-145)
[2023-05-12 01:20] LABS: CALCIUM 7.4 MG/DL (8.5-10.1); GLUCOSE 71 MG/DL (70-105)
[2023-05-12 01:22] LABS: CARBON DIOXIDE 22 MMOL/L (21-32)
[2023-05-12 01:24] LABS: CREATININE SERUM 0.46 MG/DL (0.60-1.30); GFR ESTIMATED 113
[2023-05-12 01:25] LABS: BUN/CREATININE RATIO 4
[2023-05-12 01:27] LABS: POTASSIUM 2.5 MMOL/L (3.6-5.0)
--- NOTE | 2023-05-12 01:33 | Progress Note ---
Standard Progress Note Progress Notes/Assess & Plan Date Seen by a Provider: May 12, 2023 Time Seen by a Provider: 01:32 Progress/Assessment & Plan called for potassium of 2.5, will replace, Does not have central line BILLY VARGAS MD May 12, 2023 01:33
[2023-05-12] MEDS ORDERED: POTASSIUM CL 10MEQ/50ML IVPB 150 ML IV ONE (01:45)
[2023-05-12] MEDS: POTASSIUM CL 10MEQ/50ML IVPB 50 ML IV SCH ×4 (01:46→06:23)
--- NOTE | 2023-05-12 03:57 | Tele-ICU Progress Note ---
Subjective Date Seen by a Provider: May 12, 2023 Time Seen by a Provider: 03:55 Subjective/Events-last exam called for discomfort with potassium IV infusion, not able to tolerate even with rate slowed down, will give 20 Meq KCL po BID Ole Vargas MD Sepsis Event Evaluation Height, Weight, BMI Height: 5'3.00" Weight: 109lbs. 5.0oz. 49.551854mg; 16.83 BMI Method:Stated Exam Exam Patient acknowledged, consented, and participated in this virtual visit which was conducted using real time audio/video Vital Signs Date Time Temp Pulse Resp B/P (MAP) Pulse Ox O2 Delivery O2 Flow Rate FiO2 05/12/23 03:38 36.9 05/12/23 03:35 100 Nasal Cannula 2.00 05/12/23 01:00 85 05/12/23 00:00 36.6 05/11/23 23:55 100 Nasal Cannula 2.00 05/11/23 23:00 91 16 138/78 (98) 100 Nasal Cannula 2.00 05/11/23 22:21 Nasal Cannula 2.00 05/11/23 22:00 94 14 127/73 (91) 96 Room Air 05/11/23 21:00 93 18 135/74 (94) 97 Room Air 05/11/23 20:30 93 13 127/71 (89) 97 Room Air 05/11/23 20:00 96 17 138/74 (95) 100 Room Air 05/11/23 19:52 36.1 05/11/23 19:45 93 18 130/68 (88) 99 Room Air 05/11/23 19:45 100 Room Air 05/11/23 19:34 100 05/11/23 19:27 92 12 139/64 (89) 100 Room Air 05/11/23 19:15 96 21 139/64 (89) 100 Room Air 05/11/23 17:16 92 16 135/109 99 05/11/23 15:15 37.1 138 16 172/97 (122) 99 I & O 05/12/23 07:00 Intake Total 1375 ml Output Total 1300 ml Balance 75 ml Height & Weight Height: 5'3.00" Weight: 109lbs. 5.0oz. 49.938146sh; 16.83 BMI Method:Stated General Appearance: Mild Distress, Other (no further diarrhea or vomiting) Respiratory: Lungs Clear Cardiovascular: Regular Rate, Rhythm, No Edema Capillary Refill: Less Than 3 Seconds Gastrointestinal: normal bowel sounds, non tender, no organomegaly, no pulsatile mass, tenderness (Left upper quadrant tenderness), other (Noted to have a birthmark on epigastric area) Extremity: No Pedal Edema Neurologic/Psychiatric: Alert, Oriented x3 Results Lab Laboratory Tests 05/11/23 15:25 05/12/23 00:44 Assessment/Plan Assessment/Plan called for discomfort with potassium IV infusion, not able to tolerate even with rate slowed down, will give 20 Meq KCL po BID Ole Vargas MD Critical Care: Critically Ill Patient Time spent with patient (mins): 10 BILLY VARGAS MD May 12, 2023 03:57
[2023-05-12] MEDS ORDERED: POTASSIUM CHLORIDE 20 MEQ TABLET PO ONE ×3 (04:13→12:00)
[2023-05-12] MEDS: POTASSIUM CHLORIDE 20 MEQ TABLET PO SCH ×3 (04:55→18:54)
[2023-05-12] MEDS ORDERED: POTASSIUM CL 10MEQ/50ML IVPB 50 ML IV SCH (06:00)
[2023-05-12] MEDS ORDERED: MAGNESIUM 1 GM/100 ML IVPB 100 ML IV SCH (06:00)
[2023-05-12] MEDS ORDERED: POTASSIUM CHLORIDE 20 MEQ TABLET PO SCH (06:00)
[2023-05-12 06:01] LABS: BASOPHILS # (AUTO) 0.1 10^3/uL (0.0-0.1); BASOPHILS % (AUTO) 1 % (0-10); EOSINOPHILS # (AUTO) 0.2 10^3/uL (0.0-0.3); EOSINOPHILS % (AUTO) 2 % (0-10); HEMATOCRIT 22 % (35-52); LYMPHOCYTES # (AUTO) 0.6 10^3/uL (1.0-4.0); LYMPHOCYTES % (AUTO) 7 % (12-44); MEAN CORPUSCULAR HEMOGLOBIN 22 pg (25-34); MEAN CORPUSCULAR HGB CONC 30 g/dL (32-36); MEAN CORPUSCULAR VOLUME 72 fL (80-99); MONOCYTES # (AUTO) 1.2 10^3/uL (0.0-1.0); MONOCYTES % (AUTO) 14 % (0-12); NEUTROPHILS # (AUTO) 6.7 10^3/uL (1.8-7.8); NEUTROPHILS % (AUTO) 76 % (42-75); PLATELET COUNT 209 10^3/uL (130-400); WHITE BLOOD COUNT 8.8 10^3/uL (4.3-11.0)
[2023-05-12 06:03] LABS: HEMOGLOBIN 6.5 g/dL (11.5-16.0)
[2023-05-12 06:16] LABS: ALBUMIN 2.8 GM/DL (3.2-4.5); CHLORIDE 94 MMOL/L (98-107); POTASSIUM 2.8 MMOL/L (3.6-5.0); SODIUM 130 MMOL/L (135-145)
[2023-05-12 06:17] LABS: CALCIUM 7.4 MG/DL (8.5-10.1)
[2023-05-12 06:18] LABS: GLUCOSE 86 MG/DL (70-105); TOTAL PROTEIN 6.7 GM/DL (6.4-8.2)
[2023-05-12 06:19] LABS: CARBON DIOXIDE 23 MMOL/L (21-32)
[2023-05-12 06:20] LABS: BILIRUBIN,TOTAL 0.3 MG/DL (0.1-1.0)
[2023-05-12 06:21] LABS: ANISOCYTOSIS MARKED; BAND NEUTROPHILS 3 %; HYPOCHROMASIA MODERATE; LYMPHOCYTES % (MANUAL) 3 %; MONOCYTES % (MANUAL) 6 %; NEUTROPHILS % (MANUAL) 88 %; PHOSPHORUS 2.4 MG/DL (2.3-4.7); TARGET CELLS MODERATE
[2023-05-12 06:22] LABS: ALKALINE PHOSPHATASE 83 U/L (40-136); GFR ESTIMATED 111
[2023-05-12 06:23] LABS: BUN/CREATININE RATIO 4
[2023-05-12] MEDS: MAGNESIUM 1 GM/100 ML IVPB 100 ML IV SCH ×7 (06:23→10:51)
[2023-05-12 06:24] LABS: MAGNESIUM 1.4 MG/DL (1.6-2.4)
--- NOTE | 2023-05-12 06:24 | Tele-ICU Progress Note ---
Subjective Date Seen by a Provider: May 12, 2023 Time Seen by a Provider: 06:22 Subjective/Events-last exam called for Hb 6.5, was 7.3, will order one unit PRBC also potassium 2.8, pt not tolerating IV route, given 20 Meq KCl po, will give another 20 Meq at noon Sepsis Event Evaluation Height, Weight, BMI Height: 5'3.00" Weight: 109lbs. 5.0oz. 49.082748cy; 16.91 BMI Method:Stated Exam Exam Patient acknowledged, consented, and participated in this virtual visit which was conducted using real time audio/video Vital Signs Date Time Temp Pulse Resp B/P (MAP) Pulse Ox O2 Delivery O2 Flow Rate FiO2 05/12/23 05:00 88 21 130/84 (99) 100 Nasal Cannula 2.00 05/12/23 04:00 81 17 138/64 (88) 97 Nasal Cannula 2.00 05/12/23 03:38 36.9 05/12/23 03:35 100 Nasal Cannula 2.00 05/12/23 03:00 84 21 141/83 (102) 100 Nasal Cannula 2.00 05/12/23 02:00 90 16 153/83 (106) 100 Nasal Cannula 2.00 05/12/23 01:00 85 05/12/23 01:00 86 16 146/84 (104) 100 Nasal Cannula 2.00 05/12/23 00:00 36.6 05/12/23 00:00 88 24 133/88 (103) 100 Nasal Cannula 2.00 05/11/23 23:55 100 Nasal Cannula 2.00 05/11/23 23:00 91 16 138/78 (98) 100 Nasal Cannula 2.00 05/11/23 22:21 Nasal Cannula 2.00 05/11/23 22:00 94 14 127/73 (91) 96 Room Air 05/11/23 21:00 93 18 135/74 (94) 97 Room Air 05/11/23 20:30 93 13 127/71 (89) 97 Room Air 05/11/23 20:00 96 17 138/74 (95) 100 Room Air 05/11/23 19:52 36.1 05/11/23 19:45 93 18 130/68 (88) 99 Room Air 05/11/23 19:45 100 Room Air 05/11/23 19:34 100 8/2/23 19:27 92 12 139/64 (89) 100 Room Air 05/11/23 19:15 96 21 139/64 (89) 100 Room Air 05/11/23 17:16 92 16 135/109 99 05/11/23 15:15 37.1 138 16 172/97 (122) 99 I & O 05/12/23 07:00 Intake Total 1575 ml Output Total 1825 ml Balance -250 ml Height & Weight Height: 5'3.00" Weight: 109lbs. 5.0oz. 49.015005nj; 16.91 BMI Method:Stated General Appearance: Mild Distress, Other (no further diarrhea or vomiting) Respiratory: Lungs Clear Cardiovascular: Regular Rate, Rhythm, No Edema Capillary Refill: Less Than 3 Seconds Gastrointestinal: normal bowel sounds, non tender, no organomegaly, no pulsatile mass, tenderness (Left upper quadrant tenderness), other (Noted to have a birthmark on epigastric area) Extremity: No Pedal Edema Neurologic/Psychiatric: Alert, Oriented x3 Results Lab Laboratory Tests 05/11/23 15:25 05/12/23 00:44 05/12/23 05:53 Assessment/Plan Assessment/Plan called for Hb 6.5, was 7.3, will order one unit PRBC also potassium 2.8, pt not tolerating IV route, given 20 Meq KCl po, will give another 20 Meq at noon Critical Care: Critically Ill Patient Time spent with patient (mins): 10 BILLY VARGAS MD May 12, 2023 06:24
[2023-05-12 06:25] LABS: ALANINE AMINOTRANSFERASE 12 U/L (0-55)
[2023-05-12] MEDS ORDERED: NS IV 500 ML 500 ML IV SCH ×2 (06:30)
[2023-05-12] MEDS ORDERED: MAGNESIUM 1 GM/100 ML IVPB 600 ML IV ONE (06:31)
[2023-05-12] MEDS: THIAMINE 100 MG (VITAMIN B-1) TAB PO SCH (06:38)
[2023-05-12] MEDS: MULTIVIT W/MINERALS TAB (THERAGRAN M) PO SCH (06:38)
[2023-05-12] MEDS ORDERED: MULTIVIT W/MINERALS TAB (THERAGRAN M) PO SCH (07:00)
[2023-05-12] MEDS ORDERED: THIAMINE 100 MG (VITAMIN B-1) TAB PO SCH (07:00)
[2023-05-12] MEDS ORDERED: FLUoxetine 10 MG CAPSULE/TABLET PO SCH (09:00)
[2023-05-12] MEDS ORDERED: PANTOPRAZOLE 40 MG (PROTONIX) TAB PO SCH (09:00)
[2023-05-12] MEDS ORDERED: FOLIC ACID 1 MG TAB PO SCH (09:00)
[2023-05-12] MEDS: ASPIRIN 81 MG CHEWABLE TABLET PO SCH (09:23)
[2023-05-12] MEDS: FOLIC ACID 1 MG TAB PO SCH (09:23)
[2023-05-12] MEDS: FLUoxetine 20 MG CAPSULE PO SCH (09:24)
--- NOTE | 2023-05-12 11:00 | Tele-ICU Progress Note ---
Subjective Date Seen by a Provider: May 12, 2023 Time Seen by a Provider: 10:59 Subjective/Events-last exam (Tele-ICU Physician , Progress Note ) Service provided via interactive audio and video telecommunications [facility] s te to a patient admitted to ICU bed in [facility]. Patient is seen today due to persistent need of ICU care Available chart/ vitals / labs / Images reviewed Video assessment done using teleICU camera, rest of exam as per RN She is a 57-year-old female with past medical history of alcohol abuse presented to the emergency room with heat exhaustion, nausea and vomiting as well as a chronic diarrhea. She is also alcohol intoxicated. She is found to have hyponatremia and hypokalemia. She has been admitted to ICU and started on CIWA protocol, hydration with normal saline. Sodium improved to 130 today however her hemoglobin is down to 6.5 and potassium still low at 2.8 and magnesium 1.4 today. Impression 1. Hyponatremia improving 2. He is exacerbation improving 3. Acute on chronic anemia etiology not clear 4. Hypokalemia and hypomagnesemia. Recommendations 1. We will transfuse packed red blood cells and repeat CBC 2. IV Protonix 3. Supplement potassium and magnesium. 4. CIWA protocol and monitor for any withdrawal symptoms. 5. We will hold off any anticoagulants for DVT prophylaxis due to anemia but will give SCDs. 6. Monitor electrolyte and supplement as needed. Coordination of care with bedside consultants and primary care physician I am remotely monitoring this patient from Tele icu station in [place]. I am unable to do the bedside exam, and history/physical and pertinent information is taken from other notes in the computer and bedside staff. Certain portions of this document may have been dictated utilizing voice recognition technology such as Dragon. Inherent to this technology, typographical and grammatical errors may exist. As much as I am diligent to identify and correct to these mistakes, some errors may remain in the document. Critical care time devoted to this patient today is approximately is--25 minutes Certain portions of this document may have been dictated utilizing voice recognition technology such as Dragon. Inherent to this technology, typographical and grammatical errors may exist. As much as I am diligent to identify and correct to these mistakes, some errors may remain in the document. Sepsis Event Evaluation Height, Weight, BMI Height: 5'3.00" Weight: 109lbs. 5.0oz. 49.445551na; 16.91 BMI Method:Stated Exam Exam Patient acknowledged, consented, and participated in this virtual visit which was conducted using real time audio/video Vital Signs Date Time Temp Pulse Resp B/P (MAP) Pulse Ox O2 Delivery O2 Flow Rate FiO2 05/12/23 10:00 106 14 118/91 (100) 100 Room Air 05/12/23 09:00 82 18 126/64 (84) 99 Room Air 05/12/23 08:00 36.6 Room Air 05/12/23 08:00 81 10 122/64 (83) 100 Room Air 05/12/23 07:00 89 8 115/85 (95) 100 Nasal Cannula 2.00 05/12/23 07:00 89 05/12/23 06:00 81 13 114/66 (82) 96 Nasal Cannula 2.00 05/12/23 05:00 88 21 130/84 (99) 100 Nasal Cannula 2.00 05/12/23 04:00 81 17 138/64 (88) 97 Nasal Cannula 2.00 05/12/23 03:38 36.9 05/12/23 03:35 100 Nasal Cannula 2.00 05/12/23 03:00 84 21 141/83 (102) 100 Nasal Cannula 2.00 05/12/23 02:00 90 16 153/83 (106) 100 Nasal Cannula 2.00 05/12/23 01:00 85 05/12/23 01:00 86 16 146/84 (104) 100 Nasal Cannula 2.00 05/12/23 00:00 36.6 05/12/23 00:00 88 24 133/88 (103) 100 Nasal Cannula 2.00 05/11/23 23:55 100 Nasal Cannula 2.00 05/11/23 23:00 91 16 138/78 (98) 100 Nasal Cannula 2.00 05/11/23 22:21 Nasal Cannula 2.00 05/11/23 22:00 94 14 127/73 (91) 96 Room Air 05/11/23 21:00 93 18 135/74 (94) 97 Room Air 05/11/23 20:30 93 13 127/71 (89) 97 Room Air 05/11/23 20:00 96 17 138/74 (95) 100 Room Air 05/11/23 19:52 36.1 05/11/23 19:45 93 18 130/68 (88) 99 Room Air 05/11/23 19:45 100 Room Air 05/11/23 19:34 100 05/11/23 19:27 92 12 139/64 (89) 100 Room Air 05/11/23 19:15 96 21 139/64 (89) 100 Room Air 05/11/23 17:16 92 16 135/109 99 05/11/23 15:15 37.1 138 16 172/97 (122) 99 I & O 05/12/23 07:00 Intake Total 1575 ml Output Total 1825 ml Balance -250 ml Height & Weight Height: 5'3.00" Weight: 109lbs. 5.0oz. 49.904748uy; 16.91 BMI Method:Stated General Appearance: Mild Distress, Other (no further diarrhea or vomiting) Respiratory: Lungs Clear Cardiovascular: Regular Rate, Rhythm, No Edema Capillary Refill: Less Than 3 Seconds Gastrointestinal: normal bowel sounds, non tender, no organomegaly, no pulsatile mass, tenderness (Left upper quadrant tenderness), other (Noted to have a birthmark on epigastric area) Extremity: No Pedal Edema Neurologic/Psychiatric: Alert, Oriented x3 Results Lab Laboratory Tests 05/11/23 15:25 05/12/23 00:44 05/12/23 05:53 Assessment/Plan Assessment/Plan as above Critical Care: Critically Ill Patient Time spent with patient (mins): 25 KERA DICKSON MD May 12, 2023 11:00
[2023-05-12 11:06] VITALS: BP 120/62
[2023-05-12 11:28] VITALS: BP 114/89
[2023-05-12 11:32] VITALS: BP 114/89
[2023-05-12 13:57] LABS: HEMATOCRIT 29 % (35-52); HEMOGLOBIN 8.7 g/dL (11.5-16.0); MEAN CORPUSCULAR HEMOGLOBIN 23 pg (25-34); MEAN CORPUSCULAR HGB CONC 30 g/dL (32-36); MEAN CORPUSCULAR VOLUME 74 fL (80-99); MEAN PLATELET VOLUME 8.7 fL (9.0-12.2); PLATELET COUNT 177 10^3/uL (130-400); WHITE BLOOD COUNT 9.5 10^3/uL (4.3-11.0)
[2023-05-12 14:13] LABS: MAGNESIUM 3.5 MG/DL (1.6-2.4)
[2023-05-12 15:11] LABS: BUN/CREATININE RATIO 4; CALCIUM 7.5 MG/DL (8.5-10.1); CARBON DIOXIDE 28 MMOL/L (21-32); CHLORIDE 91 MMOL/L (98-107); CREATININE SERUM 0.52 MG/DL (0.60-1.30); GFR ESTIMATED 110; GLUCOSE 131 MG/DL (70-105); SODIUM 127 MMOL/L (135-145)
[2023-05-12] MEDS ORDERED: POTASSIUM BICARB 20 MEQ (EFFER-K) TABLET PO ONE ×2 (18:30→19:30)
[2023-05-12] MEDS ORDERED: ENOXAPARIN 30 MG/0.3 ML SYRINGE SC SCH (20:00)
[2023-05-13 04:22] LABS: BASOPHILS % (AUTO) 0 % (0-10); EOSINOPHILS # (AUTO) 0.1 10^3/uL (0.0-0.3); EOSINOPHILS % (AUTO) 1 % (0-10); HEMATOCRIT 29 % (35-52); LYMPHOCYTES # (AUTO) 0.7 10^3/uL (1.0-4.0); LYMPHOCYTES % (AUTO) 7 % (12-44); MEAN CORPUSCULAR HEMOGLOBIN 23 pg (25-34); MEAN CORPUSCULAR HGB CONC 31 g/dL (32-36); MEAN CORPUSCULAR VOLUME 74 fL (80-99); MONOCYTES % (AUTO) 10 % (0-12); NEUTROPHILS % (AUTO) 80 % (42-75); PLATELET COUNT 209 10^3/uL (130-400)
[2023-05-13 04:35] LABS: CHLORIDE 96 MMOL/L (98-107); POTASSIUM 3.7 MMOL/L (3.6-5.0); SODIUM 129 MMOL/L (135-145)
[2023-05-13 04:36] LABS: CALCIUM 8.1 MG/DL (8.5-10.1)
[2023-05-13 04:37] LABS: GLUCOSE 98 MG/DL (70-105); TOTAL PROTEIN 7.1 GM/DL (6.4-8.2)
[2023-05-13 04:38] LABS: CARBON DIOXIDE 23 MMOL/L (21-32)
[2023-05-13 04:39] LABS: BILIRUBIN,TOTAL 0.7 MG/DL (0.1-1.0)
[2023-05-13 04:40] LABS: ALKALINE PHOSPHATASE 90 U/L (40-136); PHOSPHORUS 1.6 MG/DL (2.3-4.7)
[2023-05-13 04:41] LABS: CREATININE SERUM 0.48 MG/DL (0.60-1.30); GFR ESTIMATED 112
[2023-05-13 04:42] LABS: BUN/CREATININE RATIO 4
[2023-05-13 04:44] LABS: ALANINE AMINOTRANSFERASE 12 U/L (0-55); MAGNESIUM 2.3 MG/DL (1.6-2.4)
[2023-05-13] MEDS ORDERED: POTASSIUM CHLORIDE 20 MEQ TABLET PO ONE (06:30)
[2023-05-13] MEDS: POTASSIUM CL 10MEQ/50ML IVPB 50 ML IV SCH (06:51)
[2023-05-13] MEDS: MAGNESIUM 1 GM/100 ML IVPB 100 ML IV SCH (06:51)
[2023-05-13] MEDS: POTASSIUM CHLORIDE 20 MEQ TABLET PO SCH ×3 (06:51→18:35)
[2023-05-13] MEDS: FLUoxetine 20 MG CAPSULE PO SCH (08:16)
[2023-05-13] MEDS: FOLIC ACID 1 MG TAB PO SCH (08:16)
[2023-05-13] MEDS: ASPIRIN 81 MG CHEWABLE TABLET PO SCH (08:16)
[2023-05-13] MEDS: THIAMINE 100 MG (VITAMIN B-1) TAB PO SCH (08:16)
[2023-05-13] MEDS: MULTIVIT W/MINERALS TAB (THERAGRAN M) PO SCH (08:16)
[2023-05-13] MEDS ORDERED: IRON SUCROSE 200 MG/10 ML VIAL IV ONE (10:30)
--- NOTE | 2023-05-13 12:50 | Tele-ICU Progress Note ---
Subjective Date Seen by a Provider: May 13, 2023 Time Seen by a Provider: 12:49 Subjective/Events-last exam (Tele-ICU Physician , Progress Note ) Service provided via interactive audio and video telecommunications [facility] system to a patient admitted to ICU bed in [facility]. Patient is seen today due to persistent need of ICU care Available chart/ vitals / labs / Images reviewed Video assessment done using teleICU camera, rest of exam as per RN Discussed with RN Events overnight : Afebrile hemodynamically stable Respiratory - I/O = Drips: Pressors- no Hospital course: 57 yo F admitted with poor oral intake, vomiting and diarrhhea, Has chronic gastroparesis. Has been diriking 4-10 beers/d A/P Impression Hyponatremai - improved in appropriate rate - CPM , off IVF , nl PO intake chronic anemia no bleeding , getting iron IV Hypokalemia and hypomagnesemia - replaced [place] overuse - CIWA protocol and monitor for any withdrawal symptoms. resume DVT prophylaxis VTE Prophylaxis: earle Stress Ulcer Prophylaxis: na Plans in collaboration with bedside consultants and IM MDs. Discussed with RN to reach out if any questions or concerns Case and care daily discussed on multidisciplinary rounds ( RN, PharmD, Wet Mixer , Respiratory Therapy, open hearth worker ) A total of 10 minutes of critical care time was devoted to this patient today, required to treat and/or prevent further deterioration of critical care condition ( as above ) . I am remotely monitoring this patient from another state. I am unable to do the bedside exam, and history/physical and pertinent information is taken from other notes in the computer and bedside staff. Sepsis Event Evaluation Height, Weight, BMI Height: 5'3.00" Weight: 109lbs. 5.0oz. 49.413596lh; 16.91 BMI Method:Stated Exam Exam Patient acknowledged, consented, and participated in this virtual visit which was conducted using real time audio/video Vital Signs Date Time Temp Pulse Resp B/P (MAP) Pulse Ox O2 Delivery O2 Flow Rate FiO2 05/13/23 12:33 87 05/13/23 12:17 36.3 05/13/23 12:00 93 19 134/114 (116) 98 Room Air 05/13/23 11:00 87 17 126/73 (87) 99 Room Air 05/13/23 10:00 98 20 90 Room Air 05/13/23 09:00 117 8 Room Air 05/13/23 08:00 101 16 132/78 (96) 93 Room Air 05/13/23 08:00 98 Room Air 05/13/23 07:51 36.6 05/13/23 07:00 76 05/13/23 07:00 86 13 137/84 (105) 100 Nasal Cannula 2.00 05/13/23 06:00 67 12 137/73 (94) 100 Nasal Cannula 2.00 05/13/23 05:00 71 29 100 Nasal Cannula 2.00 05/13/23 04:00 98 Nasal Cannula 2.00 05/13/23 04:00 83 16 100 Nasal Cannula 2.00 05/13/23 03:00 80 18 140/76 (97) 100 Nasal Cannula 2.00 05/13/23 02:00 79 13 144/78 (100) 100 Nasal Cannula 2.00 05/13/23 01:00 82 12 138/80 (99) 100 Nasal Cannula 2.00 05/13/23 01:00 81 05/13/23 00:00 78 13 128/94 (105) 100 Nasal Cannula 2.00 05/12/23 23:23 96 Room Air 05/12/23 23:00 95 16 136/84 (101) 93 Nasal Cannula 2.00 05/12/23 22:00 97 12 142/74 (96) 98 Nasal Cannula 2.00 05/12/23 21:00 90 15 132/78 (96) 97 Nasal Cannula 2.00 05/12/23 20:00 96 11 123/77 (92) 99 Nasal Cannula 2.00 05/12/23 20:00 98 Room Air 05/12/23 19:00 97 11 125/71 (89) 98 Nasal Cannula 2.00 05/12/23 19:00 96 05/12/23 18:00 94 33 119/67 (84) 98 Nasal Cannula 2.00 05/12/23 17:00 100 19 130/77 (94) 100 Nasal Cannula 2.00 05/12/23 16:00 36.5 Nasal Cannula 2.00 05/12/23 16:00 99 Room Air 05/12/23 16:00 97 21 155/82 (106) 98 Nasal Cannula 2.00 05/12/23 15:00 87 12 126/74 (91) 98 Room Air 05/12/23 14:00 87 16 123/66 (85) 99 Room Air 05/12/23 13:00 89 12 136/67 (90) 100 Room Air 05/12/23 13:00 90 I & O 05/13/23 07:00 Intake Total 2830 ml Output Total 1550 ml Balance 1280 ml Height & Weight Height: 5'3.00" Weight: 109lbs. 5.0oz. 49.204436wu; 16.91 BMI Method:Stated General Appearance: Mild Distress, Other (no further diarrhea or vomiting) Respiratory: Lungs Clear Cardiovascular: Regular Rate, Rhythm, No Edema Capillary Refill: Less Than 3 Seconds Gastrointestinal: normal bowel sounds, non tender, no organomegaly, no pulsa tile mass, tenderness (Left upper quadrant tenderness), other (Noted to have a birthmark on epigastric area) Extremity: No Pedal Edema Neurologic/Psychiatric: Alert, Oriented x3 Results Lab Laboratory Tests 05/11/23 15:25 05/12/23 00:44 05/12/23 05:53 05/12/23 13:50 05/13/23 04:07 Assessment/Plan Assessment/Plan 1 ZEINAB EMMANUEL MD May 13, 2023 12:50
--- NOTE | 2023-05-13 14:05 | Progress Note ---
Subjective Subjective/Events-last exam Patient states that she is doing much better this AM. Tolerating PO diet and increasing fluids. She has not been up out of bed yet. Still has nowhere to discharge at the moment as she is getting evicted from her home. Review of Systems General: Fatigue Pulmonary: No Dyspnea, No Cough Cardiovascular: No: Chest Pain, Palpitations, Edema Gastrointestinal: No: Nausea, Vomiting, Abdominal Pain, Diarrhea, Constipation Neurological: Weakness, Incoordination Objective Exam Last Set of Vital Signs Vital Signs Date Time Temp Pulse Resp B/P (MAP) Pulse Ox O2 Delivery O2 Flow Rate FiO2 05/13/23 13:00 113 13 104/79 (93) 93 Room Air 05/13/23 12:17 36.3 05/13/23 10:00 Capillary Refill : Less Than 3 Seconds I&O Intake and Output 05/13/23 00:00 Intake Total 3150 ml Output Total 1925 ml Balance 1225 ml Intake Oral 2400 ml IV Total 700 ml Other 50 ml Output Urine Total 1925 ml # Voids 6 # Urine Diapers 2 # Bowel Movements 5 General: Alert, Oriented X3, No Acute Distress Lungs: Clear to Auscultation, Normal Air Movement Heart: Regular Rate, No Murmurs Abdomen: Normal Bowel Sounds, Soft, No Tenderness, No Masses Extremities: No Edema, No Tenderness/Swelling Neuro: Normal Speech, Cranial Nerves 3-12 NL Results/Procedures Lab Laboratory Tests 05/12/23 17:00: Stool Occult Blood Immunoassay NEGATIVE 05/12/23 17:52: Glucometer 145H 05/12/23 23:34: Glucometer 120H 05/13/23 04:07: White Blood Count 10.0, Red Blood Count 3.92, Hemoglobin 9.0L, Hematocrit 29L, Mean Corpuscular Volume 74L, Mean Corpuscular Hemoglobin 23L, Mean Corpuscular Hemoglobin Concent 31L, Red Cell Distribution Width 18.7H, Platelet Count 209, Mean Platelet Volume 9.0, Immature Granulocyte % (Auto) 1, Neutrophils (%) (Auto) 80H, Lymphocytes (%) (Auto) 7L, Monocytes (%) (Auto) 10, Eosinophils (%) (Auto) 1, Basophils (%) (Auto) 0, Neutrophils # (Auto) 8.0H, Lymphocytes # (Auto) 0.7L, Monocytes # (Auto) 1.0, Eosinophils # (Auto) 0.1, Basophils # (Auto) 0.0, Immature Granulocyte # (Auto) 0.1, Sodium Level 129L, Potassium Level 3.7, Chloride Level 96L, Carbon Dioxide Level 23, Anion Gap 10, Blood Urea Nitrogen < 2L, Creatinine 0.48L, Estimat Glomerular Filtration Rate 112, BUN/Creatinine Ratio 4, Glucose Level 98, Calcium Level 8.1L, Corrected Calcium 8.9, Phosphorus Level 1.6L, Magnesium Level 2.3, Total Bilirubin 0.7, Aspartate Amino Transf (AST/SGOT) 32, Alanine Aminotransferase (ALT/SGPT) 12, Alkaline Phosphatase 90, Total Protein 7.1, Albumin 3.0L 05/13/23 11:55: Glucometer 107 Microbiology 05/11/23 MRSA Screen - Final, Complete MRSA not isolated Assessment/Plan Assessment/Plan Assessment & Plan A/P Heat Exhaustion Alcoholism Acute on Chronic hyponatremia Hypokalemia Hypomagnesiemia Microcytic anemia with Iron deficiency CAD N/V - Sodium improved with IVFs, encouraged PO hydration. Electrolytes replaced. Patient received 1 unit of blood. Stool occult blood pending. Iron studies pe nding. SW consulted as patient has some issues with her apartment. 05/13: Transfer patient out of ICU, Ordered venofer for severe iron deficiency, Discussed with patient that she needs to get EGC/Colonoscopy completed due to severe iron def. BARBARA working on d/c plan as patient is getting evicted MICHELLE FRANCOIS MD May 13, 2023 14:05
[2023-05-13 19:05] VITALS: BP 111/74
[2023-05-13] MEDS: ENOXAPARIN 30 MG/0.3 ML SYRINGE SC SCH (20:06)
[2023-05-13] MEDS: POT PHOS/NA PHOS (K-PHOS NEUTRAL) PO SCH (20:06)
[2023-05-13 23:13] VITALS: BP 124/73
[2023-05-14 03:02] VITALS: BP 138/7
[2023-05-14 05:48] LABS: BASOPHILS # (AUTO) 0.1 10^3/uL (0.0-0.1); BASOPHILS % (AUTO) 1 % (0-10); EOSINOPHILS # (AUTO) 0.3 10^3/uL (0.0-0.3); EOSINOPHILS % (AUTO) 3 % (0-10); HEMATOCRIT 27 % (35-52); LYMPHOCYTES # (AUTO) 1.3 10^3/uL (1.0-4.0); LYMPHOCYTES % (AUTO) 13 % (12-44); MEAN CORPUSCULAR HEMOGLOBIN 22 pg (25-34); MEAN CORPUSCULAR HGB CONC 29 g/dL (32-36); MEAN CORPUSCULAR VOLUME 76 fL (80-99); MEAN PLATELET VOLUME 9.5 fL (9.0-12.2); MONOCYTES # (AUTO) 1.4 10^3/uL (0.0-1.0); MONOCYTES % (AUTO) 14 % (0-12); NEUTROPHILS # (AUTO) 6.8 10^3/uL (1.8-7.8); NEUTROPHILS % (AUTO) 69 % (42-75); PLATELET COUNT 201 10^3/uL (130-400); WHITE BLOOD COUNT 9.9 10^3/uL (4.3-11.0)
[2023-05-14 06:03] LABS: ALBUMIN 2.7 GM/DL (3.2-4.5); POTASSIUM 3.4 MMOL/L (3.6-5.0)
[2023-05-14 06:04] LABS: CALCIUM 8.2 MG/DL (8.5-10.1)
[2023-05-14 06:05] LABS: TOTAL PROTEIN 6.3 GM/DL (6.4-8.2)
[2023-05-14 06:07] LABS: BILIRUBIN,TOTAL 0.4 MG/DL (0.1-1.0)
[2023-05-14 06:09] LABS: CREATININE SERUM 0.49 MG/DL (0.60-1.30); PHOSPHORUS 2.2 MG/DL (2.3-4.7)
[2023-05-14 06:12] LABS: MAGNESIUM 1.7 MG/DL (1.6-2.4)
[2023-05-14] MEDS: MULTIVIT W/MINERALS TAB (THERAGRAN M) PO SCH (06:21)
[2023-05-14] MEDS: THIAMINE 100 MG (VITAMIN B-1) TAB PO SCH (06:21)
--- NOTE | 2023-05-14 07:45 | Progress Note ---
Standard Progress Note Progress Notes/Assess & Plan Date Seen by a Provider: May 14, 2023 Diagnosis/Problems Diagnosis/Problems (1) Hyponatremia Status: Chronic Assessment & Plan: Acute on chronic Baseline of 129 Na 129 --> 128 today, stable DC pending safe discharge plan as patient is getting evicted (2) Heat exhaustion Status: Acute (3) Iron deficiency anemia Status: Chronic Assessment & Plan: S/p transfusion with 1u PRBC and venofer Stool occult test negative Would benefit from EGD/colonoscopy to further work up Continue DVT ppx, no overt signs of bleeding Would benefit from oral iron supplementation Qualifiers: Qualified Codes: D50.8 - Other iron deficiency anemias (4) Hypomagnesemia Status: Resolved Assessment & Plan: Stable, continue magnesium replacement protocol Resolution Date/Time: 05/14/23 @ 07:49 (5) Hypokalemia Status: Acute Assessment & Plan: K 3.4 today, will replete per protocol (6) Hypophosphatemia Status: Acute Assessment & Plan: Phosphate of 2.2 today, will replete per protocol (7) Alcoholism Status: Chronic Assessment & Plan: CIWA scores of 0 over the last couple days Will discontinue alcohol withdrawal protocol MELISSA ESPINOSA MD May 14, 2023 07:45
[2023-05-14 07:49] VITALS: BP 133/66
[2023-05-14] MEDS: FLUoxetine 20 MG CAPSULE PO SCH (08:36)
[2023-05-14] MEDS: POTASSIUM CHLORIDE 20 MEQ TABLET PO SCH ×2 (08:36→17:26)
[2023-05-14] MEDS: ASPIRIN 81 MG CHEWABLE TABLET PO SCH (08:36)
[2023-05-14] MEDS: POT PHOS/NA PHOS (K-PHOS NEUTRAL) PO SCH ×2 (08:36→19:57)
[2023-05-14] MEDS: FOLIC ACID 1 MG TAB PO SCH (08:36)
--- NOTE | 2023-05-14 10:21 | Progress Note ---
MELISSA ESPINOSA MD 05/14/23 1020: Subjective HPI/CC On Admission Date Seen by Provider: May 14, 2023 Time Seen by Provider: 09:00 Hyponatremia Subjective/Events-last exam Patient states she is doing well today. She is still feeling a little bit weak but overall feels much improved compared to when she first came in. Patient states that she was evicted from her apartment and has been given 1 month to clear out. She understands that social work is working on finding her a safe discharge plan. Regarding her anemia, she denies any signs of bleeding such as hematemesis, melena. She does note that she has had issues with anemia in the past and states it is usually because of ulcers. She was scheduled to have an EGD done on 05/19. She otherwise has no concerns today. Review of Systems General: Fatigue, Appetite (Improving) HEENT: No Head Aches, No Visual Changes Pulmonary: Cough Cardiovascular: No: Chest Pain, Palpitations, Edema Gastrointestinal: No: Nausea, Vomiting, Diarrhea, Constipation Genitourinary: No Dysuria Neurological: Weakness Objective Exam Vital Signs Vital Signs Date Time Temp Pulse Resp B/P (MAP) Pulse Ox O2 Delivery O2 Flow Rate FiO2 05/14/23 12:00 36.5 98 18 109/56 (73) 100 Room Air 05/13/23 10:00 Capillary Refill : Less Than 3 Seconds General Appearance: No Apparent Distress, Thin HEENT: PERRL/EOMI Neck: Full Range of Motion Respiratory: Chest Non Tender, Lungs Clear, Normal Breath Sounds, No Accessory Muscle Use, No Respiratory Distress Cardiovascular: Regular Rate, Rhythm, No Edema, No Murmur Gastrointestinal: Normal Bowel Sounds, Non Tender, Soft Neurologic/Psychiatric: Alert, Oriented x3 Skin: Normal Color, Warm/Dry Results/Procedures Lab Laboratory Tests 05/14/23 05:12 Patient resulted labs reviewed. Assessment/Plan Assessment and Plan Assess & Plan/Chief Complaint 57-year-old female presenting with hyponatremia and heat exhaustion. Currently working on a safe discharge plan. Diagnosis/Problems Diagnosis/Problems (1) Hyponatremia Status: Chronic Assessment & Plan: Acute on chronic Baseline of 129 Na 129 --> 128 today, stable DC pending safe discharge plan as patient is getting evicted (2) Heat exhaustion Status: Acute Assessment & Plan: Improving, is continuing to have some weakness but per patient, it is better than when she first came in (3) Iron deficiency anemia Status: Chronic Assessment & Plan: S/p transfusion with 1u PRBC and venofer Stool occult test negative Would benefit from EGD/colonoscopy to further work up Patient states she typically does not tolerate oral iron, thus requires IV iron for future replacement needs Is scheduled for EGD with Dr. Carl on 05/19 Continue Venofer 200 IV every 48 hours Checking vitamin B12 level and will give 1000 mcg of IM B12 today Qualifiers: Qualified Codes: D50.8 - Other iron deficiency anemias (4) Hypomagnesemia Status: Resolved Assessment & Plan: Stable, continue magnesium replacement protocol Resolution Date/Time: 05/14/23 @ 07:49 (5) Hypokalemia Status: Acute Assessment & Plan: K 3.4 today, will replete per protocol (6) Hypophosphatemia Status: Acute Assessment & Plan: Phosphate of 2.2 today, will replete per protocol (7) Alcoholism Status: Chronic Assessment & Plan: CIWA scores of 0 over the last couple days Continue folic acid Completed thiamine treatment Will discontinue alcohol withdrawal protocol JADA HOLLINGSWORTH DO 05/14/23 1533: Assessment/Plan Assessment and Plan Assess & Plan/Chief Complaint Monitor hgb and sodium DVT PPx due to minimal ambulation Supervisory-Addendum Brief Supervisory Addendum Participated in pt care: history, physical Care discussed with: other E&M service: agree Results interpretation: Verified all documentation MELISSA ESPINOSA MD May 14, 2023 10:20 JADA HOLLINGSWORTH DO May 14, 2023 15:33
[2023-05-14 12:00] VITALS: BP 109/56
[2023-05-14] MEDS ORDERED: CYANOCOBALAMIN 1000 MCG/ML 1 ML VIAL IM ONE (12:15)
[2023-05-14 15:45] VITALS: BP 128/71
[2023-05-14 19:56] VITALS: BP 121/80
[2023-05-14] MEDS: ENOXAPARIN 30 MG/0.3 ML SYRINGE SC SCH (19:57)
[2023-05-14 23:06] VITALS: BP 122/72
[2023-05-15 03:02] VITALS: BP 145/73
[2023-05-15 05:15] LABS: BASOPHILS # (AUTO) 0.1 10^3/uL (0.0-0.1); BASOPHILS % (AUTO) 1 % (0-10); EOSINOPHILS # (AUTO) 0.3 10^3/uL (0.0-0.3); EOSINOPHILS % (AUTO) 3 % (0-10); HEMATOCRIT 28 % (35-52); HEMOGLOBIN 8.5 g/dL (11.5-16.0); LYMPHOCYTES # (AUTO) 1.2 10^3/uL (1.0-4.0); LYMPHOCYTES % (AUTO) 11 % (12-44); MEAN CORPUSCULAR HEMOGLOBIN 23 pg (25-34); MEAN CORPUSCULAR HGB CONC 30 g/dL (32-36); MEAN CORPUSCULAR VOLUME 77 fL (80-99); MEAN PLATELET VOLUME 9.2 fL (9.0-12.2); MONOCYTES # (AUTO) 1.6 10^3/uL (0.0-1.0); MONOCYTES % (AUTO) 15 % (0-12); NEUTROPHILS # (AUTO) 7.6 10^3/uL (1.8-7.8); NEUTROPHILS % (AUTO) 70 % (42-75); PLATELET COUNT 233 10^3/uL (130-400); WHITE BLOOD COUNT 10.8 10^3/uL (4.3-11.0)
[2023-05-15] MEDS: MULTIVIT W/MINERALS TAB (THERAGRAN M) PO SCH (05:26)
[2023-05-15 05:34] LABS: BILIRUBIN,TOTAL 0.4 MG/DL (0.1-1.0); CALCIUM 8.4 MG/DL (8.5-10.1); CREATININE SERUM 0.5 MG/DL (0.60-1.30); MAGNESIUM 1.5 MG/DL (1.6-2.4); PHOSPHORUS 3.3 MG/DL (2.3-4.7); POTASSIUM 3.8 MMOL/L (3.6-5.0); TOTAL PROTEIN 6.9 GM/DL (6.4-8.2)
[2023-05-15 07:41] VITALS: BP 127/81
[2023-05-15] MEDS: POT PHOS/NA PHOS (K-PHOS NEUTRAL) PO SCH (07:48)
[2023-05-15] MEDS: FLUoxetine 20 MG CAPSULE PO SCH (07:48)
[2023-05-15] MEDS: FOLIC ACID 1 MG TAB PO SCH (07:48)
[2023-05-15] MEDS: POTASSIUM CHLORIDE 20 MEQ TABLET PO SCH ×2 (07:48→18:18)
[2023-05-15] MEDS: ASPIRIN 81 MG CHEWABLE TABLET PO SCH (07:48)
--- NOTE | 2023-05-15 07:53 | Progress Note ---
MELISSA ESPINOSA MD 05/15/23 0753: Subjective HPI/CC On Admission Date Seen by Provider: May 15, 2023 Time Seen by Provider: 09:20 Hyponatremia Subjective/Events-last exam Patient is doing well this morning, has no concerns. Is aware that her sodium is low, states she has been drinking plenty of water. Denies any vomiting or diarrhea today. Review of Systems General: No Fatigue; Appetite HEENT: No Sore Throat Pulmonary: No Dyspnea, No Cough Cardiovascular: No: Chest Pain, Palpitations, Edema Gastrointestinal: No: Nausea, Diarrhea, Constipation Genitourinary: No Dysuria Neurological: No: Weakness Objective Exam Vital Signs Vital Signs Date Time Temp Pulse Resp B/P (MAP) Pulse Ox O2 Delivery O2 Flow Rate FiO2 05/15/23 11:44 36.4 80 20 108/63 (78) 99 Room Air 05/13/23 10:00 Capillary Refill : Less Than 3 Seconds General Appearance: No Apparent Distress HEENT: Moist Mucous Membranes Neck: Full Range of Motion Respiratory: Chest Non Tender, Lungs Clear, Normal Breath Sounds, No Accessory Muscle Use, No Respiratory Distress Cardiovascular: Regular Rate, Rhythm, No Edema, No Murmur Gastrointestinal: Normal Bowel Sounds, Non Tender Extremity: No Pedal Edema Neurologic/Psychiatric: Oriented x3 Skin: Warm/Dry Results/Procedures Lab Laboratory Tests 05/15/23 04:50 Patient resulted labs reviewed. Assessment/Plan Assessment and Plan Assess & Plan/Chief Complaint 57-year-old female presenting with hyponatremia and heat exhaustion. Currently working on a safe discharge plan. Diagnosis/Problems Diagnosis/Problems (1) Hyponatremia Status: Chronic Assessment & Plan: Acute on chronic hypotonic hyponatremia Baseline of 129 Sodium dropped again today to 125 Unlikely to be hypovolemic given that patient's blood pressure is stable and has been drinking plenty of water Will obtain urine sodium and urine osmolality to further clarify cause We will continue to monitor for now DC pending safe discharge plan as patient is getting evicted (2) Heat exhaustion Status: Resolved Assessment & Plan: Resolved Resolution Date/Time: 05/15/23 @ 10:37 (3) Iron deficiency anemia Status: Chronic Assessment & Plan: S/p transfusion with 1u PRBC and venofer. Patient received 1000 mcg vitamin B12 Stool occult test negative Would benefit from EGD/colonoscopy to further work up Hgb 8 --> 8.5 today, stable Is scheduled for EGD with Dr. Carl on 05/19 Continue Venofer 200 IV every 48 hours Qualifiers: Qualified Codes: D50.8 - Other iron deficiency anemias (4) Hypomagnesemia Status: Acute Assessment & Plan: Mg 1.5 today, will replace per protocol (5) Hypokalemia Status: Resolved Assessment & Plan: K 3.8 today, continue monitoring and replace per protocol Resolution Date/Time: 05/15/23 @ 07:52 (6) Hypophosphatemia Status: Resolved Assessment & Plan: Phosphate of 3.3 today, stable Resolution Date/Time: 05/15/23 @ 07:52 (7) Alcoholism Status: Chronic Assessment & Plan: Continue folic acid JADA HOLLINGSWORTH DO 05/15/23 1628: Assessment/Plan Assessment and Plan Assess & Plan/Chief Complaint I performed a history and physical examination of the patient and discussed the management with the resident. I reviewed the residents note and agree with the documented findings and plan of care. MELISSA ESPINOSA MD May 15, 2023 07:53 JADA HOLLINGSWORTH DO May 15, 2023 16:28
[2023-05-15] MEDS: MAGNESIUM 1 GM/100 ML IVPB 100 ML IV SCH ×2 (08:23→09:18)
[2023-05-15] MEDS ORDERED: IRON SUCROSE 200 MG/10 ML VIAL IV SCH (09:00)
[2023-05-15 11:44] VITALS: BP 108/63
[2023-05-15 15:19] VITALS: BP 126/72
[2023-05-15 19:11] VITALS: BP 135/79
[2023-05-15] MEDS: ENOXAPARIN 30 MG/0.3 ML SYRINGE SC SCH (19:56)
[2023-05-15 23:03] VITALS: BP 138/76
[2023-05-16 05:48] LABS: BASOPHILS # (AUTO) 0.1 10^3/uL (0.0-0.1); BASOPHILS % (AUTO) 1 % (0-10); EOSINOPHILS # (AUTO) 0.3 10^3/uL (0.0-0.3); EOSINOPHILS % (AUTO) 2 % (0-10); HEMATOCRIT 27 % (35-52); HEMOGLOBIN 8.4 g/dL (11.5-16.0); LYMPHOCYTES # (AUTO) 1.1 10^3/uL (1.0-4.0); LYMPHOCYTES % (AUTO) 8 % (12-44); MEAN CORPUSCULAR HEMOGLOBIN 24 pg (25-34); MEAN CORPUSCULAR HGB CONC 31 g/dL (32-36); MEAN CORPUSCULAR VOLUME 77 fL (80-99); MEAN PLATELET VOLUME 8.8 fL (9.0-12.2); MONOCYTES # (AUTO) 1.8 10^3/uL (0.0-1.0); MONOCYTES % (AUTO) 14 % (0-12); NEUTROPHILS # (AUTO) 9.3 10^3/uL (1.8-7.8); NEUTROPHILS % (AUTO) 74 % (42-75); PLATELET COUNT 229 10^3/uL (130-400); WHITE BLOOD COUNT 12.6 10^3/uL (4.3-11.0)
[2023-05-16] MEDS ORDERED: MAGNESIUM 1 GM/100 ML IVPB 100 ML IV SCH (06:00)
[2023-05-16 06:11] LABS: ALBUMIN 2.8 GM/DL (3.2-4.5); BILIRUBIN,TOTAL 0.4 MG/DL (0.1-1.0); CALCIUM 8.6 MG/DL (8.5-10.1); CREATININE SERUM 0.47 MG/DL (0.60-1.30); MAGNESIUM 1.8 MG/DL (1.6-2.4); PHOSPHORUS 3.8 MG/DL (2.3-4.7); POTASSIUM 3.6 MMOL/L (3.6-5.0); TOTAL PROTEIN 6.4 GM/DL (6.4-8.2)
[2023-05-16] MEDS: MULTIVIT W/MINERALS TAB (THERAGRAN M) PO SCH (06:30)
[2023-05-16] MEDS: MAGNESIUM 1 GM/100 ML IVPB 100 ML IV SCH ×2 (06:30→06:32)
[2023-05-16 07:42] VITALS: BP 142/67
[2023-05-16] MEDS: ASPIRIN 81 MG CHEWABLE TABLET PO SCH (08:27)
[2023-05-16] MEDS: POTASSIUM CHLORIDE 20 MEQ TABLET PO SCH (08:27)
[2023-05-16] MEDS: FOLIC ACID 1 MG TAB PO SCH (08:27)
[2023-05-16] MEDS: FLUoxetine 20 MG CAPSULE PO SCH (08:27)
[2023-05-16] MEDS ORDERED: IRON SUCROSE 200 MG/10 ML VIAL IV SCH (09:00)
[2023-05-16] MEDS ORDERED: THIA100T66 PO (09:13)
[2023-05-16] MEDS ORDERED: FLUO40CA PO (09:13)
[2023-05-16] MEDS ORDERED: MULT-1137 PO (09:13)
[2023-05-16] MEDS ORDERED: FOLI1TAB33 PO (09:13)
--- NOTE | 2023-05-16 09:13 | Discharge Summary ---
Discharge Summary Hospital Course Problems/Dx: (1) Hyponatremia Status: Chronic (2) Heat exhaustion Status: Resolved (3) Iron deficiency anemia Status: Chronic Qualifiers: Qualified Codes: D50.8 - Other iron deficiency anemias (4) Hypomagnesemia Status: Acute (5) Hypokalemia Status: Resolved (6) Hypophosphatemia Status: Resolved (7) Alcoholism Status: Chronic Hospital Course Date of Admission: May 11, 2023 at 19:16 Admission Diagnosis : Family Physician/Provider: [place] Date of Discharge: 05/16/23 Discharge Diagnosis: [ ] Hospital Course: [ ] Labs and Pending Lab Test: Laboratory Tests 05/15/23 10:53: Urine Osmolality 117L, Urine Random Sodium [Pending] 05/16/23 05:30: White Blood Count 12.6H, Red Blood Count 3.57L, Hemoglobin 8.4L, Hematocrit 27L, Mean Corpuscular Volume 77L, Mean Corpuscular Hemoglobin 24L, Mean Corpuscular Hemoglobin Concent 31L, Red Cell Distribution Width 21.1H, Platelet Count 229, Mean Platelet Volume 8.8L, Immature Granulocyte % (Auto) 1, Neutrophils (%) (Auto) 74, Lymphocytes (%) (Auto) 8L, Monocytes (%) (Auto) 14H, Eosinophils (%) (Auto) 2, Basophils (%) (Auto) 1, Neutrophils # (Auto) 9.3H, Lymphocytes # (Auto) 1.1, Monocytes # (Auto) 1.8H, Eosinophils # (Auto) 0.3, Basophils # (Auto) 0.1, Immature Granulocyte # (Auto) 0.1, Sodium Level 129L, Potassium Level 3.6, Chloride Level 99, Carbon Dioxide Level 21, Anion Gap 9, Blood Urea Nitrogen 3L, Creatinine 0.47L, Estimat Glomerular Filtration Rate 112, BUN/Creatinine Ratio 6, Glucose Level 84, Calcium Level 8.6, Corrected Calcium 9.6, Phosphorus Level 3.8, Magnesium Level 1.8, Total Bilirubin 0.4, Aspartate Amino Transf (AST/SGOT) 31, Alanine Aminotransferase (ALT/SGPT) 11, Alkaline Phosphatase 89, Total Protein 6.4, Albumin 2.8L Microbiology 05/12/23 MRSA Screen - Final, Complete MRSA not isolated Home Meds Active B-1 (Thiamine HCl) 100 Mg Tablet 100 Mg PO DAILY Tab-A-Brittany Multivit with Iron (Multivitamin/Iron/Folic Acid) 18 Mg Iron-400 Mcg Tablet 1 Ea PO DAILY@0700 Folic Acid 1 Mg Tablet 1 Mg PO DAILY Fluoxetine HCl 40 Mg Capsule 40 Mg PO DAILY Reported Aspirin 81 Mg Tab.chew 81 Mg PO DAILY Discharge Physical Examination Vital Signs Vital Signs Date Time Temp Pulse Resp B/P (MAP) Pulse Ox O2 Delivery O2 Flow Rate FiO2 05/16/23 07:46 Room Air 05/16/23 07:42 36.4 93 18 142/67 (92) 96 05/13/23 10:00 Allergies: Coded Allergies: codeine (Verified Allergy, Mild, 09/02/15) Penicillins (Verified Allergy, Unknown, 01/30/23) Discharge Summary Date of Admission May 11, 2023 at 19:16 Date of Discharge Discharge Date: May 16, 2023 Discharge Diagnosis I performed a history and physical examination of the patient and discussed the management with the resident. I reviewed the residents note and agree with the documented findings and plan of care. (1) Hyponatremia Status: Chronic Assessment & Plan: Acute on chronic hypotonic hyponatremia Baseline of 129 Sodium dropped again today to 125 Unlikely to be hypovolemic given that patient's blood pressure is stable and has been drinking plenty of water Will obtain urine sodium and urine osmolality to further clarify cause We will continue to monitor for now DC pending safe discharge plan as patient is getting evicted (2) Heat exhaustion Status: Resolved Assessment & Plan: Resolved (3) Iron deficiency anemia Status: Chronic Assessment & Plan: S/p transfusion with 1u PRBC and venofer. Patient received 1000 mcg vitamin B12 Stool occult test negative Would benefit from EGD/colonoscopy to further work up Hgb 8 --> 8.5 today, stable Is scheduled for EGD with Dr. Carl on 05/19 Continue Venofer 200 IV every 48 hours Qualifiers: Qualified Codes: D50.8 - Other iron deficiency anemias (4) Hypomagnesemia Status: Acute Assessment & Plan: Mg 1.5 today, will replace per protocol (5) Hypokalemia Status: Resolved Assessment & Plan: K 3.8 today, continue monitoring and replace per protocol (6) Hypophosphatemia Status: Resolved Assessment & Plan: Phosphate of 3.3 today, stable (7) Alcoholism Status: Chronic Assessment & Plan: Continue folic acid JADA HOLLINGSWORTH DO May 16, 2023 09:13
--- NOTE | 2023-05-16 09:13 | Discharge Summary ---
Discharge Summary Hospital Course Was the Problem List Reviewed?: Yes Problems/Dx: (1) Hyponatremia Status: Chronic (2) Heat exhaustion Status: Resolved (3) Iron deficiency anemia Status: Chronic Qualifiers: Qualified Codes: D50.8 - Other iron deficiency anemias (4) Hypomagnesemia Status: Acute (5) Hypokalemia Status: Resolved (6) Hypophosphatemia Status: Resolved (7) Alcoholism Status: Chronic Hospital Course Date of Admission: May 11, 2023 at 19:16 Admission Diagnosis : Family Physician/Provider: [place] Date of Discharge: 05/16/23 Discharge Diagnosis: [ ] Hospital Course: Lengthy hospital course after she was admitted following heat exposure when she did not have any air conditioning in her house or refrigerator that worked. She has a longstanding history of alcoholism and she presented with hyponatremia requiring IV fluid resuscitation. She was started on all vitamin supplementation to prevent Warnicke's encephalopathy and Korsakoff psychosis. Overall she was deemed stable for discharge her landlord was in the process of fixing her air conditioner in her refrigerator and she was deemed stable for discharge. Overall poor prognosis giving the severe alcoholism. Labs and Pending Lab Test: Laboratory Tests 05/15/23 10:53: Urine Osmolality 117L, Urine Random Sodium [Pending] 05/16/23 05:30: White Blood Count 12.6H, Red Blood Count 3.57L, Hemoglobin 8.4L, Hematocrit 27L, Mean Corpuscular Volume 77L, Mean Corpuscular Hemoglobin 24L, Mean Corpuscular Hemoglobin Concent 31L, Red Cell Distribution Width 21.1H, Platelet Count 229, Mean Platelet Volume 8.8L, Immature Granulocyte % (Auto) 1, Neutrophils (%) (Auto) 74, Lymphocytes (%) (Auto) 8L, Monocytes (%) (Auto) 14H, Eosinophils (%) (Auto) 2, Basophils (%) (Auto) 1, Neutrophils # (Auto) 9.3H, Lymphocytes # (Auto) 1.1, Monocytes # (Auto) 1.8H, Eosinophils # (Auto) 0.3, Basophils # (Auto) 0.1, Immature Granulocyte # (Auto) 0.1, Sodium Level 129L, Potassium Level 3.6, Chloride Level 99, Carbon Dioxide Level 21, Anion Gap 9, Blood Urea Nitrogen 3L, Creatinine 0.47L, Estimat Glomerular Filtration Rate 112, BUN/Creatinine Ratio 6, Glucose Level 84, Calcium Level 8.6, Corrected Calcium 9.6, Phosphorus Level 3.8, Magnesium Level 1.8, Total Bilirubin 0.4, Aspartate Amino Transf (AST/SGOT) 31, Alanine Aminotransferase (ALT/SGPT) 11, Alkaline Phosphatase 89, Total Protein 6.4, Albumin 2.8L Microbiology 05/12/23 MRSA Screen - Final, Complete MRSA not isolated Home Meds Active B-1 (Thiamine HCl) 100 Mg Tablet 100 Mg PO DAILY Tab-A-Brittany Multivit with Iron (Multivitamin/Iron/Folic Acid) 18 Mg Iron-400 Mcg Tablet 1 Ea PO DAILY@0700 Folic Acid 1 Mg Tablet 1 Mg PO DAILY Fluoxetine HCl 40 Mg Capsule 40 Mg PO DAILY Reported Aspirin 81 Mg Tab.chew 81 Mg PO DAILY Assessment/Pt Instructions PCP in 1 week Discharge Planning: <30 minutes discharge planning Discharge Physical Examination Vital Signs Vital Signs Date Time Temp Pulse Resp B/P (MAP) Pulse Ox O2 Delivery O2 Flow Rate FiO2 05/16/23 07:46 Room Air 05/16/23 07:42 36.4 93 18 142/67 (92) 96 05/13/23 10:00 General Appearance: No Apparent Distress, WD/WN, Chronically ill Allergies: Coded Allergies: codeine (Verified Allergy, Mild, 09/02/15) Penicillins (Verified Allergy, Unknown, 01/30/23) Discharge Summary Date of Admission May 11, 2023 at 19:16 Date of Discharge Discharge Date: May 16, 2023 Discharge Diagnosis I performed a history and physical examination of the patient and discussed the management with the resident. I reviewed the residents note and agree with the documented findings and plan of care. (1) Hyponatremia Status: Chronic Assessment & Plan: Acute on chronic hypotonic hyponatremia Baseline of 129 Sodium dropped again today to 125 Unlikely to be hypovolemic given that patient's blood pressure is stable and has been drinking plenty of water Will obtain urine sodium and urine osmolality to further clarify cause We will continue to monitor for now DC pending safe discharge plan as patient is getting evicted (2) Heat exhaustion Status: Resolved Assessment & Plan: Resolved (3) Iron deficiency anemia Status: Chronic Assessment & Plan: S/p transfusion with 1u PRBC and venofer. Patient received 1000 mcg vitamin B12 Stool occult test negative Would benefit from EGD/colonoscopy to further work up Hgb 8 --> 8.5 today, stable Is scheduled for EGD with Dr. Carl on 05/19 Continue Venofer 200 IV every 48 hours Qualifiers: Qualified Codes: D50.8 - Other iron deficiency anemias (4) Hypomagnesemia Status: Acute Assessment & Plan: Mg 1.5 today, will replace per protocol (5) Hypokalemia Status: Resolved Assessment & Plan: K 3.8 today, continue monitoring and replace per protocol (6) Hypophosphatemia Status: Resolved Assessment & Plan: Phosphate of 3.3 today, stable (7) Alcoholism Status: Chronic Assessment & Plan: Continue folic acid JADA HOLLINGSWORTH DO May 16, 2023 09:13
[2023-05-16 11:34] VITALS: BP 145/77
[2023-05-16 15:28] VITALS: BP 143/70
[2023-05-16 17:10] VITALS: BP 143/70
== END 2023-05-16 17:00 | disposition home or self-care (01) | DRG 923 ==
LOC: EDUNIT# 15:13 → ER 15:14 → ICU 19:16 → 4TH 05-13 15:54
PROVIDERS: ADMIT Family Medicine; ATTEND Family Medicine
DX: T67.5XXA Heat exhaustion, unspecified, initial encounter (principal); E87.1 Hypo-osmolality and hyponatremia; F10.229 Alcohol dependence with intoxication, unspecified; Y90.6 Blood alcohol level of 120-199 mg/100 ml; E87.6 Hypokalemia; E83.42 Hypomagnesemia; D50.9 Iron deficiency anemia, unspecified; E86.0 Dehydration; Z66 Do not resuscitate; Z20.822 Contact with and (suspected) exposure to COVID-19; F17.210 Nicotine dependence, cigarettes, uncomplicated; I25.10 Atherosclerotic heart disease of native coronary artery without angina pectoris; I10 Essential (primary) hypertension; K31.84 Gastroparesis; J45.909 Unspecified asthma, uncomplicated; E83.39 Other disorders of phosphorus metabolism; M19.90 Unspecified osteoarthritis, unspecified site; F32.A Depression, unspecified; H54.7 Unspecified visual loss; Z95.5 Presence of coronary angioplasty implant and graft; Z88.5 Allergy status to narcotic agent; Z88.0 Allergy status to penicillin; Z79.82 Long term (current) use of aspirin; Z79.899 Other long term (current) drug therapy; Z87.11 Personal history of peptic ulcer disease
CPT/HCPCS: 36415; 80048; 80053; 80320; 82274; 82607; 82728; 82947; 83540; 83550; 83690; 83735; 83935; 84100; 84132; 84300; 85007; 85025; 85027; 86850; 86900; 86901; 86920; 87081; 87636; 93005; 96361; 96365; 96375

== ENCOUNTER 2023-05-25 21:23 | Inpatient (IN) | payer OTHER ==
[~2023-05-25] VITALS: Ht 160 cm; Wt 46.5 kg
[~2023-05-25 21:23] MED LIST changes: +MULT-1137 PO; +THIA100T66 PO
[2023-05-25] MEDS ORDERED: PANTOPRAZOLE 40 MG (PROTONIX) VIAL IV ONE (21:30)
[2023-05-25] MEDS ORDERED: LACTATED RINGERS 1,000 ML IV ONE (21:30)
[2023-05-25] MEDS ORDERED: ONDANSETRON 4 MG/2 ML (SDV) Z0FRAN IVP ONE (21:30)
[2023-05-25 21:45] LABS: BASOPHILS # (AUTO) 0.1 10^3/uL (0.0-0.1); BASOPHILS % (AUTO) 1 % (0-10); EOSINOPHILS # (AUTO) 0.3 10^3/uL (0.0-0.3); EOSINOPHILS % (AUTO) 3 % (0-10); HEMATOCRIT 33 % (35-52); HEMOGLOBIN 10.3 g/dL (11.5-16.0); LYMPHOCYTES # (AUTO) 1.8 10^3/uL (1.0-4.0); LYMPHOCYTES % (AUTO) 22 % (12-44); MEAN CORPUSCULAR HEMOGLOBIN 26 pg (25-34); MEAN CORPUSCULAR HGB CONC 31 g/dL (32-36); MEAN CORPUSCULAR VOLUME 81 fL (80-99); MEAN PLATELET VOLUME 8.1 fL (9.0-12.2); MONOCYTES # (AUTO) 0.6 10^3/uL (0.0-1.0); MONOCYTES % (AUTO) 7 % (0-12); NEUTROPHILS # (AUTO) 5.1 10^3/uL (1.8-7.8); NEUTROPHILS % (AUTO) 65 % (42-75); PLATELET COUNT 382 10^3/uL (130-400); WHITE BLOOD COUNT 7.9 10^3/uL (4.3-11.0)
--- NOTE | 2023-05-25 21:55 | ED General ---
General Chief Complaint: General Problems/Pain Stated Complaint: GI Nursing Triage Note: brought in by [facility] c/o n/v/d, weakness, decreased po intake, "lost will to live" Source of Information: Patient, EMS, Old Records History of Present Illness Date Seen by Provider: May 25, 2023 Time Seen by Provider: 21:26 Initial Comments PT ARRIVES VIA EMS FROM HOME PT STATES SHE HAS HAD VOMITING AND DIARRHEA FOR A COUPLE OF WEEKS. "UNCONTROLLABLE FOR SEVERAL DAYS" PER PT SHE HAS VOMITED X 3 TODAY, AND HAD DIARRHEA 6-7 TIMES TODAY NO ABDOMINAL PAIN NO KNOWN FEVER C/O GENERALIZED WEAKNESS PT DRINKS DAILY. 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 MANY FOR ALCOHOL RELATED COMPLAINTS WELL SECONDARY HYPONATREMIA. LAST ADMIT 05/11-05/16 FOR HYPONATREMIA Allergies and Home Medications Allergies Coded Allergies: codeine (Verified Allergy, Mild, 09/02/15) Penicillins (Verified Allergy, Unknown, 01/30/23) Patient Home Medication List Aspirin (Aspirin) 81 Mg Tab.chew, 81 MG PO DAILY, (Reported) Entered as Reported by: EJ GILLETTE on 03/19/21 1149 Fluoxetine HCl (Fluoxetine HCl) 40 Mg Capsule, 40 MG PO DAILY Prescribed by: JADA HOLLINGSWORTH on 05/16/23912 Folic Acid (Folic Acid) 1 Mg Tablet, 1 MG PO DAILY Prescribed by: JADA HOLLINGSWORTH on 05/16/23912 Multivitamin/Iron/Folic Acid (Tab-A-Brittany Multivit with Iron) 18 Mg Iron-400 Mcg Tablet, 1 EA PO DAILY@0700 Prescribed by: JADA HOLLINGSWORTH on 05/16/23912 Thiamine HCl (B-1) 100 Mg Tablet, 100 MG PO DAILY Prescribed by: JADA HOLLINGSWORTH on 05/16/23912 Past Zkiqtfy-Xotssv-Fbvdgd Hx Patient Social History Tobacco Use?: Yes Substance use?: No Alcohol Use?: Yes Alcohol type: Beer Alcohol Frequency: Daily Pt feels they are or have been: No Immunizations Up To Date Tetanus Booster (TDap): Unknown PED Vaccines UTD: No First/Initial COVID19 Vaccinat: unknown date Second COVID19 Vaccination Jose: unknown date Third COVID19 Vaccination Date: unknown date Past Medical History Surgery/Hospitalization HX: 1986, hysteroctomy 1991, cardiac stent x2 Surgeries: Yes Section, Coronary Stent, 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 Respiratory: Yes Asthma Currently Using CPAP: No Currently Using BIPAP: No Cardiac: Yes Coronary Artery Disease, 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 Neurological: No Reproductive Disorders: Yes Female Reproductive Disorders: Denies [employer] History: 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 Sexually Transmitted Disease: No HIV/AIDS: No Genitourinary: No Gastrointestinal: No Musculoskeletal: Yes Arthritis Endocrine: No HEENT: No Hearing Impairment: Denies Cancer: No Did You Recieve Any Treatments: No Psychosocial: Yes Depression Integumentary: No Blood Disorders: No Adverse Reaction/Blood Tranf: No Family Medical History Myocardial infarction 21 MOTHER CAD Under 55 Years Old Family history of alcoholism on paternal side Physical Exam Vital Signs Vital Signs - First Documented 05/25/23 21:26 Temp 36.5 Pulse 95 Resp 18 B/P (MAP) 113/73 (86) Pulse Ox 98 O2 Delivery Room Air Capillary Refill : Less Than 3 Seconds Height, Weight, BMI Height: 5'3.00" Weight: 109lbs. 5.0oz. [id number]; 16.00 BMI Method:Stated Progress/Results/Core Measures Suspected Sepsis SIRS Temperature: Pulse: 95 Respiratory Rate: 18 Laboratory Tests 05/25/23 21:38: White Blood Count 7.9 Blood Pressure 113 /73 Mean: 86 Laboratory Tests 05/25/23 21:38: Creatinine 0.56L, INR Comment 0.9, Platelet Count 382, Total Bilirubin 0.2 Results/Orders Lab Results Laboratory Tests Test 05/25/23 21:38 Range/Units White Blood Count 7.9 4.3-11.0 10^3/uL Red Blood Count 4.04 3.80-5.11 10^6/uL Hemoglobin 10.3 L 11.5-16.0 g/dL Hematocrit 33 L 35-52 % Mean Corpuscular Volume 81 80-99 fL Mean Corpuscular Hemoglobin 26 25-34 pg Mean Corpuscular Hemoglobin Concent 31 L 32-36 g/dL Red Cell Distribution Width 26.3 H 10.0-14.5 % Platelet Count 382 130-400 10^3/uL Mean Platelet Volume 8.1 L 9.0-12.2 fL Immature Granulocyte % (Auto) 1 % Neutrophils (%) (Auto) 65 42-75 % Lymphocytes (%) (Auto) 22 12-44 % Monocytes (%) (Auto) 7 0-12 % Eosinophils (%) (Auto) 3 0-10 % Basophils (%) (Auto) 1 0-10 % Neutrophils # (Auto) 5.1 1.8-7.8 10^3/uL Lymphocytes # (Auto) 1.8 1.0-4.0 10^3/uL Monocytes # (Auto) 0.6 0.0-1.0 10^3/uL Eosinophils # (Auto) 0.3 0.0-0.3 10^3/uL Basophils # (Auto) 0.1 0.0-0.1 10^3/uL Immature Granulocyte # (Auto) 0.1 0.0-0.1 10^3/uL Prothrombin Time 12.7 12.2-14.7 SEC INR Comment 0.9 0.8-1.4 Activated Partial Thromboplast Time 32 24-35 SEC Sodium Level 128 L 135-145 MMOL/L Potassium Level 3.5 L 3.6-5.0 MMOL/L Chloride Level 94 L 98-107 MMOL/L Carbon Dioxide Level 22 21-32 MMOL/L Anion Gap 12 5-14 MMOL/L Blood Urea Nitrogen < 2 L 7-18 MG/DL Creatinine 0.56 L 0.60-1.30 MG/DL Estimat Glomerular Filtration Rate 108 BUN/Creatinine Ratio 4 Glucose Level 99 70-105 MG/DL Calcium Level 9.0 8.5-10.1 MG/DL Corrected Calcium 9.7 8.5-10.1 MG/DL Magnesium Level 1.8 1.6-2.4 MG/DL Total Bilirubin 0.2 0.1-1.0 MG/DL Aspartate Amino Transf (AST/SGOT) 36 H 5-34 U/L Alanine Aminotransferase (ALT/SGPT) 13 0-55 U/L Alkaline Phosphatase 130 40-136 U/L Total Protein 7.6 6.4-8.2 GM/DL Albumin 3.1 L 3.2-4.5 GM/DL Amylase Level 69 25-125 U/L Lipase 44 8-78 U/L Serum Test, Qualitative NEGATIVE NEGATIVE Acetaminophen Level < 10 L 10-30 UG/ML Serum Alcohol 221 H <10 MG/DL My Orders Orders - NELDA MOONEY DO Ed Iv/Invasive Line Start (05/25/23 21:26) Ekg Tracing (05/25/23 21:) Monitor-Rhythm Ecg Trace Only (05/25/23:) Acetaminophen (05/25/23:) Alcohol (05/25/23:) Amylase (05/25/23:) Cbc With Automated Diff (05/25/23:) Comprehensive Metabolic Panel (05/25/23:) Drug Screen Stat (Urine) (05/25/23:) Hcg,Qualitative Serum (05/25/23:) Lipase (05/25/23:) Magnesium (05/25/23:) Protime With Inr (05/25/23:) Partial Thromboplastin Time (05/25/23:) Ua Culture If Indicated (05/25/23:) Ondansetron Injection (Zofran Injectio (05/25/23 21:30) Ed Iv/Invasive Line Start (05/25/23:) Lactated Ringers (Lr 1000 Ml Iv Solution (05/25/23 21:30) Pantoprazole Injection (Protonix Injecti (05/25/23 21:30) Medications Given in ED Current Medications Medications Dose Ordered Sig/Mak Route Start Time Stop Time Status Last Admin Dose Admin Lactated Ringer's 1,000 ml @ 0 mls/hr Q0M ONCE IV 05/25/23 21:30 05/25/23 21:31 DC 05/25/23 21:42 0 MLS/HR Ondansetron HCl 4 mg ONCE ONCE IVP 05/25/23 21:30 05/25/23 21:31 DC 05/25/23 21:42 4 MG Pantoprazole 40 mg ONCE ONCE IV 05/25/23 21:30 05/25/23 21:31 DC 05/25/23 21:42 40 MG Vital Signs/I&O 05/25/23 05/26/23 21: 00:08 Temp 36.5 37.4 Pulse 95 97 Resp 18 18 B/P (MAP) 113/73 (86) 112/69 Pulse Ox 98 97 O2 Delivery Room Air Room Air Capillary Refill : Less Than 3 Seconds Blood Pressure Mean: 86 Departure Communication (Admissions) 8146--SPOKE WITH DR. JUAREZ, RESIDENT CREDIT AUTHORIZER FOR [facility] [place]. ACCEPTS PT FOR ADMIT. Impression Primary Impression: Alcoholism Additional Impression: Hyponatremia Disposition: ADMITTED INPATIENT Condition: Stable Admissions Decision to Admit Reason: Admit from ER (General) Decision to Admit/Date: May 25, 2023 Time/Decision to Admit Time: 23:40 Departure-Patient Inst. Referrals: [facility] [place] (PCP/Family) Primary Care Physician NELDA MOONEY DO May 25, 2023 21:55
[2023-05-25 22:05] LABS: CHLORIDE 94 MMOL/L (98-107); POTASSIUM 3.5 MMOL/L (3.6-5.0); SODIUM 128 MMOL/L (135-145)
[2023-05-25 22:06] LABS: ALBUMIN 3.1 GM/DL (3.2-4.5); INR 0.9 (0.8-1.4); PROTHROMBIN TIME PATIENT 12.7 SEC (12.2-14.7)
[2023-05-25 22:07] LABS: AMYLASE 69 U/L (25-125)
[2023-05-25 22:08] LABS: GLUCOSE 99 MG/DL (70-105); TOTAL PROTEIN 7.6 GM/DL (6.4-8.2)
[2023-05-25 22:10] LABS: BILIRUBIN,TOTAL 0.2 MG/DL (0.1-1.0); CARBON DIOXIDE 22 MMOL/L (21-32)
[2023-05-25 22:12] LABS: ALKALINE PHOSPHATASE 130 U/L (40-136); CREATININE SERUM 0.56 MG/DL (0.60-1.30); GFR ESTIMATED 108
[2023-05-25 22:13] LABS: BUN/CREATININE RATIO 4
[2023-05-25 22:14] LABS: ACETAMINOPHEN < 10 UG/ML (10-30)
[2023-05-25 22:15] LABS: ALANINE AMINOTRANSFERASE 13 U/L (0-55); MAGNESIUM 1.8 MG/DL (1.6-2.4)
[2023-05-25 22:16] LABS: LIPASE 44 U/L (8-78)
[2023-05-26] VITALS (22 sets, daily range): BP systolic 87–164; BP diastolic 45–116
[2023-05-26] MEDS ORDERED: ONDANSETRON 4 MG/2 ML (SDV) Z0FRAN IV PRN (00:45)
[2023-05-26] MEDS ORDERED: 1/2 NS IV SOLUTION 1000 ML 1,000 ML IV PRN (00:45)
[2023-05-26] MEDS ORDERED: D5 1/2 NS 1,000 ML IV 1,000 ML IV PRN (00:45)
[2023-05-26] MEDS ORDERED: SENNA W/DOCUSATE (SENOKOT S) TABLET PO PRN (00:45)
[2023-05-26] MEDS ORDERED: LORazepam 1 MG TABLET PO PRN (00:45)
[2023-05-26] MEDS ORDERED: ANTACID SUSPENSION 30 ML UDC PO PRN (00:45)
[2023-05-26] MEDS ORDERED: D5 1/2NS + KCL 20 MEQ/L 1000ML 1,000 ML IV SCH (00:45)
[2023-05-26] MEDS ORDERED: ONDANSETRON 4 MG (ZOFRAN) ORAL DISSOLVE TAB SL PRN (00:45)
[2023-05-26 00:58] LABS: CLARITY,URINE CLEAR; COLOR,URINE YELLOW; PH,URINE 5.5 (5-9)
[2023-05-26 00:59] LABS: BILIRUBIN,URINE NEGATIVE (NEGATIVE); GLUCOSE, URINE (UA) NEGATIVE (NEGATIVE); KETONES,URINE NEGATIVE (NEGATIVE); LEUKOCYTE ESTERASE ,URINE TRACE (NEGATIVE); NITRITE,URINE NEGATIVE (NEGATIVE); PROTEIN,URINE NEGATIVE (NEGATIVE); RBC,URINE RARE /HPF; WBC,URINE 0-2 /HPF
[2023-05-26 01:00] LABS: BACTERIA,URINE TRACE /HPF; SQUAMOUS EPITHELIAL CELL,UR 0-2 /HPF
[2023-05-26 01:06] LABS: AMPHETAMINE SCREEN, URINE NEGATIVE (NEGATIVE); BARBITURATE SCREEN URINE NEGATIVE (NEGATIVE); BENZODIAZEPINES SCREEN URINE NEGATIVE (NEGATIVE); CANNABINOID SCREEN, URINE NEGATIVE (NEGATIVE); COCAINE SCREEN URINE NEGATIVE (NEGATIVE); METHADONE STAT NEGATIVE (NEGATIVE); OPIATE SCREEN URINE NEGATIVE (NEGATIVE); OXYCODONE STAT NEGATIVE (NEGATIVE); PROPOXYPHENE STAT NEGATIVE (NEGATIVE); TRICYCLIC ANTIDEPRESSANTS SCRE NEGATIVE (NEGATIVE)
[2023-05-26] MEDS ORDERED: NS IV 1000 ML 1,000 ML IV SCH (02:15)
[2023-05-26 08:21] LABS: ALBUMIN 2.8 GM/DL (3.2-4.5); CHLORIDE 100 MMOL/L (98-107); POTASSIUM 3.2 MMOL/L (3.6-5.0); SODIUM 134 MMOL/L (135-145)
[2023-05-26 08:23] LABS: CALCIUM 8.1 MG/DL (8.5-10.1)
[2023-05-26 08:24] LABS: GLUCOSE 90 MG/DL (70-105); TOTAL PROTEIN 6.8 GM/DL (6.4-8.2)
[2023-05-26 08:25] LABS: CARBON DIOXIDE 22 MMOL/L (21-32)
[2023-05-26 08:26] LABS: BILIRUBIN,TOTAL 0.3 MG/DL (0.1-1.0)
[2023-05-26 08:27] LABS: ALKALINE PHOSPHATASE 115 U/L (40-136); GFR ESTIMATED 111
[2023-05-26 08:28] LABS: BUN/CREATININE RATIO 4
[2023-05-26 08:30] LABS: ALANINE AMINOTRANSFERASE 12 U/L (0-55); HEMATOCRIT 28 % (35-52); HEMOGLOBIN 9.1 g/dL (11.5-16.0); MEAN CORPUSCULAR HEMOGLOBIN 26 pg (25-34); MEAN CORPUSCULAR HGB CONC 32 g/dL (32-36); MEAN CORPUSCULAR VOLUME 80 fL (80-99); MEAN PLATELET VOLUME 8.4 fL (9.0-12.2); PLATELET COUNT 373 10^3/uL (130-400); WHITE BLOOD COUNT 8.8 10^3/uL (4.3-11.0)
--- NOTE | 2023-05-26 08:35 | History & Physical ---
HPI History of Present Illness: 57 yo female came to ER due to weakness, diarrhea for several weeks. Denies fever. Admits vomiting as well. Denies blood in stools or vomit. Denies abdominal pain. Reports she hasn't kept anything down the last 4-5 days, but before that was doing okay. Has been sticking with mainly broth and Ramen noodles. Drinks 5-10 beers per day, reports last drink was last night. She denies having withdrawal symptoms in the past. States she has quit smoking for as long as a couple of years in the past when she was and around 5-6 months another time, but then when asked about quitting alcohol says "I thought I answered that already" and when I said I might have missed the answer, she repeated the same as the smoking cessation. She does states she believes the alcohol and poor diet are contributing to her current illness. She says she thinks about quitting but some days are better than others. She is hoping to get out of the hospital today or tomorrow because she says she needs to clean up her place or she will get evicted, and she believes the deadline is Tuesday. She thinks she might do AA online, isn't particularly interested in other options, but did note her director of social work said she can set up transportation for visits if needed. Source: patient Date seen by provider: May 26, 2023 Time Seen by Provider: 08:31 Attending Physician [facility] PCP Admitting Physician: Lito Jha MD Attending Physician: Lito Jha MD Consult Date of Admission May 26, 2023 at 00:20 Home Medications Home Medications Reviewed patient Home Medication Reconciliation performed by pharmacy medication reconciliations network technician and/or nursing. Patients Allergies have been reviewed. Allergies Coded Allergies: codeine (Verified Allergy, Mild, 09/02/15) Penicillins (Verified Allergy, Unknown, 01/30/23) [id number] Hx Patient Social History Smoking Status: Current Everyday Smoker (ppd, started smoking at age 8, quit for a while and went back to it) Alcohol Use?: Yes (5-10 twelve ounce cans of beer per day) Immunizations Up To Date Tetanus Booster (TDap): Unknown First/Initial COVID19 Vaccinat: unknown date Second COVID19 Vaccination Jose: unknown date Third COVID19 Vaccination Date: unknown date Past Medical History PMHx: Depression Anxiety HTN (states she has not been on medication for quite some time) CAD with stenting x 2 Anemia Gastic ulcers SurgHx: Coronary artery stenting x 2 C section 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 (1986) Family Medical History Significant Family History: CAD Under 55 Years Old Other Significan Family Hx: Family history of alcoholism on paternal side Family History: Myocardial infarction 19 MOTHER Review of Systems ([facility]) Constitutional: No fever Respiratory: no symptoms reported Cardiovascular: no symptoms reported Gastrointestinal: see HPI Genitourinary: no symptoms reported Musculoskeletal: muscle weakness Skin: no symptoms reported Psychiatric/Neurological: Tremors Reviewed Test Results Reviewed Test Results Lab Laboratory Tests Test 05/25/23 00:40 05/25/23 21:38 05/26/23 08:04 Range/Units Urine Color YELLOW Urine Clarity CLEAR Urine pH 5.5 5-9 Urine Specific [place] <=1.005 1.016-1.022 Urine Protein NEGATIVE NEGATIVE Urine Glucose (UA) NEGATIVE NEGATIVE Urine Ketones NEGATIVE NEGATIVE Urine Nitrite NEGATIVE NEGATIVE Urine Bilirubin NEGATIVE NEGATIVE Urine Urobilinogen 0.2 < = 1.0 MG/DL Urine Leukocyte Esterase TRACE H NEGATIVE Urine RBC (Auto) TRACE H NEGATIVE Urine RBC RARE /HPF Urine WBC 0-2 /HPF Urine Squamous Epithelial Cells 0-2 /HPF Urine Crystals NONE /LPF Urine Bacteria TRACE /HPF Urine Casts NONE /LPF Urine Mucus NEGATIVE /LPF Urine Culture Indicated NO Urine Opiates Screen NEGATIVE NEGATIVE Urine Oxycodone Screen NEGATIVE NEGATIVE Urine Methadone Screen NEGATIVE NEGATIVE Urine Propoxyphene Screen NEGATIVE NEGATIVE Urine Barbiturates Screen NEGATIVE NEGATIVE Ur Tricyclic Antidepressants Screen NEGATIVE NEGATIVE Urine Phencyclidine Screen NEGATIVE NEGATIVE Urine Amphetamines Screen NEGATIVE NEGATIVE Urine Methamphetamines Screen NEGATIVE NEGATIVE Urine Benzodiazepines Screen NEGATIVE NEGATIVE Urine Cocaine Screen NEGATIVE NEGATIVE Urine Cannabinoids Screen NEGATIVE NEGATIVE White Blood Count 7.9 8.8 4.3-11.0 10^3/uL Red Blood Count 4.04 3.55 L 3.80-5.11 10^6/uL Hemoglobin 10.3 L 9.1 L 11.5-16.0 g/dL Hematocrit 33 L 28 L 35-52 % Mean Corpuscular Volume 81 80 80-99 fL Mean Corpuscular Hemoglobin 26 26 25-34 pg Mean Corpuscular Hemoglobin Concent 31 L 32 32-36 g/dL Red Cell Distribution Width 26.3 H 25.9 H 10.0-14.5 % Platelet Count 382 373 130-400 10^3/uL Mean Platelet Volume 8.1 L 8.4 L 9.0-12.2 fL Immature Granulocyte % (Auto) 1 % Neutrophils (%) (Auto) 65 42-75 % Lymphocytes (%) (Auto) 22 12-44 % Monocytes (%) (Auto) 7 0-12 % Eosinophils (%) (Auto) 3 0-10 % Basophils (%) (Auto) 1 0-10 % Neutrophils # (Auto) 5.1 1.8-7.8 10^3/uL Lymphocytes # (Auto) 1.8 1.0-4.0 10^3/uL Monocytes # (Auto) 0.6 0.0-1.0 10^3/uL Eosinophils # (Auto) 0.3 0.0-0.3 10^3/uL Basophils # (Auto) 0.1 0.0-0.1 10^3/uL Immature Granulocyte # (Auto) 0.1 0.0-0.1 10^3/uL Prothrombin Time 12.7 12.2-14.7 SEC INR Comment 0.9 0.8-1.4 Activated Partial Thromboplast Time 32 24-35 SEC Sodium Level 128 L 134 L 135-145 MMOL/L Potassium Level 3.5 L 3.2 L 3.6-5.0 MMOL/L Chloride Level 94 L 100 98-107 MMOL/L Carbon Dioxide Level 22 22 21-32 MMOL/L Anion Gap 12 12 5-14 MMOL/L Blood Urea Nitrogen < 2 L < 2 L 7-18 MG/DL Creatinine 0.56 L 0.50 L 0.60-1.30 MG/DL Estimat Glomerular Filtration Rate 108 111 BUN/Creatinine Ratio 4 4 Glucose Level 99 90 70-105 MG/DL Calcium Level 9.0 8.1 L 8.5-10.1 MG/DL Corrected Calcium 9.7 9.1 8.5-10.1 MG/DL Magnesium Level 1.8 1.6-2.4 MG/DL Total Bilirubin 0.2 0.3 0.1-1.0 MG/DL Aspartate Amino Transf (AST/SGOT) 36 H 34 5-34 U/L Alanine Aminotransferase (ALT/SGPT) 13 12 0-55 U/L Alkaline Phosphatase 130 115 40-136 U/L Total Protein 7.6 6.8 6.4-8.2 GM/DL Albumin 3.1 L 2.8 L 3.2-4.5 GM/DL Amylase Level 69 25-125 U/L Lipase 44 8-78 U/L Serum Test, Qualitative NEGATIVE NEGATIVE Acetaminophen Level < 10 L 10-30 UG/ML Serum Alcohol 221 H <10 MG/DL Physical Exam-([facility]) Physical Exam Vital Signs VS - Last 72 Hours, by Label 05/25/23 05/26/23 05/26/23 05/26/23 21:26 00:08 00:30 00:38 Temp 36.5 37.4 Pulse 95 97 97 Resp 18 18 B/P (MAP) 113/73 (86) 112/69 143/116 (128) Pulse Ox 98 97 97 O2 Delivery Room Air Room Air Room Air Room Air 05/26/23 05/26/23 05/26/23 05/26/23 00:42 00:45 01:00 01:00 Pulse 96 88 90 90 Resp 18 13 19 B/P (MAP) 134/70 (99) 133/62 (78) 130/66 (94) Pulse Ox 97 97 98 O2 Delivery Room Air Room Air Room Air 05/26/23 05/26/23 05/26/23 05/26/23 01:15 01:30 01:45 01:54 Pulse 89 86 87 89 Resp 8 9 9 9 B/P (MAP) 124/63 (90) 95/49 (66) 92/45 (60) 90/47 (61) Pulse Ox 97 97 97 97 O2 Delivery Room Air Room Air Room Air Room Air 05/26/23 05/26/23 05/26/23 05/26/23 02:00 02:58 03:00 04:00 Pulse 89 130 103 92 Resp 9 25 24 28 B/P (MAP) 87/45 (56) 134/72 (101) 124/65 (89) 151/72 (100) Pulse Ox 97 95 95 O2 Delivery Room Air Room Air Room Air Room Air 05/26/23 05/26/23 05/26/23 05/26/23 05:00 07:00 07:17 08:00 Pulse 92 87 106 90 Resp 16 9 12 B/P (MAP) 136/56 (82) 134/57 (82) 138/95 (109) Pulse Ox 97 94 97 O2 Delivery Room Air Room Air Room Air 05/26/23 05/26/23 08:22 09:00 Temp 36.2 Pulse 123 Resp 12 B/P (MAP) () Pulse Ox 100 O2 Delivery Room Air Capillary Refill : Less Than 3 Seconds General Appearance: thin Respiratory: lungs clear, normal breath sounds Cardiovascular: regular rate, rhythm, no murmur Gastrointestinal: normal bowel sounds, non tender, soft Extremities: no pedal edema Neurologic/Psychiatric: alert, normal mood/affect, other (oriented to self and location but not day or date) Skin: normal color, warm/dry Assessment/Plan Assessment/Plan Admission Status: Inpatient Order (span 2 midnights) Reason for Inpatient Admission: Hyponatremia and alcohol withdrawl (1) Hyponatremia Status: Chronic Assessment & Plan: Likely secondary to alcohol use and poor intake, possible component of hypovolemia. Tolerating liquids this morning. Baseline appears to be 128-130. (2) Chronic alcohol abuse Status: Chronic Assessment & Plan: Reporting somehwat ambivalent about treatment and cessation, discussed if she wants to quit, would recommend staying in hospital through withdrawal period, but if she is not ready to quit, may discharge when tolerating intake. (3) Coronary artery disease Status: Chronic (4) Nausea and vomiting Status: Acute Assessment & Plan: Symptomatic treatment (5) Diarrhea Status: Chronic Assessment & Plan: IVF, supportive care (6) DVT prophylaxis Status: Acute Assessment & Plan: Enoxaparin LITO JHA MD May 26, 2023 08:35
[2023-05-26] MEDS: PANTOPRAZOLE 40 MG (PROTONIX) VIAL IV SCH (08:43)
[2023-05-26] MEDS: THIAMINE INJECTION 100 MG, FOLIC ACID INJECTION 1 MG, MAGNESIUM SULFATE 2 GM, MULTIVITA... IV SCH ×5 (08:43)
[2023-05-26] MEDS ORDERED: POTASSIUM CL 10MEQ/50ML IVPB 50 ML IV SCH (10:45)
[2023-05-26] MEDS: ENOXAPARIN 30 MG/0.3 ML SYRINGE SQ SCH (11:42)
--- NOTE | 2023-05-26 11:46 | Tele-ICU Progress Note ---
Progress Note Video assessment done , Hemodynamically stable Available charting reviewed, discussed with RN PATIENT IS STEP-DOWN STATUS ( not ICU ) , WILL SIGN OFF BUT WILL BE AVAILABLE IF ANY QUESTIONS , LONG PATIENT IS PHYSICALLY IN ICU BED Hospital course: RECENT admit 05/11/23 with poor oral intake, vomiting and diarrhhea, Has chronic gastroparesis. Has been diriking 4-10 beers/d (05/26) 57yr old intoxicated female admitted with hyponatremia and c/o vomiting and diarrhea A/P Hyponatremia ( chronic , was d/c 05/16 with Na 129 ) improved in appropriate rate - CPM , off IVF , nl PO intake chronic anemia no bleeding Hypokalemia - replaced [place] overuse - CIWA protocol and monitor for any withdrawal symptoms. VTE Prophylaxis: earle Stress Ulcer Prophylaxis: na Discussed with RN to reach out if any questions or concerns I am remotely monitoring this patient from another state. I am unable to do the bedside exam, and history/physical and pertinent information is taken from other notes in the computer and bedside staff. Focused Exam Height, Weight, BMI Height: 5'3.00" Weight: 109lbs. 5.0oz. [id number]; 18.82 BMI Method:Stated ZEINAB EMMANUEL MD May 26, 2023 11:46
[2023-05-26] MEDS ORDERED: ASPI-1238 PO (12:06)
[2023-05-26] MEDS ORDERED: FOLI1TAB33 PO (12:06)
[2023-05-26] MEDS ORDERED: FOLI1TAB30 PO (12:06)
[2023-05-26] MEDS ORDERED: FLUO40CA PO (12:06)
[2023-05-26] MEDS ORDERED: THIA100T68 PO (12:06)
[2023-05-26] MEDS ORDERED: POTASSIUM CHLORIDE 20 MEQ TABLET PO NR ×2 (12:30→14:30)
[2023-05-26] MEDS ORDERED: POTASSIUM BICARB 20 MEQ (EFFER-K) TABLET PO NR ×2 (13:15→15:15)
[2023-05-27 04:00] VITALS: BP 131/64
[2023-05-27 05:08] LABS: HEMATOCRIT 28 % (35-52); HEMOGLOBIN 8.8 g/dL (11.5-16.0); MEAN CORPUSCULAR HEMOGLOBIN 26 pg (25-34); MEAN CORPUSCULAR HGB CONC 31 g/dL (32-36); MEAN CORPUSCULAR VOLUME 81 fL (80-99); MEAN PLATELET VOLUME 8.4 fL (9.0-12.2); PLATELET COUNT 335 10^3/uL (130-400)
[2023-05-27 05:36] LABS: ALANINE AMINOTRANSFERASE 12 U/L (0-55); ALBUMIN 2.8 GM/DL (3.2-4.5); ALKALINE PHOSPHATASE 104 U/L (40-136); BILIRUBIN,TOTAL 0.4 MG/DL (0.1-1.0); BUN/CREATININE RATIO 4; CARBON DIOXIDE 24 MMOL/L (21-32); CHLORIDE 98 MMOL/L (98-107); CREATININE SERUM 0.49 MG/DL (0.60-1.30); GFR ESTIMATED 111; GLUCOSE 84 MG/DL (70-105); POTASSIUM 2.8 MMOL/L (3.6-5.0); SODIUM 130 MMOL/L (135-145); TOTAL PROTEIN 6.7 GM/DL (6.4-8.2)
[2023-05-27] MEDS ORDERED: POTASSIUM CL 10MEQ/50ML IVPB 50 ML IV SCH (06:00)
[2023-05-27] MEDS ORDERED: MAGNESIUM 1 GM/100 ML IVPB 100 ML IV SCH (06:00)
[2023-05-27] MEDS ORDERED: NS IV 500 ML 500 ML IV PRN (06:00)
[2023-05-27] MEDS ORDERED: POTASSIUM CHLORIDE 20 MEQ TABLET PO SCH (06:00)
[2023-05-27] MEDS ORDERED: POTASSIUM BICARB 20 MEQ (EFFER-K) TABLET PO SCH (06:00)
[2023-05-27 06:20] LABS: PHOSPHORUS 2.8 MG/DL (2.3-4.7)
[2023-05-27 06:22] LABS: MAGNESIUM 1.9 MG/DL (1.6-2.4)
[2023-05-27] MEDS: POTASSIUM CL 10MEQ/50ML IVPB 50 ML IV SCH ×8 (06:45→15:36)
[2023-05-27 08:00] VITALS: BP 140/75
[2023-05-27] MEDS: PANTOPRAZOLE 40 MG (PROTONIX) VIAL IV SCH (11:19)
[2023-05-27] MEDS: ENOXAPARIN 30 MG/0.3 ML SYRINGE SQ SCH (11:19)
[2023-05-27] MEDS: THIAMINE INJECTION 100 MG, FOLIC ACID INJECTION 1 MG, MAGNESIUM SULFATE 2 GM, MULTIVITA... IV SCH ×5 (11:20)
[2023-05-27 11:58] VITALS: BP 149/75
[2023-05-27] MEDS: MAGNESIUM 1 GM/100 ML IVPB 100 ML IV SCH ×2 (14:06→14:07)
[2023-05-27 16:58] LABS: CHLORIDE 101 MMOL/L (98-107); SODIUM 127 MMOL/L (135-145)
[2023-05-27 17:00] LABS: CALCIUM 7.7 MG/DL (8.5-10.1); GLUCOSE 100 MG/DL (70-105)
[2023-05-27 17:02] LABS: CARBON DIOXIDE 17 MMOL/L (21-32)
[2023-05-27 17:04] LABS: CREATININE SERUM 0.54 MG/DL (0.60-1.30); GFR ESTIMATED 109
[2023-05-27 17:05] LABS: BUN/CREATININE RATIO 4
== END 2023-05-27 17:10 | disposition home or self-care (01) | DRG 897 ==
LOC: EDUNIT# 21:23 → ER 21:24 → ICU 05-26 00:20 → CSD 05-27 12:36
PROVIDERS: ADMIT Family Medicine; ATTEND Family Medicine
DX: F10.229 Alcohol dependence with intoxication, unspecified (principal); E87.1 Hypo-osmolality and hyponatremia; Y90.7 Blood alcohol level of 200-239 mg/100 ml; K31.84 Gastroparesis; E87.6 Hypokalemia; Z79.82 Long term (current) use of aspirin; Z79.899 Other long term (current) drug therapy; Z95.5 Presence of coronary angioplasty implant and graft; I25.10 Atherosclerotic heart disease of native coronary artery without angina pectoris; I10 Essential (primary) hypertension; M19.90 Unspecified osteoarthritis, unspecified site; F32.A Depression, unspecified; J45.909 Unspecified asthma, uncomplicated; K52.9 Noninfective gastroenteritis and colitis, unspecified
CPT/HCPCS: 36415; 80048; 80053; 80306; 80320; 80329; 81000; 82150; 83690; 83735; 84100; 84703; 85025; 85027; 85610; 85730; 87081; 93005; 93041

== ENCOUNTER 2023-05-30 13:58 | Emergency (ER) | payer OTHER ==
[~2023-05-30] VITALS: Ht 160 cm; Wt 49.0 kg
[~2023-05-30 13:58] MED LIST changes: +THIA100T68 PO
--- NOTE | 2023-05-30 14:44 | ED Psychosocial ---
General Chief Complaint: Suicidal Ideation Risk Stated Complaint: MEDICAL CLEARANCE Nursing Triage Note: PT AMB TO TRIAGE, PT CO OF BEING SAD, TODAY IS BIRTHDAY. PT STATES IS SUICIDAL BUT HAS NO PLAN. BROUGHT TO ED BY [facility]. PT DRINKS ETOH DAILY, STATES USUALLY DRINKS BETWEEN 5-10 BEERS DAILY. HAS DRANK BEER TODAY. PT STATES LIVES ALONE. PT STATES ALSO LOOSING SIGHT, CATERACTS. SUICIDE PRECAUTIONS IN PLACE Source: patient Exam Limitations: no limitations (YASMEEN RONQULILO APRN) History of Present Illness Date Seen by Provider: May 30, 2023 Time Seen by Provider: 14:25 Initial Comments 58-year-old female presents to the ER with thoughts of "preferring to not be alive." She states she is upset because she is losing her eyesight due to cataracts, she is needing cataract surgery, but cannot afford it. She denies any suicidal plan. States she is not really suicidal, just would rather not be alive. She states she also has no access to means if she were going to commit suicide. Patient is a daily drinker. She states she has drank 6 cans of Coors light today. Denies any drug use or tobacco use. Other physical complaints include joint pain due to her arthritis. Patient declined any pain medication for this. (YASMEEN RONQUILLO APRN) Allergies and Home Medications Allergies Coded Allergies: codeine (Verified Allergy, Mild, 09/02/15) Penicillins (Verified Allergy, Unknown, 01/30/23) Patient Home Medication List Home Medication List Reviewed: Yes (YASMEEN RONQUILLO APRN) Aspirin (Aspirin EC) 81 Mg Tablet.dr, 81 MG PO DAILY, (Reported) Entered as Reported by: EJ GILLETTE on 05/26/23 1206 Fluoxetine HCl (Fluoxetine HCl) 40 Mg Capsule, 40 MG PO DAILY, (Reported) Entered as Reported by: EJ GILLETTE on 05/26/23 1206 Folic Acid (Folic Acid) 1 Mg Tablet, 1 MG PO DAILY, (Reported) Entered as Reported by: EJ GILLETTE on 05/26/23 1206 Multivitamin/Iron/Folic Acid (Certavite-Antioxidant Tablet) 18 Mg Iron-400 Mcg Tablet, 1 EA PO DAILY, (Reported) Entered as Reported by: EJ GILLETTE on 05/26/23 1206 Sulfamethoxazole/Trimethoprim (Bactrim Ds Tablet) 1 Each Tablet, 1 EACH PO BID Prescribed by: Yasmeen Akhtar on 05/30/23 1658 Thiamine Mononitrate (Vitamin B-1) 100 Mg Tablet, 100 MG PO DAILY, (Reported) Entered as Reported by: EJ GILLETTE on 05/26/23 1206 Discontinued Medications Aspirin (Aspirin) 81 Mg Tab.chew, 81 MG PO DAILY, (Reported) Discontinued Reason: No Longer Taking Entered as Reported by: EJ GILLETTE on 03/19/21 1149 Fluoxetine HCl (Fluoxetine HCl) 40 Mg Capsule, 40 MG PO DAILY Discontinued Reason: No Longer Taking Prescribed by: JADA HOLLINGSWORTH on 05/16/23912 Folic Acid (Folic Acid) 1 Mg Tablet, 1 MG PO DAILY Discontinued Reason: No Longer Taking Prescribed by: JADA HOLLINGSWORTH on 05/16/23912 Multivitamin/Iron/Folic Acid (Tab-A-Brittany Multivit with Iron) 18 Mg Iron-400 Mcg Tablet, 1 EA PO DAILY@0700 Discontinued Reason: No Longer Taking Prescribed by: JADA HOLLINGSWORTH on 05/16/23912 Thiamine HCl (B-1) 100 Mg Tablet, 100 MG PO DAILY Discontinued Reason: No Longer Taking Prescribed by: JADA HOLLINGSWORTH on 05/16/23912 Review of Systems Constitutional: see HPI (YASMEEN RONQUILLO APRN) Past [id number]-Xeqzbg Hx Patient Social History Tobacco Use?: Yes Tobacco type used: Cigarettes Smoking Status: Current Everyday Smoker Substance use?: No Alcohol Use?: Yes Alcohol type: Beer Alcohol Frequency: Daily Pt feels they are or have been: No (YASMEEN RONQUILLO APRN) Immunizations Up To Date Tetanus Booster (TDap): Unknown PED Vaccines UTD: No First/Initial COVID19 Vaccinat: unknown date Second COVID19 Vaccination Jose: unknown date Third COVID19 Vaccination Date: unknown date (YASMEEN RONQUILLO APRN) Past Medical History Surgery/Hospitalization HX: 1986, hysteroctomy 1991, cardiac stent x2 Surgeries: Yes Section, Coronary Stent, 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 Respiratory: Yes Asthma Currently Using CPAP: No Currently Using BIPAP: No Cardiac: Yes Coronary Artery Disease, 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 Neurological: No Reproductive Disorders: Yes Female Reproductive Disorders: Denies 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: 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 Sexually Transmitted Disease: No HIV/AIDS: No Genitourinary: No Gastrointestinal: No Musculoskeletal: Yes Arthritis Endocrine: No HEENT: No Hearing Impairment: Denies Cancer: No Did You Recieve Any Treatments: No Psychosocial: Yes Depression Integumentary: No Blood Disorders: No Adverse Reaction/Blood Tranf: No (YASMEEN RONQUILLO APRN) Family Medical History Myocardial infarction 19 MOTHER CAD Under 55 Years Old Family history of alcoholism on paternal side (YASMEEN RONQUILLO APRN) Physical Exam Vital Signs - First Documented 05/30/23 14:10 Pulse 95 Resp 18 B/P (MAP) 123/82 (96) Pulse Ox 88 (EDGARD CHRISTIE) Capillary Refill : Less Than 3 Seconds (YASMEEN RONQUILLO APRN) Height, Weight, BMI Height: 5'3.00" Weight: 109lbs. 5.0oz. 49.512353ty; 19.00 BMI Method:Stated General Appearance: WD/WN, no apparent distress Neck: supple, normal inspection Respiratory: lungs clear, normal breath sounds, no respiratory distress, no accessory muscle use Cardiovascular: regular rate, rhythm Extremities: normal range of motion, normal inspection Neurologic/Psychiatric: alert, oriented x 3, depressed affect Appearance/Memory: appropriate appearance Behavior/Eye Contact: cooperative, good eye contact Thoughts/Hallucinations: normal thought pattern, no apparent hallucination Skin: normal color, warm/dry (YASMEEN RONQUILLO APRN) Progress/Results/Core Measures Results/Orders Lab Results Laboratory Tests Test 05/30/23 14:45 05/30/23 15:11 Range/Units White Blood Count 9.7 4.3-11.0 10^3/uL Red Blood Count 4.06 3.80-5.11 10^6/uL Hemoglobin 10.7 L 11.5-16.0 g/dL Hematocrit 33 L 35-52 % Mean Corpuscular Volume 82 80-99 fL Mean Corpuscular Hemoglobin 26 25-34 pg Mean Corpuscular Hemoglobin Concent 32 32-36 g/dL Red Cell Distribution Width 26.7 H 10.0-14.5 % Platelet Count 361 130-400 10^3/uL Mean Platelet Volume 8.6 L 9.0-12.2 fL Immature Granulocyte % (Auto) 1 % Neutrophils (%) (Auto) 75 42-75 % Lymphocytes (%) (Auto) 14 12-44 % Monocytes (%) (Auto) 9 0-12 % Eosinophils (%) (Auto) 2 0-10 % Basophils (%) (Auto) 0 0-10 % Neutrophils # (Auto) 7.2 1.8-7.8 X 10^3 Lymphocytes # (Auto) 1.3 1.0-4.0 X 10^3 Monocytes # (Auto) 0.9 0.0-1.0 X 10^3 Eosinophils # (Auto) 0.2 0.0-0.3 10^3/uL Basophils # (Auto) 0.0 0.0-0.1 10^3/uL Immature Granulocyte # (Auto) 0.1 0.0-0.1 10^3/uL Sodium Level 128 L 135-145 MMOL/L Potassium Level 4.3 3.6-5.0 MMOL/L Chloride Level 95 L 98-107 MMOL/L Carbon Dioxide Level 24 21-32 MMOL/L Anion Gap 9 5-14 MMOL/L Blood Urea Nitrogen 2 L 7-18 MG/DL Creatinine 0.53 L 0.60-1.30 MG/DL Estimat Glomerular Filtration Rate 108 BUN/Creatinine Ratio 4 Glucose Level 94 70-105 MG/DL Calcium Level 9.2 8.5-10.1 MG/DL Corrected Calcium 9.7 8.5-10.1 MG/DL Total Bilirubin 0.2 0.1-1.0 MG/DL Aspartate Amino Transf (AST/SGOT) 39 H 5-34 U/L Alanine Aminotransferase (ALT/SGPT) 14 0-55 U/L Alkaline Phosphatase 119 40-136 U/L Total Protein 7.7 6.4-8.2 GM/DL Albumin 3.4 3.2-4.5 GM/DL Salicylates Level < 5.0 L 5.0-20.0 MG/DL Acetaminophen Level < 10 L 10-30 UG/ML Serum Alcohol 203 H <10 MG/DL Urine Color YELLOW Urine Clarity CLEAR Urine pH 6.5 5-9 Urine Specific [place] <=1.005 1.016-1.022 Urine Protein NEGATIVE NEGATIVE Urine Glucose (UA) NEGATIVE NEGATIVE Urine Ketones NEGATIVE NEGATIVE Urine Nitrite NEGATIVE NEGATIVE Urine Bilirubin NEGATIVE NEGATIVE Urine Urobilinogen 0.2 < = 1.0 MG/DL Urine Leukocyte Esterase 1+ H NEGATIVE Urine RBC (Auto) TRACE H NEGATIVE Urine RBC NONE /HPF Urine WBC 5-10 H /HPF Urine Squamous Epithelial Cells 0-2 /HPF Urine Crystals NONE /LPF Urine Bacteria FEW H /HPF Urine Casts NONE /LPF Urine Mucus NEGATIVE /LPF Urine Culture Indicated YES Urine Opiates Screen NEGATIVE NEGATIVE Urine Oxycodone Screen NEGATIVE NEGATIVE Urine Methadone Screen NEGATIVE NEGATIVE Urine Propoxyphene Screen NEGATIVE NEGATIVE Urine Barbiturates Screen NEGATIVE NEGATIVE Ur Tricyclic Antidepressants Screen NEGATIVE NEGATIVE Urine Phencyclidine Screen NEGATIVE NEGATIVE Urine Amphetamines Screen NEGATIVE NEGATIVE Urine Methamphetamines Screen NEGATIVE NEGATIVE Urine Benzodiazepines Screen NEGATIVE NEGATIVE Urine Cocaine Screen NEGATIVE NEGATIVE Urine Cannabinoids Screen NEGATIVE NEGATIVE (SHAHNAZ,EDGARD REPRINT SORTER) My Orders Orders - SHAHNAZ,EDGARD REPRINT SORTER Lorazepam Tablet (Lorazepam Tablet) (05/30/23 18:50) (SHAHNAZ,EDGARD REPRINT SORTER) Medications Given in ED Current Medications Medications Dose Ordered Sig/Mak Route Start Time Stop Time Status Last Admin Dose Admin Trimethoprim/ Sulfamethoxazole 1 ea ONCE ONCE PO 05/30/23 16:30 05/30/23 16:31 DC 05/30/23 16:32 1 EA (SHAHNAZ,EDGARD REPRINT SORTER) Vital Signs/I&O 05/30/23 14:10 Pulse 95 Resp 18 B/P (MAP) 123/82 (96) Pulse Ox 88 (SHAHNAZ,EDGARD REPRINT SORTER) Blood Pressure Mean: 96 Progress Progress Note : Progress Note Patient seen and evaluated, resting comfortably in chair, no acute distress. Work-up initiated including CBC, CMP, alcohol level, Tylenol level, salicylate level, urinalysis, urine drug screen, EKG. After medical clearance, will contact [facility] for evaluation. Patient denies history of alcohol withdrawal symptoms. Denies tremors and seizures when she stops drinking. 1550 Labs reviewed. CBC shows decreased hemoglobin 10.7, decreased hematocrit 33. These are improved from labs drawn a couple days ago. CMP shows slightly decreased sodium 128, chloride 95. AST slightly elevated 39. ALT normal. Urinalysis shows 1+ leukocytes, trace RBCs, 5-10 WBCs, few bacteria. Urine drug screen negative. Salicylate negative. Tylenol negative. Alcohol level 203. [facility] called for evaluation. Will administer 1 L of IV fluids for decreased sodium. Will also treat urinary tract infection. (YASMEEN RONQUILLO APRN) Progress Note : Progress Note 1645 assumed care of patient. Resting in bed, no requests at this time. 1745 [facility] Mental Health Screener here to evaluate patient. 1830 patient with mild tremor, Screener has safety plan, ramp manager to assist with transport to home. Will give Lorazepam 2mg oral. 184 patient refused lorazepam, she states that she is not having a tremor but is shaking because she is cold. Requested warm blankets. 192 guest experience manager here to transport patient to home. Discharge instructions and safety plan reviewed. All questions answered. (EDGARD CHRISTIE) Initial ECG Impression Date: May 30, 2023 Initial ECG Impression Time: 15:16 Initial ECG Rate: 93 Initial ECG Rhythm: Normal Sinus Initial ECG Intervals: Normal Initial ECG Impression: Normal Initial ECG Comparisson: Unchanged (YASMEEN RONQUILLO APRN) Departure Impression Primary Impression: Anxiety Additional Impressions: Chronic alcohol abuse Suicidal ideations UTI (urinary tract infection) Disposition: HOME, SELF-CARE Condition: Stable Departure-Patient Inst. Decision time for Depature: 18:40 (EDGARD CHRISTIE) Referrals: NO,LOCAL PHYSICIAN (PCP/Family) Primary Care Physician Patient Instructions: OUTPT MENTAL HEALTH SERVICES Add. Discharge Instructions: Continue services with [facility]. Continue Home Medications and follow Safety Plan. Call [phone] or 911 if suicidal thoughts. Increase water intake. Take antibiotic as directed. Decrease alcohol intake. Return to Emergency Dept for new/urgent healthcare problems. All discharge instructions reviewed with patient and/or family. Voiced understanding. Scripts Sulfamethoxazole/Trimethoprim (Bactrim Ds Tablet) 1 Each Tablet 1 EACH PO BID for 5 Days, #10 TAB 0 Refills Prov: YASMEEN RONQUILLO APRN 05/30/23 YASMEEN RONQUILLO APRN May 30, 2023 14:43 EDGARD CHRISTIE May 30, 2023 18:58
[2023-05-30 15:03] LABS: CHLORIDE 95 MMOL/L (98-107); POTASSIUM 4.3 MMOL/L (3.6-5.0); SODIUM 128 MMOL/L (135-145)
[2023-05-30 15:04] LABS: ALBUMIN 3.4 GM/DL (3.2-4.5)
[2023-05-30 15:05] LABS: CALCIUM 9.2 MG/DL (8.5-10.1)
[2023-05-30 15:06] LABS: GLUCOSE 94 MG/DL (70-105); TOTAL PROTEIN 7.7 GM/DL (6.4-8.2)
[2023-05-30 15:07] LABS: CARBON DIOXIDE 24 MMOL/L (21-32)
[2023-05-30 15:08] LABS: BILIRUBIN,TOTAL 0.2 MG/DL (0.1-1.0)
[2023-05-30 15:10] LABS: ALKALINE PHOSPHATASE 119 U/L (40-136); CREATININE SERUM 0.53 MG/DL (0.60-1.30); GFR ESTIMATED 108
[2023-05-30 15:11] LABS: BUN/CREATININE RATIO 4
[2023-05-30 15:13] LABS: ALANINE AMINOTRANSFERASE 14 U/L (0-55); SALICYLATE < 5.0 MG/DL (5.0-20.0)
[2023-05-30 15:16] LABS: ACETAMINOPHEN < 10 UG/ML (10-30)
[2023-05-30 15:18] LABS: BASOPHILS % (AUTO) 0 % (0-10); EOSINOPHILS # (AUTO) 0.2 10^3/uL (0.0-0.3); EOSINOPHILS % (AUTO) 2 % (0-10); HEMATOCRIT 33 % (35-52); HEMOGLOBIN 10.7 g/dL (11.5-16.0); LYMPHOCYTES # (AUTO) 1.3 X 10^3 (1.0-4.0); LYMPHOCYTES % (AUTO) 14 % (12-44); MEAN CORPUSCULAR HEMOGLOBIN 26 pg (25-34); MEAN CORPUSCULAR HGB CONC 32 g/dL (32-36); MEAN CORPUSCULAR VOLUME 82 fL (80-99); MEAN PLATELET VOLUME 8.6 fL (9.0-12.2); MONOCYTES # (AUTO) 0.9 X 10^3 (0.0-1.0); MONOCYTES % (AUTO) 9 % (0-12); NEUTROPHILS # (AUTO) 7.2 X 10^3 (1.8-7.8); NEUTROPHILS % (AUTO) 75 % (42-75); PLATELET COUNT 361 10^3/uL (130-400); WHITE BLOOD COUNT 9.7 10^3/uL (4.3-11.0)
[2023-05-30 15:34] LABS: CLARITY,URINE CLEAR; COLOR,URINE YELLOW; PH,URINE 6.5 (5-9)
[2023-05-30 15:35] LABS: BACTERIA,URINE FEW /HPF; BILIRUBIN,URINE NEGATIVE (NEGATIVE); GLUCOSE, URINE (UA) NEGATIVE (NEGATIVE); KETONES,URINE NEGATIVE (NEGATIVE); LEUKOCYTE ESTERASE ,URINE 1+ (NEGATIVE); NITRITE,URINE NEGATIVE (NEGATIVE); PROTEIN,URINE NEGATIVE (NEGATIVE); SQUAMOUS EPITHELIAL CELL,UR 0-2 /HPF
[2023-05-30 15:37] LABS: AMPHETAMINE SCREEN, URINE NEGATIVE (NEGATIVE); BARBITURATE SCREEN URINE NEGATIVE (NEGATIVE); BENZODIAZEPINES SCREEN URINE NEGATIVE (NEGATIVE); CANNABINOID SCREEN, URINE NEGATIVE (NEGATIVE); COCAINE SCREEN URINE NEGATIVE (NEGATIVE); METHADONE STAT NEGATIVE (NEGATIVE); OPIATE SCREEN URINE NEGATIVE (NEGATIVE); OXYCODONE STAT NEGATIVE (NEGATIVE); PROPOXYPHENE STAT NEGATIVE (NEGATIVE); TRICYCLIC ANTIDEPRESSANTS SCRE NEGATIVE (NEGATIVE)
[2023-05-30] MEDS ORDERED: TRIM/SULFAMETH 160/800 (SEPTRA DS) TAB PO ONE (16:30)
[2023-05-30] MEDS ORDERED: NS IV 1000 ML 1,000 ML IV SCH (16:30)
[2023-05-30] MEDS ORDERED: SULF1TAB38 PO (16:58)
[2023-05-30] MEDS: LORazepam 1 MG TABLET PO STA ×2 (18:59→19:00)
[2023-05-30 19:30] VITALS: BP 131/80
== END 2023-05-30 19:32 | disposition home or self-care (01) ==
LOC: EDUNIT# 13:58 → ER 14:00
DX: F41.9 Anxiety disorder, unspecified (principal); R45.851 Suicidal ideations; F10.10 Alcohol abuse, uncomplicated; N39.0 Urinary tract infection, site not specified; R82.71 Bacteriuria; R71.0 Precipitous drop in hematocrit; F17.210 Nicotine dependence, cigarettes, uncomplicated; E87.1 Hypo-osmolality and hyponatremia; Y90.7 Blood alcohol level of 200-239 mg/100 ml; Z88.0 Allergy status to penicillin
CPT/HCPCS: 36415; 80053; 80306; 80320; 80329; 81000; 85025; 87088; 93005

== ENCOUNTER 2023-06-23 10:09 | Emergency (ER) | payer OTHER ==
[~2023-06-23] VITALS: Ht 160 cm; Wt 46.2 kg
[~2023-06-23 10:09] MED LIST changes: +SULF1TAB38 PO
[2023-06-23 11:02] LABS: HCG,QUALITATIVE URINE NEGATIVE (NEGATIVE)
[2023-06-23 11:09] LABS: AMPHETAMINE SCREEN, URINE NEGATIVE (NEGATIVE); BARBITURATE SCREEN URINE NEGATIVE (NEGATIVE); BENZODIAZEPINES SCREEN URINE NEGATIVE (NEGATIVE); CANNABINOID SCREEN, URINE NEGATIVE (NEGATIVE); CLARITY,URINE CLEAR; COCAINE SCREEN URINE NEGATIVE (NEGATIVE); COLOR,URINE YELLOW; GLUCOSE, URINE (UA) NEGATIVE (NEGATIVE); KETONES,URINE NEGATIVE (NEGATIVE); METHADONE STAT NEGATIVE (NEGATIVE); OPIATE SCREEN URINE NEGATIVE (NEGATIVE); OXYCODONE STAT NEGATIVE (NEGATIVE); PROPOXYPHENE STAT NEGATIVE (NEGATIVE); PROTEIN,URINE TRACE (NEGATIVE); TRICYCLIC ANTIDEPRESSANTS SCRE NEGATIVE (NEGATIVE)
[2023-06-23 11:10] LABS: BACTERIA,URINE TRACE /HPF; BILIRUBIN,URINE NEGATIVE (NEGATIVE); LEUKOCYTE ESTERASE ,URINE NEGATIVE (NEGATIVE); NITRITE,URINE NEGATIVE (NEGATIVE)
[2023-06-23 11:13] LABS: BASOPHILS # (AUTO) 0.1 10^3/uL (0.0-0.1); BASOPHILS % (AUTO) 0 % (0-10); EOSINOPHILS # (AUTO) 0.2 10^3/uL (0.0-0.3); EOSINOPHILS % (AUTO) 1 % (0-10); HEMATOCRIT 34 % (35-52); HEMOGLOBIN 10.8 g/dL (11.5-16.0); LYMPHOCYTES # (AUTO) 0.7 10^3/uL (1.0-4.0); LYMPHOCYTES % (AUTO) 5 % (12-44); MEAN CORPUSCULAR HEMOGLOBIN 28 pg (25-34); MEAN CORPUSCULAR HGB CONC 32 g/dL (32-36); MEAN CORPUSCULAR VOLUME 88 fL (80-99); MEAN PLATELET VOLUME 8.4 fL (9.0-12.2); MONOCYTES # (AUTO) 0.9 10^3/uL (0.0-1.0); MONOCYTES % (AUTO) 7 % (0-12); NEUTROPHILS # (AUTO) 11.8 10^3/uL (1.8-7.8); NEUTROPHILS % (AUTO) 86 % (42-75); PLATELET COUNT 356 10^3/uL (130-400); WHITE BLOOD COUNT 13.8 10^3/uL (4.3-11.0)
[2023-06-23 11:23] LABS: ALBUMIN 3.6 GM/DL (3.2-4.5); CHLORIDE 98 MMOL/L (98-107); POTASSIUM 3.7 MMOL/L (3.6-5.0); SODIUM 134 MMOL/L (135-145)
[2023-06-23 11:26] LABS: GLUCOSE 142 MG/DL (70-105)
[2023-06-23 11:27] LABS: BILIRUBIN,TOTAL 0.3 MG/DL (0.1-1.0); CARBON DIOXIDE 20 MMOL/L (21-32)
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
[2023-06-23 11:29] LABS: ALKALINE PHOSPHATASE 136 U/L (40-136); CREATININE SERUM 0.61 MG/DL (0.60-1.30); GFR ESTIMATED 105
[2023-06-23 11:31] LABS: ACETAMINOPHEN < 10 UG/ML (10-30); BUN/CREATININE RATIO 5
[2023-06-23 11:32] LABS: SALICYLATE < 5.0 MG/DL (5.0-20.0)
[2023-06-23 11:33] LABS: ALANINE AMINOTRANSFERASE 12 U/L (0-55)
[2023-06-23 11:43] LABS: ANISOCYTOSIS MODERATE; BAND NEUTROPHILS 1 %; BASOPHILS % (MANUAL) 1 %; EOSINOPHILS % (MANUAL) 3 %; LYMPHOCYTES % (MANUAL) 5 %; MONOCYTES % (MANUAL) 5 %; NEUTROPHILS % (MANUAL) 85 %
[2023-06-23 11:44] LABS: TARGET CELLS SLIGHT
[2023-06-23 16:13] VITALS: BP 142/79
== END 2023-06-23 16:13 | disposition home or self-care (01) ==
LOC: EDUNIT# 10:09 → ER 10:10
DX: F32.A Depression, unspecified (principal); F10.10 Alcohol abuse, uncomplicated; F17.210 Nicotine dependence, cigarettes, uncomplicated
CPT/HCPCS: 80053; 80306; 81000; 84703; 85007; 85027; 93005; 99283; G0480 ×3; 36415; 80320; 80329